=== PATIENT | male | born 1955 | race African-American/Black ===

== ENCOUNTER 2016-12-18 13:03 | Emergency (ER) | payer MEDICAID, MEDICARE ==
[~2016-12-18] VITALS: Ht 177.8 cm; Wt 124.5 kg
[~2016-12-18 13:03] MED LIST: ALBU8.5H2 INHALATION; AMLO5TAB2 PO; ATOR20TA65 PO; FERR325T6 PO; LIPA1CAP64 PO; METF1000 PO; METO100T3 PO; OXYC10TA8 PO; PANT40TA3 PO; POLY17PO6 PO; SERT100T9 PO; TAMS0.4C29 PO; TERA5CAP6 PO
[2016-12-18 13:05] VITALS: BP 170/113; PULSE 108; RESP 20; O2SAT 99
[2016-12-18 14:05] LABS: BASOPHILS % (AUTO) 0.2 % (0-3); EOSINOPHILS % (AUTO) 0.9 % (0-5); MONOCYTES % (AUTO) 13.4 % (4-12); Mean Corpuscular Hemoglobin 22.7 pg (27.0-35.0); Mean Corpuscular Volume 68.4 fL (81-100); NEUTROPHILS % (AUTO) 72.1 % (40-74); Platelet Count 247 bil/L (150-400)
--- NOTE | 2016-12-18 14:33 | DRSVH ---
PROCEDURE: X-RAY CHEST, TWO VIEWS ([id number]) INDICATIONS: CHEST PAIN TECHNIQUE: 2 views of the chest were acquired. COMPARISON: [facility], CR, XR CHEST 1VW (PORTABLE), 11/02/2016, 19:35. FINDINGS: Surgical changes and devices: None. Lungs and pleura: No pleural effusions or pneumothorax. Lungs are clear. Mediastinum: Mediastinal contours are normal. Heart size is normal. Bones and chest wall: No suspicious bony abnormalities. Soft tissues appear unremarkable. IMPRESSION: No acute pulmonary process. Dictated by: Marjan Rubalcava M.D. on 12/18/2016 at 14:32 Approved by: Marjan Rublacava M.D. on 12/18/2016 at 14:32
[2016-12-18 14:48] LABS: TROPONIN T < 0.010 ug/L (0.0-0.011)
[2016-12-18 14:49] LABS: Lipase 119 U/L (13-60); Magnesium 1.5 mg/dL (1.6-2.6)
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
[2016-12-18] MEDS ORDERED: 0.9% Sodium Chloride 1,000 ML IV ONE (15:35)
[2016-12-18] MEDS ORDERED: Ondansetron 2 mg/mL 2 mL Inj IVPUSH PRN (15:35)
[2016-12-18] MEDS ORDERED: Ondansetron 2 mg/mL 2 mL Inj IVPUSH ONE (15:35)
[2016-12-18] MEDS ORDERED: HYDROmorphone 1 mg/mL Inj IVPUSH ONE (15:35)
[2016-12-18] MEDS ORDERED: HYDROmorphone 1 mg/mL Inj IVPUSH PRN (16:35)
[2016-12-18] MEDS ORDERED: ONDA4TAB9 PO (18:08)
[2016-12-18 19:30] LABS: APPEARANCE,URINE HAZY (CLEAR,HAZY); COLOR,URINE YELLOW (YELLOW); PH,URINE 5.5 (5.0-8.0)
[2016-12-18 19:31] LABS: OCCULT BLOOD,URINE TRACE (NEGATIVE); UROBILINOGEN,URINE NORMAL (NORMAL)
[2017-01-17] MEDS ORDERED: ISOS30TA4 PO (15:16)
[2017-01-17] MEDS ORDERED: FUR20 PO (15:16)
[2017-01-17] MEDS ORDERED: MELA5TAB14 PO (15:16)
[2017-01-17] MEDS ORDERED: GABA-500 PO (15:16)
[2017-01-17] MEDS ORDERED: FLUT16SP NS (15:16)
[2017-01-17] MEDS ORDERED: BUPR100T15 PO (15:16)
[2017-01-17] MEDS ORDERED: AMIO200T PO (15:16)
== END 2016-12-18 18:30 | disposition home or self-care (01) ==
LOC: SED 13:03
DX: R07.9 Chest pain, unspecified (principal); K86.1 Other chronic pancreatitis; R42 Dizziness and giddiness; R06.02 Shortness of breath; E11.9 Type 2 diabetes mellitus without complications; I25.10 Atherosclerotic heart disease of native coronary artery without angina pectoris; I10 Essential (primary) hypertension; I48.0 Paroxysmal atrial fibrillation; F43.10 Post-traumatic stress disorder, unspecified; G89.4 Chronic pain syndrome; K21.9 Gastro-esophageal reflux disease without esophagitis; E78.5 Hyperlipidemia, unspecified; F17.200 Nicotine dependence, unspecified, uncomplicated; Z86.018 Personal history of other benign neoplasm; Z95.818 Presence of other cardiac implants and grafts; Z87.828 Personal history of other (healed) physical injury and trauma; Z79.84 Long term (current) use of oral hypoglycemic drugs; Z88.8 Allergy status to other drugs, medicaments and biological substances; Z88.6 Allergy status to analgesic agent
CPT/HCPCS: 36415; 71020; 80053; 81000; 83690; 83735; 83880; 84484; 85025; 93005; 96374; 96375; 99285; J1170; J2405; J7030

== ENCOUNTER 2017-01-20 00:21 | Day surgery (SDC) | payer MEDICAID, MEDICARE ==
[2017-01-20] VITALS (10 sets, daily range): BP systolic 107–176; BP diastolic 68–104; PULSE 66–79; RESP 10–14; O2SAT 98
[~2017-01-20] VITALS: Ht 177.8 cm; Wt 124.0 kg
[~2017-01-20 00:21] MED LIST changes: +AMIO200T PO; +BUPR100T15 PO; +FLUT16SP NS; +FUR20 PO; +GABA-500 PO; +ISOS30TA4 PO; +MELA5TAB14 PO; +ONDA4TAB9 PO
[2017-01-20] MEDS ORDERED: KEPP250T PO (07:28)
[2017-01-20] MEDS ORDERED: TRAM50TA2 PO (07:50)
[2017-01-20] MEDS ORDERED: ONDA4TAB6 PO (07:53)
[2017-01-20] MEDS ORDERED: POLY17PO6 PO (07:53)
[2017-01-20] MEDS ORDERED: METO100T3 PO (07:53)
[2017-01-20] MEDS ORDERED: ATOR20TA PO (07:53)
[2017-01-20] MEDS ORDERED: OXYC-474 PO (07:53)
[2017-01-20] MEDS ORDERED: Heparin 5,000 Units/500 mL NS Premix IV ONE (07:57)
[2017-01-20] MEDS ORDERED: Heparin 1,000 Units/500 mL NS Premix IV ONE (07:57)
[2017-01-20] MEDS ORDERED: HYDROmorphone 2 mg/mL Inj ONE (08:10)
[2017-01-20] MEDS ORDERED: Ondansetron 2 mg/mL 2 mL Inj ONE (08:11)
[2017-01-20] MEDS ORDERED: 0.9% Sodium Chloride 1,000 ML ONE (08:11)
[2017-01-20 08:15] LABS: BASOPHILS % (AUTO) 0.6 % (0-3); EOSINOPHILS % (AUTO) 3.2 % (0-5); MONOCYTES % (AUTO) 13.7 % (4-12); Mean Corpuscular Hemoglobin 23.1 pg (27.0-35.0); Mean Corpuscular Volume 69.7 fL (81-100); NEUTROPHILS % (AUTO) 57.9 % (40-74); Platelet Count 197 bil/L (150-400)
[2017-01-20] MEDS ORDERED: fentaNYL-PF 50 mCg/mL 2 mL Inj ONE (08:39)
[2017-01-20] MEDS ORDERED: Ondansetron 2 mg/mL 2 mL Inj IVPUSH PRN ×2 (09:00→09:25)
[2017-01-20] MEDS ORDERED: HYDROmorphone 2 mg/mL Inj IVPUSH ONE (09:00)
[2017-01-20] MEDS ORDERED: 0.9% Sodium Chloride 250 ML IV PRN (09:21)
[2017-01-20] MEDS ORDERED: 0.9% Sodium Chloride 1,000 ML IV PRN (09:21)
[2017-01-20] MEDS ORDERED: HYDROcodone-APAP 5-325 mg Tablet PO PRN (09:25)
[2017-01-20] MEDS ORDERED: Atropine 1 mg/10 mL (Code) Syringe IVPUSH PRN (09:25)
--- NOTE | 2017-01-20 09:50 | PCM.CVCATH ---
Cardiac Cath Report Date of Service Jan 20, 2017 Primary Indication Persistent chest pain in a patient with history of CAD and spinal tumor. Patient comes in for more definite diagnosis for his chest pain and as well as preoperative assessment prior to possible spinal surgery. Procedure 1. Left heart catheterization 2. Left ventricular angiogram 3. Selective coronary angiogram 4. Right femoral angiogram Procedure Details The patient was brought into the catheterization laboratory. The patient was nothing by mouth since midnight. The patient was prepped and sterilized in the appropriate fashion. Local anesthetic was given to the right groin region with lidocaine 1%. A percutaneous stick to the right groin region with an 18-gauge Seldinger needle was attempted. A 6 [place] sheath was inserted into the right femoral artery. A 6 [place] 4 diagnostic catheter was advanced and engaged into the left main. The left coronary angiography was performed in multiple views. The catheter was exchanged over the wire for a 6 [place] FR4 diagnostic catheter. The catheter was engaged in the right coronary ostium and the right coronary angiography was performed in multiple views. The catheter was removed over the wire and exchanged for 6 [place] angle pigtail catheter. LV hemodynamics were recorded. Left ventricular angiography was performed at 10 mL /s for total 30 mL of contrast. LV pullback was performed. All catheters were removed. The right femoral angiogram was performed to evaluate for closure device. Hemostasis was obtained with starclose. The patient was transferred back to special observation unit for post procedural monitoring. There were no immediate complications. Total fluoroscopy time: 4.4 minutes Total fluoroscopy dosage: 1293 mGy Estimated blood loss: 10 mL Total contrast: 115 mL Findings 1. Hemodynamics: The left ventricular systolic pressure was estimated at 120 mmHg and the left ventricular end-diastolic pressure was estimated at 14 mmHg. There is no significant gradient during pullback. The aortic systemic pressure was 126/74 mmHg. 2. Selective coronary angiography: A. Left main: There artery has no evidence of significant disease. It bifurcates into the left anterior and left circumflex arteries. B. Left anterior descending artery: The proximal LAD stent is widely patent. Beyond the first major septal artery there is a 30-40% stenosis. Otherwise distally there is no significant disease. All 3 major diagonal arteries have no evidence of significant disease. C. Left circumflex artery: This is a nondominant artery but does supply most of the coronary flow to the lateral wall. There is no evidence of significant disease. There is only mild luminal irregularities. D. Right coronary artery: There is at least moderate diffuse disease throughout entire right coronary artery. It is the dominant vessel. There appears to be a stent in the proximal midportion that is widely patent. At most in the mid RCA there is a 50% stenosis. Posterior descending artery has moderate diffuse disease. There are multiple posterior lateral branch arteries that covers a small portion of the inferolateral wall. The proximal of a distal posterolateral branch artery has 90% stenosis but the size of the vessel is ~1.5 mm. 3. Left ventricular angiogram: The ejection fraction is around 70%. There is no appreciable LV wall motion abnormalities. 4. Right femoral angiogram: There is no evidence of significant disease. Summary 1. No evidence of critical disease that requires percutaneous intervention. 2. Right coronary has significant disease but no evidence of critical stenosis. A distal posterolateral branch small size artery has 90% stenosis. 3. Both the right coronary and left anterior descending stents are widely patent. 4. Normal LVEF and wall motion. 5. Normal left ventricular filling pressures. Recommendations Continue with aggressive medical therapy. START Imdur 30 mg once a day. Patient may follow with me in about 6-8 weeks. Patient should be fine to proceed with surgery if necessary. Patient was given reassurance that his chest pain is most likely noncardiogenic. copies to: Effie Barros Oscar J MD Jan 20, 2017 09:50
== END 2017-01-20 23:59 | disposition home or self-care (01) ==
LOC: SOUO 00:21
PROVIDERS: ATTEND Internal Medicine Cardiovascular Disease
DX: Z01.810 Encounter for preprocedural cardiovascular examination (principal); I25.10 Atherosclerotic heart disease of native coronary artery without angina pectoris; Z95.5 Presence of coronary angioplasty implant and graft; D36.10 Benign neoplasm of peripheral nerves and autonomic nervous system, unspecified; I25.2 Old myocardial infarction; E11.9 Type 2 diabetes mellitus without complications; I10 Essential (primary) hypertension; N40.0 Benign prostatic hyperplasia without lower urinary tract symptoms; I48.0 Paroxysmal atrial fibrillation; D50.8 Other iron deficiency anemias; F17.210 Nicotine dependence, cigarettes, uncomplicated; G89.4 Chronic pain syndrome; Z79.891 Long term (current) use of opiate analgesic; Z79.84 Long term (current) use of oral hypoglycemic drugs
CPT/HCPCS: 36415; 80048; 85025; 93458; 99152; 99153; C1760; C1769; J1170; J1200; J1644; J2060; J2250; J2405; J3010; J7030; Q9967

== ENCOUNTER 2017-01-29 11:05 | Emergency (ER) | payer MEDICAID, MEDICARE ==
[~2017-01-29] VITALS: Ht 177.8 cm; Wt 124.5 kg
[~2017-01-29 11:05] MED LIST changes: -AMLO5TAB2 PO; +ATOR20TA PO; -ATOR20TA65 PO; -BUPR100T15 PO; -GABA-500 PO; +KEPP250T PO; -LIPA1CAP64 PO; -MELA5TAB14 PO; +ONDA4TAB6 PO; -ONDA4TAB9 PO; +OXYC-474 PO; -OXYC10TA8 PO; +TRAM50TA2 PO
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
[2017-01-29 11:30] VITALS: BP 209/139; PULSE 77; RESP 23; O2SAT 99
[2017-01-29] MEDS ORDERED: Ondansetron 2 mg/mL 2 mL Inj IVPUSH ONE (11:50)
--- NOTE | 2017-01-29 12:09 | DRSVH ---
PROCEDURE: X-RAY CHEST ONE VIEW, PORTABLE ([id number]) INDICATIONS: chest pain TECHNIQUE: One view of the chest was acquired. COMPARISON: [facility], CR, XR CHEST 1VW (PORTABLE), 11/02/2016, 19:35. FINDINGS: Surgical changes and devices: None. Lungs and pleura: The small right-sided pleural fluid collection noted. No or pneumothorax. Lungs a re clear. Mediastinum: Mediastinal contours appear normal. Heart size is normal. Bones and chest wall: No suspicious bony lesions. Overlying soft tissues appear unremarkable. IMPRESSION: Small right-sided pleural fluid collection. Dictated by: Lala Velazquez MD, PhD on 01/29/2017 at 12:06 Approved by: Lala Velazquez MD, PhD on 01/29/2017 at 12:07
[2017-01-29 12:11] LABS: BASOPHILS % (AUTO) 0.3 % (0-3); EOSINOPHILS % (AUTO) 2.8 % (0-5); MONOCYTES % (AUTO) 14.5 % (4-12); Mean Corpuscular Hemoglobin 23.4 pg (27.0-35.0); Mean Corpuscular Volume 70.3 fL (81-100); NEUTROPHILS % (AUTO) 68.9 % (40-74); Platelet Count 207 bil/L (150-400)
[2017-01-29] MEDS ORDERED: LidocaineVisc 2%:Antacid 1:1 10 mL Syringe PO ONE (12:20)
[2017-01-29 12:29] LABS: TROPONIN T 0.01 ug/L (0.0-0.011)
[2017-01-29 12:42] LABS: Magnesium 1.8 mg/dL (1.6-2.6)
[2017-01-29 13:09] VITALS: BP 196/106; PULSE 77; RESP 20; O2SAT 97
[2017-01-29 15:01] VITALS: BP 181/104; PULSE 74; RESP 16; O2SAT 96
[2017-01-30] MEDS ORDERED: DOXY100C43 PO (18:00)
== END 2017-01-29 15:02 | disposition home or self-care (01) ==
LOC: SED 11:05
DX: R07.9 Chest pain, unspecified (principal); J18.9 Pneumonia, unspecified organism; D36.10 Benign neoplasm of peripheral nerves and autonomic nervous system, unspecified; E11.9 Type 2 diabetes mellitus without complications; K21.9 Gastro-esophageal reflux disease without esophagitis; E78.5 Hyperlipidemia, unspecified; I10 Essential (primary) hypertension; I48.0 Paroxysmal atrial fibrillation; G89.29 Other chronic pain; F17.210 Nicotine dependence, cigarettes, uncomplicated; Z87.828 Personal history of other (healed) physical injury and trauma; Z95.5 Presence of coronary angioplasty implant and graft; Z87.448 Personal history of other diseases of urinary system; Z79.51 Long term (current) use of inhaled steroids; Z79.84 Long term (current) use of oral hypoglycemic drugs; Z88.6 Allergy status to analgesic agent; Z88.8 Allergy status to other drugs, medicaments and biological substances
CPT/HCPCS: 36415; 71010; 80053; 82948; 83735; 84484; 85025; 90791; 93005; 96365; 96372; 96375; 99285; J2405

== ENCOUNTER 2017-01-30 14:21 | Emergency (ER) | payer MEDICAID, MEDICARE ==
[~2017-01-30] VITALS: Ht 177.8 cm; Wt 124.5 kg
[2017-01-30 14:27] VITALS: BP 179/106; PULSE 87; RESP 18; O2SAT 98
[2017-01-30 14:45] VITALS: BP 196/112; PULSE 80; RESP 18; O2SAT 97
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
[2017-01-30] MEDS ORDERED: Ondansetron 2 mg/mL 2 mL Inj IVPUSH ONE (15:40)
[2017-01-30] MEDS ORDERED: HYDROmorphone 0.5 mg/0.5 mL iSecure Syringe IVPUSH ONE (15:50)
[2017-01-30 15:59] LABS: BASOPHILS % (AUTO) 0.3 % (0-3); MONOCYTES % (AUTO) 11.4 % (4-12); Mean Corpuscular Hemoglobin 22.5 pg (27.0-35.0); Mean Corpuscular Volume 70.9 fL (81-100); NEUTROPHILS % (AUTO) 75.4 % (40-74); Platelet Count 208 bil/L (150-400)
[2017-01-30 16:21] LABS: INR 0.96 ratio
[2017-01-30 16:28] LABS: TROPONIN T < 0.010 ug/L (0.0-0.011)
--- NOTE | 2017-01-30 16:31 | DRSVH ---
PROCEDURE: X-RAY CHEST, TWO VIEWS ([id number]) INDICATIONS: chest pain TECHNIQUE: 2 views of the chest were acquired. COMPARISON: [facility], CR, XR CHEST 1VW (PORTABLE), 01/29/2017, 11:56. [facility], CR, XR CHEST 2VW, 12/18/2016, 13:58. [facility], CR, XR CHEST 2VW, 05/06/2016, 14: 08. [facility], CR, XR CHEST 2VW, 04/08/2016, 7:38. FINDINGS: Surgical changes and devices: None. Lungs and pleura: No pleural effusions or pneumothorax. Lungs are clear. Mediastinum: Mediastinal contours are normal. Heart size is normal. Bones and chest wall: No suspicious bony abnormalities. Soft tissues appear unremarkable. IMPRESSION: No acute process. Dictated by: Felisha Garcia M.D. on 01/30/2017 at 16:30 Approved by: Felisha Garcia M.D. on 01/30/2017 at 16:30
[2017-01-30 16:37] LABS: Magnesium 1.8 mg/dL (1.6-2.6)
--- NOTE | 2017-01-30 16:41 | DRSVH ---
PROCEDURE: CT ANGIO CHEST PULMONARY EMBOLISM ([id number]) INDICATIONS: chest pain TECHNIQUE: After the administration of intravenous contrast, 2 mm thick sections acquired from the pulmonary api rachel to the posterior costophrenic angles. 3-dimensional maximum intensity projection (MIP) coronal a nd sagittal reformats were then acquired through the thorax. For radiation dose reduction, the follo wing was used: automated exposure control, adjustment of mA and/or kV according to patient size. COMPARISON: [facility], CT, CT ANGIO CHEST PE, 09/29/2016, 22:39. [facility], CT, CT ANGIO CHEST PE, 07/02/2015, 20:46. [facility], CT, CHEST ANGIO-PE, 06/19/2014, 1 7:11. [facility], CT, CT ANGIO CHEST ABD, 11/02/2016, 21:07. FINDINGS: Image quality: Excellent. Pulmonary arteries: Pulmonary arteries are normal in size, and demonstrate no intraluminal filling d efects to suggest central pulmonary embolism. Lungs and pleura: Moderate scattered ground glass densities are seen within the bilateral upper lobes , consistent with pneumonia. The previously seen nodule within the right upper lobe posterolaterally measuring 9 mm is unchanged. No pleural effusions or pneumothorax. Central and peripheral airways ar e patent. Mediastinum: Heart size is enlarged, without pericardial effusion. There is calcification of the co ronary vasculature. No mediastinal or hilar adenopathy. Thoracic aorta is normal in caliber and enha ncement. Esophagus is normal in caliber, without hiatal hernia. The previously seen right paraspino us mass at the T4-T5 level it has increased in size measuring 27 mm transverse (previously measuring 24 mm transverse). Bones and chest wall: No suspicious bony lesions. Ribs and thoracic spine appear intact throughout. Thyroid gland is within normal limits on noncontrast imaging. No axillary or supraclavicular adeno francesco. Abdomen: Visualized portions of the upper abdomen demonstrate a nodular hepatic contour, indicating cirrhosis. IMPRESSION: 1. Mild multifocal bilateral upper lobe pneumonia. 2. No pulmonary embolus. 3. Increased right paraspinous T4-T5 reason, consistent with neurogenic tumor. This could be further assessed with MRI with and without intravenous contrast, if clinically indicated. 4. Cardiomegaly and coronary artery disease. Dictated by: Felisha Garcia M.D. on 01/30/2017 at 16:36 Approved by: Felisha Garcia M.D. on 01/30/2017 at 16:39
[2017-01-30] MEDS ORDERED: ProchlorPERazine 5 mg/mL 2 mL Inj IM ONE (16:55)
[2017-01-30] MEDS ORDERED: cefTRIAXone Inj 1,000 MG in Dextrose 5% Minibag Plus 50 ML IV ONE (17:10)
[2017-01-30 17:56] VITALS: BP 206/114; PULSE 68; RESP 18; O2SAT 97
[2017-01-30] MEDS ORDERED: DOXY100C43 PO (18:00)
[2017-01-30 18:07] VITALS: BP 206/114; PULSE 68; RESP 18; O2SAT 97
== END 2017-01-30 18:10 | disposition home or self-care (01) ==
LOC: SED 14:21
DX: R07.9 Chest pain, unspecified (principal); J18.9 Pneumonia, unspecified organism; D36.10 Benign neoplasm of peripheral nerves and autonomic nervous system, unspecified; E11.9 Type 2 diabetes mellitus without complications; I25.10 Atherosclerotic heart disease of native coronary artery without angina pectoris; I10 Essential (primary) hypertension; G89.4 Chronic pain syndrome; K21.9 Gastro-esophageal reflux disease without esophagitis; E78.5 Hyperlipidemia, unspecified; Z79.84 Long term (current) use of oral hypoglycemic drugs; F17.200 Nicotine dependence, unspecified, uncomplicated; Z88.6 Allergy status to analgesic agent; Z88.8 Allergy status to other drugs, medicaments and biological substances
CPT/HCPCS: 36415; 71020; 71275; 80053; 82948; 83735; 83880; 84484; 85025; 85610; 85730; 93005; 96365; 96372; 96375; 99285; J0696; J0780; J1170; J1200; J2405; Q9967

== ENCOUNTER 2017-02-08 12:10 | Emergency (ER) | payer MEDICAID, MEDICARE ==
[~2017-02-08] VITALS: Ht 177.8 cm; Wt 124.5 kg
[~2017-02-08 12:10] MED LIST changes: +DOXY100C43 PO; -FERR325T6 PO; -FLUT16SP NS
[2017-02-08 12:14] VITALS: BP 204/120; PULSE 81; RESP 18; O2SAT 99
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
[2017-02-08] MEDS ORDERED: HYDROmorphone 1 mg/mL Inj IM ONE (13:15)
[2017-02-08] MEDS ORDERED: Ondansetron 8 mg ODT Tablet PO ONE (13:15)
--- NOTE | 2017-02-08 13:34 | DRSVH ---
PROCEDURE: X-RAY CHEST ONE VIEW, PORTABLE ([id number]) INDICATIONS: CHEST PAIN TECHNIQUE: One view of the chest was acquired. COMPARISON: [facility], CR, XR CHEST 2VW, 01/30/2017, 16:13. FINDINGS: Surgical changes and devices: None. Lungs and pleura: No pleural effusions or pneumothorax. Low lung volumes and scattered atelectasis w ithout focal consolidation. Mediastinum: Mediastinal contours appear normal. Heart size is normal. Bones and chest wall: No suspicious bony lesions. Overlying soft tissues appear unremarkable. IMPRESSION: Low lung volumes and scattered atelectasis Dictated by: Ronal Kenney M.D. on 02/08/2017 at 13:32 Approved by: Ronal Kenney M.D. on 02/08/2017 at 13:32
[2017-02-08 14:05] LABS: BASOPHILS % (AUTO) 0.6 % (0-3); EOSINOPHILS % (AUTO) 2.1 % (0-5); MONOCYTES % (AUTO) 15.1 % (4-12); Mean Corpuscular Hemoglobin 23.2 pg (27.0-35.0); NEUTROPHILS % (AUTO) 59.3 % (40-74); Platelet Count 257 bil/L (150-400)
[2017-02-08 14:28] LABS: TROPONIN T < 0.010 ug/L (0.0-0.011)
[2017-02-08 14:37] LABS: Magnesium 1.8 mg/dL (1.6-2.6)
[2017-02-08 14:54] VITALS: BP 194/113; PULSE 78; RESP 20; O2SAT 98
[2017-02-08] MEDS ORDERED: HYDROmorphone 0.5 mg/0.5 mL iSecure Syringe IVPUSH ONE (15:15)
[2017-02-08] MEDS ORDERED: AMLO2.5T PO (16:34)
[2017-02-08 16:50] VITALS: BP 152/79; PULSE 79; RESP 18; O2SAT 98
== END 2017-02-08 16:51 | disposition home or self-care (01) ==
LOC: SED 12:10
DX: R07.89 Other chest pain (principal); G89.29 Other chronic pain; R06.02 Shortness of breath; R61 Generalized hyperhidrosis; R05 Cough; R11.0 Nausea; R50.9 Fever, unspecified; I11.9 Hypertensive heart disease without heart failure; E11.59 Type 2 diabetes mellitus with other circulatory complications; I48.0 Paroxysmal atrial fibrillation; I25.10 Atherosclerotic heart disease of native coronary artery without angina pectoris; E78.5 Hyperlipidemia, unspecified; K21.9 Gastro-esophageal reflux disease without esophagitis; F17.200 Nicotine dependence, unspecified, uncomplicated; Z79.84 Long term (current) use of oral hypoglycemic drugs; Z88.8 Allergy status to other drugs, medicaments and biological substances
CPT/HCPCS: 36415; 71010; 80053; 83735; 84484; 85025; 93005; 96372; 96374; 99285; J1170

== ENCOUNTER 2017-02-14 21:06 | Emergency (ER) | payer MEDICAID, MEDICARE ==
[~2017-02-14] VITALS: Ht 177.8 cm; Wt 124.5 kg
[~2017-02-14 21:06] MED LIST changes: +AMLO2.5T PO
[2017-02-14 21:15] VITALS: BP 159/91; PULSE 79; RESP 16; O2SAT 100
== END 2017-02-14 21:31 | disposition left against medical advice (07) ==
LOC: SED 21:06
DX: R07.9 Chest pain, unspecified (principal); Z53.21 Procedure and treatment not carried out due to patient leaving prior to being seen by health care provider

== ENCOUNTER 2017-02-20 19:12 | Emergency (ER) | payer MEDICAID, MEDICARE ==
[~2017-02-20] VITALS: Ht 177.8 cm; Wt 124.5 kg
[2017-02-20 19:14] VITALS: BP 166/106; PULSE 104; RESP 18; O2SAT 99
[2017-02-20 19:56] LABS: BASOPHILS % (AUTO) 1.8 % (0-3); EOSINOPHILS % (AUTO) 2.9 % (0-5); MONOCYTES % (AUTO) 16.2 % (4-12); Mean Corpuscular Hemoglobin 23.6 pg (27.0-35.0); Mean Corpuscular Volume 71.5 fL (81-100); NEUTROPHILS % (AUTO) 54.2 % (40-74); Platelet Count 200 bil/L (150-400)
--- NOTE | 2017-02-20 20:03 | DRSVH ---
PROCEDURE: X-RAY CHEST ONE VIEW, PORTABLE ([id number]) INDICATIONS: CP TECHNIQUE: One view of the chest was acquired. COMPARISON: [facility], CT, CT ANGIO CHE[facility]BD, [facility]02[facility], 01/30/2017, 16:13. [facility], CR, XR CHEST 1VW (PORTABLE), 02/09/20 17, 12:21. FINDINGS: Surgical changes and devices: None. Lungs and pleura: No pleural effusions or pneumothorax. Lungs are clear of acute opacities. Scarri ng in the right lung base is stable compared to prior examinations. Mediastinum: Mediastinal contours appear normal. Heart size is normal. Bones and chest wall: No suspicious bony lesions. Overlying soft tissues appear unremarkable. IMPRESSION: No acute cardiopulmonary disease process. Dictated by: Lala Velazquez MD, PhD on 02/20/2017 at 20:00 Approved by: Lala Velazquez MD, PhD on 02/20/2017 at 20:02
[2017-02-20 20:18] LABS: TROPONIN T < 0.010 ug/L (0.0-0.011)
[2017-02-20] MEDS ORDERED: Ondansetron 2 mg/mL 2 mL Inj ONE ×2 (20:23→20:26)
[2017-02-20] MEDS ORDERED: Ondansetron 2 mg/mL 2 mL Inj IVPUSH ONE (20:25)
[2017-02-20 20:27] LABS: Magnesium 1.7 mg/dL (1.6-2.6)
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
[2017-02-20 22:59] VITALS: BP 160/100; PULSE 75; RESP 15; O2SAT 98
== END 2017-02-20 23:00 | disposition home or self-care (01) ==
LOC: SED 19:12
DX: R07.89 Other chest pain (principal); R19.7 Diarrhea, unspecified; R11.2 Nausea with vomiting, unspecified; I25.10 Atherosclerotic heart disease of native coronary artery without angina pectoris; E11.9 Type 2 diabetes mellitus without complications; I10 Essential (primary) hypertension; I48.0 Paroxysmal atrial fibrillation; F43.10 Post-traumatic stress disorder, unspecified; G89.4 Chronic pain syndrome; K86.1 Other chronic pancreatitis; K21.9 Gastro-esophageal reflux disease without esophagitis; E78.5 Hyperlipidemia, unspecified; F17.200 Nicotine dependence, unspecified, uncomplicated; Z95.818 Presence of other cardiac implants and grafts; Z86.018 Personal history of other benign neoplasm; Z87.19 Personal history of other diseases of the digestive system; Z87.828 Personal history of other (healed) physical injury and trauma; Z79.84 Long term (current) use of oral hypoglycemic drugs; Z88.8 Allergy status to other drugs, medicaments and biological substances; Z88.6 Allergy status to analgesic agent
CPT/HCPCS: 36415; 71010; 80053; 83735; 84484; 85025; 87493; 93005; 96374; 99285; J2405

== ENCOUNTER 2017-02-23 18:36 | Emergency (ER) | payer MEDICAID, MEDICARE ==
[~2017-02-23] VITALS: Ht 177.8 cm; Wt 124.5 kg
[~2017-02-23 18:36] MED LIST changes: +AMLO5TAB2 PO; +ATOR20TA65 PO; +BUPR100T15 PO; +FERR325T6 PO; +FLUT16SP NS; +GABA-500 PO; +LIPA1CAP64 PO; +MELA5TAB14 PO; +ONDA4TAB9 PO; +OXYC10TA8 PO
[2017-02-23 18:41] VITALS: BP 132/85; PULSE 88; RESP 16; O2SAT 99
[2017-02-23] MEDS ORDERED: Ondansetron 2 mg/mL 2 mL Inj ONE (19:18)
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
[2017-02-23 19:30] VITALS: BP 128/78; PULSE 80; RESP 16; O2SAT 97
[2017-02-23 19:41] LABS: BASOPHILS % (AUTO) 0.9 % (0-3); EOSINOPHILS % (AUTO) 4.1 % (0-5); MONOCYTES % (AUTO) 11.2 % (4-12); Mean Corpuscular Hemoglobin 24.3 pg (27.0-35.0); Mean Corpuscular Volume 72.5 fL (81-100); NEUTROPHILS % (AUTO) 58.7 % (40-74); Platelet Count 195 bil/L (150-400)
[2017-02-23] MEDS: HYDROmorphone 0.5 mg/0.5 mL iSecure Syringe IVPUSH PRN ×3 (19:49→23:14)
[2017-02-23 20:10] LABS: TROPONIN T < 0.010 ug/L (0.0-0.011)
[2017-02-23 20:12] LABS: Magnesium 1.5 mg/dL (1.6-2.6)
[2017-02-23 22:30] VITALS: BP 117/69; PULSE 77; RESP 14; O2SAT 97
[2017-02-23] MEDS ORDERED: Promethazine Inj 12.5 MG in Dextrose 5%-Pha MIX 50 ML IV ONE (23:05)
[2017-02-24] MEDS: HYDROmorphone 0.5 mg/0.5 mL iSecure Syringe IVPUSH PRN (00:24)
[2017-02-24] MEDS ORDERED: HYDROmorphone 1 mg/mL Inj IVPUSH ONE (00:50)
[2017-02-24 01:06] VITALS: BP 120/86; PULSE 76; RESP 12; O2SAT 96
== END 2017-02-24 01:10 | disposition home or self-care (01) ==
LOC: SED 18:36
DX: R07.89 Other chest pain (principal); D33.4 Benign neoplasm of spinal cord; R06.02 Shortness of breath; I25.10 Atherosclerotic heart disease of native coronary artery without angina pectoris; I10 Essential (primary) hypertension; E11.9 Type 2 diabetes mellitus without complications; K21.9 Gastro-esophageal reflux disease without esophagitis; E78.5 Hyperlipidemia, unspecified; K85.90 Acute pancreatitis without necrosis or infection, unspecified; I48.0 Paroxysmal atrial fibrillation; F17.200 Nicotine dependence, unspecified, uncomplicated; Z95.818 Presence of other cardiac implants and grafts; Z87.828 Personal history of other (healed) physical injury and trauma; Z79.84 Long term (current) use of oral hypoglycemic drugs; Z79.891 Long term (current) use of opiate analgesic; Z88.8 Allergy status to other drugs, medicaments and biological substances; Z88.6 Allergy status to analgesic agent
CPT/HCPCS: 36415; 80053; 83735; 84484; 85025; 85379; 93005; 96374; 96375; 96376; 99285; J1170; J2405; J2550

== ENCOUNTER 2017-02-24 18:23 | Emergency (ER) | payer MEDICAID, MEDICARE ==
[~2017-02-24] VITALS: Ht 177.8 cm; Wt 124.5 kg
[~2017-02-24 18:23] MED LIST changes: -AMLO5TAB2 PO; -ATOR20TA65 PO; -BUPR100T15 PO; -FERR325T6 PO; -FLUT16SP NS; -GABA-500 PO; -LIPA1CAP64 PO; -MELA5TAB14 PO; -ONDA4TAB9 PO; -OXYC10TA8 PO
[2017-02-24 18:32] VITALS: BP 153/93; PULSE 78; RESP 18; O2SAT 99
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
== END 2017-02-24 22:18 | disposition home or self-care (01) ==
LOC: SED 18:23
DX: R07.89 Other chest pain (principal); R10.9 Unspecified abdominal pain; K62.5 Hemorrhage of anus and rectum; I48.0 Paroxysmal atrial fibrillation; I25.10 Atherosclerotic heart disease of native coronary artery without angina pectoris; I10 Essential (primary) hypertension; E11.9 Type 2 diabetes mellitus without complications; K21.9 Gastro-esophageal reflux disease without esophagitis; E78.5 Hyperlipidemia, unspecified; F17.200 Nicotine dependence, unspecified, uncomplicated; Z95.5 Presence of coronary angioplasty implant and graft; Z88.6 Allergy status to analgesic agent; Z79.84 Long term (current) use of oral hypoglycemic drugs
CPT/HCPCS: 87507; 93005; 99284; Q0169

== ENCOUNTER 2017-03-23 15:31 | Observation (INO) | payer MEDICAID, MEDICARE ==
[2017-03-23] VITALS (7 sets, daily range): BP systolic 102–196; BP diastolic 69–128; PULSE 73–97; RESP 18–20; O2SAT 96–100
[~2017-03-23] VITALS: Ht 177.8 cm; Wt 120.5 kg
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
[2017-03-23 16:09] LABS: BASOPHILS % (AUTO) 0.9 % (0-3); EOSINOPHILS % (AUTO) 1.5 % (0-5); MONOCYTES % (AUTO) 13.3 % (4-12); Mean Corpuscular Hemoglobin 25.7 pg (27.0-35.0); NEUTROPHILS % (AUTO) 56.8 % (40-74); Platelet Count 174 bil/L (150-400)
--- NOTE | 2017-03-23 16:11 | DRSVH ---
PROCEDURE: X-RAY CHEST ONE VIEW, PORTABLE ([id number]) INDICATIONS: Chest pain TECHNIQUE: One view of the chest was acquired. COMPARISON: [facility], CR, XR CHEST 1VW (PORTABLE), 02/08/2017, 12:21[facility]ST 2VW, 01/30/2017, 16:13. [facility], CR, XR CHEST 1VW (PORTABLE), 01/30, 19:50. FINDINGS: Surgical changes and devices: None. Lungs and pleura: No pleural effusions or pneumothorax. Lungs are clear of acute opacities. Right b asilar scarring is stable compared to prior examinations. Mediastinum: Mediastinal contours appear normal. Heart size is normal. Bones and chest wall: No suspicious bony lesions. Overlying soft tissues appear unremarkable. IMPRESSION: No acute cardiopulmonary disease process. Dictated by: Lala Velazquez MD, PhD on 03/23/2017 at 16:09 Approved by: Lala Velazquez MD, PhD on 03/23/2017 at 16:10
[2017-03-23] MEDS ORDERED: Ondansetron 2 mg/mL 2 mL Inj IVPUSH ONE (16:20)
[2017-03-23 16:46] LABS: Magnesium 1.6 mg/dL (1.6-2.6)
[2017-03-23 16:57] LABS: TROPONIN T < 0.010 ug/L (0.0-0.011)
[2017-03-23] MEDS ORDERED: Alum-Mag Hydrox-Simeth 30 mL Suspension PO PRN (17:30)
--- NOTE | 2017-03-23 17:33 | PCM.HPMED ---
Subjective Date of Service Mar 23, 2017 Primary Provider: Admitting Physician: Primary Care Physician: Effie Barros DO Attending Physician: Admit Status: From the Emergency Department Chief Complaint: Chest pain History of Present Illness: 61-year-old pleasant -Citizen Of [place] male with past medical history of CAD status post 2 stents in 2001 and 2006, and new cath That was just recently done in January 2017 w/o stents, history of GI bleed, chronic pain, on pain contract , paroxysmal atrial fibrillation, diabetes mellitus type II, hyperlipidemia, hypertension, avascular necrosis of both hips presenting to the ER with chest pain that has been ongoing since 2:30 PM today he states that is over the left anterior chest wall with radiation to neck though he does admit to chronic pain that is musculoskeletal in nature he says the pain also radiates around his ribs on the left side he does not recall doing any strenuous physical activity. Pain is stabbing and sharp in nature. Pain is constant in nature and ongoing since 2:30 PM and only slightly got better with Dilaudid in the ER. currently he rates it as 7 out of 10 in the room. In the room patient appeared to be in no acute distress, says that he is comfortable in his bed and eating his burger for supper. He denies shortness of breath Review of systems is positive for occasional hematochezia, headaches, dyspnea, recent fevers (he admits to having chills however), negative for urinary symptoms. In the ER his blood pressure was elevated at 196/128 other vitals are stable his lab work is fairly unremarkable. Chest x-ray was not acute. EKG showed no ST changes that are acute, LVH was noted sinus rhythm at 91. Initial troponin was negative BNP was not elevated BP at the time of admission to the floor is much improved. Note an echo that was done in October 2016 showed 55% EF, moderate severe left ventricular hypertrophy, basal posterior lateral wall hypokinesis, basal inferior wall akinesis. Patient says Dr. abreu for cardiology, he was contacted by the ER. Dr. abreu felt that patient should be admitted without heparin drip, for a troponin rule out. Patient is admitted to the Green team .ACS rule out Review of Systems: Review of systems negative except as stated in the history of present illness. Allergies Coded Allergies: lisinopril (Verified Allergy, Severe, HIVES,SWELLING, 3/26/17) hydroxyzine (Verified Adverse Reaction, Severe, EDEMA, 02/23/17) acetaminophen (Verified Adverse Reaction, Intermediate, Nausea,Vomiting, ) nitroglycerin (Verified Adverse Reaction, Intermediate, tongue swelling, h /a, 02/23/17) aspirin (Verified Adverse Reaction, Unknown, recurrent gastric bleeds, ) hydralazine (Verified Adverse Reaction, Unknown, feet swelling, dizzy, ) PMH Remarkable for CAD status post 2 stents, history of GI bleed, dementia at once, BPH, chronic pain, paroxysmal A. fib, diabetes mellitus type II, hyperlipidemia , hypertension, pancreatitis, elevated avascular necrosis, herniated disks, falls Surgical History Remarkable for hemorrhoidectomy, colonoscopy, and coronary stents, cholecystectomy, tonsillectomy, inguinal hernia repair Social History Occupation: retired [employer] Hx Alcohol Use: Yes ("very little") Hx Substance Use: No Hx Tobacco Use: Yes Smoking Status: Current Every Day Smoker Living Arrangement: Alone Exam Vital Signs Vital Sign - Last Date Time Temp Pulse Resp B/P Pulse Ox O2 Delivery O2 Flow Rate FiO2 03/23/17 15:34 36.1 97 20 196/128 100 Room Air Exam General: NAD, sitting up in bed eating supper HEENT: NCAT Eyes: [place] conjunctivae. No ptosis, Neck: No masses, trachea midline, no thyromegaly Lungs: CTA with normal respiratory effort, no crackles or wheezes CV: RRR, no murmurs/rubs/gallops, GI: Soft, non-tender with no hepatosplenomegaly MSK: Reproducible chest wall pain on the left side, posterior cervical spine. Range of motion is limited in rotation towards the right, no digital cyanosis Skin: Warm and dry. Psych: A&O X3, with appropriate affect Neurological, negative for focal deficits Lab and Diagnostics Result Diagram: 03/23/17 1558 03/23/17 1558 Assessment & Plan Acute diagnosis: Chest pain, , present on admission:: Reproducible pain ongoing for several hours today, unlikely Cardiac, patient just had a cath procedure in January 2017 during which no stenting was done. His echo from 2015 has no findings of heart failure. He does smoke 3 packs per day. His BMI is added risk factor -- Trend troponins and cardiac enzymes -- EKG in the morning -- Telemonitoring -- Aspirin daily ( I discussed this with patient. He has a steady dose in the ER in spite of his allergy and tolerated it well. He does have GI bleed history but in light of his cardiac history, we discussed reasonable risks of taking aspirin in the setting and he is agreeable to it for this admission.) -- Morphine 4 mg every 4 hours when necessary -- His allergy to nitroglycerin, will continue his home medication -- The patient with Dr. abreu recommendations, did not order echo for stress test for tomorrow per his recommendation -- We will hold enoxaparin as he says he is a high-risk for bleeding Chronic diagnosis #1 hypertension: Continue home meds #2 CAD: Continue meds #3 BPH: Continue home meds #4: Depression/anxiety: Continue meds #5 hyperlipidemia: Continue meds #6 paroxysmal A. fib: Patient was taken off of warfarin 2 years ago by PCP, appears to be due to bleeding risk #7 diabetes mellitus: Continue home medication metformin #8 gastritis: Continue medications CODE STATUS Full full code Alternate decision-maker: Patient says he has no family members or friends who can make decision, he wants the medical care providers to decide for him IV fluids hep-locked Diet cardiac DVT prophylaxis: SCDs ( chemical prophylaxis is held due to bleeding risk) GI Prophylaxis: Proton Pump Inhibitor VTE Prophylaxis: Other (bleeding risk) Resuscitation Status: CPR: Attempt Resuscitation Elis Rojas DO Mar 23, 2017 17:33
[2017-03-23] MEDS ORDERED: MeTOProlol 1 mg/mL 5 mL Inj IVPUSH PRN (17:35)
[2017-03-23] MEDS ORDERED: HYDROmorphone 1 mg/mL Inj IV PRN (17:35)
[2017-03-23] MEDS ORDERED: Polyethylene Glycol (PEG) 17 Gm Powder PO PRN (17:35)
[2017-03-23] MEDS: Sodium Chloride LOK Flush 10 mL Syringe IVFLUSH SCH (18:43)
--- NOTE | 2017-03-23 19:01 | NUR ---
Admit Pt admitted to [facility] room 3007 from ED, report received from Sarahi WORTHY. Pt alert and oriented x 3, IV in right ac-patent, able to ambulate from stretcher to scale then to bed, steady gait observed. Admit completed except for medication reconciliation, which was passed to NOC shift to sent fax to pharmacy. Pt currently in bed eating dinner with out issue. Continue to monitor, intentional rounding.
[2017-03-23] MEDS ORDERED: Albuterol 2.5 mg/3 mL Inhalation Solution NEB PRN (19:20)
--- NOTE | 2017-03-23 21:09 | NUR ---
SHIMON explained and signed. Copy of SHIMON and Medicare self administered medication information given to pt.
[2017-03-23 22:10] LABS: Creatine Kinase 93 U/L (21-232)
[2017-03-24] VITALS (13 sets, daily range): BP systolic 103–216; BP diastolic 64–125; PULSE 65–78; RESP 20–22; O2SAT 97–100
[2017-03-24] MEDS: Sodium Chloride LOK Flush 10 mL Syringe IVFLUSH SCH ×4 (00:26→22:36)
--- NOTE | 2017-03-24 04:52 | NUR ---
Chest pain: Pt reports chest pain continuous at 7/10 to left chest, denies nausea, shortness of breath, diaphoresis. States pain increases with deep breathing. 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 Medicated with 4 mg Morphine IV every 4 hours through the night at pt's request. Has not been able to get much sleep thus far tonight. States pain level decreases to a 5/10 with medication only briefly. Declined offer for nicotine patch last evening.
[2017-03-24 06:37] LABS: BASOPHILS % (AUTO) 0.9 % (0-3); EOSINOPHILS % (AUTO) 3.8 % (0-5); MONOCYTES % (AUTO) 16.8 % (4-12); Mean Corpuscular Hemoglobin 25.8 pg (27.0-35.0); Mean Corpuscular Volume 76.6 fL (81-100); NEUTROPHILS % (AUTO) 50.6 % (40-74); Platelet Count 161 bil/L (150-400)
--- NOTE | 2017-03-24 06:39 | NUR ---
Med rec: Only partial med rec completed per day shift report yesterday. Pt states having medication filled at both [facility] and [facility] in [facility]. A fax was sent this morning to both pharmacies for updated medication lists as pt feels he is not giving a complete list.
[2017-03-24 07:08] LABS: Creatine Kinase 78 U/L (21-232)
[2017-03-24 07:13] LABS: TROPONIN T < 0.010 ug/L (0.0-0.011)
[2017-03-24] MEDS: Isosorbide Mononitrate 60 mg ER24 Tablet PO SCH ×2 (08:51→20:29)
[2017-03-24] MEDS: Pantoprazole 40 mg ER24 Tablet PO SCH (08:51)
[2017-03-24] MEDS: Polyethylene Glycol (PEG) 17 Gm Powder PO SCH (08:52)
[2017-03-24] MEDS: Ondansetron 2 mg/mL 2 mL Inj IVPUSH PRN (10:43)
[2017-03-24] MEDS ORDERED: Magnesium Sulf 2 Gm/50mL Water 2 GM in IV Premix 1 EACH IV ONE (12:10)
[2017-03-24] MEDS ORDERED: 0.9% Sodium Chloride 250 ML ONE (12:25)
[2017-03-24] MEDS ORDERED: ATOR40TA69 PO (14:21)
[2017-03-24] MEDS ORDERED: OXYC10TA8 PO (14:21)
--- NOTE | 2017-03-24 16:07 | NUR ---
Social Work: Initial Assessment Data & Assessment: EMR reviewed. Patient is a 61 y/o male that admitted on 03/23/17 with Chest pain per H&P. Patient's insurance is Medicare and [facility]. Patient primary physician is Dr. Effie Barros. Patient states that he does not have a NOK. Patient also stated that he does not have an Advance Directive/DPOA. Patient declined Adv. Directive/DPOA paperwork. Patient has no VA or LTC benefits. Patient has a re-admit score of 2 no risk. patient reports that he lives home alone independently in a mobile home with three steps to enter. Patient reports that he drove to the hospital and he will drive home. Patient reports no SNF or HH history. Patient has no DME. Patient does not have any discharge needs at this time. SW provided contact information on patient's white board. SW will continue to follow and assist patient throughout stay. Plan: Patient will like discharge home no needs via POV. SW will continue to follow. Theo Camp LMSW, BOO Addendum: 03/24/17 at 1616 by THEO DOMINGUEZ Amended: Links added.
[2017-03-24] MEDS: metFORMIN ER 500 mg ER24 Tablet PO SCH (17:14)
--- NOTE | 2017-03-24 22:41 | PCM.PNMED ---
Subjective Date of Service Mar 24, 2017 Subjective The patient continues to play complain of left-sided chest pain and right-sided chest pain. 2 pains are different. He believes the pain in the right side is musculoskeletal. However, he believes the pain in the left side may be cardiac in nature. He states the morphine alone is not helping much with his pain and he takes oxycodone 50 mg orally every day at home. He has no other new complaints. Exam Vital Signs Vital Sign - Last Date Time Temp Pulse Resp B/P Pulse Ox O2 Delivery O2 Flow Rate FiO2 03/24/17 20:26 36.6 67 20 151/84 97 Room Air Intake and Output 03/23/17 03/23/17 03/24/17 Cumulative From/Thru 15:00 23:00 07:00 03/23/17 15:34 - 03/24/17 06:41 Intake Total 1350 ml 1350 ml Output Total 500 ml 500 ml Balance 850 ml 850 ml Intake Oral 1350 ml 1350 ml Output Urine Total 500 ml 500 ml # Bowel Movements 0 0 Exam General: Patient is in no apparent distress. He is sitting up on the side of the bed in minimal discomfort HEENT: Head is atraumatic and normocephalic. Eyes: Pupils are equally round and reactive to light and accommodation. Extraocular muscles are intact. Sclera are white, anicteric. Subconjunctival mucosa is pink. Ears and nose are unremarkable. Oropharynx: There is no mucosal lesions, there is no thrush, there is no pharyngitis. Neck: Is supple, there are no nodes, or masses or tenderness. Chest: Is clear to auscultation and percussion. There are no rales, rhonchi, wheezes or rubs. Heart: Rate, rhythm is regular. There is no new murmur, rub or gallop. Abdomen: Good bowel sounds are present. Abdomen is obese, soft, nontender, no organomegaly or masses were appreciated. Extremities: Are symmetrical and well perfused. There is no edema, there is no cellulitis, no rash. Neurologic: There are no focal neurological deficits. Cranial nerves II through XII are intact. There are no sensory or motor deficits. Psychiatric: Patients mood is calm and he shows no sign of agitation. Genital: Deferred Rectal: Deferred Lab and Diagnostics Result Diagram: 03/24/17 0530 03/24/17 0530 Assessment & Plan The patient is a 61 year old black male who presents to the ED complaining of stabbing, burning, constant, L sided chest pain onset 2 hour prior to admission while laying down. Associated symptoms include shortness of breath, nausea, diarrhea, headache, and lightheadedness. He denies extremity pain, diaphoresis, palpitations, dizziness, abdominal pain, or any other symptoms. Due to the known presence of coronary artery disease patient thought he better come to [facility] emergency room. He took Metoprolol at the onset of his symptoms. Patient was evaluated in the [facility] emergency room and was then brought in under observation to the hospital service for further evaluation and treatment. # Chest pain, , present on admission:: Reproducible pain ongoing for several hours today, unlikely Cardiac, patient just had a cath procedure in January 2017 during which no stenting was done. His echo from 2015 has no findings of heart failure. He does smoke 3 packs per day. His BMI is added risk factor -- The patient troponins and cardiac enzymes are negative to date -- EKG show no concerning changes. -- We will continue with Telemonitoring -- Aspirin daily ( I discussed this with patient. He has a steady dose in the ER in spite of his allergy and tolerated it well. He does have GI bleed history but in light of his cardiac history, we discussed reasonable risks of taking aspirin in the setting and he is agreeable to it for this admission.) -- We will continue Morphine 4 mg every 4 hours when necessary -- He has an allergy to nitroglycerin, will continue his home medication -- I have discussed this case with Dr. Robles who has reviewed the patient's previous cardiac catheterization performed January 2017. He recommends that the patient undergo stress testing. As the patient has had avascular necrosis of both hips will order nuclear medicine stress testing in a.m. -- We will hold enoxaparin as he says he is a high-risk for bleeding. Continue aspirin. # Hypertension: Continue home meds # CAD: Continue meds # BPH: Continue home meds #: Depression/anxiety: Continue meds # Hyperlipidemia: Continue meds # Paroxysmal A. fib: Rate controlled at present time Patient was taken off of warfarin 2 years ago by PCP, appears to be due to bleeding risk # Diabetes mellitus: Continue home medication metformin # Gastritis: Continue medications CODE STATUS Full full code Alternate decision-maker: Patient says he has no family members or friends who can make decision, he wants the medical care providers to decide for him IV fluids hep-locked Diet cardiac DVT prophylaxis: SCDs ( chemical prophylaxis is held due to bleeding risk) Pain Evaluation: Adequate Pain Control GI Prophylaxis: Proton Pump Inhibitor VTE Prophylaxis: Other (Due to bleeding risk she was taken off Coumadin and is on aspirin alone) VTE Mechanical Devices: Intermittant Pneumatic CD Resuscitation Status: CPR: Attempt Resuscitation ConnerMg garg MD Mar 24, 2017 22:40
[2017-03-25] VITALS (11 sets, daily range): BP systolic 143–173; BP diastolic 78–106; PULSE 68–77; RESP 15–20; O2SAT 97–100
[2017-03-25 06:09] LABS: BASOPHILS % (AUTO) 0.5 % (0-3); EOSINOPHILS % (AUTO) 4.3 % (0-5); MONOCYTES % (AUTO) 12.9 % (4-12); Mean Corpuscular Hemoglobin 25.2 pg (27.0-35.0); Mean Corpuscular Volume 77.5 fL (81-100); NEUTROPHILS % (AUTO) 61.6 % (40-74); Platelet Count 157 bil/L (150-400)
[2017-03-25 06:23] LABS: Magnesium 1.8 mg/dL (1.6-2.6)
--- NOTE | 2017-03-25 06:30 | NUR ---
Pain: Reporting pain to chest, head, and legs throughout the night. Headache went away after Oxycodone dose. Chest pain was 8-9/10 earlier, down to 6-7/10 later in the shift. Receiving Morphine IV and Oxycodone alternating for pain control. After the 0230 dose of Oxycodone, pt stated "I don't want any more doses of that Morphine", and has had no Morphine since 0030. Stated it did not help all that much and he doesn't usually take it at home. Pt has been NPO since midnight, except a few sips of water with meds, for stress test later this morning. HS Metoprolol held.
[2017-03-25] MEDS: Sodium Chloride LOK Flush 10 mL Syringe IVFLUSH SCH ×3 (07:48→21:59)
--- NOTE | 2017-03-25 09:00 | NUR ---
Stress test Pt. transferred in a for stress test at 0859. Fix That Bug was notified of his off unit. Addendum: 03/25/17 at 0924 by BLAZE CHOPRA RN Nuclear Med dept called to inform RN that pt. had refused the stress test due to hip and back pain. Pt. returned to [facility] at 0918. Resumed telemetry monitoring. [employer] That [employer] was notified. Addendum: 03/25/17 at 0955 by [address]ZE [address] RN Dr. Prieto was notified of pt. refusal of stress test.
[2017-03-25] MEDS: Pantoprazole 40 mg ER24 Tablet PO SCH (09:41)
[2017-03-25] MEDS: Polyethylene Glycol (PEG) 17 Gm Powder PO SCH (09:43)
[2017-03-25] MEDS ORDERED: LORazepam 1 mg Tablet PO ONE (10:55)
--- NOTE | 2017-03-25 10:55 | NUR ---
Chest Pain Patient states chest pain present at approx 1030 8/10 on pain scale. See VSS flow sheet. Admits to feeling anxious to new diagnosis "with my heart". Admits to feeling overwhelmed more so over "not knowing what is wrong with me". "I feel like ever since I retired I am falling apart". notified. New orders for PO ativan. Floor nurse notified. Patient states that talking it over with this RN helped him. Addendum: 03/25/17 at 1207 by BLAZE CHOPRA RN One time dose of PO Ativan 1 mg and PRN Roxicodone 10 mg was given to pt. Upon reassessment. pt. reported his chest pain was slowly subsided and he was more relaxed. Addendum: 03/25/17 at 1324 by TRICE ORTEGA Pt has been anxious off and on throughout the day. He has expressed his unhappiness about the stress test not going through as planned several times today, but willing to try again tomorrow.
[2017-03-25] MEDS: HYDROmorphone 0.5 mg/0.5 mL iSecure Syringe IVPUSH PRN ×3 (13:59→21:58)
[2017-03-25] MEDS: metFORMIN ER 500 mg ER24 Tablet PO SCH (17:30)
--- NOTE | 2017-03-25 18:21 | NUR ---
Metformin Pt. declined dinner this evening. Explained that he wasn't hungry. Blood glucose 129. Hold PO Metformin.
--- NOTE | 2017-03-25 18:25 | NUR ---
Behavior Pt. called for nurse frequently (used called light and walked out of room to look for nurse). Pt. C/O generalized pain (back pain, hip pain, and chest wall pain). He stated he had had this persistent chest pain for days before and during hospitalization. Troponin negative x3. He also asked for IV Dilaudid because IV morphine was not effective. He was preoccupied by his PRN analgesic schedule and dose. He was concerned that he wasn't getting enough pain medications as he used to at home "I take 50 mg Oxycodone everyday!" Explained to pt. that his current PRN pain regimen (10 mg PO Oxycodone Q4H PRN) was equivalent in daily strength to his home Oxycodone if not higher. Pt. finally put this concern to rest but still continue to ask nurse of his next PRN analgesics.
[2017-03-25] MEDS: Ondansetron 2 mg/mL 2 mL Inj IVPUSH PRN ×2 (18:41→20:48)
--- NOTE | 2017-03-25 22:21 | PCM.PNMED ---
Subjective Date of Service Mar 25, 2017 Subjective The patient refused his nuclear medicine stress test today as he thought he had to keep his arms elevated for 3 hours straight. He did not understand that he only had to keep it elevated for short periods of time throughout the 3 hour exam. At the time he refused the exam he claimed that he would have to have Dilaudid ordered in order to control the pain of having his arms elevated for the test. 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 He is also requesting Dilaudid for his hip pain and his chest pain. He states that he is not receiving as much oxycodone as he gets at home and in fact he has the opportunity to get oxycodone 10 mg by mouth every 4 hours which is a total dose of 60 mg in a 24- hour period whereas at home he is only allowed 50 mg a 24-hour period. He states that the morphine does not relieve his pain at all and this been very uncomfortable. He is willing to do the stress test in the morning if he is premedicated with Dilaudid. Exam Vital Signs Vital Sign - Last Date Time Temp Pulse Resp B/P Pulse Ox O2 Delivery O2 Flow Rate FiO2 03/25/17 21:10 69 20 97 Room Air 03/25/17 20:29 36.4 168/90 Intake and Output 03/24/17 03/24/17 03/25/17 Cumulative From/Thru 15:00 23:00 07:00 03/23/17 15:34 - 03/25/17 06:56 Intake Total 1994 ml 1400 ml 4744 ml Output Total 500 ml 1000 ml Balance 1494 ml 1400 ml 3744 ml Intake Oral 1994 ml 1400 ml 4744 ml Output Urine Total 500 ml 1000 ml # Voids 4 3 7 # Bowel Movements 0 0 Exam General: Patient remains in no apparent distress. Sitting up beside the bed but appears comfortable. HEENT: Head is atraumatic and normocephalic. Eyes: Pupils are equally round and reactive to light and accommodation. Extraocular muscles are intact. Sclera are white, anicteric. Subconjunctival mucosa is pink. Ears and nose are unremarkable. Oropharynx: There is no mucosal lesions, there is no thrush, there is no pharyngitis. Neck: Is supple, there are no nodes, or masses or tenderness. Chest: Is clear to auscultation and percussion. There are no rales, rhonchi, wheezes or rubs. Heart: Rate, rhythm is regular. There is no new murmur, rub or gallop. Abdomen: Good bowel sounds are present. Abdomen is obese, soft, nontender, no organomegaly or masses were appreciated. Extremities: Are symmetrical and well perfused. There is no edema, there is no cellulitis, no rash. Neurologic: There are no focal neurological deficits. Cranial nerves II through XII are intact. There are no sensory or motor deficits. Psychiatric: Patients mood is calm and he shows no sign of agitation. Genital: Deferred Rectal: Deferred Lab and Diagnostics Result Diagram: 03/25/1752403/25/17524 Assessment & Plan The patient is a 61 year old black male who presents to the ED complaining of stabbing, burning, constant, L sided chest pain onset 2 hour prior to admission while laying down. Associated symptoms include shortness of breath, nausea, diarrhea, headache, and lightheadedness. He denies extremity pain, diaphoresis, palpitations, dizziness, abdominal pain, or any other symptoms. Due to the known presence of coronary artery disease patient thought he better come to [facility] emergency room. He took Metoprolol at the onset of his symptoms. Patient was evaluated in the [facility] emergency room and was then brought in under observation to the hospital service for further evaluation and treatment. # Chest pain, , present on admission:: Reproducible pain ongoing for several hours the day of admission, unlikely Cardiac, patient just had a cath procedure in January 2017 during which no stenting was done. However during that cardiac catheterization patient was noted to have significant coronary artery disease. His echo from 2015 has no findings of heart failure. He does smoke 3 packs per day. His BMI is added risk factor -- The patient troponins and cardiac enzymes are negative to date -- EKG show no concerning changes. -- We will continue with Telemonitoring -- Aspirin daily ( I discussed this with patient. He has a steady dose in the ER in spite of his allergy and tolerated it well. He does have GI bleed history but in light of his cardiac history, we discussed reasonable risks of taking aspirin in the setting and he is agreeable to it for this admission.) -- We will change morphine to Dilaudid as patient continues to plead that the morphine "does not do anything for him". This will enable him to do the stress test in a.m. -- He has an allergy to nitroglycerin, will continue his home medication -- I have discussed this case with Dr. Robles who has reviewed the patient's previous cardiac catheterization performed January 2017. He recommends that the patient undergo stress testing. As the patient has had avascular necrosis of both hips will order nuclear medicine stress testing in a.m. -- We will hold enoxaparin as he says he is a high-risk for bleeding. Continue aspirin alone. # Hypertension: Continue home meds # CAD: Continue meds # BPH: Continue home meds #: Depression/anxiety: Continue meds # Hyperlipidemia: Continue meds # Paroxysmal A. fib: Rate controlled at present time Patient was taken off of warfarin 2 years ago by PCP, due to bleeding risk. Patient states that he had a significant GI bleed at the time. # Diabetes mellitus: Continue home medication metformin # Gastritis: Continue medications CODE STATUS Full full code Alternate decision-maker: Patient says he has no family members or friends who can make decision, he wants the medical care providers to decide for him IV fluids hep-locked Diet cardiac DVT prophylaxis: SCDs ( chemical prophylaxis is held due to bleeding risk) Pain Evaluation: Adequate Pain Control GI Prophylaxis: Proton Pump Inhibitor VTE Prophylaxis: Other (Due to bleeding risk she was taken off Coumadin and is on aspirin alone) VTE Mechanical Devices: Intermittant Pneumatic CD Resuscitation Status: CPR: Attempt Resuscitation Conner,Mg Helms MD Mar 25, 2017 22:21
[2017-03-26 00:22] VITALS: BP 177/102; PULSE 73; RESP 20; O2SAT 98
[2017-03-26] MEDS: Ondansetron 2 mg/mL 2 mL Inj IVPUSH PRN ×2 (00:33→04:45)
[2017-03-26] MEDS ORDERED: LORazepam 1 mg Tablet PO ONE ×2 (00:50→07:55)
[2017-03-26] MEDS: HYDROmorphone 0.5 mg/0.5 mL iSecure Syringe IVPUSH PRN ×3 (02:00→09:59)
[2017-03-26 04:49] VITALS: BP 190/104; PULSE 71; RESP 20; O2SAT 97
[2017-03-26 06:03] VITALS: BP 173/96; PULSE 76
--- NOTE | 2017-03-26 06:25 | NUR ---
pain/BP Dilaudid and Oxycodone given for 06/09 chest/back/leg pain with good relief. NPO since midnight for stress test this AM. pt compliant Rec'd an order for OT ativan for anxiety; given and effective. BP was 190s/100s. amlodipine given after getting an order. BP is now down to 170s/90s.
[2017-03-26] MEDS: Isosorbide Mononitrate 60 mg ER24 Tablet PO SCH (07:30)
[2017-03-26 07:47] VITALS: BP 169/113; PULSE 76; RESP 22; O2SAT 99
[2017-03-26] MEDS: Sodium Chloride LOK Flush 10 mL Syringe IVFLUSH SCH (08:06)
[2017-03-26] MEDS: Pantoprazole 40 mg ER24 Tablet PO SCH (08:06)
[2017-03-26] MEDS: Polyethylene Glycol (PEG) 17 Gm Powder PO SCH (08:30)
[2017-03-26 09:32] LABS: BASOPHILS % (AUTO) 0.3 % (0-3); EOSINOPHILS % (AUTO) 4.2 % (0-5); MONOCYTES % (AUTO) 12.3 % (4-12); Mean Corpuscular Hemoglobin 25.5 pg (27.0-35.0); Mean Corpuscular Volume 78.5 fL (81-100); NEUTROPHILS % (AUTO) 59.7 % (40-74); Platelet Count 141 bil/L (150-400)
[2017-03-26 10:40] LABS: Magnesium 1.5 mg/dL (1.6-2.6); TROPONIN T < 0.010 ug/L (0.0-0.011)
--- NOTE | 2017-03-26 10:46 | NUR ---
Called to Nuclear medicine by staff to speak with Mr. Carrington. Mr. Carrington c/o continued chest pain and states he did not receive pain medicine in IV but that it leaked out onto arm and is requesting a dose of Dilaudid IV. Discussed above with Dr. Prieto and ZAYNAB Nguyen and any leaking of fluid was saline. IV R A/C flushed with NS and intact and patent. Discussed with Mr. Carrington need to complete test. pt nodded understanding, no questions or concerns addressed. No change in chest pain.
[2017-03-26 11:07] VITALS: PULSE 72
--- NOTE | 2017-03-26 11:14 | NUR ---
Behavior Pt is inappropriate with this RN and student RN, states "if I were younger I would court you and take you out for coffee", referencing this RN and student RN's looks frequently. When student RN stated she needed to listen to his lungs for assessment, pt proceeded to lift his gown up over his head, exposing genitalia not necessary for assessment. Pt stated to another student RN that "different staff members are making me uncomfortable by flirting with me". This RN clearly explained pain medication regimen, dosing intervals written on pt whiteboard for reference. Pt asking multiple staff members for pain medication before clearly planned out dosing. This RN spoke with Dr. Prieto and [facility] about necessity to premedicate pt with lorazepam for anxiety related to Lexiscan to be performed this morning. Pt received 1mg PO lorazepam 30 minutes prior to scheduled exam time. Pt left [facility] for Lexiscan at 0925; PRN Hydromorphone and PRN oxycodone both not due until 1000. [facility] called at 0950 to have this RN bring down PRN dilaudid IV and PO oxycodone. This RN administered 0.5mg IV Hydromorphone and 10mg PO oxycodone at 1000 for 8/10 "heart pain". PIV patent, flushed easily with NS before and after IV dilaudid administration. After this RN left, pt reported to [facility] staff that the dilaudid leaked on his arm and he felt it was not administered fully. This RN noted no leaking of IV during administration or flushing. Justice Joseph, RN, Corporate Quality Manager today assessed IV and confirmed patency. This RN uncomfortable with interaction with patient, report given and care transferred to male RN Catalino Reed.
--- NOTE | 2017-03-26 12:49 | NUR ---
Behavior: Smocking Machine Operator knocked and entered room to find Pt. attempting to check email on computer in room, comic book writer educated Pt. on not using in room computer then shut computer down. Pt. then asked comic book writer about writers work schedule and stated "Oh I bet your boyfriend doesn't like you working, I bet you told him about me, huh." Smocking Machine Operator did not address statement but instead deflected and stated "we both work a lot." Upon notifying Pt. that comic book writer was going to leave room Pt. stated "Hey where you going?" Smocking Machine Operator responded with "To check on some other Pt's" Pt. then stated "ahh well I don't want to be all alone." Smocking Machine Operator notified RN assigned to Pt., Floor Charge, and Labor Arbitrator Hearing Office. AF 03/26/17 1930
--- NOTE | 2017-03-26 14:23 | DRSVH ---
PROCEDURE: 1 DAY PHARMACOLOGICAL STRESS TEST Rest and pharmacological stress myocardial perfusion SPECT with gated imaging and ejection fraction RADIOPHARMACEUTICAL: 10.7 mCi Tc-99m tetrafosmin IV at rest and 32.5 mCi Tc-99m tetrafosmin IV at pe ak effect of pharmacological stress. A [id number] was performed. Please note, patient initiall y was brought to the department for imaging on 03/25/2017. Patient received an injection of 10.1 mCi t echnetium-99m tetrofosmin IV on 03/25/2017, but refused imaging at that time. Patient returned to the department on 03/26/2017 and a complete study was performed at that time. INDICATIONS: CHEST PAIN WITH CORONARY ARTERY DISEASE. TECHNIQUE: Radiopharmaceutical was injected at peak stress test, and also at rest. SPECT images wer e obtained. SPECT myocardial perfusion images were displayed in short axis, horizontal long axis, an d vertical long axis views. Gated images were reviewed using picoChip software. COMPARISON: [facility], ID, MYOCARD PERF SPECT SINGLE, 05/21/2014, 12:09. CARDIAC STRESS: A pharmacologic stress test was performed under the supervision of an attending staff, using an infus ion of LexiScan (0.4 mg/5 mL) disease. Hemodynamic data: There is normal blood pressure and heart rate response to pharmacologic stress. Symptoms: The patient denied anginal chest pain. Patient reported transient dyspnea during exercise. Aminophylline: None EKG: Baseline EKG demonstrated nonspecific T wave changes. Stress EKG demonstrated diagnostic change s of ischemia. Occasional PVCs noted. FINDINGS: Raw data: There is good myocardial uptake of radiotracer. No significant motion artifacts. Left ventricle function: Gated images demonstrate normal left ventricular wall thickening. There is abnormal left ventricular wall motion with mobile hypokinesis most pronounced in the basal segments. There is akinesis identified in the inferior basal segment. No subjective evidence of transient ische sanjay dilation. Left ventricle resting end diastolic volume is 216 mL. Left ventricle stress ejection fraction is 42%; normal range is above 45%. Myocardial perfusion: There is a moderate sized, moderately intense, apparent reversal of perfusion defect in the inferior wall which almost completely normalizes in the prone position likely represent s diaphragmatic attenuation artifact. No fixed myocardial perfusion defects identified. IMPRESSION: 1. Probably normal myocardial perfusion study. There is an apparent reversible perfusion defect in th e inferior wall demonstrates near complete normalization in the prone position and likely represents diaphragmatic attenuation artifact. 2. Abnormal left ventricular function with global hypokinesis most pronounced in the basal segments a nd inferior basal segment akinesis. Left ventricular stress ejection fraction is 42%. 3. Moderate left ventricular enlargement. 4. Normal hemodynamic response to pharmacologic stress. PQRS ATTESTATIONS: Measure 322 - Is this imaging test primarily performed on a low-risk surgery patient for preoperative evaluation within 30 days preceding their low-risk non-cardiac surgery? Low-risk surgery is defined as cardiac or myocardial infarction less than 1%, including (but not limited to) endoscopic pr ocedures, superficial procedures, cataract surgery, and excisional breast surgery: Answer: No Measure 323 - Is this imaging test performed primarily for the monitoring of an asymptomatic patient who had percutaneous coronary intervention on the visit date or within 2 years of the visit date? An swer: No Measure 324 - Is this imaging test performed primarily for the initial detection and risk assessment on an asymptomatic, low coronary heart disease patient? Low CHD risk definition = clinicians should consider the maximum number of available patient factors used to estimate risk based on [place] (A TP III criteria), typically age, gender, diabetes, smoking status, and use of blood pressure medicati on, and integrate age appropriate estimates for missing elements, such as LDL or standard blood press ure. Answer: No Dictated by: Lala Velazquez MD, PhD on 03/26/2017 at 13:37 Approved by: Lala Velazquez MD, PhD on 03/26/2017 at 14:21
--- NOTE | 2017-03-26 14:23 | NUR ---
AMA Pt left AMA without notifying nursing he was leaving at approx 1330. lab animal technician notified that telemetry was off, and upon entering room the pt was gone, telemetry was on the bed, and IV catheter (intact) was sitting on counter next to sink. Pt did not notify anyone he was leaving. Roller Maker tried to find pt on floor and in lobby in front of [facility], and pt was seen outside walking toward parking lot fully dressed. Charge nurse and MD notified. Since pt left unannounced, AMA paperwork was not printed out for him to sign.
--- NOTE | 2017-03-26 16:44 | NUR ---
Social Work: Discharge Data: EMR reviewed. Patient is on day 3 of hospitalization for chest pain per H&P. Per RN pt discharged AMA today and did not notify anyone he was leaving. Transport at discharge is unknown. No needs assessed. Assessment: Pt who is independent at baseline Plan: Patient discharged AMA. No needs assessed LILLIAN [place]
--- NOTE | 2017-03-27 00:09 | PCM.DC.MED ---
Discharge Summary Date of Service Mar 26, 2017 Dates of Hospitalization Date of Hospital Admission Mar 23, 2017 at 17:39 Date of Discharge: Mar 26, 2017 Providers: Admitting Physician: Elis Rojas DO Primary Care Physician: Effie Barros DO Attending Physician: Elis Rojas DO Diagnosis at Time of Discharge Diagnosis at Time of Discharge Patient left AGAINST MEDICAL ADVICE however he did come in with chest pain. Consultations Cardiology was consulted and Dr. Robles recommended a nuclear medicine stress test. Procedures XRay, CTs & MRIs PROCEDURE: X-RAY CHEST ONE VIEW, PORTABLE ([id number]) INDICATIONS: Chest pain TECHNIQUE: One view of the chest was acquired. COMPARISON: [facility], CR, XR CHEST 1VW (PORTABLE), 02/08/2017, 12: 21. [facility], CR, XR CHEST 2VW, 01/30/2017, 16:13. [facility], CR, XR CHEST 1VW (PORTABLE), 02/20/2017, 19:50. FINDINGS: Surgical changes and devices: None. Lungs and pleura: No pleural effusions or pneumothorax. Lungs are clear of acute opacities. Right basilar scarring is stable compared to prior examinations. Mediastinum: Mediastinal contours appear normal. Heart size is normal. Bones and chest wall: No suspicious bony lesions. Overlying soft tissues appear unremarkable. IMPRESSION: No acute cardiopulmonary disease process. Dictated by: Lala Velazquez MD, PhD on 03/23/2017 at 16:09 Approved by: Lala Velazquez MD, PhD on 03/23/2017 at 16:10 Other Diagnostics PROCEDURE: 1 DAY PHARMACOLOGICAL STRESS TEST Rest and pharmacological stress myocardial perfusion SPECT with gated imaging and ejection fraction RADIOPHARMACEUTICAL: 10.7 mCi Tc-99m tetrafosmin IV at rest and 32.5 mCi Tc- 99m tetrafosmin IV at peak effect of pharmacological stress. A one-day- protocol was performed. Please note, patient initially was brought to the department for imaging on 03/25/2017. Patient received an injection of 10.1 mCi technetium-99m tetrofosmin IV on 03/25/2017, but refused imaging at that time. Patient returned to the department on 03/26/2017 and a complete study was performed at that time. INDICATIONS: CHEST PAIN WITH CORONARY ARTERY DISEASE. TECHNIQUE: Radiopharmaceutical was injected at peak stress test, and also at rest. SPECT images were obtained. SPECT myocardial perfusion images were displayed in short axis, horizontal long axis, and vertical long axis views. Gated images were reviewed using Prot-On software. COMPARISON: [facility], [place], MYOCARD PERF SPECT SINGLE, 05/21/2014, 12:09. CARDIAC STRESS: A pharmacologic stress test was performed under the supervision of an attending staff, using an infusion of LexiScan (0.4 mg/5 mL) disease. Hemodynamic data: There is normal blood pressure and heart rate response to pharmacologic stress. Symptoms: The patient denied anginal chest pain. Patient reported transient dyspnea during exercise. Aminophylline: None EKG: Baseline EKG demonstrated nonspecific T wave changes. Stress EKG demonstrated diagnostic changes of ischemia. Occasional PVCs noted. FINDINGS: Raw data: There is good myocardial uptake of radiotracer. No significant motion artifacts. Left ventricle function: Gated images demonstrate normal left ventricular wall thickening. There is abnormal left ventricular wall motion with mobile hypokinesis most pronounced in the basal segments. There is akinesis identified in the inferior basal segment. No subjective evidence of transient ischemic dilation. Left ventricle resting end diastolic volume is 216 mL. Left ventricle stress ejection fraction is 42%; normal range is above 45%. Myocardial perfusion: There is a moderate sized, moderately intense, apparent reversal of perfusion defect in the inferior wall which almost completely normalizes in the prone position likely represents diaphragmatic attenuation artifact. No fixed myocardial perfusion defects identified. IMPRESSION: 1. Probably normal myocardial perfusion study. There is an apparent reversible perfusion defect in the inferior wall demonstrates near complete normalization in the prone position and likely represents diaphragmatic attenuation artifact. 2. Abnormal left ventricular function with global hypokinesis most pronounced in the basal segments and inferior basal segment akinesis. Left ventricular stress ejection fraction is 42%. 3. Moderate left ventricular enlargement. 4. Normal hemodynamic response to pharmacologic stress. Brief History 61-year-old pleasant -[place] male with past medical history of CAD status post 2 stents in 2001 and 2006, and new cath That was just recently done in January 2017 w/o stents, history of GI bleed, chronic pain, on pain contract , paroxysmal atrial fibrillation, diabetes mellitus type II, hyperlipidemia, hypertension, avascular necrosis of both hips presenting to the ER with chest pain that has been ongoing since 2:30 PM today he states that is over the left anterior chest wall with radiation to neck though he does admit to chronic pain that is musculoskeletal in nature he says the pain also radiates around his ribs on the left side he does not recall doing any strenuous physical activity. Pain is stabbing and sharp in nature. Pain is constant in nature and ongoing since 2:30 PM and only slightly got better with Dilaudid in the ER. currently he rates it as 7 out of 10 in the room. In the room patient appeared to be in no acute distress, says that he is comfortable in his bed and eating his burger for supper. He denies shortness of breath Review of systems is positive for occasional hematochezia, headaches, dyspnea, recent fevers (he admits to having chills however), negative for urinary symptoms. In the ER his blood pressure was elevated at 196/128 other vitals are stable his lab work is fairly unremarkable. Chest x-ray was not acute. EKG showed no ST changes that are acute, LVH was noted sinus rhythm at 91. Initial troponin was negative BNP was not elevated BP at the time of admission to the floor is much improved. Note an echo that was done in October 2016 showed 55% EF, moderate severe left ventricular hypertrophy, basal posterior lateral wall hypokinesis, basal inferior wall akinesis. Patient says Dr. abreu for cardiology, he was contacted by the ER. Dr. abreu felt that patient should be admitted without heparin drip, for a troponin rule out. Patient is admitted to the Green team .ACS rule out Hospital Course The patient is a 61 year old black male who presents to the ED complaining of stabbing, burning, constant, L sided chest pain onset 2 hour prior to admission while laying down. Associated symptoms include shortness of breath, nausea, diarrhea, headache, and lightheadedness. He denies extremity pain, diaphoresis, palpitations, dizziness, abdominal pain, or any other symptoms. Due to the known presence of coronary artery disease patient thought he better come to [facility] emergency room. He took Metoprolol at the onset of his symptoms. Patient was evaluated in the [facility] emergency room and was then brought in under observation to the hospital service for further evaluation and treatment. # Chest pain, , present on admission:: Reproducible pain ongoing for several hours the day of admission, unlikely Cardiac, patient just had a cath procedure in January 2017 during which no stenting was done. However during that cardiac catheterization patient was noted to have significant coronary artery disease. His echo from 2015 has no findings of heart failure. He does smoke 3 packs per day. His BMI is added risk factor -- The patient troponins and cardiac enzymes are negative to date -- EKG show no concerning changes. -- We will continue with Telemonitoring -- Aspirin daily ( I discussed this with patient. He has a steady dose in the ER in spite of his allergy and tolerated it well. He does have GI bleed history but in light of his cardiac history, we discussed reasonable risks of taking aspirin in the setting and he is agreeable to it for this admission.) -- We will change morphine to Dilaudid as patient continues to plead that the morphine "does not do anything for him". This will enable him to do the stress test in a.m. -- He has an allergy to nitroglycerin, will continue his home medication -- I have discussed this case with Dr. Robles who has reviewed the patient's previous cardiac catheterization performed January 2017. He recommends that the patient undergo stress testing. As the patient has had avascular necrosis of both hips will order nuclear medicine stress testing in a.m. -- We will hold enoxaparin as he says he is a high-risk for bleeding. Continue aspirin alone. # Hypertension: Continue home meds # CAD: Continue meds # BPH: Continue home meds #: Depression/anxiety: Continue meds # Hyperlipidemia: Continue meds # Paroxysmal A. fib: Rate controlled at present time Patient was taken off of warfarin 2 years ago by PCP, due to bleeding risk. Patient states that he had a significant GI bleed at the time. # Diabetes mellitus: Continue home medication metformin # Gastritis: Continue medications CODE STATUS Full full code Alternate decision-maker: Patient says he has no family members or friends who can make decision, he wants the medical care providers to decide for him IV fluids hep-locked Diet cardiac DVT prophylaxis: SCDs ( chemical prophylaxis is held due to bleeding risk) Exam Vital Signs (Last) Date Time Temp Pulse Resp B/P Pulse Ox O2 Delivery O2 Flow Rate FiO2 03/26/17 11:07 72 03/26/17 07:47 36.7 22 169/113 99 Room Air Exam General: Patient remains in no apparent distress. Sitting up beside the bed but appears comfortable. HEENT: Head is atraumatic and normocephalic. Eyes: Pupils are equally round and reactive to light and accommodation. Extraocular muscles are intact. Sclera are white, anicteric. Subconjunctival mucosa is pink. Ears and nose are unremarkable. Oropharynx: There is no mucosal lesions, there is no thrush, there is no pharyngitis. Neck: Is supple, there are no nodes, or masses or tenderness. Chest: Is clear to auscultation and percussion. There are no rales, rhonchi, wheezes or rubs. Heart: Rate, rhythm is regular. There is no new murmur, rub or gallop. Abdomen: Good bowel sounds are present. Abdomen is obese, soft, nontender, no organomegaly or masses were appreciated. Extremities: Are symmetrical and well perfused. There is no edema, there is no cellulitis, no rash. Neurologic: There are no focal neurological deficits. Cranial nerves II through XII are intact. There are no sensory or motor deficits. Psychiatric: Patients mood is calm and he shows no sign of agitation. Genital: Deferred Rectal: Deferred Test 03/24/17 05:30 03/26/17 09:20 Total Creatine Kinase 78U/L (21-232) Creatine Kinase MB 2.1ng/mL (0.0-10.4) Creatine Kinase MB % % (0.0-5.0) White Blood Count 3.3th/mm3 (3.8-10.1) Red Blood Count 4.23mil/mm3 (4.40-5.80) Hemoglobin 10.8g/dL (13.8-17.2) Hematocrit 33.2% (41.0-50.0) Mean Corpuscular Volume 78.5fL (81-100) Mean Corpuscular Hemoglobin 25.5pg (27.0-35.0) Mean Corpuscular Hemoglobin Concent 32.5% (32.0-37.0) Red Cell Distribution Width 18.5% (12.3-15.4) Platelet Count 141bil/L (150-400) Neutrophils (%) (Auto) 59.7% (40-74) Lymphocytes (%) (Auto) 23.2% (14-46) Monocytes (%) (Auto) 12.3% (4-12) Eosinophils (%) (Auto) 4.2% (0-5) Basophils (%) (Auto) 0.3% (0-3) Sodium Level 140mEq/L (134-144) Potassium Level 3.9mEq/L (3.5-5.2) Chloride Level 103mEq/L (97-108) Carbon Dioxide Level 22mmol/L (18-29) Blood Urea Nitrogen 15mg/dL (8-27) Creatinine 1.07mg/dL (0.76-1.27) Estimat Glomerular Filtration Rate 75mL/min (>59) Glucose Level 113mg/dL (60-99) Calcium Level 8.9mg/dL (8.5-10.1) Magnesium Level 1.5mg/dL (1.6-2.6) Total Bilirubin 0.3mg/dL (0.0-1.2) Aspartate Amino Transf (AST/SGOT) 20U/L (0-50) Alanine Aminotransferase (ALT/SGPT) 15U/L (0-44) Alkaline Phosphatase 60U/L (25-160) Troponin T < 0.010ug/L (0.0-0.011) Pro-B-Type Natriuretic Peptide 123.9pg/mL (0-210) Total Protein 6.6g/dL (6.4-8.4) Albumin 4.4g/dL (3.4-5.0) Discharge Medications Discharge Medications Albuterol HFA (Proair HFA) 8.5 Gm Hfa.aer.ad 2 PUFFS INHALATION Q4H (Reported) Amiodarone (Amiodarone) 200 Mg Tablet 200 MG PO BID (Reported) Amlodipine (Amlodipine) 2.5 Mg Tablet 2.5 MG PO DAILY Prescribed by: CLARISA BUSCH MD Atorvastatin Calcium (Atorvastatin Calcium) 40 Mg Tablet 40 MG PO DAILY ( Reported) Furosemide (Furosemide) 20 Mg Tab 20 MG PO DAILY (Reported) Metformin (Glucophage) 1,000 Mg Tablet 1,000 MG PO DAILY (Reported) Metoprolol Tartrate (Metoprolol Tartrate) 100 Mg Tablet 100 MG PO BID (Reported ) Pantoprazole DR (Pantoprazole DR) 40 Mg Tablet.dr 40 MG PO DAILY (Reported) Polyethylene Glycol 3350 (Miralax) 17 Gm Powd.pack 17 GM PO DAILY (Reported) Sertraline HCl (Sertraline) 100 Mg Tablet 100 MG PO DAILY (Reported) Tamsulosin ER (Tamsulosin ER) 0.4 Mg Cap.er.24h 0.4 MG PO DAILY (Reported) Terazosin (Terazosin) 5 Mg Capsule 5 MG PO HS (Reported) As needed oxyCODONE (oxyCODONE) 10 Mg Tablet 10 MG PO Q4-6H PRN PRN For Pain (Reported) Max. daily dose of 5 tablets Followup Plan Disposition: Patient left AGAINST MEDICAL ADVICE after his nuclear medicine pharmacological stress test prior to my visit to see him. He did not sign out AGAINST MEDICAL ADVICE he simply pulled off his telemetry monitoring wires and I pulled out his IV and then got dressed and walked out of the hospital without saying a word to anybody.. 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 Louise Smith4 evaluation of the results of his nuclear medicine pharmacological stress test. Follow-up Provider: Effie Barros DO Follow-up with PCP in: 1 week Time spent Patient left the hospital AGAINST MEDICAL ADVICE without signing any papers or notifying anyone. copies to: Effie Barros Christopher E MD Mar 27, 2017 00:09
== END 2017-03-26 13:39 | disposition left against medical advice (07) ==
LOC: SED 15:31 → MPC 17:39
PROVIDERS: ADMIT Family Medicine; ATTEND Family Medicine
DX: R07.9 Chest pain, unspecified (principal); I10 Essential (primary) hypertension; I48.0 Paroxysmal atrial fibrillation; E11.9 Type 2 diabetes mellitus without complications; E78.5 Hyperlipidemia, unspecified; G89.29 Other chronic pain; K21.9 Gastro-esophageal reflux disease without esophagitis; N40.0 Benign prostatic hyperplasia without lower urinary tract symptoms; F17.200 Nicotine dependence, unspecified, uncomplicated; K29.70 Gastritis, unspecified, without bleeding; F41.9 Anxiety disorder, unspecified; F32.9 Major depressive disorder, single episode, unspecified; Z79.84 Long term (current) use of oral hypoglycemic drugs; Z79.891 Long term (current) use of opiate analgesic; Z95.5 Presence of coronary angioplasty implant and graft
CPT/HCPCS: 36415; 71010; 78452; 80053; 82550; 82553; 83735; 83880; 84484; 85025; 93005; 93017; 94799; 96374; 96375; 96376; 99285; A9502; G0378; J1170; J1650; J2270; J2405; J2785; J7050

== ENCOUNTER 2017-04-25 22:52 | Inpatient (IN) | payer MEDICARE ==
[~2017-04-25] VITALS: Ht 177.8 cm; Wt 131.5 kg
[~2017-04-25 22:52] MED LIST changes: -ATOR20TA PO; +ATOR40TA69 PO; -DOXY100C43 PO; -ISOS30TA4 PO; -KEPP250T PO; -ONDA4TAB6 PO; -OXYC-474 PO; +OXYC10TA8 PO; -TRAM50TA2 PO
[2017-04-25 22:54] VITALS: BP 166/96; PULSE 87; RESP 18; O2SAT 98
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
[2017-04-26 00:05] VITALS: BP 170/90; PULSE 88; RESP 20; O2SAT 100
[2017-04-26] MEDS ORDERED: 0.9% Sodium Chloride 1,000 ML IV ONE (00:47)
[2017-04-26] MEDS ORDERED: Ondansetron 2 mg/mL 2 mL Inj IVPUSH ONE (00:50)
[2017-04-26 00:51] LABS: BASOPHILS % (AUTO) 0.2 % (0-3); EOSINOPHILS % (AUTO) 2.5 % (0-5); MONOCYTES % (AUTO) 10.1 % (4-12); Mean Corpuscular Hemoglobin 26.6 pg (27.0-35.0); NEUTROPHILS % (AUTO) 78.2 % (40-74); Platelet Count 112 bil/L (150-400)
[2017-04-26] MEDS: HYDROmorphone 1 mg/mL Inj IVPUSH PRN ×5 (01:02→07:17)
[2017-04-26 01:19] LABS: APPEARANCE,URINE CLEAR (CLEAR,HAZY); COLOR,URINE STRAW (YELLOW); OCCULT BLOOD,URINE TRACE (NEGATIVE); PH,URINE 5.5 (5.0-8.0); UROBILINOGEN,URINE NORMAL (NORMAL)
[2017-04-26 01:29] LABS: Magnesium 1.5 mg/dL (1.6-2.6)
[2017-04-26 01:30] LABS: TROPONIN T 0.01 ug/L (0.0-0.011)
[2017-04-26] MEDS: Ondansetron 2 mg/mL 2 mL Inj IVPUSH PRN ×2 (01:51→02:52)
[2017-04-26] MEDS ORDERED: CALCIUM CHL IV ONE (02:30)
[2017-04-26] MEDS ORDERED: DEXTROSE 5% IV ONE (02:30)
[2017-04-26] MEDS ORDERED: Magnesium Sulf 2 Gm/50mL Water 2 GM in IV Premix 1 EACH IV ONE (02:30)
[2017-04-26] MEDS ORDERED: HYDROmorphone 1 mg/mL Inj IVPUSH PRN ×2 (02:30→08:30)
[2017-04-26 02:57] LABS: INR 1.04 ratio
[2017-04-26] MEDS ORDERED: 0.9% Sodium Chloride 1,000 ML IV SCH (02:58)
[2017-04-26] MEDS ORDERED: Ondansetron 2 mg/mL 2 mL Inj IVPUSH PRN (03:00)
[2017-04-26] MEDS ORDERED: Alum-Mag Hydrox-Simeth 30 mL Suspension PO PRN (03:00)
[2017-04-26] MEDS ORDERED: Polyethylene Glycol (PEG) 17 Gm Powder PO PRN (03:00)
[2017-04-26 03:18] VITALS: BP 213/132; PULSE 92; RESP 23; O2SAT 99
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
[2017-04-26] MEDS ORDERED: Albuterol 2.5 mg/3 mL Inhalation Solution NEB SCH (04:25)
[2017-04-26] MEDS ORDERED: HYDROmorphone 1 mg/mL Inj IVPUSH ONE (04:25)
[2017-04-26 05:05] VITALS: BP 181/107; PULSE 80; RESP 18; O2SAT 99
[2017-04-26] MEDS ORDERED: Glucose 40% Oral Gel 15 Gm Tube PO PRN (05:05)
[2017-04-26 05:58] VITALS: PULSE 80
[2017-04-26] MEDS ORDERED: Pantoprazole 40 mg ER24 Tablet PO SCH (07:30)
[2017-04-26] MEDS ORDERED: Dextrose 5% 0.45% NaCl 1,000 ML IV SCH (07:50)
--- NOTE | 2017-04-26 07:55 | DRSVH ---
PROCEDURE: X-RAY CHEST, TWO VIEWS ([id number]) INDICATIONS: cp TECHNIQUE: 2 views of the chest were acquired. COMPARISON: [facility], CR, XR CHEST 1VW (PORTABLE), 03/23/2017, 15:48. [facility], CR, XR CHEST 1VW (PORTABLE), 02/20/2017, 19:50. FINDINGS: Surgical changes and devices: None. Lungs and pleura: No pneumothorax. Small right pleural effusion. Mild right basilar atelectasis vers us pneumonia. Mediastinum: Mediastinal contours are normal. Heart size is normal. Bones and chest wall: No suspicious bony abnormalities. Soft tissues appear unremarkable. IMPRESSION: Mild right basilar atelectasis versus pneumonia with small right pleural effusion. Follow up plain films of the chest are recommended to ensure resolution, and to exclude underlying or centr al malignancy. Dictated by: Felisha Garcia M.D. on 04/26/2017 at 7:53 Approved by: Felisha Garcia M.D. on 04/26/2017 at 7:54
[2017-04-26] MEDS ORDERED: Insulin LISPRO 300 Unit/3 mL Inj SUBQ SCH (08:00)
[2017-04-26] MEDS ORDERED: Polyethylene Glycol (PEG) 17 Gm Powder PO SCH (08:30)
[2017-04-26] MEDS ORDERED: Nystatin 100,000 Unit/mL 5 mL Suspension PO SCH (08:30)
[2017-04-26 09:38] LABS: Magnesium 1.6 mg/dL (1.6-2.6)
--- NOTE | 2017-04-26 14:19 | PCM.DC.MED ---
Discharge Summary Date of Service April 26, 2017 Dates of Hospitalization Date of Hospital Admission April 26, 2017 at 03:26 Date of Discharge: April 26, 2017 Providers: Admitting Physician: Leigh Jiang DO Primary Care Physician: Effie Barros DO Attending Physician: Leigh Jiang DO Diagnosis at Time of Discharge Diagnosis at Time of Discharge Left AMA Brief History As noted in H&P by Dr. Sanz: Mr. Anton Carrington is a very pleasant 61-year-old gentleman reporting [facility] emergency Department for continued treatment of an acute on chronic pancreatitis episode. Pt was admitted for pancreatitis, elevated lactic acid, and LFT's at [facility] and left AMA today because they were unable to successfully keep an IV. Review of the medical records shows that patient either lost or pulled his IV for shower or by accident 3 times at which point they transitioned his pain medications from IV to oral Dilaudid. This is when the patient decided to come to [facility] emergency Department. He presented to [facility] Friday the for abdominal pain and sudden onset chest pain following recent alcohol intake of low volume several days before abdominal pain started. Patient reports acute onset of 8 out of 10 diffuse abdominal pain and distention starting Friday the . He reports some mild fevers and chills intermittently, large volume vomiting, nausea, diaphoresis at night, chest pain similar to previous episodes, dizziness, constipation since Friday, decrease flatus, increased belching. He denies syncope, new chest pain, palpitations, dysuria. His chest pain has been worked up recently. [facility] roughly one month ago with catheterization that showed no lesions and recommendations of medical management. He has a past medical history significant for chronic pancreatitis, coronary artery disease with MIs 2, 2 stents placed in January, hypertension, diabetes mellitus type II, paroxysmal atrial fibrillation, chronic pain. Pt had CT 04/23/17 showed acute uncomplicated pancreatitides moderate to severe in degree. Heterogeneous nodule liver, likely related to cirrhosis. Bilateral AV head AVM with old subchondral right femur head fracture and right femoral head collapse. CT abdomen was not repeated. EKG Left atrial enlargement. Nonspecific intraventricular conduction delay. Inverted T waves leads v5 and v6 and lead 1 and AVL. Inversions in v5 and v6 are new when compared with 03/24/17. In the emergency department vitals are as follows; temperature 36.2 C, pulse 87 , respiratory rate 18, blood pressure 166/96, pulse ox 98% room air. White count negative, hemoglobin 11.1, platelets 112, MCV 78, electrolytes within normal limits, creatinine 0.73, glucose 122, lactic acid 1.0, calcium 7.5 , magnesium 1.5, AST/ALT/alkaline phosphatase 138/135/254, troponin 0.010, triglycerides 173, lipase 315. In the emergency department patient received IV Dilaudid, metoprolol tartrate 100 mg, Zofran, mag sulfate, calcium chloride. Hospital Course Notified by nursing that patient had abruptly left AMA early this morning without waiting notifying the nurse and without waiting to be seen by me. Patient's hospital course is otherwise as was detailed in the assessment and plan in the H&P by Dr. Sanz from earlier: 1. Acute pancreatitis, present on admission. Improving. - CT abdomen from 2 days ago [facility]. - Lipase upon admission to [facility] was around 1100, currently 315. - Triglycerides 173. - Currently tolerating Jell-O and broth, NPO for now. - IV Dilaudid for pain control. - IV fluids as needed. - GI consult, recommendations appreciated. - Day team to contact gastroenterology for combination pancreatitis, abdominal distention and constipation and increasing LFTs, and thrombocytopenia. - US guided eval for paracentesis 2. Constipation, present on admission. Active. - Patient's abdomen is distended and he reports no bowel movements for 4 days prior to today, Currently reports diarrhea. 3. Transaminitis, present on admission. Active. - Trending daily LFT's. 4. Thrombocytopenia, present on admission. Active. - Platelets 112, this is a relatively new finding values range between 140 and 300s with thrombocytosis sometimes. 5. Acute on chronic hypertension, present admission. Active. - Patient recently switched from lisinopril to hydrochlorothiazide (report of new hives from lisinopril) - Blood pressure on admission was 166/96, currently 213/132,180/100 following metoprolol. - Start hydrochlorothiazide, continue home amlodipine. 6. Coronary artery disease, present on admission. Stable. - Patient reporting chest pain, similar to chronic chest pain. - EKG with new T-wave inversions in leads V5 and V6 compared to EKG 03/24/2017. - Troponins at [facility] reported as 0.09, currently troponin 0.010. - On remote telemetry. 7. Type II diabetes mellitus, present on admission. Stable. - Holding home metformin. - A1c pending. - Diabetic restricted diet when tolerated. - Correctional and nutritional insulin. 8. History of paroxysmal atrial fibrillation, chronic, not present on admission. Stable. - Continue home metoprolol, and amiodarone. 9. History of depression, chronic. Stable. - Continue home sertraline. 10. Obesity, present on admission. Ongoing. - BMI 39.4 11. Chronic pain.present on admission. - Patient has significant risk factors including a thoracic spine schwannoma, chronic pancreatitis, neuropathy, bilateral avascular necrosis. - Patient has family history of sickle cell. Which basically question is this patient's bilateral avascular necrosis secondary to sickle cell or sickle cell trait? Patient has no evidence of workup. - Continue home meds and IV Dilaudid for breakthrough pain. 12. Dyslipidemia, present on admission. Active. - Continue home statin. 13. GERD, present on admission. Stable. - Continue home omeprazole. 14. Tobacco dependence, present admission. Active. - Half-pack per day, denies need for nicotine patch. 15. Acute oral thrush, present on admission. Active. - Nystatin swish and swallow. Bowel regimen Senna and MiraLAX scheduled and PRN. Zofran when necessary for nausea and vomiting. SubQ heparin held for now - start if platelets remain stable. SCDs in place. Exam Vital Signs (Last) Date Time Temp Pulse Resp B/P Pulse Ox O2 Delivery O2 Flow Rate FiO2 04/26/17 05:58 80 04/26/17 05:05 36.8 18 181/107 99 Room Air Test 04/26/17 00:45 04/26/17 01:09 04/26/17 01:52 04/26/17 08:20 White Blood Count 5.1th/mm3 (3.8-10.1) Red Blood Count 4.18mil/mm3 (4.40-5.80) Hemoglobin 11.1g/dL (13.8-17.2) Hematocrit 32.6% (41.0-50.0) Mean Corpuscular Volume 78.0fL (81-100) Mean Corpuscular Hemoglobin 26.6pg (27.0-35.0) Mean Corpuscular Hemoglobin Concent 34.0% (32.0-37.0) Red Cell Distribution Width 16.0% (12.3-15.4) Platelet Count 112bil/L (150-400) Neutrophils (%) (Auto) 78.2% (40-74) Lymphocytes (%) (Auto) 8.4% (14-46) Monocytes (%) (Auto) 10.1% (4-12) Eosinophils (%) (Auto) 2.5% (0-5) Basophils (%) (Auto) 0.2% (0-3) Troponin T 0.010ug/L (0.0-0.011) Urine Color Straw (YELLOW) Urine Appearance Clear (CLEAR,HAZY) Urine pH 5.5 (5.0-8.0) Urine Specific [place] 1.004 (1.003-1.035) Urine Protein Negativemg/dL (NEG,TRACE) Urine Glucose (UA) Negativemg/dL (NEGATIVE) Urine Ketones Negativemg/dL (NEGATIVE) Urine Occult Blood Trace (NEGATIVE) Urine Nitrite Negative (NEGATIVE) Urine Bilirubin Negative (NEGATIVE) Urine Urobilinogen Normalmg/dL (NORMAL) Urine Leukocyte Esterase Negative (NEGATIVE) Urine RBC 0-2/hpf (0-2) Urine WBC 0-5/hpf (0-5) Urine Epithelial Cells None/hpf (NONE-MOD) Urine Crystals None seen (NONE SEEN) Urine Bacteria None/hpf (NONE-FEW) Urine Hyaline Casts None/lpf (NONE) Urine Granular Casts None seen (NONE SEEN) Urine Waxy Casts None seen (NONE SEEN) Urine Red Blood Cell Casts None seen (NONE SEEN) Urine White Blood Cell Casts None seen (NONE SEEN) Urine Mucus None seen (None Seen) Urine Trichomonas None seen (NONE SEEN) Urine Yeast None (NONE SEEN) Urinalysis Comment None Urine Culture Reflexed Not indicated Prothrombin Time 11.1sec (8.1-12.5) Prothromb Time International Ratio 1.04ratio Lactic Acid Level 1.0mmol/L (0.4-2.0) Triglycerides Level 173mg/dL (0-149) Cholesterol Level 107mg/dL (100-199) LDL Cholesterol, Calculated 43.400mg/dL (0-99) VLDL Cholesterol 34.600mg/dL HDL Cholesterol 29mg/dL (>39) Cholesterol/HDL Ratio 3.69 (0.0-4.4) Lipase 315U/L (13-60) Sodium Level 136mEq/L (134-144) Potassium Level 3.7mEq/L (3.5-5.2) Chloride Level 98mEq/L (97-108) Carbon Dioxide Level 22mmol/L (18-29) Blood Urea Nitrogen 7mg/dL (8-27) Creatinine 0.72mg/dL (0.76-1.27) Estimat Glomerular Filtration Rate 118mL/min (>59) Glucose Level 104mg/dL (60-99) Calcium Level 7.7mg/dL (8.5-10.1) Magnesium Level 1.6mg/dL (1.6-2.6) Total Bilirubin 0.7mg/dL (0.0-1.2) Aspartate Amino Transf (AST/SGOT) 108U/L (0-50) Alanine Aminotransferase (ALT/SGPT) 125U/L (0-44) Alkaline Phosphatase 250U/L (25-160) Total Protein 6.6g/dL (6.4-8.4) Albumin 4.0g/dL (3.4-5.0) Discharge Medications Discharge Medications Albuterol HFA (Proair HFA) 8.5 Gm Hfa.aer.ad 2 PUFFS INHALATION Q4H (Reported) Amiodarone (Amiodarone) 200 Mg Tablet 200 MG PO BID (Reported) Amlodipine (Amlodipine) 2.5 Mg Tablet 2.5 MG PO DAILY Prescribed by: CLARISA BUSCH MD Atorvastatin Calcium (Atorvastatin Calcium) 40 Mg Tablet 40 MG PO DAILY ( Reported) Furosemide (Furosemide) 20 Mg Tab 20 MG PO DAILY (Reported) Metformin (Glucophage) 1,000 Mg Tablet 1,000 MG PO DAILY (Reported) Metoprolol Tartrate (Metoprolol Tartrate) 100 Mg Tablet 100 MG PO BID (Reported ) Pantoprazole DR (Pantoprazole DR) 40 Mg Tablet.dr 40 MG PO DAILY (Reported) Polyethylene Glycol 3350 (Miralax) 17 Gm Powd.pack 17 GM PO DAILY (Reported) Sertraline HCl (Sertraline) 100 Mg Tablet 100 MG PO DAILY (Reported) Tamsulosin ER (Tamsulosin ER) 0.4 Mg Cap.er.24h 0.4 MG PO DAILY (Reported) Terazosin (Terazosin) 5 Mg Capsule 5 MG PO HS (Reported) As needed oxyCODONE (oxyCODONE) 10 Mg Tablet 10 MG PO Q4-6H PRN PRN For Pain (Reported) Max. daily dose of 5 tablets Followup Plan Disposition: Left AMA copies to: Effie Barros Masoud April 26, 2017 14:19
== END 2017-04-26 08:25 | disposition left against medical advice (07) | DRG 439 ==
LOC: SED 22:52 → MPC 04-26 03:26
PROVIDERS: ADMIT Internal Medicine; ATTEND Internal Medicine
DX: K85.90 Acute pancreatitis without necrosis or infection, unspecified (principal); B37.0 Candidal stomatitis; Z68.41 Body mass index [BMI] 40.0-44.9, adult; Z91.19 Patient's noncompliance with other medical treatment and regimen; K59.00 Constipation, unspecified; R74.0 Nonspecific elevation of levels of transaminase and lactic acid dehydrogenase [LDH]; D69.6 Thrombocytopenia, unspecified; I10 Essential (primary) hypertension; I25.10 Atherosclerotic heart disease of native coronary artery without angina pectoris; E11.9 Type 2 diabetes mellitus without complications; Z79.84 Long term (current) use of oral hypoglycemic drugs; I48.0 Paroxysmal atrial fibrillation; E66.09 Other obesity due to excess calories; F32.9 Major depressive disorder, single episode, unspecified; G89.29 Other chronic pain; E78.5 Hyperlipidemia, unspecified; K21.9 Gastro-esophageal reflux disease without esophagitis; F17.210 Nicotine dependence, cigarettes, uncomplicated; Z95.5 Presence of coronary angioplasty implant and graft

== ENCOUNTER 2017-04-27 05:43 | Inpatient (IN) | payer MEDICARE ==
[2017-04-27] VITALS (11 sets, daily range): BP systolic 146–214; BP diastolic 64–126; PULSE 74–99; RESP 16–22; O2SAT 93–100
[~2017-04-27] VITALS: Ht 177.8 cm; Wt 123.9 kg
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
[2017-04-27 06:22] LABS: BASOPHILS % (AUTO) 0.1 % (0-3); EOSINOPHILS % (AUTO) 0.1 % (0-5); MONOCYTES % (AUTO) 6.6 % (4-12); Mean Corpuscular Hemoglobin 26.3 pg (27.0-35.0); Mean Corpuscular Volume 76.2 fL (81-100); NEUTROPHILS % (AUTO) 88.4 % (40-74); Platelet Count 142 bil/L (150-400)
[2017-04-27] MEDS ORDERED: 0.9% Sodium Chloride 1,000 ML IV ONE (06:45)
[2017-04-27] MEDS ORDERED: Ondansetron 2 mg/mL 2 mL Inj IVPUSH ONE (06:45)
[2017-04-27 06:54] LABS: Magnesium 1.1 mg/dL (1.6-2.6)
[2017-04-27] MEDS ORDERED: LidocaineVisc 2%:Antacid 1:1 10 mL Syringe PO ONE (06:55)
[2017-04-27] MEDS ORDERED: Magnesium Sulf 2 Gm/50mL Water 1 GM in IV Premix 1 EACH IV ONE (07:20)
[2017-04-27] MEDS ORDERED: Alum-Mag Hydrox-Simeth 30 mL Suspension PO PRN ×2 (07:55→09:10)
[2017-04-27] MEDS ORDERED: Potassium Chloride Inj 20 MEQ in Dextrose 5% 250 ML IV ONE ×2 (07:55→09:10)
[2017-04-27] MEDS ORDERED: Magnesium Sulf 2 Gm/50mL Water 2 GM in IV Premix 1 EACH IV ONE (09:10)
[2017-04-27] MEDS: D5 0.45% NaCl + KCl 20 mEq/L 1,000 ML IV SCH ×2 (09:36→19:18)
[2017-04-27] MEDS ORDERED: Albuterol HFA 60 Puff 8 Gm Inhaler INHALATION SCH (09:55)
[2017-04-27] MEDS ORDERED: Labetalol 5 mg/mL 4 mL Inj IVPUSH PRN (10:00)
[2017-04-27] MEDS: Albuterol 2.5 mg/3 mL Inhalation Solution NEB SCH ×4 (10:10→22:10)
[2017-04-27] MEDS: Ondansetron 2 mg/mL 2 mL Inj IVPUSH PRN ×4 (11:12→20:11)
[2017-04-27] MEDS: Nystatin 100,000 Unit/mL 5 mL Suspension PO SCH ×3 (12:10→23:32)
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
[2017-04-27] MEDS: Polyethylene Glycol (PEG) 17 Gm Powder PO PRN (15:27)
--- NOTE | 2017-04-27 15:55 | NUR ---
Admission Admit to room 3017 from ER via [facility]. IV infusing. IND activity. Tele applied. Oriented to room and call light. Med rec and admission assessments completed from recall with info from yesterdays admission. Provider notified and assessed. Pt comfortable with treatment plan at this time.
--- NOTE | 2017-04-27 17:16 | NUR ---
GI Chronic pancreatitis with nausea and pain. IV and oral pain meds admin, zofran admin. Tolerating jello and chicken broth with no heaving/retching or emesis. BT+ x4. Reporting minor constipation, miralax admin. Encouraging minimal intake and increased ambulation.
--- NOTE | 2017-04-27 18:08 | NUR ---
Chest Pain Reporting chest pain. Provider notified. New orders for EKG and instructions to admin maalox and continue with IV Morphine as scheduled.
[2017-04-27] MEDS: Famotidine Inj 20 MG in IV Premix 1 EACH IV SCH (20:10)
[2017-04-28] VITALS (8 sets, daily range): BP systolic 124–171; BP diastolic 54–109; PULSE 77–87; RESP 20–22; O2SAT 95–98
[2017-04-28] MEDS: Ondansetron 2 mg/mL 2 mL Inj IVPUSH PRN ×3 (00:15→08:11)
--- NOTE | 2017-04-28 00:54 | NUR ---
Mentation/Forgetfulness/Pain Patient is alert and oriented, cooperative with care. Patient requesting PRN Oxycodone and Morphine to be given every four hours. Explained the "as needed" order to patient and he replied that he doesn't want to get behind on medication. Times available are written on patient's white board. Patient has continued to ask for pain medications about every three hours-reminded of Q4 availability. Patient has asked multiple times when last medications were given and "What else can I have?". Reporting abdominal/chest pain at 6-9/10, states pain medication wears off. Appears comfortable, but has occasional, brief wincing and guards left abdominal area. Using call light for needs, intentional rounding in place.
[2017-04-28] MEDS: Albuterol 2.5 mg/3 mL Inhalation Solution NEB SCH ×5 (02:10→18:10)
[2017-04-28] MEDS: D5 0.45% NaCl + KCl 20 mEq/L 1,000 ML IV SCH (05:03)
[2017-04-28 06:38] LABS: Magnesium 2.1 mg/dL (1.6-2.6)
[2017-04-28] MEDS: Nystatin 100,000 Unit/mL 5 mL Suspension PO SCH ×4 (08:09→21:28)
[2017-04-28] MEDS: Famotidine Inj 20 MG in IV Premix 1 EACH IV SCH ×2 (08:11→21:28)
[2017-04-28] MEDS ORDERED: Polyethylene Glycol (PEG) 17 Gm Powder PO SCH (08:30)
[2017-04-28] MEDS ORDERED: Magnesium Hydroxide 10 mL Oral Concentration PO PRN (12:25)
[2017-04-28] MEDS ORDERED: Potassium Chloride 20 mEq SR Tablet PO ONE (12:35)
--- NOTE | 2017-04-28 12:37 | PCM.PNMED ---
Subjective Date of Service April 28, 2017 Subjective Symptoms no improvement in pain since yesterday. Continues to have of pain across the mid abdomen which he attributes to his pancreatitis and is worse than his chronic pain. He also has chest pain which he says feels like his heart pain but is worse than usual. At his most recent cardiac cath it was determined no further intervention could be done and he should be medical management. He says he cannot tolerate nitroglycerin as it makes his tongue swell. He says he was told to use narcotics for his cardiac pain. He would like to chart a IV Dilaudid 1 mg every 2 hours for pain not controlled by the oxycodone. Exam Vital Signs Vital Sign - Last Date Time Temp Pulse Resp B/P Pulse Ox O2 Delivery O2 Flow Rate FiO2 04/28/17 09:14 36.8 85 20 171/105 98 Room Air Intake and Output 04/27/17 04/27/17 04/28/17 Cumulative From/Thru 15:00 23:00 07:00 04/27/17 05:48 - 04/28/17 05:40 Intake Total 1000 ml 2120 ml 1833 ml 4953 ml Balance 1000 ml 2120 ml 1833 ml 4953 ml Intake Oral 620 ml 640 ml 1260 ml IV Total 1000 ml 1500 ml 1193 ml 3693 ml # Voids 4 3 7 # Bowel Movements 0 0 Exam General: Alert and oriented, no acute distress Heart: Regular Lungs: Clear Abdomen: Soft, bowel tones present, tender to moderate palpation especially in the mid abdomen and the left upper quadrant Extremities: No pedal edema IVs and Medications Medications Reviewed: Medications were reviewed in detail Lab and Diagnostics Result Diagram: 04/27/17 0615 04/28/17 0600 Assessment & Plan 1. Acute pancreatitis, present on admission. Improving but Lipase not yet down to his baseline (87 in Oct, 119 in Dec) - CT abdomen done at [facility] 4 days prior to this admission - Lipase upon admission to [facility] was around 1100, then diann above 2000 , was 370 yesterday when readmitted, 307 today - Triglycerides 173. - Currently tolerating Jell-O and broth, otherwise NPO - Continue oxycodone q 4 prn - Will change IV Morphine to IV Dilaudid q2 prn for breakthrough pain but advised him this is only for 24-48 hrs - IV fluids - change to NS and increase KCl to 40. 2. Constipation, present on admission. Active. - still complains of this, has prn meds, add MOM 3. Transaminitis, present on admission. Active. - Trending daily LFT's, some improved today # Hypomagnesemia resolved after replacement therapy # Hypokalemia persists and has now started HCTZ. - Will give oral dose of 40 mEq now and increase amount and IV to 40 mEq per liter - If continues on hydrochlorothiazide most likely will need chronic dose of potassium replacement # Microcytic anemia (mild), iron studies in October consisted of iron deficiency - Once improved from his acute pancreatitis began oral ferrous sulfate 4. Thrombocytopenia, present on admission. Active. - Platelets 142 up from 112 5. Acute on chronic hypertension, present admission. Active. - Patient recently switched from lisinopril to hydrochlorothiazide (report of new hives from lisinopril). - Start hydrochlorothiazide, continue home amlodipine. 6. Coronary artery disease, present on admission. - Patient reporting chest pain, says worse than chronic chest pain and that it was also yesterday when EKG done (no acute ischemia) - Medical treatment recommended after last heart cath in March, he says he was advised to take narcotics for cardiac pain and is worried we are not adequately treating his heart disease (and therefore requesting MS q 4 prn change to dilaudid q2 prn) - On remote telemetry. - Troponin normal on admission, recheck now and again in am 7. Type II diabetes mellitus, present on admission. Stable. - Holding home metformin. - Diabetic restricted diet when tolerated. - Correctional and nutritional insulin, when needed. 8. History of paroxysmal atrial fibrillation, chronic, not present on admission. Stable. - Continue home metoprolol, and amiodarone. 9. History of depression, chronic. Stable. - Continue home sertraline. 10. Obesity, present on admission. Ongoing. - BMI 39.4 11. Chronic pain.present on admission. - Patient has significant risk factors including a thoracic spine schwannoma, chronic pancreatitis, neuropathy, bilateral avascular necrosis. - Patient has family history of sickle cell. - Continue home meds and IV Morphine for breakthrough pain. 12. Dyslipidemia, present on admission. Active. - Continue home statin. 13. GERD, present on admission. Stable. - Continue home omeprazole. 14. Tobacco dependence, present admission. Active. - Half-pack per day, denies need for nicotine patch. 15. Acute oral thrush, present on admission. Active. - Nystatin swish and swallow. Bowel regimen Senna and MiraLAX scheduled and PRN. Zofran when necessary for nausea and vomiting. Begin Lovenox Disposition: Patient has been admitted under inpatient status. Discharge is dependent upon pain control and pancreatitis. Discharge home when medically stable. Pain Evaluation: Pain not Controlled Resuscitation Status: CPR: Attempt Resuscitation Falguni June MD April 28, 2017 12:37
[2017-04-28] MEDS ORDERED: Potassium Chloride Inj 40 MEQ in 0.9% Sodium Chloride 1,000 ML IV SCH (12:40)
--- NOTE | 2017-04-28 14:15 | NUR ---
Social Work: Initial Assessment Data: See initial assessment. Patient is a 61 y/o male that admitted on 04/27/17 with pancreatitis per H&P. Patient's insurance is Medicare and PCP is Dr. Effie Barros.DINA met with pt at bedside, SW role explained. Pt is alert and oriented x3. Pt's readmission score is 4-high risk. Pt resides at home alone in a mobile home with three steps to enter, where he remains independent with ADLS. Pt does not use any DME and drives. Pt has no SNF or HH history. Pt has no nursing home care insurance or VA benefits. SW discussed DPOA/ advanced directive, pt confirms he has completed this, SW encouraged a copy to be brought in. Pt declines any SW needs and states he will drive himself home. H&P reads as pancreatitis onset due to ETOH, SW to await MD order to complete CD assessment, if indicated. SW provided phone number and plan on white board in room. No anticipated discharge needs. SW will continue to follow if needs arise. Assessment:pt who is independent at baseline. Plan: Pt to discharge home when medically stable via POV. No anticipated discharge needs. SW will continue to follow if needs arise. LILLIAN Proctor Addendum: 04/28/17 at 1419 by PEPE JANSEN Amended: Links added.
[2017-04-28] MEDS: HYDROmorphone 1 mg/mL Inj IVPUSH PRN ×4 (14:19→21:29)
--- NOTE | 2017-04-28 16:30 | NUR ---
Pain-see addendum Patient reporting pain 5-10/10 in Lt chest and Lt side. Patient reporting Morphine and Oxycodone not effective. Patient reporting pain reduced to 5 with Dilaudid. Patient requesting pain meds this morning "so I can get some sleep". Patient requesting pain medications as soon as they are avail. to be given again. Addendum: 04/28/17 at 2014 by LONDON ARECO RN Patient made a comment, "If you don't get it right-you will be hearing from my real estate associate attorney". Patient remarked, "I am not going to discharge until I get a complete GI workup and a complete cardiac workup". "I want to make sure that tumor on my spine is not going to give me a heart attach". Patient making numerous requests for his diet to be advanced. Patient teaching given on staying on clear liquids until inflammation is reduced. Patient making numerous unprofessional comments to nurse during this shift. Patient also making numerous comments: "When are you off so you can go out with me"? "It's suppose to be raining later this week, that's when we should turret lathe set up operator".
[2017-04-28] MEDS: Polyethylene Glycol (PEG) 17 Gm Powder PO PRN (20:08)
--- NOTE | 2017-04-29 00:09 | NUR ---
Left unit: Pt asked RN if he could go out to his car and get clean underclothes, RN stated she would need to ask the lost charge card clerk due to him being on tele and having an IV. Pt said "No, don't worry about it, I don't want you to get in trouble". After this, SOLUTION ADVISOR informed RN that pt got himself dressed, unhooked his IV and went to his car. loading machine operator helper informed that pt was making inappropriate comments to RN, stating that he wants to see RN outside of the hospital. loading machine operator helper assigned a male RN to patient due to these comments and pt monopolizing female RN's time.
--- NOTE | 2017-04-29 00:41 | NUR ---
Medication: Pt asked RN about metformin and why he is not receiving it. RN contacted MD, who stated that metformin is being held while in the hospital. MD's are monitoring BG and would add insulin to his medications while inpatient if pt needed it. This information was communicated to pt by RN and pt stated he understood.
--- NOTE | 2017-04-29 00:44 | NUR ---
Left AMA: Pt came out of his room fully clothed with a belongings bag, removed his own IV; when asked what he was doing, he stated "I'm going to go home". Pt encouraged to stay for treatment, pt said "No, I have pain medication at home I can take". Pt stayed and chatted with two RN's for several minutes, RN offered to print information on pancreatitis for him, pt refused stating he would research it at home. Pt appeared AOx3, pleasant during this exchange; signed AMA paperwork. notified.
--- NOTE | 2017-04-30 19:46 | PCM.DC.MED ---
Discharge Summary Date of Service April 30, 2017 Dates of Hospitalization Date of Hospital Admission April 27, 2017 at 08:14 Date of Discharge: April 29, 2017 Providers: Admitting Physician: Wanda Lopez MD Primary Care Physician: Effie Barros DO Attending Physician: Wanda Lopez MD Diagnosis at Time of Discharge Diagnosis at Time of Discharge Acute pancreatitis Brief History He has been in the hospital 3 times now in the last week, initially spending [address] [facility] for alcohol-induced pancreatitis and then leaving there AMA and spending one night here before leaving AMA again and now returning this morning due to a long night of vomiting, nausea and increased abdominal pain. He insists that when he went home yesterday he stayed on ice chips, and did not eat or drink alcohol. He has a supply of oxycodone that he uses at home. He also has his typical upper back pain from the spinal schwannoma and chest pain which has been worked up thoroughly, repeatedly and as recently as a few days ago was ruled out for acute coronary syndrome. Anton is a familiar face and name to the caretakers of several hospitals as he has several severe medical problems that seem to rotate through a cycle and require hospitalizations every month. He tends to bounce between hospitals usually leaving AMA when he feels that he is not receiving the diet that he wishes or the amount of pain medicine that he wants. This particular sequence was prompted by indulging in several beers during every basketball playoff game last week triggering the pancreatitis again. He has had pancreatitis from alcohol and he has had it without any alcohol trigger at multiple times in the past. He underwent CT scan at [facility] documenting the pancreatitis and his lipase level was above 2000 at the onset of this sequence. It is now in the 300-400 level. His magnesium is low at 1.1 and his potassium is low at 3.0. This had not been a problem earlier in this hospitalization sequence, because he had been on IV fluids continuously, prompted now by the vomiting from last night at home. Hospital Course Patient left AGAINST MEDICAL ADVICE early in the morning of April 29 1. Acute pancreatitis, present on admission. Improving but Lipase not yet down to his baseline (87 in Oct, 119 in Dec) - CT abdomen done at [facility] 4 days prior to this admission - Lipase upon admission to [facility] was around 1100, then diann above 2000 , was 370 yesterday when readmitted, 307 today - Triglycerides 173. - Currently tolerating Jell-O and broth, otherwise NPO - Continue oxycodone q 4 prn - Will change IV Morphine to IV Dilaudid q2 prn for breakthrough pain but advised him this is only for 24-48 hrs - IV fluids - change to NS and increase KCl to 40. 2. Constipation, present on admission. Active. - still complains of this, has prn meds, add MOM 3. Transaminitis, present on admission. Active. - Trending daily LFT's, some improved today # Hypomagnesemia resolved after replacement therapy # Hypokalemia persists and has now started HCTZ. - Will give oral dose of 40 mEq now and increase amount and IV to 40 mEq per liter - If continues on hydrochlorothiazide most likely will need chronic dose of potassium replacement # Microcytic anemia (mild), iron studies in October consisted of iron deficiency - Once improved from his acute pancreatitis began oral ferrous sulfate 4. Thrombocytopenia, present on admission. Active. - Platelets 142 up from 112 5. Acute on chronic hypertension, present admission. Active. - Patient recently switched from lisinopril to hydrochlorothiazide (report of new hives from lisinopril). - Start hydrochlorothiazide, continue home amlodipine. 6. Coronary artery disease, present on admission. - Patient reporting chest pain, says worse than chronic chest pain and that it was also yesterday when EKG done (no acute ischemia) - Medical treatment recommended after last heart cath in March, he says he was advised to take narcotics for cardiac pain and is worried we are not adequately treating his heart disease (and therefore requesting MS q 4 prn change to dilaudid q2 prn) - On remote telemetry. - Troponin normal on admission, recheck now and again in am 7. Type II diabetes mellitus, present on admission. Stable. - Holding home metformin. - Diabetic restricted diet when tolerated. - Correctional and nutritional insulin, when needed. 8. History of paroxysmal atrial fibrillation, chronic, not present on admission. Stable. - Continue home metoprolol, and amiodarone. 9. History of depression, chronic. Stable. - Continue home sertraline. 10. Obesity, present on admission. Ongoing. - BMI 39.4 11. Chronic pain.present on admission. - Patient has significant risk factors including a thoracic spine schwannoma, chronic pancreatitis, neuropathy, bilateral avascular necrosis. - Patient has family history of sickle cell. - Continue home meds and IV Morphine for breakthrough pain. 12. Dyslipidemia, present on admission. Active. - Continue home statin. 13. GERD, present on admission. Stable. - Continue home omeprazole. 14. Tobacco dependence, present admission. Active. - Half-pack per day, denies need for nicotine patch. 15. Acute oral thrush, present on admission. Active. - Nystatin swish and swallow. Bowel regimen Senna and MiraLAX scheduled and PRN. Zofran when necessary for nausea and vomiting. Begin Lovenox Disposition: Patient has been admitted under inpatient status. Discharge is dependent upon pain control and pancreatitis. Discharge home when medically stable. Pain Evaluation: Pain not Controlled Resuscitation Status: CPR: Attempt Resuscitation Exam Vital Signs (Last) Date Time Temp Pulse Resp B/P Pulse Ox O2 Delivery O2 Flow Rate FiO2 04/28/17 20:22 36.3 82 22 139/88 97 Room Air Test 04/27/17 06:15 04/28/17 06:00 04/28/17 12:40 White Blood Count 8.1th/mm3 (3.8-10.1) Red Blood Count 4.71mil/mm3 (4.40-5.80) Hemoglobin 12.4g/dL (13.8-17.2) Hematocrit 35.9% (41.0-50.0) Mean Corpuscular Volume 76.2fL (81-100) Mean Corpuscular Hemoglobin 26.3pg (27.0-35.0) Mean Corpuscular Hemoglobin Concent 34.5% (32.0-37.0) Red Cell Distribution Width 15.8% (12.3-15.4) Platelet Count 142bil/L (150-400) Neutrophils (%) (Auto) 88.4% (40-74) Lymphocytes (%) (Auto) 4.4% (14-46) Monocytes (%) (Auto) 6.6% (4-12) Eosinophils (%) (Auto) 0.1% (0-5) Basophils (%) (Auto) 0.1% (0-3) Hold Chapman Top Tube Received (Received) Sodium Level 135mEq/L (134-144) Potassium Level 3.2mEq/L (3.5-5.2) Chloride Level 97mEq/L (97-108) Carbon Dioxide Level 25mmol/L (18-29) Blood Urea Nitrogen 5mg/dL (8-27) Creatinine 0.94mg/dL (0.76-1.27) Estimat Glomerular Filtration Rate 87mL/min (>59) Glucose Level 155mg/dL (60-99) Calcium Level 8.3mg/dL (8.5-10.1) Magnesium Level 2.1mg/dL (1.6-2.6) Total Bilirubin 0.5mg/dL (0.0-1.2) Aspartate Amino Transf (AST/SGOT) 31U/L (0-50) Alanine Aminotransferase (ALT/SGPT) 61U/L (0-44) Alkaline Phosphatase 175U/L (25-160) Total Protein 6.1g/dL (6.4-8.4) Albumin 3.6g/dL (3.4-5.0) Lipase 307U/L (13-60) Troponin T < 0.010ug/L (0.0-0.011) Discharge Medications Discharge Medications Albuterol HFA (Proair HFA) 8.5 Gm Hfa.aer.ad 2 PUFFS INHALATION Q4H (Reported) Amiodarone (Amiodarone) 200 Mg Tablet 200 MG PO BID (Reported) Amlodipine (Amlodipine) 2.5 Mg Tablet 2.5 MG PO DAILY Prescribed by: CLARISA BUSCH MD Atorvastatin Calcium (Atorvastatin Calcium) 40 Mg Tablet 40 MG PO DAILY ( Reported) Furosemide (Furosemide) 20 Mg Tab 20 MG PO DAILY (Reported) Metformin (Glucophage) 1,000 Mg Tablet 1,000 MG PO DAILY (Reported) Metoprolol Tartrate (Metoprolol Tartrate) 100 Mg Tablet 100 MG PO BID (Reported ) Pantoprazole DR (Pantoprazole DR) 40 Mg Tablet.dr 40 MG PO DAILY (Reported) Polyethylene Glycol 3350 (Miralax) 17 Gm Powd.pack 17 GM PO DAILY (Reported) Sertraline HCl (Sertraline) 100 Mg Tablet 100 MG PO DAILY (Reported) Tamsulosin ER (Tamsulosin ER) 0.4 Mg Cap.er.24h 0.4 MG PO DAILY (Reported) Terazosin (Terazosin) 5 Mg Capsule 5 MG PO HS (Reported) As needed oxyCODONE (oxyCODONE) 10 Mg Tablet 10 MG PO Q4-6H PRN PRN For Pain (Reported) Max. daily dose of 5 tablets Falguni June MD April 30, 2017 19:46
== END 2017-04-29 00:20 | disposition left against medical advice (07) | DRG 439 ==
LOC: SED 05:43 → MPC 08:14
PROVIDERS: ADMIT Family Medicine; ATTEND Family Medicine
DX: K85.90 Acute pancreatitis without necrosis or infection, unspecified (principal); B37.0 Candidal stomatitis; I25.10 Atherosclerotic heart disease of native coronary artery without angina pectoris; I10 Essential (primary) hypertension; E11.9 Type 2 diabetes mellitus without complications; I48.0 Paroxysmal atrial fibrillation; G89.29 Other chronic pain; F17.210 Nicotine dependence, cigarettes, uncomplicated; E78.5 Hyperlipidemia, unspecified; K21.9 Gastro-esophageal reflux disease without esophagitis; D69.6 Thrombocytopenia, unspecified; Z79.4 Long term (current) use of insulin; F32.9 Major depressive disorder, single episode, unspecified; E66.01 Morbid (severe) obesity due to excess calories; Z68.39 Body mass index [BMI] 39.0-39.9, adult; E87.6 Hypokalemia

== ENCOUNTER 2017-05-21 06:47 | Emergency (ER) | payer MEDICARE ==
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
[2017-05-21 06:53] VITALS: BP 201/112; PULSE 87; RESP 20; O2SAT 100
[2017-05-21] MEDS ORDERED: Ondansetron 2 mg/mL 2 mL Inj IVPUSH ONE (07:05)
[2017-05-21] MEDS ORDERED: Labetalol 5 mg/mL 4 mL Inj IVPUSH ONE (07:10)
[2017-05-21] MEDS ORDERED: Ondansetron 8 mg ODT Tablet PO ONE (07:25)
[2017-05-21] MEDS ORDERED: HYDROmorphone 1 mg/mL Inj IM ONE (07:30)
[2017-05-21 07:56] LABS: BASOPHILS % (AUTO) 0.2 % (0-3); EOSINOPHILS % (AUTO) 0.2 % (0-5); MONOCYTES % (AUTO) 5.9 % (4-12); Mean Corpuscular Hemoglobin 26.7 pg (27.0-35.0); Mean Corpuscular Volume 76.9 fL (81-100); NEUTROPHILS % (AUTO) 82.8 % (40-74); Platelet Count 213 bil/L (150-400)
[2017-05-21 08:12] VITALS: BP 181/100; PULSE 78; RESP 17; O2SAT 95
[2017-05-21 08:45] LABS: TROPONIN T < 0.010 ug/L (0.0-0.011)
[2017-05-21 08:57] LABS: Magnesium 1.1 mg/dL (1.6-2.6)
[2017-05-21] MEDS ORDERED: Potassium Chloride 20 mEq SR Tablet PO ONE (09:00)
[2017-05-21] MEDS ORDERED: Magnesium Sulf 2 Gm/50mL Water 2 GM in IV Premix 1 EACH IV ONE (09:00)
--- NOTE | 2017-05-21 09:02 | DRSVH ---
PROCEDURE: X-RAY CHEST ONE VIEW, PORTABLE ([id number]) INDICATIONS: chest pain TECHNIQUE: One view of the chest was acquired. COMPARISON: [facility], CR, XR CHEST 2VW, 01/30/2017, 16:13. [facility], CT, CT ANGIO CHEST PE, 01/30/2017, 16:30. [facility], CR, XR CHEST 1V PORTABLE, 02/14/2017, 10:18 PM. [facility], CT, CT ANGIO CHEST ABD, 11/02/2016, 21:07. [facility], CR, XR CHEST 2VW, 04/25/2017, 23:37. [facility], CR, XR CHEST 1VW (PORTABLE), 7, 15:48. FINDINGS: Surgical changes and devices: None. Lungs and pleura: There is a small right pleural effusion or pleural scarring with bibasilar atelect asis, unchanged from 04/25/2017. A nodular density in the right upper lung zone also appears unchanged . No pneumothorax. Mediastinum: Mediastinal contours appear normal. Heart size is normal. Bones and chest wall: No suspicious bony lesions. Overlying soft tissues appear unremarkable. IMPRESSION: Stable chest x-ray with small right pleural effusion or pleural scarring. A nodular dens ity in the right upper lung zone also appears unchanged. Dictated by: Justice Valdez [facility] Interpreted: Yessenia Mills MD on 05/21/2017 at 9:00 Transcribed by: ALEX on 05/21/2017 at 9:01 Approved by: Yessenia Mills M.D. on 05/21/2017 at 11:32
[2017-05-21 09:15] VITALS: BP 153/91; RESP 15; O2SAT 99
[2017-05-21 10:15] VITALS: BP 172/92; PULSE 79; RESP 15; O2SAT 99
[2017-05-21 10:45] VITALS: BP 153/92; PULSE 80; RESP 14; O2SAT 98
[2017-05-21] MEDS ORDERED: SLO64 PO (10:47)
[2017-05-21 11:06] VITALS: BP 153/92; PULSE 80; RESP 14; O2SAT 98
== END 2017-05-21 11:07 | disposition home or self-care (01) ==
LOC: SED 06:47
DX: R07.9 Chest pain, unspecified (principal); E83.42 Hypomagnesemia; E11.9 Type 2 diabetes mellitus without complications; I11.0 Hypertensive heart disease with heart failure; I50.9 Heart failure, unspecified; I25.10 Atherosclerotic heart disease of native coronary artery without angina pectoris; E78.5 Hyperlipidemia, unspecified; F17.200 Nicotine dependence, unspecified, uncomplicated; K21.9 Gastro-esophageal reflux disease without esophagitis; Z88.8 Allergy status to other drugs, medicaments and biological substances; Z88.6 Allergy status to analgesic agent; Z95.5 Presence of coronary angioplasty implant and graft; Z79.84 Long term (current) use of oral hypoglycemic drugs
CPT/HCPCS: 36415; 71010; 80053; 83690; 83735; 83880; 84484; 85025; 93005; 96372; 96374; 96375; 99285; J1170; J2405

== ENCOUNTER 2017-05-22 21:05 | Observation (INO) | payer MEDICARE ==
[~2017-05-22] VITALS: Ht 177.8 cm; Wt 121.9 kg
[~2017-05-22 21:05] MED LIST changes: +SLO64 PO
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
[2017-05-22 21:15] VITALS: BP 199/114; PULSE 108; RESP 22; O2SAT 98
[2017-05-22] MEDS ORDERED: Ondansetron 2 mg/mL 2 mL Inj IVPUSH ONE ×2 (21:20→22:25)
[2017-05-22 21:35] LABS: BASOPHILS % (AUTO) 0.3 % (0-3); EOSINOPHILS % (AUTO) 1.7 % (0-5); Mean Corpuscular Hemoglobin 26.3 pg (27.0-35.0); Mean Corpuscular Volume 77.8 fL (81-100); NEUTROPHILS % (AUTO) 64.1 % (40-74); Platelet Count 229 bil/L (150-400)
--- NOTE | 2017-05-22 21:54 | DRSVH ---
PROCEDURE: X-RAY CHEST ONE VIEW, PORTABLE ([id number]) INDICATIONS: chest pain TECHNIQUE: One view of the chest was acquired. COMPARISON: [facility], CR, XR CHEST 1VW (PORTABLE), 05/21/2017, 7:02. FINDINGS: Surgical changes and devices: None. Lungs and pleura: Again noted is a small right-sided pleural effusion with right basal atelectasis an d an nodular right upper lung pulmonary opacity.. Mediastinum: Mediastinal contours appear normal. Heart size is normal. Bones and chest wall: No suspicious bony lesions. Overlying soft tissues appear unremarkable. IMPRESSION: Stable right-sided pleural effusion with bibasilar atelectasis. Dictated by: Marcos Hough M.D. on 05/22/2017 at 21:45 Approved by: Marcso Hough M.D. on 05/22/2017 at 21:47
[2017-05-22] MEDS: MeTOProlol 1 mg/mL 5 mL Inj IVPUSH PRN ×3 (22:00→22:33)
[2017-05-22 22:21] VITALS: BP 202/104; PULSE 82; RESP 15; O2SAT 97
[2017-05-22 22:38] LABS: TROPONIN T 0.01 ug/L (0.0-0.011)
[2017-05-22 22:49] LABS: Magnesium 1.8 mg/dL (1.6-2.6)
[2017-05-22] MEDS ORDERED: HYDROmorphone 1 mg/mL Inj IVPUSH ONE (23:00)
[2017-05-23] VITALS (9 sets, daily range): BP systolic 143–196; BP diastolic 75–115; PULSE 66–90; RESP 16–20; O2SAT 98–100
[2017-05-23] MEDS ORDERED: POTA10TA12 PO (00:03)
[2017-05-23] MEDS ORDERED: NYST1000 PO (00:03)
[2017-05-23] MEDS ORDERED: METF500T4 PO (00:03)
[2017-05-23] MEDS ORDERED: ONDA-53 PO (00:03)
[2017-05-23] MEDS ORDERED: MAGN400T4 PO (00:03)
[2017-05-23] MEDS ORDERED: FLUT9.9S NOSTRIL (00:03)
[2017-05-23] MEDS ORDERED: CEPH500C PO (00:03)
[2017-05-23] MEDS ORDERED: CARB-199 OT (00:03)
[2017-05-23] MEDS ORDERED: DICL100G26 TOPICAL (00:05)
[2017-05-23] MEDS ORDERED: Furosemide 10 mg/mL 4 mL Inj IVPUSH ONE (00:05)
[2017-05-23] MEDS ORDERED: OXYC-474 PO (00:09)
[2017-05-23] MEDS ORDERED: Polyethylene Glycol (PEG) 17 Gm Powder PO PRN (00:55)
[2017-05-23] MEDS ORDERED: Alum-Mag Hydrox-Simeth 30 mL Suspension PO PRN (00:55)
[2017-05-23] MEDS ORDERED: MetoCLOpramide 5 mg/mL 2 mL Inj IVPUSH ONE (02:20)
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
--- NOTE | 2017-05-23 04:14 | NUR ---
Admit Patient admitted to room 2012, no distress noted, A&Ox4, walked from ED rney to bed, no SOB, some chest discomfort sharp/pressure when taking deep breath, admission screening and med rec done. Pleasant and cooperative, BP 150's/100's on admit and currently BP is 138/71, medicated for pain and sleeping med given, Benadryl and Reglan given for migraine per MD order. sleeping at this time, will continue to monitor. Addendum: 05/23/17 at 0420 by SHIRLEY NAVAS RN Amended: Links added.
[2017-05-23] MEDS ORDERED: Glucose 40% Oral Gel 15 Gm Tube PO PRN (06:40)
[2017-05-23 06:58] LABS: Mean Corpuscular Hemoglobin 26.4 pg (27.0-35.0)
[2017-05-23 07:27] LABS: Magnesium 1.5 mg/dL (1.6-2.6)
[2017-05-23] MEDS: Insulin LISPRO 300 Unit/3 mL Inj SUBQ SCH ×4 (08:00→22:00)
[2017-05-23] MEDS: Pantoprazole 40 mg ER24 Tablet PO SCH (08:37)
[2017-05-23] MEDS: Heparin 5,000 Unit/mL Inj SUBQ SCH ×3 (08:42→23:55)
[2017-05-23] MEDS: Magnesium Chloride SR 64 mg ER24 Tablet PO SCH (09:27)
--- NOTE | 2017-05-23 09:28 | NUR ---
Pain reassessment Pt states the oxycodone 10 mg does not take pain away. Pt states he takes one 10 mg oxycodone Q 4 at home. Pt states he belongs to [facility], with pain management contract. Listened. Redirected. Pt appropriate with nurse in conversation. MD notified. Care continues.
[2017-05-23] MEDS ORDERED: HYDROmorphone 0.5 mg/0.5 mL iSecure Syringe IVPUSH SCH (10:50)
--- NOTE | 2017-05-23 11:48 | NUR ---
Case Management- ROBINS explained and signed by patient at 1141. Shayna RIZZO/RN
[2017-05-23] MEDS: Ondansetron 2 mg/mL 2 mL Inj IVPUSH PRN ×2 (12:11→21:13)
--- NOTE | 2017-05-23 12:20 | NUR ---
Chest Pain/Nausea Pt stated he was having chest pain and nausea. BP 173/95 HR 70. Administered one time dose Labatolol 200 mg. One time dose Dilaudid 0.5 mg. Zofran 4 mg IV. Pt stated chest pain, nausea and RASMUSSEN resolved. Care continues.
--- NOTE | 2017-05-23 15:59 | NUR ---
Social Work: Initial Assessment D: Per EMR review, pt is a 61 year old male admitted for Hypertensive Urgency. Pt is Medicare; pt states he also has Medicaid. No LTC insurance or VA Benefits. PCP is Effie Barros DO. Pt declined to provide NOK info. No Readmit score entered at this time. Pt declined AD info from OPERATIONS COORDINATOR. OPERATIONS COORDINATOR met with pt at bedside. Pt is a readmit and left AMA on 04/30/17 with no sw needs. OPERATIONS COORDINATOR met with pt at bedside. Sw role explained and contact info provided. See initial assessment. Pt lives in [place], [facility]. Pt is I at baseline and uses a cane. pt continues to drive and lives in a fifth wheel camper trailer with 3 steps to enter. Pt has never had HH or skilled rehab. Pt declines these services as options for discharge and states that he is supposed to follow up with [facility] for a surgery in the coming months. Pt provided with a senior resource guide in attempts to help him to coordinate services and make plans prior to this scheduled surgery. Pt is appreciative of this. Pt is followed by the [facility]. Pt anticipates discharging home when medically stable; pt states that he drove himself to the hospital and will drive himself home when ready. A: Pt who is I at baseline. P: Evolving; Anticipate pt to discharge home via POV once medically stable; OPERATIONS COORDINATOR to continue to follow and assess for discharge needs. LILLIAN Porter Addendum: 05/23/17 at 1607 by EVA DOMINGUEZ Amended: Links added.
--- NOTE | 2017-05-23 17:12 | PCM.PNMED ---
Subjective Date of Service May 23, 2017 Subjective Patient states that he is overall feeling better, however he continues to have have substernal chest pain, he has in the past has a severe adverse reaction to Nitro. Pressure has been much better controlled over the course of the afternoon. No significant overnight events Comprehensive ROS negative except as outlined above. Exam Vital Signs Vital Sign - Last Date Time Temp Pulse Resp B/P Pulse Ox O2 Delivery O2 Flow Rate FiO2 05/23/17 16:00 36.5 68 16 148/85 100 Room Air Intake and Output 05/22/17 05/22/17 05/23/17 Cumulative From/Thru 14:59 22:59 06:59 05/22/17 21:15 - 05/23/17 05:31 Intake Total 560 ml 560 ml Output Total 0 ml 0 ml Balance 560 ml 560 ml Intake Oral 560 ml 560 ml Output Urine Total 0 ml 0 ml Exam Gen: A/O x3 pleasant cooperative gentleman in mild acute distress secondary to chest pain Neck: Supple, non tender, no thyromegaly, no JVD HEENT: PERRL, EOMI, no scleral icterus, no conjunctival pallor CV: RRR, no murmurs rubs or gallops Resp: Lungs CTA BL, no wheezing rales or rhonchi Abd: Slightly firm abdomen, no organomegaly, mild diffuse tenderness to palpation, midline incisional scar with reducible hernia Extr: No clubbing cyanosis or edema Neuro: CN 2-12 grossly intact, no focal neurologic deficit Psych: Appropriate mood and affect IVs and Medications Medications Reviewed: Medications were reviewed in detail Lab and Diagnostics Item Value Date Time Red Blood Count 4.54 mil/mm3 05/23/17 06 Mean Corpuscular Volume 78.0 fL L 05/23/17611 Mean Corpuscular Hemoglobin 26.4 pg L 05/23/1712 Mean Corpuscular Hemoglobin Concent 33.9 % 05/23/17611 Red Cell Distribution Width 15.3 % 05/23/17611 Platelet Count 188 janette/L 05/23/17 0612 Estimat Glomerular Filtration Rate 59 mL/min 05/23/17 0612 Calcium Level 8.9 mg/dL 05/23/17611 Magnesium Level 1.5 mg/dL L 05/23/17611 Total Bilirubin 0.3 mg/dL 6/611 Aspartate Amino Transf (AST/SGOT) 28 U/L 05/23/17611 Alanine Aminotransferase (ALT/SGPT) 25 U/L 05/23/17611 Alkaline Phosphatase 80 U/L 05/23/17611 Troponin T 0.010 ug/L 05/23/17611 Total Protein 6.4 g/dL 05/23/17611 Albumin 4.0 g/dL 05/23/17611 Lipase 89 U/L H 05/23/17611 Result Diagram: 05/23/1761105/23/17611 X-Rays, CTs and MRIs X-RAY CHEST ONE VIEW, PORTABLE ([id number]) IMPRESSION: Stable right-sided pleural effusion with bibasilar atelectasis. Dictated by: Marcos Hough M.D. on 05/22/2017 at 21:45 Approved by: Marcos Hough M.D. on 05/22/2017 at 21:47 Assessment & Plan Patient is a 61 year old male with a hx of coronary artery disease and prior myocardial infarction infarction with cardiac stent placement, proximal atrial fibrillation, hypertension, hyperlipidemia presents to the [facility] emergency Department complaining of left sided chest pain. Trop negative x3, ECG reassuring, BP much better controlled. He continues to complain of sharp substernal chest pain, given his extensive cardiac history and recently high BP he will be observed for an additional evening. Hypertensive Urgency, POA, acute on chronic. Improved - Patient had hypertensive urgency with blood pressure of 199/114 repeat blood pressure of 202/104 at admission - Patient described headache with blurring vision consistent with possible end organ damage versus possible migraine with aura - Patient also had a mild bump in his creatinine up to 1.41 from a baseline of near 0.8-0.9 however this may also be explained by prerenal azotemia from nausea and vomiting - Patient was treated in the emergency department with 3 successive pushes of metoprolol 5 mg IV at 22:00, 22:26, and 20:33 - Patient's blood pressure improved from a MAP of 136 mmHg at 20:21, to a MAP of 103 at 00:29 consistent with the recommended 25-30% reduction in mean arterial pressure over several hours - Patient responded well to PO Labetalol Atypical Chest pain, POA, acute. Active - Described as pressure directly over his heart but not caused on exertion and not improving with rest, the patient is reportedly allergic to nitroglycerin so none could be administered, the patient also had associated nausea and vomiting and headache with mild vision changes - Patient was given morphine IV as well as Dilaudid IV in the emergency department with improvement of pain as well as Zofran for nausea - The patient was given Reglan with Benadryl for the headache with reported improvement in symptoms the patient was able to sleep - Patient was recently prescribed isosorbide mononitrate likely for blood pressure control and angina, however the patient had failed to take his first dose - Initial 2 troponins have been negative at 0.010 - Repeat troponin every 6 hours - Patient had a cardiac catheterization performed January 12, 2017 with no evidence of critical disease requiring percutaneous intervention. The right coronary artery did have significant disease but no evidence of critical stenosis with a dorsal posterolateral branch small size artery with 90% stenosis. 2 previous stents in the right coronary artery and left anterior descending artery were widely patent. Normal ejection fraction and wall motion at of the left ventricle with normal left ventricular filling pressures. Recommendations were to start Imdur therapy and follow-up with cardiology as the patient's pain was likely noncardiac in nature. - The patient also had a recent pharmacologic stress test on 03/26/2017 which showed good myocardial uptake of the radiotracer without significant motion artifacts leading to a normal myocardial perfusion study. There was an apparent reversible perfusion defect in the inferior wall demonstrated near complete normalization in the prone position and likely represented diaphragmatic attenuation artifact. There was an abnormal left ventricular function with global hypokinesis most pronounced in the basal segments and inferior basal segment akinesis. Left ventricular stress ejection fraction was decreased to 42%. Moderate left ventricular enlargement. And normal hemodynamic response to pharmacologic stress. Acute kidney injury, POA. Improving - As described above creatinine had a mild bump in his creatinine up to 1.41 from a baseline of near 0.8-0.9 however this may also be explained by prerenal azotemia from nausea and vomiting - Likely secondary to Hypertensive event - Patient received a liter of IV fluids, as well as Lasix 40 mg in the emergency department - Will continue to cautiously diurese - Repeat BMP in the a.m. Mild microcytic anemia, POA, likely chronic. Stable - Hemoglobin of 13.6 with MCV of 77.8 - Consider possible anemia panel workup given low MCV with likelihood of iron deficiency - Patient has a history of iron deficiency from past lab analysis - Consider iron supplementation as an outpatient Type II diabetes mellitus, POA, chronic. Active - Holding home metformin. - Diabetic constant carb diet - Correctional scale lispro insulin, when needed. History of paroxysmal atrial fibrillation, POA, chronic. Active - Continue home metoprolol tartrate 100 mg twice a day - continue home amiodarone 200 mg daily History of chronic depression, POA. Stable - Continue home sertraline. Dyslipidemia, present on admission. Active. - Continue home statin - Atorvastatin 40 mg daily Gastroesophageal reflux disease, POA, chronic. Active - Continue home omeprazole - Omeprazole switched to pantoprazole 40 mg daily while inpatient Chronic Tobacco dependence, POA. Active - Patient education - Offered nicotine patch Chronic benign prostatic hypertrophy, POA. Active - Patient is on dual therapy with tamsulosin and Terazosin daily - Converted to doxazosin and tamsulosin while inpatient Obesity, POA, chronic. Active - BMI 39.4 - Offered nutritional counseling Disposition: Patient will likely be able to DC home with no needs following improvement of chest pain, likely tomorrow. Pain Evaluation: Adequate Pain Control GI Prophylaxis: Proton Pump Inhibitor VTE Prophylaxis: Sub-Q Heparin (Unfractionated), SCDs VTE Mechanical Devices: Intermittant Pneumatic CD Resuscitation Status: CPR: Attempt Resuscitation Attending Statement The patient was seen and examined together with Dr. Garcia on 05/23/2017 and I agree with the history, exam and plan as outlined in the note above. Nelson Garcia DO May 23, 2017 17:12 Jose Watkins MD May 23, 2017 17:58
--- NOTE | 2017-05-23 19:36 | NUR ---
Orthostatic BP Lying 145/93 Sitting 129/90 Standing 136/85 MD notified. Care continues.
[2017-05-24 02:58] LABS: BASOPHILS % (AUTO) 0.5 % (0-3); EOSINOPHILS % (AUTO) 5.4 % (0-5); MONOCYTES % (AUTO) 16.1 % (4-12); Mean Corpuscular Hemoglobin 26.2 pg (27.0-35.0); Mean Corpuscular Volume 77.5 fL (81-100); Platelet Count 188 bil/L (150-400)
[2017-05-24 03:18] LABS: Magnesium 1.6 mg/dL (1.6-2.6); Phosphorus 4.1 mg/dL (2.5-4.9)
[2017-05-24 04:30] VITALS: BP 173/106; PULSE 62; RESP 20; O2SAT 99
--- NOTE | 2017-05-24 05:16 | NUR ---
BM pt feeling constipated have 6 prune juices per his request and had large BM this shift.
--- NOTE | 2017-05-24 05:17 | NUR ---
pain pt c/o dee in back and "tingling" in chest 07/10 most of time, pt receiving oxycodone 10mg q4 hrs prn and asks for it exactly [id number]. pt states it helps some. this is his pain regime at home form [facility]
[2017-05-24 06:29] VITALS: PULSE 70
[2017-05-24 07:51] VITALS: BP 138/95; PULSE 69; RESP 16; O2SAT 98
[2017-05-24] MEDS: Insulin LISPRO 300 Unit/3 mL Inj SUBQ SCH (07:58)
[2017-05-24 08:00] VITALS: PULSE 67
[2017-05-24] MEDS: Pantoprazole 40 mg ER24 Tablet PO SCH (09:24)
[2017-05-24] MEDS: Magnesium Chloride SR 64 mg ER24 Tablet PO SCH (09:25)
[2017-05-24] MEDS: Heparin 5,000 Unit/mL Inj SUBQ SCH (09:26)
--- NOTE | 2017-05-24 11:22 | PCM.DIMED ---
Nelson Garcia DO 05/24/17 1122: Discharge Instructions Date of Service May 24, 2017 Dates of Hospitalization May 23, 2017 at 00:56 Discharge Diagnosis Discharge Diagnosis Hypertensive Urgency, POA, acute on chronic. Improved Atypical Chest pain, POA, acute. Active Acute kidney injury, POA. Improving Mild microcytic anemia, POA, likely chronic. Stable Type II diabetes mellitus, POA, chronic. Active History of paroxysmal atrial fibrillation, POA, chronic. Active History of chronic depression, POA. Stable Dyslipidemia, present on admission. Active. Gastroesophageal reflux disease, POA, chronic. Active Chronic Tobacco dependence, POA. Active Chronic benign prostatic hypertrophy, POA. Active . Diet Discharge Diet: Heart Healthy Activity Discharge Activity: No restrictions Call your provider Call your provider for: Fever or Chills, Shortness of breath, Bleeding, Chest pain, Vomitting, Excessive diarrhea, Weakness (unilateral) Patient Instructions Follow-up plan Please follow up with Dr. Rodriguez within 2 weeks Follow-up Provider: VIKY RODRIGUEZ DO Follow-up with PCP in: 2 weeks Jose Watkins MD 05/24/17 1439: Discharge Instructions Attending's Statement The patient was seen and examined together with Dr. Garcia on 05/24/2017 and I agree with the history, exam and plan as outlined in the note above. . Nelson Garcia DO May 24, 2017 11:22 Jose Watkins MD May 24, 2017 14:39
--- NOTE | 2017-05-24 11:59 | NUR ---
Discharge Pt discharged home today at 12:00. Pt off floor via ambulation with all of his belongings in the company of the nurse to private vehicle. Pt was given follow up instructions to follow up with resident clinic and already has an appointment. Pt was provided with education materials on heart healthy diet and hypertension. Pt questions answered and pt voices understanding. IV was DC'd and extra time was spent to ensure coagulation due to AC location. Pt was walked to the elevator where pt insisted he wanted to continue on without the nurse despite repeated attempts encourage being walked to his car. The pt said he wanted to go visit a "friend who works in the ER. Pt stated he needs some hurtado for gas for his vehicle. Addendum: 05/24/17 at 5414 by JUAN R GARCIA RN Pt called [facility] at 17:00 reporting that he could not find his wallet. Room had been cleaned, but was still unoccupied. Room and bed was searched, but no wallet was found. Pt was called back and a message was left that no wallet had been found. Security has been notified.
--- NOTE | 2017-05-24 15:02 | PCM.DC.MED ---
Discharge Summary Date of Service May 24, 2017 Dates of Hospitalization Date of Hospital Admission May 23, 2017 at 00:56 Date of Discharge: May 24, 2017 Providers: Admitting Physician: Leigh Jiang DO Primary Care Physician: Effie Barros DO Attending Physician: Jose Watkins MD Diagnosis at Time of Discharge Diagnosis at Time of Discharge Hypertensive Urgency, POA, acute on chronic. Improved Atypical Chest pain, POA, acute. Active Acute kidney injury, POA. Improving Mild microcytic anemia, POA, likely chronic. Stable Type II diabetes mellitus, POA, chronic. Active History of paroxysmal atrial fibrillation, POA, chronic. Active History of chronic depression, POA. Stable Dyslipidemia, present on admission. Active. Gastroesophageal reflux disease, POA, chronic. Active Chronic Tobacco dependence, POA. Active Chronic benign prostatic hypertrophy, POA. Active . Procedures XRay, CTs & MRIs X-RAY CHEST ONE VIEW, PORTABLE ([id number]) IMPRESSION: Stable right-sided pleural effusion with bibasilar atelectasis. Dictated by: Marcos Hoguh M.D. on 05/22/2017 at 21:45 Approved by: Marcos Hough M.D. on 05/22/2017 at 21:47 Brief History Taken from History and Physical performed by Dr. Quintanilla on 05/23/17 Patient is a 61 year old male with a hx of coronary artery disease and prior myocardial infarction infarction with cardiac stent placement, proximal atrial fibrillation, hypertension, hyperlipidemia presents to the [facility] emergency Department complaining of left sided chest pain. The patient states that the pain started at approximately 7:00 PM on May 22. The patient states that the pain feels like pressure directly over his heart that radiates to his back and also has a stabbing-type component. The patient states that deep inspiration aggravates the pain, so he feels short of breath because he is taking smaller breaths. Other associated symptoms include nausea and vomiting. The patient denies blood or coffee ground emesis. The patient also states that his had a headache with some blurring of his vision. The patient states that he has taken his amiodarone today. The patient has several new medications including isosorbide mononitrate, Lasix, lisinopril that he is not yet taken today. Records indicate that the patient was seen in the emergency department yesterday with similar symptoms. The patient states that he went to his primary care physician's office today and had a normal blood pressure and was feeling fine at that time. The patient believes that his schwannoma may be causing some of his discomfort at this time and he reportedly has a surgeon that he will be discussing possible resection with in the future. Patient had a cardiac catheterization performed January 12, 2017 with no evidence of critical disease requiring percutaneous intervention. The right coronary artery did have significant disease but no evidence of critical stenosis with a dorsal posterolateral branch small size artery with 90% stenosis. 2 previous stents in the right coronary artery and left anterior descending artery were widely patent. Normal ejection fraction and wall motion at of the left ventricle with normal left ventricular filling pressures. Recommendations were to start Imdur therapy and follow-up with cardiology as the patient's pain was likely noncardiac in nature. The patient also had a recent pharmacologic stress test on March 26, 2017 which showed good myocardial uptake of the radiotracer without significant motion artifacts leading to a normal myocardial perfusion study. There was an apparent reversible perfusion defect in the inferior wall demonstrated near complete normalization in the prone position and likely represented diaphragmatic attenuation artifact. There was an abnormal left ventricular function with global hypokinesis most pronounced in the basal segments and inferior basal segment akinesis. Left ventricular stress ejection fraction was decreased to 42%. Moderate left ventricular enlargement. And normal hemodynamic response to pharmacologic stress. . Hospital Course Patient is a 61 year old male with a hx of coronary artery disease and prior myocardial infarction infarction with cardiac stent placement, proximal atrial fibrillation, hypertension, hyperlipidemia presents to the [facility] emergency Department complaining of left sided chest pain. Trop negative x3, ECG reassuring, BP much better controlled. Prior to DC the patient' s chest pain had resolved, and he had reverted back to his baseline degree of HTN, he was given medication instructions and return precautions. Hypertensive Urgency, POA, acute on chronic. Improved - Patient had hypertensive urgency with blood pressure of 199/114 repeat blood pressure of 202/104 at admission - Patient described headache with blurring vision consistent with possible end organ damage versus possible migraine with aura - Patient also had a mild bump in his creatinine up to 1.41 from a baseline of near 0.8-0.9 however this may also be explained by prerenal azotemia from nausea and vomiting - Patient was treated in the emergency department with 3 successive pushes of metoprolol 5 mg IV at 22:00, 22:26, and 20:33 - Patient's blood pressure improved from a MAP of 136 mmHg at 20:21, to a MAP of 103 at 00:29 consistent with the recommended 25-30% reduction in mean arterial pressure over several hours - Patient responded well to PO Labetalol Atypical Chest pain, POA, acute. Active - Described as pressure directly over his heart but not caused on exertion and not improving with rest, the patient is reportedly allergic to nitroglycerin so none could be administered, the patient also had associated nausea and vomiting and headache with mild vision changes - Patient was given morphine IV as well as Dilaudid IV in the emergency department with improvement of pain as well as Zofran for nausea - The patient was given Reglan with Benadryl for the headache with reported improvement in symptoms the patient was able to sleep - Patient was recently prescribed isosorbide mononitrate likely for blood pressure control and angina, however the patient had failed to take his first dose - troponins negative at 0.010 x3 - Patient had a cardiac catheterization performed January 12, 2017 with no evidence of critical disease requiring percutaneous intervention. The right coronary artery did have significant disease but no evidence of critical stenosis with a dorsal posterolateral branch small size artery with 90% stenosis. 2 previous stents in the right coronary artery and left anterior descending artery were widely patent. Normal ejection fraction and wall motion at of the left ventricle with normal left ventricular filling pressures. Recommendations were to start Imdur therapy and follow-up with cardiology as the patient's pain was likely noncardiac in nature. - The patient also had a recent pharmacologic stress test on 03/26/2017 which showed good myocardial uptake of the radiotracer without significant motion artifacts leading to a normal myocardial perfusion study. There was an apparent reversible perfusion defect in the inferior wall demonstrated near complete normalization in the prone position and likely represented diaphragmatic attenuation artifact. There was an abnormal left ventricular function with global hypokinesis most pronounced in the basal segments and inferior basal segment akinesis. Left ventricular stress ejection fraction was decreased to 42%. Moderate left ventricular enlargement. And normal hemodynamic response to pharmacologic stress. Acute kidney injury, POA. Improving - As described above creatinine had a mild bump in his creatinine up to 1.41 from a baseline of near 0.8-0.9 however this may also be explained by prerenal azotemia from nausea and vomiting - Likely secondary to Hypertensive event - Patient received a liter of IV fluids, as well as Lasix 40 mg in the emergency department - Will continue to cautiously diurese - Trending back towards normal prior to DC Mild microcytic anemia, POA, likely chronic. Stable - Hemoglobin of 13.6 with MCV of 77.8 - Patient has a history of iron deficiency from past lab analysis - Consider iron supplementation as an outpatient Type II diabetes mellitus, POA, chronic. Active - Held home metformin. - Diabetic constant carb diet - Correctional scale lispro insulin, when needed. History of paroxysmal atrial fibrillation, POA, chronic. Active - Continued home metoprolol tartrate 100 mg twice a day - continued home amiodarone 200 mg daily History of chronic depression, POA. Stable - Continued home sertraline. Dyslipidemia, present on admission. Active. - Continued home statin - Atorvastatin 40 mg daily Gastroesophageal reflux disease, POA, chronic. Active - Continued home omeprazole - Omeprazole switched to pantoprazole 40 mg daily while inpatient Chronic Tobacco dependence, POA. Active - Patient education - Offered nicotine patch Chronic benign prostatic hypertrophy, POA. Active - Patient is on dual therapy with tamsulosin and Terazosin daily - Converted to doxazosin and tamsulosin while inpatient Obesity, POA, chronic. Active - BMI 39.4 - Offered nutritional counseling . Exam Vital Signs (Last) Date Time Temp Pulse Resp B/P Pulse Ox O2 Delivery O2 Flow Rate FiO2 05/24/17 08:00 67 05/24/17 07:51 36.5 16 138/95 98 Room Air Exam Gen: A/O x3 pleasant cooperative gentleman in NAD Neck: Supple, non tender, no thyromegaly, no JVD HEENT: PERRL, EOMI, no scleral icterus, no conjunctival pallor CV: RRR, no murmurs rubs or gallops Resp: Lungs CTA BL, no wheezing rales or rhonchi Abd: Slightly firm abdomen, no organomegaly, mild diffuse tenderness to palpation, midline incisional scar with reducible hernia Extr: No clubbing cyanosis or edema Neuro: CN 2-12 grossly intact, no focal neurologic deficit Psych: Appropriate mood and affect Test 05/23/17 03:30 05/23/17 06:12 05/24/17 02:25 Hold Chapman Top Tube Received (Received) Total Bilirubin 0.3mg/dL (0.0-1.2) Aspartate Amino Transf (AST/SGOT) 28U/L (0-50) Alanine Aminotransferase (ALT/SGPT) 25U/L (0-44) Alkaline Phosphatase 80U/L (25-160) Troponin T 0.010ug/L (0.0-0.011) Total Protein 6.4g/dL (6.4-8.4) Albumin 4.0g/dL (3.4-5.0) Lipase 89U/L (13-60) White Blood Count 4.1th/mm3 (3.8-10.1) Red Blood Count 4.13mil/mm3 (4.40-5.80) Hemoglobin 10.8g/dL (13.8-17.2) Hematocrit 32.0% (41.0-50.0) Mean Corpuscular Volume 77.5fL (81-100) Mean Corpuscular Hemoglobin 26.2pg (27.0-35.0) Mean Corpuscular Hemoglobin Concent 33.8% (32.0-37.0) Red Cell Distribution Width 15.6% (12.3-15.4) Platelet Count 188bil/L (150-400) Neutrophils (%) (Auto) 52.0% (40-74) Lymphocytes (%) (Auto) 25.8% (14-46) Monocytes (%) (Auto) 16.1% (4-12) Eosinophils (%) (Auto) 5.4% (0-5) Basophils (%) (Auto) 0.5% (0-3) Sodium Level 140mEq/L (134-144) Potassium Level 3.7mEq/L (3.5-5.2) Chloride Level 104mEq/L (97-108) Carbon Dioxide Level 21mmol/L (18-29) Blood Urea Nitrogen 20mg/dL (8-27) Creatinine 1.12mg/dL (0.76-1.27) Estimat Glomerular Filtration Rate 71mL/min (>59) Glucose Level 124mg/dL (60-99) Calcium Level 8.7mg/dL (8.5-10.1) Phosphorus Level 4.1mg/dL (2.5-4.9) Magnesium Level 1.6mg/dL (1.6-2.6) Discharge Medications Discharge Medications Amiodarone (Amiodarone) 200 Mg Tablet 200 MG PO BID (Reported) Atorvastatin Calcium (Atorvastatin Calcium) 40 Mg Tablet 40 MG PO DAILY ( Reported) Carbamide Peroxide (Earwax Treatment Drops) 6.5 % Drops 5 DROP OT BID (Reported ) Cephalexin (Cephalexin) 500 Mg Capsule 500 MG PO BID (Reported) Diclofenac Gel (Diclofenac Gel) 100 Gm Tube 1 APPLIC TOPICAL QID (Reported) Fluticasone Propionate (Flonase Allergy Relief) 50 Mcg/Actuation [place].susp 1 SPRAY NOSTRIL DAILY (Reported) Furosemide (Furosemide) 20 Mg Tab 20 MG PO DAILY (Reported) Magnesium Oxide (Magnesium Oxide) 400 Mg Tablet 400 MG PO DAILY (Reported) Metformin (Metformin) 500 Mg Tablet 1,000 MG PO DAILYWD (Reported) Metoprolol Tartrate (Metoprolol Tartrate) 100 Mg Tablet 100 MG PO BID (Reported ) Nystatin (Nystatin) 100,000 Unit/1 Ml Oral.susp 5 ML PO QID (Reported) Ondansetron (Ondansetron) 4 Mg Tablet 4 MG PO TID (Reported) Pantoprazole DR (Pantoprazole DR) 40 Mg Tablet.dr 40 MG PO DAILY (Reported) Polyethylene Glycol 3350 (Miralax) 17 Gm Powd.pack 17 GM PO DAILY (Reported) Potassium Chloride ER (Potassium Chloride ER) 10 Meq Tablet 10 MEQ PO DAILY ( Reported) TAKE WITH FOOD Sertraline HCl (Sertraline) 100 Mg Tablet 100 MG PO DAILY (Reported) Tamsulosin ER (Tamsulosin ER) 0.4 Mg Cap.er.24h 0.4 MG PO DAILY (Reported) Terazosin (Terazosin) 5 Mg Capsule 5 MG PO HS (Reported) As needed Oxycodone (Roxicodone) 5 Mg Tablet 10 MG PO Q4-6H PRN PRN PAIN. NOT TO EXCEED 5 TABS/DAY (Reported) Followup Plan Disposition: Home Follow-up plan Please follow up with Dr. Cowan within 2 weeks Discharge Diet: Heart Healthy Discharge Activity: No restrictions Follow-up Provider: VIKY COWAN DO Follow-up with PCP in: 2 weeks Time spent Greater than 30 minutes was spent in preparation of discharge with greater than 50% of that time dedicated to patient counseling and coordination of care. . Attending Statement The patient was seen and examined together with Dr. Garcia on 05/24/2017 and I agree with the history, exam and plan as outlined in the note above. . copies to: VIKY COWAN David E DO May 24, 2017 15:02 Jose Watkins MD May 25, 2017 19:03
--- NOTE | 2017-05-24 15:37 | NUR ---
Social Work Note: Discharge Data& Assessment: Per MD pt is medically ready for discharge. Anton Carrington is a 61 year old male under observation for hypertensive urgency. Per pt is medically improved and ready for discharge. SW met with pt at bedside to confirm discharge plan and assess for any unmet needs. Pt did request a gas voucher if possible from the hospital. SW explained we do not have this resource available within our hospital for patients. Pt explained he is aware of the other community resources and denies any unmet needs. No other discharge needs identified. Plan: Per pt is medically improved and ready to discharge home via POV. Pt denies any other needs. No other needs identified. LILLIAN Mosqueda
== END 2017-05-24 12:00 | disposition home or self-care (01) ==
LOC: SED 21:05 → PCC 05-23 00:56
PROVIDERS: ADMIT Internal Medicine; ATTEND Internal Medicine
DX: I16.0 Hypertensive urgency (principal); R07.89 Other chest pain; N17.9 Acute kidney failure, unspecified; D64.9 Anemia, unspecified; E11.9 Type 2 diabetes mellitus without complications; I48.0 Paroxysmal atrial fibrillation; F32.9 Major depressive disorder, single episode, unspecified; E78.5 Hyperlipidemia, unspecified; K21.9 Gastro-esophageal reflux disease without esophagitis; N40.0 Benign prostatic hyperplasia without lower urinary tract symptoms; I25.10 Atherosclerotic heart disease of native coronary artery without angina pectoris; I25.2 Old myocardial infarction; G89.4 Chronic pain syndrome; K86.1 Other chronic pancreatitis; D36.10 Benign neoplasm of peripheral nerves and autonomic nervous system, unspecified; F17.210 Nicotine dependence, cigarettes, uncomplicated; E66.9 Obesity, unspecified; Z68.39 Body mass index [BMI] 39.0-39.9, adult; Z95.5 Presence of coronary angioplasty implant and graft; Z79.84 Long term (current) use of oral hypoglycemic drugs
CPT/HCPCS: 36415; 71010; 80048; 80053; 82948; 83690; 83735; 84100; 84484; 85025; 85027; 93005; 96374; 96375; 96376; 99285; G0378; J1170; J1200; J1644; J1815; J1940; J2270; J2405; J2765

== ENCOUNTER 2017-05-27 04:23 | Observation (INO) | payer MEDICARE ==
[~2017-05-27] VITALS: Ht 177.8 cm; Wt 118.8 kg
[2017-05-27] VITALS (11 sets, daily range): BP systolic 107–225; BP diastolic 87–125; PULSE 70–100; RESP 16–20; O2SAT 95–100
[~2017-05-27 04:23] MED LIST changes: -ALBU8.5H2 INHALATION; -AMLO2.5T PO; +CARB-199 OT; +CEPH500C PO; +DICL100G26 TOPICAL; +FLUT9.9S NOSTRIL; +MAGN400T4 PO; -METF1000 PO; +METF500T4 PO; +NYST1000 PO; +ONDA-53 PO; +OXYC-474 PO; -OXYC10TA8 PO; +POTA10TA12 PO; -SLO64 PO
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
[2017-05-27] MEDS ORDERED: Pantoprazole 4 mg/mL 10 mL Inj IVPUSH ONE (04:45)
[2017-05-27] MEDS ORDERED: Ondansetron 2 mg/mL 2 mL Inj IVPUSH ONE (04:45)
[2017-05-27 05:00] LABS: BASOPHILS % (AUTO) 0.4 % (0-3); EOSINOPHILS % (AUTO) 0.2 % (0-5); MONOCYTES % (AUTO) 7.6 % (4-12); Mean Corpuscular Hemoglobin 26.3 pg (27.0-35.0); Mean Corpuscular Volume 75.5 fL (81-100); NEUTROPHILS % (AUTO) 74.1 % (40-74); Platelet Count 224 bil/L (150-400)
[2017-05-27] MEDS: MeTOProlol 1 mg/mL 5 mL Inj IVPUSH SCH ×3 (05:06→05:24)
[2017-05-27 05:25] LABS: INR 0.97 ratio
[2017-05-27 05:27] LABS: TROPONIN T 0.01 ug/L (0.0-0.011)
[2017-05-27 05:39] LABS: Magnesium 1.4 mg/dL (1.6-2.6)
[2017-05-27] MEDS ORDERED: Ondansetron 2 mg/mL 2 mL Inj IVPUSH PRN (06:40)
[2017-05-27] MEDS ORDERED: Alum-Mag Hydrox-Simeth 30 mL Suspension PO PRN (06:40)
[2017-05-27] MEDS ORDERED: MetoCLOpramide 5 mg/mL 2 mL Inj IVPUSH PRN (06:40)
[2017-05-27] MEDS ORDERED: Labetalol 5 mg/mL 4 mL Inj IVPUSH ONE (06:45)
[2017-05-27] MEDS ORDERED: LidocaineVisc 2%:Antacid 1:1 10 mL Syringe PO ONE (07:30)
[2017-05-27] MEDS ORDERED: Polyethylene Glycol (PEG) 17 Gm Powder PO PRN (07:50)
[2017-05-27] MEDS ORDERED: Glucose 40% Oral Gel 15 Gm Tube PO PRN (07:53)
[2017-05-27] MEDS ORDERED: Magnesium Sulf 2 Gm/50mL Water 2 GM in IV Premix 1 EACH IV ONE (07:55)
[2017-05-27] MEDS: Insulin LISPRO 300 Unit/3 mL Inj SUBQ SCH ×4 (08:00→22:00)
[2017-05-27] MEDS: Fluticasone 0.05% 15 Spray/2 Gm 16 Gm Nasal Spray NASAL SCH (08:30)
--- NOTE | 2017-05-27 08:30 | NUR ---
admit Pt arrived on unit from ED A&OX4. HINOJOSA. All vs were WNL except BP which was extremelly elevated, recheck with larger ava and was 167/98. Pt was c/o nausea with no emisis on unit but stated that he threw up in the ED X4. Administered 8mg IVP Zofran which patient stated resolved his nausea at reassessment. Pt also c/o 8/10 chest pain radiating into his back, charge nurse administered IVP morphine which pt stated resolved pain. Pt signed contract stating that he would not relieved IV pain meds. Spoke with hospitalist who was calling risk to make sure she could removed the IV morphine from EMAR... awaiting response. Pt is cooperative with care and was looking at menu to order lunch
[2017-05-27] MEDS: Sodium Chloride LOK Flush 10 mL Syringe IVFLUSH SCH ×2 (08:55→17:25)
[2017-05-27] MEDS ORDERED: Labetalol 5 mg/mL 4 mL Inj IVPUSH PRN (09:05)
--- NOTE | 2017-05-27 10:06 | DRSVH ---
PROCEDURE: X-RAY CHEST ONE VIEW, PORTABLE ([id number]) INDICATIONS: CHEST PAIN, SHORT OF BREATH TECHNIQUE: One view of the chest was acquired. COMPARISON: [facility], CR, XR CHEST 1VW (PORTABLE), 05/22/2017, 21:23. [facility], CR, XR CHEST 1VW (PORTABLE), 05/21/2017, 7:02. FINDINGS: Surgical changes and devices: None. Lungs and pleura: No pleural effusions or pneumothorax. Lungs are clear. The right hemidiaphragm i s again seen to be asymmetrically elevated. Mediastinum: Mediastinal contours appear normal. Heart size is normal. Bones and chest wall: No suspicious bony lesions. Overlying soft tissues appear unremarkable. IMPRESSION: Chronic mild elevation of the right hemidiaphragm again seen, present on multiple prior p rani films over multiple years. A source of new chest pain is not seen. Dictated by: Wyatt Epps M.D. on 05/27/2017 at 10:03 Approved by: Wyatt Epps M.D. on 05/27/2017 at 10:04
[2017-05-27] MEDS: Pantoprazole 40 mg ER24 Tablet PO SCH (10:22)
[2017-05-27] MEDS: Heparin 5,000 Unit/mL Inj SUBQ SCH ×2 (10:23→17:24)
[2017-05-27] MEDS: Nystatin 100,000 Unit/mL 5 mL Suspension PO SCH ×3 (11:30→21:22)
[2017-05-27] MEDS ORDERED: Nystatin 100,000 Unit/mL 59 mL Suspension PO SCH (11:30)
--- NOTE | 2017-05-27 17:48 | NUR ---
Pain Patient c/o 8-9/10 non-radiating cp and back throughout shift. Denied n/v/diaphoresis. Pt would be eating, watching tv and engaging in conversation while stating pain level. Administered 4mg morphine IVP staggered with oxycodone. Pt stated that pain would decrease to a 5-6/10 upon reassessment. Pt signed a no IV pain med contract, aware and still is allowing IV morphine.
[2017-05-27 17:59] LABS: Creatine Kinase 59 U/L (21-232)
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
[2017-05-27 23:29] LABS: Creatine Kinase 59 U/L (21-232)
[2017-05-28] MEDS: Heparin 5,000 Unit/mL Inj SUBQ SCH ×2 (00:30→08:08)
[2017-05-28] MEDS: Sodium Chloride LOK Flush 10 mL Syringe IVFLUSH SCH ×2 (00:30→08:08)
[2017-05-28 00:35] VITALS: BP 147/97; PULSE 76; RESP 20; O2SAT 98
--- NOTE | 2017-05-28 03:41 | NUR ---
Pain medication After informed of D/C IV Morphine medication patient's response: "I don't want any more IV or PO pain medication, the Melatonin doesn't work but I don't want anything else to help me sleep, I will just stay up and listen to music tonight. I don't take pain medications all the time, I don't want to end up like Andressa Waldrop, just when it gets really bad." "Please write a note saying that".
[2017-05-28] MEDS: Nystatin 100,000 Unit/mL 5 mL Suspension PO SCH (06:12)
[2017-05-28 06:19] VITALS: BP 137/90; PULSE 66; RESP 20; O2SAT 98
[2017-05-28] MEDS: Insulin LISPRO 300 Unit/3 mL Inj SUBQ SCH ×2 (08:00→11:33)
[2017-05-28] MEDS: Pantoprazole 40 mg ER24 Tablet PO SCH (08:07)
[2017-05-28] MEDS: Fluticasone 0.05% 15 Spray/2 Gm 16 Gm Nasal Spray NASAL SCH (08:08)
--- NOTE | 2017-05-28 09:15 | NUR ---
headaches pt states that he has a headache but refuses pain medication. pt asks that he be allowed to sleep as much as possible. This RN gave morning medications, assessed pt, and agrees to let pt sleep as much as possible.
[2017-05-28 09:54] VITALS: BP 153/95; PULSE 58; RESP 18; O2SAT 99
--- NOTE | 2017-05-28 10:10 | NUR ---
Social Work: Initial Assessment/readiness for discharge: Data: See initial assessment. Patient is a 61 y/o male that admitted on 05/27/17 with chest pain per H&P. Patient's insurance is Medicare and PCP is Dr. Effie Barros.SW met with pt at bedside, SW role explained. Pt is alert and oriented x3. Pt's readmission score is 5-high risk. Pt resides at home alone in a mobile home with three steps to enter, where he remains independent with ADLS. Pt does not use any DME and drives. Pt has no SNF or HH history. Pt has no [facility] care insurance or VA benefits. SW discussed DPOA/ advanced directive, pt denies any resources and has not completed this. Pt declines any SW needs and states he will drive himself home. SW provided phone number and plan on white board in room. No anticipated discharge needs. SW will continue to follow if needs arise. Assessment:pt who is independent at baseline. Plan: Pt to discharge home when medically stable via POV. No anticipated discharge needs. SW will continue to follow if needs arise. LILLIAN Proctor Addendum: 05/28/17 at 1011 by PEPE DOMINGUEZ Amended: Links added.
[2017-05-28] MEDS ORDERED: AMLO5TAB2 PO (11:26)
--- NOTE | 2017-05-28 11:33 | NUR ---
tele report pt is sinus valeria 63
--- NOTE | 2017-05-28 11:35 | NUR ---
Case Management: SHIMON given and explained to pt. Pat RIZZO RN
--- NOTE | 2017-05-28 12:30 | PCM.DIMED ---
Discharge Instructions Date of Service May 28, 2017 Dates of Hospitalization May 27, 2017 at 07:59 Discharge Diagnosis Discharge Diagnosis ACS Ruleout, HTN uncontrolled, CAD, Insomnia Diet Discharge Diet: Heart Healthy Activity Discharge Activity: No restrictions Call your provider Call your provider for: Fever or Chills, Shortness of breath, Bleeding, Chest pain, Vomitting, Excessive diarrhea, Weakness (unilateral), Other Patient Instructions Patient Instructions Please discuss Imdur with your thermodynamic physicist to see if this would help you to avoid anginal pains A new medication unasom is prescribed to help with sleep New medication amlodipine is prescribed to help with HTN Follow-up plan Please see your pcp in one week Please see your thermodynamic physicist in 2-3 weeks Elis Rojas DO May 28, 2017 12:30
[2017-05-28] MEDS ORDERED: DOXY25TA46 PO (12:31)
--- NOTE | 2017-05-28 12:36 | PCM.DC.MED ---
Discharge Summary Date of Service May 28, 2017 Dates of Hospitalization Date of Hospital Admission May 27, 2017 at 07:59 Date of Discharge: May 28, 2017 Providers: Admitting Physician: Elis Barahona DO Primary Care Physician: Effie Barros DO Attending Physician: lEis Barahona DO Diagnosis at Time of Discharge Diagnosis at Time of Discharge ACS Ruleout, HTN uncontrolled, CAD, Insomnia Consultations None Procedures XRay, CTs & MRIs [facility] Diagnostic Imaging Department [place], [place] [id number] Patient Name: HANNA QUINTERO MR#: [id number] Location: [facility] Ordering Phys: Mg Perez MD Date of Service: 05/27/17 0445 PROCEDURE: X-RAY CHEST ONE VIEW, PORTABLE ([id number]) INDICATIONS: CHEST PAIN, SHORT OF BREATH TECHNIQUE: One view of the chest was acquired. COMPARISON: [facility], CR, XR CHEST 1VW (PORTABLE), 05/22/2017, 21: 23. [facility], CR, XR CHEST 1VW (PORTABLE), 05/21/2017, 7:02. FINDINGS: Surgical changes and devices: None. Lungs and pleura: No pleural effusions or pneumothorax. Lungs are clear. The right hemidiaphragm is again seen to be asymmetrically elevated. Mediastinum: Mediastinal contours appear normal. Heart size is normal. Bones and chest wall: No suspicious bony lesions. Overlying soft tissues appear unremarkable. IMPRESSION: Chronic mild elevation of the right hemidiaphragm again seen, present on multiple prior plain films over multiple years. A source of new chest pain is not seen. Dictated by: Wyatt Epps M.D. on 05/27/2017 at 10:03 Approved by: Wyatt Epps M.D. on 05/27/2017 at 10:04 ECG 12 Lead Showed no changes from prior no acute findings abnormal Brief History Mr Quintero is a 61-year-old -Al[place]ian male with past medical history of CAD status post [place] 2 status post 3 stents recent cardiac catheterization in January that required no intervention, and normal myocardial study with the 42 % EF on 03/26/17, hypertension, hyperlipidemia, paroxysmal A. fib, BPH, benign schwannoma, chronic pain, diabetes pancreatitis is presenting today with the chest pain that has been ongoing since 2 hours prior to his arrival to the ER. He says that the pain is consistently 8/10, feels like prior [place]. His home pain medications medication was given in the ER. He says that laying on his left side feels makes him feel better, activity makes it worse. There is no radiation of pain He had 2 tacos from [employer] and 1 beer last night. He says that if he takes nitroglycerin he gets anaphylactic reaction does he does not take it. He was offered Imdur in the past per the report of a stress test but it is unclear why he is not on it. He says that he sees Dr. Brown for cardiology last visit was about 2 months ago. He says the GI cocktail in the ER helped him in his current pain, though it is not like his acid reflux pain. He has been hypertensive in the ER 3 doses of metoprolol were given. His troponins were negative his EKG was abnormal but no acute changes were seen and was read as no change from prior. Chest x-ray was primary for elevated right diaphragm. His lab work otherwise is remarkable for elevated blood glucose of 183. BNP of 415.4 mag is 1.4 other labs are unremarkable Hospital Course Chest pain, POA -- He is high risk for ACS but has undergone stress test and cath procedures recently -- Telemonitoring, and cardiac enzymes, morphine for shortness of breath and moderate pain, and currently do not plan to do any more stress echo procedures as patient has recently undergone all of his tests unless something is called for based on his labs and clinical presentation overnight -- Oxygen PRN, morphine PRN (he is requesting dilaudid) -- He will f/u with Dr. Sher on d/c in 2-3 weeks, he is asked to discuss Imdur for angina prophylaxis -- EKG on the day of discharge showed no acute ST elev, no overnight tele events Nausea, acute POA -- Zofran IV PRN was given Insomnia:-- He is asking for Ambien, he was given melatonin He is given a script for unisom Chronic pain, active -- Continue patient's home oxycodone -- He is requesting Dilaudid, explained to him that morphine works better for cardiac pain. He expressed his understanding -- I aslo told him that we rule out the ACS, we will cut his morphine and he is agreeable -- His chest pain resolved on the 05/27 night and IV morphine was stopped overnights. Hypertension chronic active -- Continue home meds --Amlodipine 10 mg QD is added Hypertensive urgency -- 3 doses of metoprolol given IV 5 mg each in the ER, -- 1 time dose of labetalol 20 mg is ordered at the time of admission -- Amlodipine 10 mg PO QD Hyperlipidemia: Continue atorvastatin GERD: Continue pantoprazole CHF, systolic chronic active -- continue Lasix and potassium BPH chronic active -- continue tamsulosin Depression chronic active --Continue prazosin Exam Vital Signs (Last) Date Time Temp Pulse Resp B/P Pulse Ox O2 Delivery O2 Flow Rate FiO2 05/28/17 09:54 36.4 58 18 153/95 99 Room Air Exam General: NAD HEENT: NCAT Eyes: [place] conjunctivae. No ptosis, PERRL Neck: No masses, trachea midline, no thyromegaly Lungs: CTA with normal respiratory effort, no crackles or wheezes CV: RRR, no murmurs/rubs/gallops, normal PMI Abdomen: normal bowel sounds MSK: Normal gait and station, no digital cyanosis Skin: Warm and dry. No rash, lesions or ulcers Psych: A&O X3, with appropriate affect Neck negative for JVD Test 05/27/17 04:45 05/27/17 06:30 05/27/17 22:25 White Blood Count 4.5th/mm3 (3.8-10.1) Red Blood Count 4.98mil/mm3 (4.40-5.80) Hemoglobin 13.1g/dL (13.8-17.2) Hematocrit 37.6% (41.0-50.0) Mean Corpuscular Volume 75.5fL (81-100) Mean Corpuscular Hemoglobin 26.3pg (27.0-35.0) Mean Corpuscular Hemoglobin Concent 34.8% (32.0-37.0) Red Cell Distribution Width 15.2% (12.3-15.4) Platelet Count 224bil/L (150-400) Neutrophils (%) (Auto) 74.1% (40-74) Lymphocytes (%) (Auto) 17.3% (14-46) Monocytes (%) (Auto) 7.6% (4-12) Eosinophils (%) (Auto) 0.2% (0-5) Basophils (%) (Auto) 0.4% (0-3) Prothrombin Time 10.4sec (8.1-12.5) Prothromb Time International Ratio 0.97ratio Activated Partial Thromboplast Time 26.3sec (22.8-33.0) Sodium Level 141mEq/L (134-144) Potassium Level 3.5mEq/L (3.5-5.2) Chloride Level 101mEq/L (97-108) Carbon Dioxide Level 18mmol/L (18-29) Blood Urea Nitrogen 8mg/dL (8-27) Creatinine 0.88mg/dL (0.76-1.27) Estimat Glomerular Filtration Rate 94mL/min (>59) Glucose Level 183mg/dL (60-99) Calcium Level 9.4mg/dL (8.5-10.1) Magnesium Level 1.4mg/dL (1.6-2.6) Total Bilirubin 0.2mg/dL (0.0-1.2) Aspartate Amino Transf (AST/SGOT) 20U/L (0-50) Alanine Aminotransferase (ALT/SGPT) 25U/L (0-44) Alkaline Phosphatase 84U/L (25-160) Pro-B-Type Natriuretic Peptide 415.2pg/mL (0-210) Total Protein 7.9g/dL (6.4-8.4) Albumin 4.4g/dL (3.4-5.0) Hold [place] Top Tube Received (Received) Hold Urine Received (Received) Total Creatine Kinase 59U/L (21-232) Creatine Kinase MB 1.5ng/mL (0.0-10.4) Creatine Kinase MB % % (0.0-5.0) Troponin T 0.010ug/L (0.0-0.011) Discharge Medications Discharge Medications Amiodarone (Amiodarone) 200 Mg Tablet 200 MG PO BID (Reported) Amlodipine (Amlodipine) 5 Mg Tablet 10 MG PO DAILY Prescribed by: ELIS BARAHONA DO Atorvastatin Calcium (Atorvastatin Calcium) 40 Mg Tablet 40 MG PO DAILY ( Reported) Carbamide Peroxide (Earwax Treatment Drops) 6.5 % Drops 5 DROP OT BID (Reported ) Diclofenac Gel (Diclofenac Gel) 100 Gm Tube 1 APPLIC TOPICAL QID (Reported) Doxylamine Succinate (Unisom) 25 Mg Tablet 25 MG PO HS Prescribed by: ELIS BARAHONA DO Fluticasone Propionate (Flonase Allergy Relief) 50 Mcg/Actuation [place].susp 1 SPRAY NOSTRIL DAILY (Reported) Furosemide (Furosemide) 20 Mg Tab 20 MG PO DAILY (Reported) Magnesium Oxide (Magnesium Oxide) 400 Mg Tablet 400 MG PO DAILY (Reported) Metformin (Metformin) 500 Mg Tablet 1,000 MG PO DAILYWD (Reported) Metoprolol Tartrate (Metoprolol Tartrate) 100 Mg Tablet 100 MG PO BID (Reported ) Nystatin (Nystatin) 100,000 Unit/1 Ml Oral.susp 5 ML PO QID (Reported) Ondansetron (Ondansetron) 4 Mg Tablet 4 MG PO TID (Reported) Pantoprazole DR (Pantoprazole DR) 40 Mg Tablet.dr 40 MG PO DAILY (Reported) Polyethylene Glycol 3350 (Miralax) 17 Gm Powd.pack 17 GM PO DAILY (Reported) Potassium Chloride ER (Potassium Chloride ER) 10 Meq Tablet 10 MEQ PO DAILY ( Reported) TAKE WITH FOOD Sertraline HCl (Sertraline) 100 Mg Tablet 100 MG PO DAILY (Reported) Tamsulosin ER (Tamsulosin ER) 0.4 Mg Cap.er.24h 0.4 MG PO DAILY (Reported) Terazosin (Terazosin) 5 Mg Capsule 5 MG PO HS (Reported) As needed Oxycodone (Roxicodone) 5 Mg Tablet 10 MG PO Q4-6H PRN PRN PAIN. NOT TO EXCEED 5 TABS/DAY (Reported) Followup Plan Follow-up plan Please see your pcp in one week Please see your internet marketing intern in 2-3 weeks Discharge Diet: Heart Healthy Discharge Activity: No restrictions Patient Instructions Please discuss Imdur with your internet marketing intern to see if this would help you to avoid anginal pains A new medication unasom is prescribed to help with sleep New medication amlodipine is prescribed to help with HTN Elis Barahona DO May 28, 2017 12:36
--- NOTE | 2017-05-28 13:08 | NUR ---
discharge paperwork reviewed, no questions at this time. pt denies CP/SOB. pt chooses to walk himself to his car, refuses W/C ride. pt states that he thinks that he lost $10 dollars in his hospital room, this RN told him if we find it we will contact him.
--- NOTE | 2017-05-28 13:16 | NUR ---
Social Work-discharge: Data:EMR Reviewed. Pt is on day 1 of hospitalization for chest pain per H&P. Pt is medically stable for discharge. Pt has been up independent in his room. No discharge needs identified. All updated and agreeable to plan. Assessment:Pt who is independent at baseline. Plan:Pt to discharge home today via POV. No discharge needs identified. All updated and agreeable to plan. LILLIAN Proctor
== END 2017-05-28 13:04 | disposition home or self-care (01) ==
LOC: SED 04:23 → MPC 07:59
PROVIDERS: ADMIT Family Medicine; ATTEND Family Medicine
DX: R07.9 Chest pain, unspecified (principal); I11.0 Hypertensive heart disease with heart failure; I25.10 Atherosclerotic heart disease of native coronary artery without angina pectoris; G47.00 Insomnia, unspecified; R11.0 Nausea; G89.4 Chronic pain syndrome; E78.5 Hyperlipidemia, unspecified; K21.9 Gastro-esophageal reflux disease without esophagitis; N40.0 Benign prostatic hyperplasia without lower urinary tract symptoms; F32.9 Major depressive disorder, single episode, unspecified; I25.2 Old myocardial infarction; I48.0 Paroxysmal atrial fibrillation; D36.10 Benign neoplasm of peripheral nerves and autonomic nervous system, unspecified; K86.1 Other chronic pancreatitis; E11.9 Type 2 diabetes mellitus without complications; F17.210 Nicotine dependence, cigarettes, uncomplicated; Z95.5 Presence of coronary angioplasty implant and graft; Z79.84 Long term (current) use of oral hypoglycemic drugs
CPT/HCPCS: 36415; 71010; 80053; 82550; 82553; 83735; 83880; 84484; 85025; 85610; 85730; 93005; 96374; 96375; 96376; 99285; G0378; J1644; J1815; J2060; J2270; J2405

== ENCOUNTER 2017-06-04 10:59 | Observation (INO) | payer MEDICARE, MEDICAID ==
[~2017-06-04] VITALS: Ht 177.8 cm; Wt 124.2 kg
[2017-06-04] VITALS (8 sets, daily range): BP systolic 121–187; BP diastolic 82–123; PULSE 79–111; RESP 15–20; O2SAT 96–100
[~2017-06-04 10:59] MED LIST changes: +AMLO5TAB2 PO; -CEPH500C PO; +DOXY25TA46 PO
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
[2017-06-04] MEDS: Ondansetron 2 mg/mL 2 mL Inj IVPUSH PRN ×2 (11:36→12:39)
[2017-06-04] MEDS: HYDROmorphone 0.5 mg/0.5 mL iSecure Syringe IVPUSH PRN ×8 (11:36→17:35)
[2017-06-04 11:45] LABS: BASOPHILS % (AUTO) 1.6 % (0-3); EOSINOPHILS % (AUTO) 2.3 % (0-5); MONOCYTES % (AUTO) 11.4 % (4-12); Mean Corpuscular Volume 76.5 fL (81-100); NEUTROPHILS % (AUTO) 63.3 % (40-74); Platelet Count 243 bil/L (150-400)
--- NOTE | 2017-06-04 11:49 | DRSVH ---
PROCEDURE: X-RAY CHEST ONE VIEW, PORTABLE ([id number]) INDICATIONS: CHEST PAIN TECHNIQUE: One view of the chest was acquired. COMPARISON: [facility], CR, XR CHEST 1VW (PORTABLE), 05/21/2017, 7:02. [facility], CR, XR CHEST 1VW (PORTABLE), 05/22/2017, 21:23. [facility], CR, XR CHEST 1VW (PORT ABLE), 05/27/2017, 4:41. FINDINGS: Surgical changes and devices: None. Lungs and pleura: Blunting of right costophrenic angle may be caused by small pleural effusion or ple ural scarring. No pneumothorax. Lungs are clear. Mediastinum: Mediastinal contours appear normal. Heart size is normal. Bones and chest wall: No suspicious bony lesions. Overlying soft tissues appear unremarkable. IMPRESSION: Small right pleural effusion or pleural scarring is unchanged. Dictated by: Yessenia Mills M.D. on 06/04/2017 at 11:46 Approved by: Yessenia Mills M.D. on 06/04/2017 at 11:48
[2017-06-04 12:08] LABS: TROPONIN T 0.01 ug/L (0.0-0.011)
[2017-06-04 12:19] LABS: Magnesium 1.4 mg/dL (1.6-2.6)
[2017-06-04] MEDS ORDERED: Promethazine Inj 25 MG in Dextrose 5%-Pha MIX 50 ML IV ONE (14:00)
--- NOTE | 2017-06-04 14:20 | DRSVH ---
PROCEDURE: CT ANGIO CHEST PULMONARY EMBOLISM ([id number]) INDICATIONS: chest pain elevated ddimer TECHNIQUE: After the administration of intravenous contrast, 2 mm thick sections acquired from the pulmonary api rachel to the posterior costophrenic angles. 3-dimensional maximum intensity projection (MIP) coronal a nd sagittal reformats were then acquired through the thorax. For radiation dose reduction, the follo wing was used: automated exposure control, adjustment of mA and/or kV according to patient size. COMPARISON: [facility], CT, CHEST ANGIO-PE, 05/31/2014, 13:37. [facility], C T, CT ANGIO CHEST PE, 09/29/2016, 22:39. [facility], CT, CT ANGIO CHEST PE, 01/30/2017, 1 6:30. FINDINGS: Image quality: Excellent. Pulmonary arteries: Pulmonary arteries are normal in size, and demonstrate no intraluminal filling d efects to suggest central pulmonary embolism. Lungs and pleura: Lungs are clear considering reduced inspiratory volume. No pleural effusions or p neumothorax. Central and peripheral airways are patent. Mediastinum: Heart size is normal, without pericardial effusion. No mediastinal or hilar adenopathy . Thoracic aorta is normal in caliber and enhancement. Esophagus is normal in caliber, without hiat al hernia. Bones and chest wall: No suspicious bony lesions. Ribs and thoracic spine appear intact throughout. The previously identified T4-T5 region paraspinous mass extending into the right neural foramen has not enlarged and may have slightly diminished in size, previously measuring 2.7 cm and currently tracey suring 2.4 cm in maximal transverse dimension. This likely is not a significant change considering s light differences in scan level at measurement positioning. Thyroid gland appears normal where well visualized. No axillary or supraclavicular adenopathy. Abdomen: Visualized upper abdominal solid organs appear normal in the early arterial phase of enhanc ement. IMPRESSION: No pulmonary lesion or evidence of pulmonary embolus is found. No definite interval pinedo ge in the size of a right T4-T5 paraspinal mass that appears to extend slightly into the associated n eural foramen, as was previously the case. This also was present 09/29/16, and 05/31/14. 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 Dictated by: Wyatt Epps M.D. on 06/04/2017 at 14:11 Approved by: Wyatt Epps M.D. on 06/04/2017 at 14:18
[2017-06-04] MEDS ORDERED: Alum-Mag Hydrox-Simeth 30 mL Suspension PO PRN (15:35)
[2017-06-04] MEDS ORDERED: Ondansetron 2 mg/mL 2 mL Inj IVPUSH PRN (15:35)
--- NOTE | 2017-06-04 16:47 | NUR ---
Admit Pt arrived to [address] at 1615 via stretcher w/ sales representative education courses. Pt easily ambulated to the bed w/ no assist. Pt is A&Ox3 and a pleasant male. Pt has been admitted to the hospital many times recently so orientation to room, call light, bathroom and tv were very comfortable for the patient. Pt arrived in 07/10 pain, states he takes 20mg oxycodone q4h for the last 10 years, and states that 0.5mg dilaudid doesn't manage his pain adequately.
[2017-06-04] MEDS: HYDROmorphone 1 mg/mL Inj IVPUSH PRN ×2 (18:24→22:59)
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
[2017-06-04] MEDS: Polyethylene Glycol (PEG) 17 Gm Powder PO SCH (19:39)
[2017-06-05] VITALS (11 sets, daily range): BP systolic 146–193; BP diastolic 83–130; PULSE 68–84; RESP 16–20; O2SAT 97–100
[2017-06-05] MEDS: HYDROmorphone 1 mg/mL Inj IVPUSH PRN ×8 (02:39→23:10)
[2017-06-05 03:04] LABS: BASOPHILS % (AUTO) 0.5 % (0-3); EOSINOPHILS % (AUTO) 2.5 % (0-5); MONOCYTES % (AUTO) 9.9 % (4-12); Mean Corpuscular Hemoglobin 26.4 pg (27.0-35.0); Mean Corpuscular Volume 78.1 fL (81-100); Platelet Count 225 bil/L (150-400)
[2017-06-05 03:25] LABS: Magnesium 1.7 mg/dL (1.6-2.6)
[2017-06-05] MEDS: Ondansetron 2 mg/mL 2 mL Inj IVPUSH PRN ×2 (04:57→07:56)
--- NOTE | 2017-06-05 06:03 | NUR ---
Pain Management Patient was in pain most of this shift. He states the Oxycodone doesn't help much but the Dilaudid works well. Also C/O nausea w/o vomiting. VSS although his B/P was high. Other than that patient was ambulatory w/o assist.
[2017-06-05] MEDS ORDERED: Promethazine Inj 12.5 MG in Dextrose 5%-Pha MIX 50 ML IV ONE (07:00)
--- NOTE | 2017-06-05 07:43 | PCM.PNMED ---
Subjective Date of Service Jun 05, 2017 Subjective Pt says Chest pain has improved. Feeling nauseous, zofran helps. Pt denies SOB. Exam Vital Signs Vital Sign - Last Date Time Temp Pulse Resp B/P Pulse Ox O2 Delivery O2 Flow Rate FiO2 06/05/17 06:06 84 06/05/17 05:38 36.5 16 151/90 100 Room Air Intake and Output 06/04/17 06/04/17 06/05/17 Cumulative From/Thru 15:00 23:00 07:00 06/04/17 11:01 - 06/05/17 06:36 Intake Total 1500 ml 1500 ml Balance 1500 ml 1500 ml Intake Oral 1500 ml 1500 ml # Voids 2 2 Exam Gen: NAD, AOX3 Head / Eyes: Atraumatic, Normocephalic, PERRL ENT: Mucous membranes moist, Conjunctiva normal, No scleral icterus Neck: Supple, Non-tender, Full range of motion Extremities: Vascular intact, Neuro intact, No swelling, No tenderness Skin: Warm, Dry, No cyanosis Neurologic: Alert, Oriented, Nonfocal Psychiatric: Mood/affect normal, Behavior normal, Normal thought content Respiratory / Chest: Atraumatic, Breath sounds NL, Breath sounds = bilat, No respiratory distress, No rales, No rhonchi, No wheezing, No stridor, No chest tenderness Cardiovascular: Regular rate, Heart sounds NL, No gallop, No murmurs, No rubs, Cap refill not delayed, Peripheral circulation NL, Pulses = bilaterally, No gross BP differential Abdomen: Atraumatic, Soft, N IVs and Medications Medications Reviewed: Medications were reviewed in detail Lab and Diagnostics Result Diagram: 06/05/17 0230 06/05/17 0230 X-Rays, CTs and MRIs X-Ray Chest Interpretation Chest Xray Interpretation: IMPRESSION: Small right pleural effusion or pleural scarring is unchanged CT Chest Interpretation IMPRESSION: No pulmonary lesion or evidence of pulmonary embolus is found. No definite interval change in the size of a right T4-T5 paraspinal mass that appears to extend slightly into the associated neural foramen, as was previously the case. This also was present 09/29/16, and 05/31/14. 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 Dictated by: Wyatt Epps M.D. on 06/04/2017 at 14:11 Study type: CT pulm angiogram Interpretation / Wet Read by: Interpret - Radiologist 12-lead ECG Sinus tachycardia with a rate of [address] elevation Q waves in III, aVF, V1-V3 Unchanged from prior EKG Assessment & Plan 61 year old male with a history of MIx2, cardiac stent placement, coronary artery disease, proximal atrial fibrillation, diabetes mellitus, hypertension, hyperlipidemia, probable benign Schwannoma, and frequent ED visits p/w acute chest pain. #Chest Pain- hx of MIx2, ruled out ACS. EKG- no FRANTZ. Trop neg x3. ED spoke with Cardiology who said just rule out ACS and can hold off ASA/Nitro due to allergy.Card also said no heparin. If troponin is elevated can call Cardiology consult. Pt reports improvement in Chest Pain. Does normally have chest pain with exertion at baseline. Is following with cardiology. #ALLAN- present on admit, likely 2/2 to Contrast given for CTA in ED. Will start IVF this AM. Check UA. Repeat CMP in AM. If downtrending will discharge, will need repeat CMP in 1 week with PCP. #Chronic Pain- Will give Dilaudid 1mg q3h. Avoid more frequent dosing. Resume home Oxycodone dosing. #Elevated D-Dimer- CTA was done which ruled out PE. Denies SOB. #CAD- s/p stents. #A-Fib- Sinus Rhythm. Rate control Metoprolol, Amiodarone. Not on AC, has outpatient Manager General. #DM- Sliding Scale Insulin, Hold Metformin. Fingersticks w/ meals. #HLD- chronic. c/w Statin. Pain Evaluation: Adequate Pain Control GI Prophylaxis: Proton Pump Inhibitor, Not indicated VTE Prophylaxis: SCDs VTE Mechanical Devices: Intermittant Pneumatic CD Resuscitation Status: CPR: Attempt Resuscitation Time spent 30 minutes Mark Rios MD Jun 05, 2017 07:43
[2017-06-05] MEDS: Polyethylene Glycol (PEG) 17 Gm Powder PO SCH (07:55)
[2017-06-05] MEDS: Pantoprazole 40 mg ER24 Tablet PO SCH (07:56)
[2017-06-05 10:24] LABS: APPEARANCE,URINE HAZY (CLEAR,HAZY); COLOR,URINE STRAW (YELLOW); OCCULT BLOOD,URINE NEGATIVE (NEGATIVE); UROBILINOGEN,URINE NORMAL (NORMAL)
--- NOTE | 2017-06-05 11:07 | NUR ---
Social Work: Initial Assessment / Readiness for D/C Data: Patient is a 61 y/o male that admitted for chest pain. Patient's insurance is Medicare and PCP is Dr. Effie Barros. COLLECTION SYSTEMS FOREMAN met with pt at bedside, role explained. Readmit score is 4-high. Pt resides at home alone in a mobile home with three steps to enter, where he remains independent with ADLS. Pt does not use any DME and drives. Pt has no SNF or HH hx, no predatory animal exterminator care insurance or VA benefits. Pt declines any SW needs and states he will drive himself home. No anticipated discharge needs. COLLECTION SYSTEMS FOREMAN will continue to follow if needs arise. Assessment: Pt who is independent at baseline. Plan: Pt to discharge home when medically stable via POV. No anticipated discharge needs. SW will continue to follow if needs arise. LILLIAN Bradley Addendum: 06/05/17 at 1112 by TANIA DOMINGUEZ Amended: Links added.
--- NOTE | 2017-06-05 11:36 | NUR ---
Case Management: Presented Medicare ROBINS form and Medicare D Brochure with explanations at 1055. Patient declined to sign Medicare D, stating he has [employer] insurance as well - Patient access confirms pt has [employer] for Medicare part B payments only. ROBINS form placed in patient chart, pt accepted Medicare D brochure. Arabella Desouza RN
--- NOTE | 2017-06-05 13:03 | NUR ---
nausea effective relief with zofran, phenergan held.
--- NOTE | 2017-06-05 13:03 | NUR ---
Edema LE/BP MD notified of increase in BP, new orders received. Pt c/o swelling in feet. some puffiness noted, right greater than left pt asking for diuretic, lasix.
[2017-06-05] MEDS: 0.9% Sodium Chloride 1,000 ML IV SCH (18:19)
--- NOTE | 2017-06-05 19:28 | NUR ---
Pain/nausea/edema Pt requested pain medication at the time it was due. c/o pain mid abd bilat Reviewed use of IV medication with potential DC tomorrow, pt aware and reports doesn't plan to use IV medication tomorrow. given zofran x2 with effective relief. pt tolerated 100% of all meals pt had trace edema bilat feet, right worse than left - md notified.
[2017-06-06] MEDS: 0.9% Sodium Chloride 1,000 ML IV SCH (01:44)
[2017-06-06 02:00] VITALS: BP 172/101; PULSE 73; RESP 18; O2SAT 98
[2017-06-06] MEDS: HYDROmorphone 1 mg/mL Inj IVPUSH PRN ×3 (02:28→08:40)
[2017-06-06 04:13] VITALS: PULSE 65
--- NOTE | 2017-06-06 05:35 | NUR ---
Pain Patient continues to be in pain throughout this shift. The mix of Dilaudid and oxycodone are effective for await but can't keep him at at least a 5 on the pain scale. The doctor that saw him yesterday want him to use less pain medication but that just didn't happen. Also he continues to be HTN even with a PRN 12.5 Mg Lopressor at 0245.
[2017-06-06 05:43] VITALS: BP 175/93; PULSE 70; RESP 18; O2SAT 98
[2017-06-06 05:58] VITALS: PULSE 70
[2017-06-06] MEDS: Pantoprazole 40 mg ER24 Tablet PO SCH (07:58)
[2017-06-06] MEDS: Polyethylene Glycol (PEG) 17 Gm Powder PO SCH (07:59)
[2017-06-06 08:00] VITALS: BP 140/89; PULSE 67; PULSE 69; RESP 18; O2SAT 98
--- NOTE | 2017-06-06 08:34 | PCM.PNMED ---
Subjective Date of Service Jun 06, 2017 Subjective Pt reports resolved chest pain overnight. Abd does feel distended. Had BM after Miralax last night but was small. Pt reports abd pain is helped by IV Dilaudid, normally takes Oxycodone at home. Exam Vital Signs Vital Sign - Last Date Time Temp Pulse Resp B/P Pulse Ox O2 Delivery O2 Flow Rate FiO2 06/06/17 05:58 70 06/06/17 05:43 36.0 18 175/93 98 Room Air Intake and Output 06/05/17 06/05/17 06/06/17 Cumulative From/Thru 15:00 23:00 07:00 06/04/17 11:01 - 06/05/17 22:04 Intake Total 1380 ml 2880 ml Output Total 2100 ml 2100 ml Balance -720 ml 780 ml Intake Oral 1380 ml 2880 ml Output Urine Total 2100 ml 2100 ml # Voids 1 3 # Bowel Movements 0 0 Exam Gen: NAD, AOX3 Head / Eyes: Atraumatic, Normocephalic, PERRL ENT: Mucous membranes moist, Conjunctiva normal, No scleral icterus Neck: Supple, Non-tender, Full range of motion Respiratory / Chest: Atraumatic, Breath sounds NL, Breath sounds = bilat, No respiratory distress, No rales, No rhonchi, No wheezing, No stridor, No chest tenderness Cardiovascular: Regular rate, Heart sounds NL, No gallop, No murmurs, No rubs , Cap refill not delayed, Peripheral circulation NL, Pulses = bilaterally, No gross BP differential Abdomen: Atraumatic, Soft, +BS, Slightly distended. No TPP. No HSM. No rebound/guarding. Extremities: Vascular intact, Neuro intact, No swelling, No tenderness Skin: Warm, Dry, No cyanosis Neurologic: Alert, Oriented, Nonfocal Psychiatric: Mood/affect normal, Behavior normal, Normal thought content IVs and Medications Medications Reviewed: Medications were reviewed in detail Lab and Diagnostics Result Diagram: 06/05/17 0230 06/06/17 0620 X-Rays, CTs and MRIs X-Ray Chest Interpretation Chest Xray Interpretation: IMPRESSION: Small right pleural effusion or pleural scarring is unchanged CT Chest Interpretation IMPRESSION: No pulmonary lesion or evidence of pulmonary embolus is found. No definite interval change in the size of a right T4-T5 paraspinal mass that appears to extend slightly into the associated neural foramen, as was previously the case. This also was present 09/29/16, and 05/31/14. 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 Dictated by: Wyatt Epps M.D. on 06/04/2017 at 14:11 Study type: CT pulm angiogram Interpretation / Wet Read by: Interpret - Radiologist 12-lead ECG Sinus tachycardia with a rate of [address] elevation Q waves in III, aVF, V1-V3 Unchanged from prior EKG Assessment & Plan 61 year old male with a history of MIx2, cardiac stent placement, coronary artery disease, proximal atrial fibrillation, diabetes mellitus, hypertension, hyperlipidemia, probable benign Schwannoma, and frequent ED visits p/w acute chest pain. #Chest Pain- hx of MIx2, ruled out ACS. EKG- no FRANTZ. Trop neg x3. ED spoke with Cardiology who said just rule out ACS and can hold off ASA/Nitro due to allergy.Card also said no heparin. If troponin is elevated can call Cardiology consult. Pt reports improvement in Chest Pain. Does normally have chest pain with exertion at baseline. Is following with cardiology. - Pt reports resolved Chest Pain. ACS ruled out with negative troponins. #ALLAN- present on admit, likely 2/2 to Contrast given for CTA in ED. Will start IVF this AM. Check UA. Repeat CMP in AM. If downtrending will discharge, will need repeat CMP in 1 week with PCP. -This AM Scr improved to 1.1. Pt encouraged to maintain fluid intake. Would repeat BMP in 1 week during PCP follow up visit. - #Chronic Pain- Will give Dilaudid 1mg q3h. Avoid more frequent dosing. Resume home Oxycodone dosing. - Pt had small BM w/ miralax, will give another dose this AM. Upon discharge pt will need standing Bowel regimen as long as taking Oxycodone. Goal 1 BM daily. #Elevated D-Dimer- CTA was done which ruled out PE. Denies SOB. #CAD- s/p stents. #A-Fib- Sinus Rhythm. Rate control Metoprolol, Amiodarone. Not on AC, has outpatient Associate Manager. #DM- Sliding Scale Insulin, Hold Metformin. Fingersticks w/ meals. #HLD- chronic. c/w Statin. Dispo- -Encouraged to maintain fluid intake. -Would repeat Labs for renal function (BMP) in 1 week during PCP follow up visit. -Will need standing Bowel regimen as long as taking Oxycodone. Goal 1 BM daily. -Follow up with Associate Manager in 1-2 weeks. GI Prophylaxis: Proton Pump Inhibitor, Not indicated VTE Prophylaxis: SCDs VTE Mechanical Devices: Intermittant Pneumatic CD Resuscitation Status: CPR: Attempt Resuscitation Mark Rios MD Jun 06, 2017 08:34
--- NOTE | 2017-06-06 08:39 | PCM.DIMED ---
Discharge Instructions Date of Service Jun 06, 2017 Dates of Hospitalization Jun 04, 2017 at 15:48 Discharge Diagnosis Discharge Diagnosis #Stable Angina #ALLAN- present on admit #Chronic Pain #CAD- s/p stents. #A-Fib #DM- well controlled. #HLD Medication Instructions Additional med instructions -Will need standing Bowel regimen as long as taking Oxycodone. Goal 1 BM daily. Diet Discharge Diet: Heart Healthy Activity Discharge Activity: No restrictions, Limited until seen by PCP Call your provider Call your provider for: Shortness of breath, Chest pain Patient Instructions Patient Instructions -Encouraged to maintain fluid intake. -Would repeat Labs for renal function (BMP) in 1 week during PCP follow up visit. -Will need standing Bowel regimen as long as taking Oxycodone. Goal 1 BM daily. -Follow up with [place] in 1-2 weeks. Follow-up Provider: Effie Barros DO Follow-up with PCP in: 1 week Mark Rios MD Jun 06, 2017 08:39
[2017-06-06] MEDS ORDERED: OXYC-474 PO (08:41)
[2017-06-06] MEDS ORDERED: POLY17PO6 PO (08:41)
--- NOTE | 2017-06-06 11:05 | NUR ---
Pain 0800 during assessment pt c/o 810 pain, abd and chest. (dilaudid due at 0830) pt rubbed left chest per self - pain resolved with in moments. Dilaudid given after 0830.
--- NOTE | 2017-06-06 11:07 | NUR ---
Discharge 0915 Pt dressed and waiting for RN at the desk. Reviewed instructions, scripts given in packet. Stated understanding. All belongings taken. Pt ambuleated to elevator family waiting to provide ride home.
--- NOTE | 2017-06-06 17:49 | PCM.DC.MED ---
Discharge Summary Date of Service Jun 06, 2017 Dates of Hospitalization Date of Hospital Admission Jun 04, 2017 at 15:48 Date of Discharge: Jun 06, 2017 Providers: Admitting Physician: Santino Ye MD Primary Care Physician: Effie Barros DO Attending Physician: Santino Ye MD Diagnosis at Time of Discharge Diagnosis at Time of Discharge #Stable Angina #ALLAN- present on admit #Chronic Pain #CAD- s/p stents. #A-Fib #DM- well controlled. #HLD Procedures XRay, CTs & MRIs X-Ray Chest Interpretation Chest Xray Interpretation: IMPRESSION: Small right pleural effusion or pleural scarring is unchanged CT Chest Interpretation IMPRESSION: No pulmonary lesion or evidence of pulmonary embolus is found. No definite interval change in the size of a right T4-T5 paraspinal mass that appears to extend slightly into the associated neural foramen, as was previously the case. This also was present 09/29/16, and 05/31/14. 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 Dictated by: Wyatt Epps M.D. on 06/04/2017 at 14:11 Study type: CT pulm angiogram Interpretation / Wet Read by: Interpret - Radiologist ECG 12 Lead Sinus tachycardia with a rate of [address] elevation Q waves in III, aVF, V1-V3 Unchanged from prior EKG Brief History 61 year old male with a history of MIx2, cardiac stent placement, coronary artery disease, proximal atrial fibrillation, diabetes mellitus, hypertension, hyperlipidemia, probable benign Schwannoma, and frequent ED visits p/w acute chest pain. Pt was recently admitted to [facility] in [place] for similar symptoms with an elevated troponin. He was discharged on the or with no interventions during the hospitalization. Pt was also complaining of SOB. Denies abd pain/N/V/D. 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 Last had Cath Jan 2017, some right vessel disease but not enough to warrant intervention. Hospital Course 61 year old male with a history of MIx2, cardiac stent placement, coronary artery disease, proximal atrial fibrillation, diabetes mellitus, hypertension, hyperlipidemia, probable benign Schwannoma, and frequent ED visits p/w acute chest pain. #Chest Pain- hx of MIx2, ruled out ACS. EKG- no FRANTZ. Trop neg x3. ED spoke with Cardiology who said just rule out ACS and can hold off ASA/Nitro due to allergy.Card also said no heparin. If troponin is elevated can call Cardiology consult. Pt reports improvement in Chest Pain. Does normally have chest pain with exertion at baseline. Is following with cardiology. - Pt reports resolved Chest Pain. ACS ruled out with negative troponins. #ALLAN- present on admit, likely 2/2 to Contrast given for CTA in ED. Will start IVF this AM. Check UA. Repeat CMP in AM. If downtrending will discharge, will need repeat CMP in 1 week with PCP. -This AM Scr improved to 1.1. Pt encouraged to maintain fluid intake. Would repeat BMP in 1 week during PCP follow up visit. - #Chronic Pain- Will give Dilaudid 1mg q3h. Avoid more frequent dosing. Resume home Oxycodone dosing. - Pt had small BM w/ miralax, will give another dose this AM. Upon discharge pt will need standing Bowel regimen as long as taking Oxycodone. Goal 1 BM daily. #Elevated D-Dimer- CTA was done which ruled out PE. Denies SOB. #CAD- s/p stents. #A-Fib- Sinus Rhythm. Rate control Metoprolol, Amiodarone. 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 #DM- Sliding Scale Insulin, Hold Metformin. Fingersticks w/ meals. #HLD- chronic. c/w Statin. Dispo- -Encouraged to maintain fluid intake. -Would repeat Labs for renal function (BMP) in 1 week during PCP follow up visit. -Will need standing Bowel regimen as long as taking Oxycodone. Goal 1 BM daily. -Follow up with Supervisor [employer] in 1-2 weeks. Exam Vital Signs (Last) Date Time Temp Pulse Resp B/P Pulse Ox O2 Delivery O2 Flow Rate FiO2 06/06/17 08:00 67 06/06/17 08:00 36.5 18 140/89 98 Room Air Test 06/04/17 11:40 06/05/17 02:30 06/05/17 10:10 06/06/17 06:20 D-Dimer 0.53mg/L FEU (<0.50) Total Bilirubin 0.2mg/dL (0.0-1.2) Aspartate Amino Transf (AST/SGOT) 27U/L (0-50) Alanine Aminotransferase (ALT/SGPT) 34U/L (0-44) Alkaline Phosphatase 70U/L (25-160) Total Protein 7.3g/dL (6.4-8.4) Albumin 4.3g/dL (3.4-5.0) Lipase 65U/L (13-60) White Blood Count 6.3th/mm3 (3.8-10.1) Red Blood Count 4.62mil/mm3 (4.40-5.80) Hemoglobin 12.2g/dL (13.8-17.2) Hematocrit 36.1% (41.0-50.0) Mean Corpuscular Volume 78.1fL (81-100) Mean Corpuscular Hemoglobin 26.4pg (27.0-35.0) Mean Corpuscular Hemoglobin Concent 33.8% (32.0-37.0) Red Cell Distribution Width 15.4% (12.3-15.4) Platelet Count 225bil/L (150-400) Neutrophils (%) (Auto) 65.0% (40-74) Lymphocytes (%) (Auto) 21.8% (14-46) Monocytes (%) (Auto) 9.9% (4-12) Eosinophils (%) (Auto) 2.5% (0-5) Basophils (%) (Auto) 0.5% (0-3) Magnesium Level 1.7mg/dL (1.6-2.6) Troponin T 0.010ug/L (0.0-0.011) Urine Color Straw (YELLOW) Urine Appearance Hazy (CLEAR,HAZY) Urine pH 5.0 (5.0-8.0) Urine Specific [place] 1.015 (1.003-1.035) Urine Protein Negativemg/dL (NEG,TRACE) Urine Glucose (UA) Negativemg/dL (NEGATIVE) Urine Ketones Negativemg/dL (NEGATIVE) Urine Occult Blood Negative (NEGATIVE) Urine Nitrite Negative (NEGATIVE) Urine Bilirubin Negative (NEGATIVE) Urine Urobilinogen Normalmg/dL (NORMAL) Urine Leukocyte Esterase Negative (NEGATIVE) Sodium Level 137mEq/L (134-144) Potassium Level 4.4mEq/L (3.5-5.2) Chloride Level 101mEq/L (97-108) Carbon Dioxide Level 20mmol/L (18-29) Blood Urea Nitrogen 16mg/dL (8-27) Creatinine 1.10mg/dL (0.76-1.27) Estimat Glomerular Filtration Rate 73mL/min (>59) Glucose Level 156mg/dL (60-99) Calcium Level 8.7mg/dL (8.5-10.1) Discharge Medications Discharge Medications Amiodarone (Amiodarone) 200 Mg Tablet 200 MG PO BID (Reported) Amlodipine (Amlodipine) 5 Mg Tablet 10 MG PO DAILY Prescribed by: ALVAREZ BARAHONA DO Atorvastatin Calcium (Atorvastatin Calcium) 40 Mg Tablet 40 MG PO DAILY ( Reported) Furosemide (Furosemide) 20 Mg Tab 20 MG PO DAILY (Reported) Magnesium Oxide (Magnesium Oxide) 400 Mg Tablet 400 MG PO DAILY (Reported) Metformin (Metformin) 500 Mg Tablet 1,000 MG PO DAILYWD (Reported) Metoprolol Tartrate (Metoprolol Tartrate) 100 Mg Tablet 100 MG PO BID (Reported ) Ondansetron (Ondansetron) 4 Mg Tablet 4 MG PO TID (Reported) Pantoprazole DR (Pantoprazole DR) 40 Mg Tablet.dr 40 MG PO DAILY (Reported) Polyethylene Glycol 3350 (Miralax) 17 Gm Powd.pack 17 GM PO DAILY Prescribed by: SANTINO YE MD Potassium Chloride ER (Potassium Chloride ER) 10 Meq Tablet 10 MEQ PO DAILY ( Reported) TAKE WITH FOOD Sertraline HCl (Sertraline) 100 Mg Tablet 100 MG PO DAILY (Reported) Tamsulosin ER (Tamsulosin ER) 0.4 Mg Cap.er.24h 0.4 MG PO DAILY (Reported) Terazosin (Terazosin) 5 Mg Capsule 5 MG PO DAILY (Reported) As needed Nystatin (Nystatin) 100,000 Unit/1 Ml Oral.susp 5 ML PO QID PRN PRN oral trush ( Reported) Oxycodone (Roxicodone) 5 Mg Tablet 10 MG PO Q4-6H PRN PRN PAIN. NOT TO EXCEED 5 TABS/DAY Prescribed by: SANTINO YE MD Additional med instructions -Will need standing Bowel regimen as long as taking Oxycodone. Goal 1 BM daily. Followup Plan Discharge Diet: Heart Healthy Discharge Activity: No restrictions, Limited until seen by PCP Patient Instructions -Encouraged to maintain fluid intake. -Would repeat Labs for renal function (BMP) in 1 week during PCP follow up visit. -Will need standing Bowel regimen as long as taking Oxycodone. Goal 1 BM daily. -Follow up with Supervisor [employer] in 1-2 weeks. Follow-up Provider: Effie Barros DO Follow-up with PCP in: 1 week Santino Ye MD Jun 06, 2017 17:49
--- NOTE | 2017-06-07 08:01 | NUR ---
Social Work: Late Note / D/C Data: Pt was on day 2 yesterday, discharged home to mobile home with no d/c planning needs. No needs stated by MD. Assessment: Pt who is independent at baseline. Plan: Pt discharged home to mobile home with no d/c planning needs. No needs stated by MD. LILLIAN Bradley
== END 2017-06-06 09:20 | disposition home or self-care (01) ==
LOC: SED 10:59 → MOC 15:48
PROVIDERS: ADMIT Internal Medicine; ATTEND Internal Medicine
DX: I25.118 Atherosclerotic heart disease of native coronary artery with other forms of angina pectoris (principal); N17.9 Acute kidney failure, unspecified; G89.29 Other chronic pain; I48.0 Paroxysmal atrial fibrillation; R07.9 Chest pain, unspecified; R79.89 Other specified abnormal findings of blood chemistry; E11.9 Type 2 diabetes mellitus without complications; E78.5 Hyperlipidemia, unspecified; I10 Essential (primary) hypertension; I25.2 Old myocardial infarction; N40.0 Benign prostatic hyperplasia without lower urinary tract symptoms; K21.9 Gastro-esophageal reflux disease without esophagitis; K85.90 Acute pancreatitis without necrosis or infection, unspecified; F17.210 Nicotine dependence, cigarettes, uncomplicated; Z79.84 Long term (current) use of oral hypoglycemic drugs; Z95.5 Presence of coronary angioplasty implant and graft; Z88.8 Allergy status to other drugs, medicaments and biological substances; Z87.898 Personal history of other specified conditions
CPT/HCPCS: 36415; 71010; 71275; 80048; 80053; 81002; 83690; 83735; 84484; 85025; 85378; 93005; 96374; 96375; 96376; 99285; G0378; J1170; J2405; J2550; J7030; Q9967

== ENCOUNTER 2017-06-08 14:17 | Inpatient (IN) | payer MEDICARE, MEDICAID ==
[2017-06-08] VITALS (7 sets, daily range): BP systolic 137–194; BP diastolic 80–102; PULSE 69–104; RESP 18–25; O2SAT 92–95
[~2017-06-08] VITALS: Ht 177.8 cm; Wt 126.4 kg
[~2017-06-08 14:17] MED LIST changes: -CARB-199 OT; -DICL100G26 TOPICAL; -DOXY25TA46 PO; -FLUT9.9S NOSTRIL
--- NOTE | 2017-06-08 15:02 | DRSVH ---
PROCEDURE: X-RAY CHEST ONE VIEW, PORTABLE ([id number]) INDICATIONS: Chest pain TECHNIQUE: One view of the chest was acquired. COMPARISON: [facility], CT, CT ANGIO CHEST PE, 06/04/2017, 13:17. [facility], CR, A BDOMEN ACUTE SERIES, 06/08/2017, 11:48. FINDINGS: Surgical changes and devices: None. Lungs and pleura: There is a small right pleural effusion which appears similar to the prior study. There are patchy bilateral groundglass opacities are demonstrated, similar to the recent prior study from the same day. Mediastinum: Mediastinal contours appear unchanged. Heart size is normal. Bones and chest wall: No suspicious bony lesions. Overlying soft tissues appear unremarkable. IMPRESSION: 1. Patchy bilateral opacities redemonstrated again suggestive of pulmonary edema. Differential incl udes pneumonia or pulmonary hemorrhage. 2. Small right pleural effusion. Dictated by: Leif Marquez M.D. on 06/08/2017 at 14:59 Approved by: Leif Marquez M.D. on 06/08/2017 at 15:00
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
[2017-06-08 15:21] LABS: BASOPHILS % (AUTO) 0.2 % (0-3); EOSINOPHILS % (AUTO) 0.7 % (0-5); MONOCYTES % (AUTO) 7.2 % (4-12); Mean Corpuscular Hemoglobin 25.8 pg (27.0-35.0); Mean Corpuscular Volume 79.2 fL (81-100); NEUTROPHILS % (AUTO) 86.1 % (40-74); Platelet Count 169 bil/L (150-400)
[2017-06-08] MEDS ORDERED: Ondansetron 2 mg/mL 2 mL Inj IVPUSH ONE (15:35)
[2017-06-08] MEDS ORDERED: HYDROmorphone 0.5 mg/0.5 mL iSecure Syringe IVPUSH ONE (15:35)
[2017-06-08] MEDS ORDERED: MeTOProlol 1 mg/mL 5 mL Inj IVPUSH ONE (15:40)
[2017-06-08 15:43] LABS: Magnesium 1.7 mg/dL (1.6-2.6)
[2017-06-08 15:45] LABS: TROPONIN T < 0.010 ug/L (0.0-0.011)
[2017-06-08] MEDS ORDERED: cefTRIAXone Inj 2,000 MG in Dextrose 5% Minibag Plus 50 ML IV ONE (16:30)
[2017-06-08] MEDS ORDERED: Azithromycin Inj 500 MG in Dextrose 5% w/Vial Mate 250 ML IV ONE (16:30)
[2017-06-08] MEDS ORDERED: METF1000 PO (16:31)
[2017-06-08] MEDS ORDERED: OXYC-474 PO (16:34)
[2017-06-08] MEDS ORDERED: ALBU8.5H2 INHALATION (16:37)
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
[2017-06-08] MEDS ORDERED: DOXY100C2 PO (16:39)
[2017-06-08] MEDS ORDERED: Nystatin 100,000 Unit/mL 5 mL Suspension PO ONE (17:10)
[2017-06-08] MEDS ORDERED: Alum-Mag Hydrox-Simeth 30 mL Suspension PO PRN (17:45)
[2017-06-08] MEDS ORDERED: Polyethylene Glycol (PEG) 17 Gm Powder PO PRN (17:45)
[2017-06-08] MEDS ORDERED: Nystatin 100,000 Unit/mL 59 mL Suspension PO PRN (17:45)
[2017-06-08] MEDS ORDERED: Albuterol 2.5 mg/3 mL Inhalation Solution NEB PRN (18:11)
[2017-06-08] MEDS: 0.9% Sodium Chloride 1,000 ML IV SCH (18:15)
[2017-06-08] MEDS: HYDROmorphone 1 mg/mL Inj IVPUSH PRN ×2 (18:15→21:50)
--- NOTE | 2017-06-08 18:41 | NUR ---
Admit Patient admitting to room 1027 at 1808 via wheelchair from ED. Transferred to bed with cane and SBA. Reports shortness of breath, chest pain, nausea, and a pain level of 9/10. Oriented to room, call light within reach, IV fluids started, pain medication administered, telemetry in place, and plan on white board.
[2017-06-08] MEDS: Azithromycin Inj 500 MG in Dextrose 5% w/Vial Mate 250 ML IV SCH (19:37)
[2017-06-08] MEDS: Polyethylene Glycol (PEG) 17 Gm Powder PO SCH (19:54)
[2017-06-08] MEDS: Heparin 5,000 Unit/mL Inj SUBQ SCH (23:37)
[2017-06-09] VITALS (8 sets, daily range): BP systolic 141–169; BP diastolic 73–94; PULSE 95–108; RESP 18–21; O2SAT 84–97
[2017-06-09] MEDS ORDERED: Dextrose 5% 250 ML IV PRN (01:20)
[2017-06-09] MEDS ORDERED: Glucose 40% Oral Gel 15 Gm Tube PO PRN (01:20)
[2017-06-09] MEDS: HYDROmorphone 1 mg/mL Inj IVPUSH PRN ×5 (01:28→21:00)
[2017-06-09 02:52] LABS: BASOPHILS % (AUTO) 0.1 % (0-3); EOSINOPHILS % (AUTO) 0.8 % (0-5); MONOCYTES % (AUTO) 11.3 % (4-12); Mean Corpuscular Hemoglobin 25.8 pg (27.0-35.0); Mean Corpuscular Volume 77.6 fL (81-100); NEUTROPHILS % (AUTO) 80.7 % (40-74); Platelet Count 181 bil/L (150-400)
[2017-06-09 03:38] LABS: Magnesium 1.6 mg/dL (1.6-2.6)
[2017-06-09] MEDS: 0.9% Sodium Chloride 1,000 ML IV SCH ×2 (03:41→07:43)
--- NOTE | 2017-06-09 04:04 | NUR ---
PAIN; "sonya slept about an hour and a half so far." pt stated. Dozes after pain rx given and then sits on edge of bed and snacks, watches tv etc.
[2017-06-09] MEDS: Insulin LISPRO Medium-Dose Scale SUBQ SCH ×4 (07:30→22:00)
[2017-06-09] MEDS: Pantoprazole 40 mg ER24 Tablet PO SCH (07:51)
[2017-06-09] MEDS: Acetylcysteine 10% 100 mg/mL 30 mL Inhalation Solution NEB SCH ×5 (08:30→22:24)
[2017-06-09] MEDS: Polyethylene Glycol (PEG) 17 Gm Powder PO SCH (08:32)
[2017-06-09] MEDS: Heparin 5,000 Unit/mL Inj SUBQ SCH ×3 (08:33→23:23)
[2017-06-09] MEDS: Azithromycin Inj 500 MG in Dextrose 5% w/Vial Mate 250 ML IV SCH (08:37)
[2017-06-09] MEDS: Ondansetron 2 mg/mL 2 mL Inj IVPUSH PRN ×2 (08:55→19:25)
--- NOTE | 2017-06-09 11:32 | NUR ---
Respiratory Pt approached for muycomist neb Tx. Pt refused Tx due to "dirty smell" "don't work for me". Pt had sat of 89% on RA but does not want to wear NC, even though Pt claims he is SOB. Rt informed Pt of importance of O2 with heart issues, no change in compliance. Pt informed of PRN Tx is available if wanted, Pt stated not at this time. Rt informed RN and asked for change in admin route to oral vs neb.
[2017-06-09] MEDS: cefTRIAXone Inj 1,000 MG in Dextrose 5% Minibag Plus 50 ML IV SCH (11:36)
--- NOTE | 2017-06-09 12:06 | PCM.PNMED ---
Subjective Date of Service Jun 09, 2017 Subjective continues to have dry cough and pleuritic chest pain. afebrile. Exam Vital Signs Vital Sign - Last Date Time Temp Pulse Resp B/P Pulse Ox O2 Delivery O2 Flow Rate FiO2 06/09/17 10:12 107 06/09/17 08:40 37.1 20 141/85 92 Nasal Cannula 2.00 Intake and Output 06/08/17 06/08/17 06/09/17 Cumulative From/Thru 15:00 23:00 07:00 06/08/17 14:19 - 06/09/17 06:53 Intake Total 1950 ml 1950 ml Output Total 1350 ml 1350 ml Balance 600 ml 600 ml Intake Oral 1100 ml 1100 ml IV Total 850 ml 850 ml Output Urine Total 1350 ml 1350 ml # Bowel Movements 0 0 Exam Head / Eyes: Atraumatic, Normocephalic, PERRL ENT: Mucous membranes moist, Conjunctiva normal, No scleral icterus Neck: Supple, Non-tender, Full range of motion soft abdomen S1 and S2 well heard no murmur no crackles or ronchi Extremities: Vascular intact, Neuro intact, No swelling, No tenderness Skin: Warm, Dry, No cyanosis Neurologic: Alert, Oriented, Nonfocal Psychiatric: Mood/affect normal, Behavior normal, Normal thought content IVs and Medications Medications Reviewed: Medications were reviewed in detail Lab and Diagnostics Result Diagram: 06/09/1724406/09/17244 X-Rays, CTs and MRIs PROCEDURE: X-RAY CHEST ONE VIEW, PORTABLE ([id number]) INDICATIONS: Chest pain TECHNIQUE: One view of the chest was acquired. COMPARISON: [facility], CT, CT ANGIO CHEST PE, 06/04/2017, 13:17. [facility], CR, ABDOMEN ACUTE SERIES, 06/08/2017, 11:48. FINDINGS: Surgical changes and devices: None. Lungs and pleura: There is a small right pleural effusion which appears similar to the prior study. There are patchy bilateral groundglass opacities are demonstrated, similar to the recent prior study from the same day. Mediastinum: Mediastinal contours appear unchanged. Heart size is normal. Bones and chest wall: No suspicious bony lesions. Overlying soft tissues appear unremarkable. IMPRESSION: 1. Patchy bilateral opacities redemonstrated again suggestive of pulmonary edema. Differential includes pneumonia or pulmonary hemorrhage. 2. Small right pleural effusion. Dictated by: Leif Marquez M.D. on 06/08/2017 at 14:59 Approved by: Leif Marquez M.D. on 06/08/2017 at 15:00 12-lead ECG . Sinus rhythm . Prolonged HI interval . Nonspecific intraventricular conduction delay . Abnormal T, consider ischemia, lateral leads Assessment & Plan 61 year old male with a history of MIx2, cardiac stent placement, coronary artery disease, proximal atrial fibrillation, diabetes mellitus, hypertension, hyperlipidemia, probable benign Schwannoma, and frequent ED visits p/w acute chest pain. #CAP/Bilateral infiltrates- present on admission, active. Per CXR redemonstrated again suggestive of pulmonary edema. Differential includes pneumonia or pulmonary hemorrhage versus pleural scarring. Small right pleural effusionsuggestive of pneumonia. Patient had a CT of the chest 4 days ago which not make mention of infiltrates. But did mention some pleural scarring. -Pro calcitonin 0.11 - on Abx- Ceftriaxone and Azithromycin Day 1. Blood Cultures pending. Pt is afebrile with WBC of 10.4 on admission. -Mucomyst nebulized to breakup mucus #Chest Pain- hx of MIx2, EKG- no FRANTZ with some T-wave inversions. First troponin is negative. Maybe pleuritic chest pain secondary to pneumonia. ACS unlikely troponins negative 4. At baseline patient does have exertional chest pain -Has a engraver apprentice decorative, Dr. Brown, however has been unable to follow-up recently. -Patient is allergic to aspirin and nitroglycerin. medical management including statins. #HTN- resume home meds. #T4-T5 paraspinal mass- extend slightly into the associated neural foramen per CT 05/2017. Thought to be benign. It is associated with lower back and leg pain. #Chronic Pain- Will give Dilaudid 1mg q3h. Avoid more frequent dosing. Resume home Oxycodone dosing. Routine bowel regimen while taking. Medications. #CAD- s/p stents. #A-Fib- Sinus Rhythm. Rate control Metoprolol, Amiodarone. Not on AC, has outpatient Senior Budget Analyst. #DM- Sliding Scale Insulin, Hold Metformin. Fingersticks w/ meals. #HLD- chronic. c/w Statin. Dispo-observation status Possible discharge on oral antibiotics if continues to improve GI Prophylaxis: Proton Pump Inhibitor VTE Prophylaxis: Sub-Q Heparin (Unfractionated) VTE Mechanical Devices: Intermittant Pneumatic CD Resuscitation Status: CPR: Attempt Resuscitation Rigoberto Martinez MD Jun 09, 2017 12:06
--- NOTE | 2017-06-09 12:33 | NUR ---
Case Management- ROBINS explained and signed by patient at 1205. Copy given to patient, Original placed in chart. Shayna RIZZO/ ZAYNAB
[2017-06-09] MEDS: Lidocaine Topical 5% Patch TOPICAL SCH (15:52)
[2017-06-09] MEDS ORDERED: Amiodarone 150 mg/100 mL D5W 150 MG in IV Premix 1 EACH IV ONE (16:15)
[2017-06-09] MEDS ORDERED: Magnesium Sulf 2 Gm/50mL Water 2 GM in IV Premix 1 EACH IV ONE ×2 (16:15→17:00)
[2017-06-09] MEDS ORDERED: Amiodarone 360 mg/200 mL D5W IV SCH (16:15)
[2017-06-09] MEDS ORDERED: Amiodarone 150 mg/100 mL D5W IV ONE (16:15)
[2017-06-09] MEDS ORDERED: fentaNYL-PF 50 mCg/mL 2 mL Inj ONE (16:32)
--- NOTE | 2017-06-09 16:57 | NUR ---
spiritual care: pt request/passing by pt had many staff around him following heartrate event. pt recognized me and shared brief update about medical condition and that he wishes to discuss it further. Pt told he will be moving to [facility] for closer monitoring and i agreed to continue discussion in his new room when he arrives. Staff attending to new discomfort.
[2017-06-09] MEDS ORDERED: Furosemide 10 mg/mL 4 mL Inj IVPUSH ONE (17:00)
[2017-06-09 17:03] LABS: BASOPHILS % (AUTO) 0.1 % (0-3); EOSINOPHILS % (AUTO) 0.9 % (0-5); MONOCYTES % (AUTO) 14.5 % (4-12); Mean Corpuscular Hemoglobin 25.8 pg (27.0-35.0); Mean Corpuscular Volume 77.3 fL (81-100); Platelet Count 170 bil/L (150-400)
[2017-06-09] MEDS: Amiodarone 360 mg/200 mL D5W 360 MG, Filter, Taxol 14256-28 1 EACH in IV Premix 1 EACH IV SCH (17:05)
[2017-06-09] MEDS ORDERED: HYDROmorphone 1 mg/mL Inj IVPUSH PRN (17:50)
[2017-06-09 17:54] LABS: Phosphorus 2.4 mg/dL (2.5-4.9)
[2017-06-09 17:57] LABS: TROPONIN T < 0.010 ug/L (0.0-0.011)
--- NOTE | 2017-06-09 18:07 | NUR ---
Cardiac/Transfer to 2020 At 1547 tele called to report STach 150s with wide IVCD, pt was asymptomatic but vital signs showed fever of 37.8, BP 157/94. Dr. Martinez notified, order received for Tylenol 650mg (given), confirmed blood cultures were pending and he did not want any additional labs ordered at this time. At 1600 tele reported pt had been in VTach for 2 minutes and returned to [id number]. Pt c/o crushing chest pain and diaphoretic with worsening SOB. MD notified and at bedside, STAT EKG ordered. At this time tele report pt had shifted to VFib. RT at bedside, SpO2 88% on 4L NC and increased to 10L via oxymask at this time. At this time, Mago Ferguson at bedside placing pt on monitor and offering to call a rapid response, MD refused. Leta Darnell, RN from [facility] at bedside to administer Amiodarone bolus of 150mg at 1630; 2mg IVP given for chest pain; 2mg Mg infusion started after bolus of Amiodarone. IV therapy started second line, 20 gauge in R thumb and amiodarone infusion started per protocol. Pt converted to STach 100, BP 176/115, chest pain persisting; 1mg Dilaudid given IVP. Report called to Camilla Villanueva and pt transferred to 2020.
[2017-06-09] MEDS ORDERED: Potassium Phos (mMol) Inj 15 MMOL in Dextrose 5% 250 ML IV ONE (18:20)
--- NOTE | 2017-06-09 18:56 | NUR ---
P: Arrythmia I: Pt c/o pain from 4-8/10. Dr. Martinez notified and Dilaudid increased to Q 3 hours, but is not due yet. Taking sips of water. No c/0 nausea or vomiting. Pt refused to wear the 12L/OM and is placed on 4L/NC with sats 95%. Pt refused nebulizers. magnesium 4Gms IV given and Lasix 40mg IV given. ST/NSR. No ectopy noted. Defib/pacer in room off but connected to pads on pt. E: Stable S: Alert and oriented. Uses call light appropriately. Frequent rounding.
[2017-06-09] MEDS: Sodium Chloride LOK Flush 10 mL Syringe IVFLUSH PRN ×2 (19:26)
[2017-06-09] MEDS: Doxycycline Inj 100 MG in Dextrose 5% Minibag Plus 100 ML IV SCH (19:27)
--- NOTE | 2017-06-09 20:00 | NUR ---
PICC LINE PICC line ordered but Dr. Mckenna unable to read tip placement via fluoroscopy. Per Dr. Mckenna a CVL would need to be placed instead of a PICC line. Pt's RN (NOC) nofified.
[2017-06-09] MEDS ORDERED: Amiodarone 360 mg/200 mL D5W Premix IV ONE (22:39)
[2017-06-09] MEDS ORDERED: IV Premix 1 EACH IV ONE (22:39)
--- NOTE | 2017-06-09 22:56 | CONS ---
[address] [address] CONSULTATION REPORT PATIENT: HANNA QUINTERO : 1955 MR#: [id number] ADMIT: 06/08/2017 JOB ID: [id number] DATE OF SERVICE: 06/09/2017 REQUESTING PHYSICIAN: Rigoberto Martinez MD. REASON FOR EVALUATION: Ventricular tachycardia. HISTORY OF PRESENT ILLNESS: The patient is a 61 years old male with history of diabetes, hypertension, hypercholesterolemia and obesity. He has documented coronary artery disease dating back to 2001 when he suffered acute myocardial infarction. He got stent placement to the right coronary artery. The patient had another stent placed five years later to the left anterior descending artery. Both procedures were performed at [facility] in [place]. The patient also has history of paroxysmal atrial fibrillation and has been on amiodarone. 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 Brown. He had cardiac catheterization performed on January 20, 2017. It demonstrated significant disease of the right coronary artery but no evidence of critical stenosis. The distal posterolateral branch was small sized and has 90% stenosis. Both right coronary artery and left anterior descending artery stents are widely patent. Normal ejection fraction. His last echocardiogram was on November 03, 2016. It showed ejection fraction 50% to 55% with basal posterolateral wall hypokinesis. Basal inferior wall akinesis. The patient was hospitalized yesterday with chest pain which is worse with inspiration and shortness of breath. This afternoon around 4:30 p.m. the patient went into ventricular tachycardia. PAST MEDICAL HISTORY: 1. Cardiac history as outlined above. 2. Diabetes mellitus. 3. Hypertension. 4. Hypercholesterolemia. 5. History of GI bleed. 6. Probable benign schwannoma on thoracic spine MRI. 7. BPH. 8. Narcotic habituation and manipulation with drug-seeking behavior. 9. Pancreatitis. CURRENT MEDICATIONS: Was reviewed. ALLERGIES: 1. LISINOPRIL. 2. HYDROXYZINE. SOCIAL HISTORY: The patient smokes three cigarettes per day. He also used nicotine patch. He drinks alcohol socially. FAMILY HISTORY: Unobtainable due to urgency of clinical situation. REVIEW OF SYSTEMS: Unobtainable due to urgency of clinical situation. PHYSICAL EXAMINATION: Reveals an obese male appearing in moderate acute distress. Temperature is 37.8. Blood pressure is 157/94. Pulse 140. Body weight is 131.8 kg. Head and face have normal configuration. Anicteric sclerae. Narrow oropharynx. Neck: JVP was difficult to evaluate due to nuchal obesity. Chest: Normal expansion. Lungs: Diminished breath sounds at base. Heart: Distant heart sounds. Abdomen: Obese, nontender. Extremities: No clubbing, cyanosis, or edema. Neurology: Awake and oriented. BLOOD TESTS: Show hemoglobin 10.0, WBC 11.8, platelets 181. Sodium 135, potassium 4.2, chloride 101, bicarb 18, BUN 12, creatinine 1.01, glucose 167. Troponin less than 0.01. Magnesium 1.6. IMPRESSION: 1. Sustained ventricular tachycardia. 2. Known coronary artery disease, status post stent to the left anterior descending and right coronary artery. 3. History of paroxysmal atrial fibrillation, on amiodarone. 4. Severe obesity. His body mass index was 41.7 kg/m2. 5. Hypertension. 6. Diabetes mellitus. 7. Hypercholesterolemia. 8. Possible obstructive sleep apnea. PLAN: It is possible that he had an ischemic event that triggered the ventricular tachycardia episode. This could be in the distal posterolateral branch territory. His magnesium was also low at 1.6. I will treat him with intravenous amiodarone and intravenous magnesium. He will be transferred to intensive care unit. I will ask Dr. Kerr to see the patient for consideration of internal cardioverter-defibrillator implantation. [facility]FF[facility] GENERAL MEDICAL CENTERBijan
[2017-06-09] MEDS: guaiFENesin 600 mg ER12 Tablet PO SCH (23:23)
[2017-06-10] VITALS (12 sets, daily range): BP systolic 96–172; BP diastolic 70–89; PULSE 66–104; RESP 18–22; O2SAT 91–97
[2017-06-10] MEDS: Sodium Chloride LOK Flush 10 mL Syringe IVFLUSH PRN ×3 (00:46→04:01)
[2017-06-10] MEDS: HYDROmorphone 1 mg/mL Inj IVPUSH PRN ×6 (00:46→16:07)
[2017-06-10] MEDS: Ondansetron 2 mg/mL 2 mL Inj IVPUSH PRN ×2 (00:46→22:21)
[2017-06-10] MEDS: Acetylcysteine 10% 100 mg/mL 30 mL Inhalation Solution NEB SCH ×5 (00:46→20:33)
[2017-06-10] MEDS: Lidocaine Topical 5% Patch TOPICAL SCH (00:47)
[2017-06-10 03:58] LABS: BASOPHILS % (AUTO) 0.2 % (0-3); MONOCYTES % (AUTO) 17.1 % (4-12); Mean Corpuscular Hemoglobin 26.2 pg (27.0-35.0); Mean Corpuscular Volume 77.7 fL (81-100); NEUTROPHILS % (AUTO) 74.1 % (40-74); Platelet Count 164 bil/L (150-400)
[2017-06-10 04:23] LABS: Magnesium 1.9 mg/dL (1.6-2.6); Phosphorus 3.1 mg/dL (2.5-4.9)
[2017-06-10] MEDS: Insulin LISPRO Medium-Dose Scale SUBQ SCH ×4 (07:30→21:06)
[2017-06-10] MEDS: Polyethylene Glycol (PEG) 17 Gm Powder PO SCH (08:20)
[2017-06-10] MEDS: guaiFENesin 600 mg ER12 Tablet PO SCH ×2 (08:21→21:02)
[2017-06-10] MEDS: Pantoprazole 40 mg ER24 Tablet PO SCH (08:21)
[2017-06-10] MEDS: Heparin 5,000 Unit/mL Inj SUBQ SCH ×2 (08:22→16:07)
[2017-06-10] MEDS ORDERED: IV Premix 1 EACH IV ONE ×2 (10:02→22:27)
[2017-06-10] MEDS ORDERED: Amiodarone 360 mg/200 mL D5W Premix IV ONE ×2 (10:02→22:27)
[2017-06-10] MEDS: Amiodarone 360 mg/200 mL D5W 360 MG, Filter, Taxol 14256-28 1 EACH in IV Premix 1 EACH IV SCH (10:05)
[2017-06-10] MEDS: cefTRIAXone Inj 1,000 MG in Dextrose 5% Minibag Plus 50 ML IV SCH (10:05)
--- NOTE | 2017-06-10 10:43 | NUR ---
Case Management- IMM explained and signed by patient. Copy given to patient. Original placed in chart. Shayna RIZZO/ ZAYNAB
--- NOTE | 2017-06-10 16:09 | PCM.PNMED ---
Subjective Date of Service Jun 10, 2017 Subjective Patient was seen and examined at bedside. Today patient is having some chest pain and shortness of breath. He says he's in a lot of pain from his tumor, back pain, chest pain and abdominal pain. He has mentioned feeling hot and sweaty. He hasn't had a bowel movement, but has urinated. Overnight Events: Patient had ventricular tachycardia for 25 minutes. Treated with amiodarone with patient back in sinus rhythm. Exam Vital Signs Vital Sign - Last Date Time Temp Pulse Resp B/P Pulse Ox O2 Delivery O2 Flow Rate FiO2 06/10/17 03:35 93 21 123/72 95 Nasal Cannula 5.00 06/10/17 00:15 37.9 Intake and Output 06/09/17 06/09/17 06/10/17 Cumulative From/Thru 15:00 23:00 07:00 06/08/17 14:19 - 06/09/17 19:33 Intake Total 1120 ml 3070 ml Output Total 1050 ml 2400 ml Balance 70 ml 670 ml Intake Oral 520 ml 1620 ml IV Total 600 ml 1450 ml Output Urine Total 1050 ml 2400 ml # Bowel Movements 0 Exam General: No mild distress due to pain, well-developed, well-nourished, appropriately interactive HEENT: Normocephalic, atraumatic.. Pupils equal, round, and reactive to light and accommodation. Anicteric sclerae, moist conjunctivae. Neck: Supple with full range of motion. No jugular venous distension. Cardiovascular: Regular rate and rhythm with no murmurs, rubs, or gallops appreciated Pulmonary: course breath sounds throughout left lower lobe. Positive egophany. Normal respiratory effort with no use of accessory muscles. Abdomen: Bowel tones present. Soft, tender all quadrants except LLQ, nondistended. Extremities: No clubbing or cyanosis, mild lower extremity edema, Skin: Normal temperature, turgor, and texture; no rash, ulcers, or subcutaneous nodules appreciated. Neurological: Cranial nerves grossly intact. Normal muscle strength, tone, and bulk. No known gait impairment. Psychiatric: Normal mood and affect. Alert and oriented to person, place, and time. IVs and Medications Medications Reviewed: Medications were reviewed in detail Lab and Diagnostics Blood Cultures negative x 2 days Result Diagram: 06/10/17 0350 06/10/17 0350 X-Rays, CTs and MRIs PROCEDURE: X-RAY CHEST ONE VIEW, PORTABLE ([id number]) INDICATIONS: Chest pain TECHNIQUE: One view of the chest was acquired. COMPARISON: [facility], CT, CT ANGIO CHEST PE, 06/04/2017, 13:17. [facility], CR, ABDOMEN ACUTE SERIES, 06/08/2017, 11:48. FINDINGS: Surgical changes and devices: None. Lungs and pleura: There is a small right pleural effusion which appears similar to the prior study. There are patchy bilateral groundglass opacities are demonstrated, similar to the recent prior study from the same day. Mediastinum: Mediastinal contours appear unchanged. Heart size is normal. Bones and chest wall: No suspicious bony lesions. Overlying soft tissues appear unremarkable. IMPRESSION: 1. Patchy bilateral opacities redemonstrated again suggestive of pulmonary edema. Differential includes pneumonia or pulmonary hemorrhage. 2. Small right pleural effusion. Dictated by: Leif Marquez M.D. on 06/08/2017 at 14:59 Approved by: Leif Marquez M.D. on 06/08/2017 at 15:00 12-lead ECG . Sinus rhythm . Prolonged OK interval . Nonspecific intraventricular conduction delay . Abnormal T, consider ischemia, lateral leads Cardiac Echo Impressions Interpretation Summary Left ventricular wall thickness is moderately increased. The ejection fraction is estimated to be 50-55%. There is basal inferior wall akinesis. Flattened septum is consistent with RV pressure/volume overload. Assessment of diastolic parameters suggests a pseudonormalization pattern, consistent with elevated filling pressures. Assessment & Plan Anton Carrington is a 61 year old male with a history of MIx2, cardiac stent placement, coronary artery disease, proximal atrial fibrillation, diabetes mellitus, hypertension, hyperlipidemia, probable benign Schwannoma, and frequent ED visits presented with acute chest pain and recently diagnosed with pneumonia and being treated with ceftriaxone and doxycycline. He had an episode of ventricular tachycardia lasting 25 minutes, treated with amiodarone with rhythm going back into sinus. Ventricular Tachycardia, not present on admission, resolved Patient had 2 episodes of ventricular tachycardia, one lasting 25 minutes, resolved with amiodarone. - Consulted Dr. Kerr who recommended AICD after treatment for pneumonia, before patient discharges from hospital. CAP/Bilateral infiltrates- present on admission, Improved. Per CXR redemonstrated again suggestive of pulmonary edema. Differential includes pneumonia or pulmonary hemorrhage versus pleural scarring. Small right pleural effusion suggestive of pneumonia. Patient had a CT of the chest 4 days ago which did not make mention of infiltrates. But did mention some pleural scarring. - Procalcitonin 0.11 - Ceftriaxone and Doxycycline Day 2. Blood Cultures negative x 24 hours. Pt is afebrile with WBC of 10.4 on admission. - Mucomyst nebulized to breakup mucus Chest Pain- hx of MIx2, EKG- no ST segment elevations with some T-wave inversions. First troponin is negative. Maybe pleuritic chest pain secondary to pneumonia. ACS unlikely troponins negative 4. At baseline patient does have exertional chest pain -Has a rabbet operator, Dr. Brown, however has been unable to follow-up recently. -Patient is allergic to aspirin and nitroglycerin. medical management including statins. Hypertension, chronic - Resume home meds. T4-T5 paraspinal mass- extend slightly into the associated neural foramen per CT 05/2017. Thought to be benign. It is associated with lower back and leg pain. Chronic Pain- Dilaudid IV switched to Morphine IV 2 mg q2h PRN. Resume home Oxycodone dosing 10 mg q4h. Routine bowel regimen while taking opioids CAD- s/p stents. Atrial Fibrillation- Sinus Rhythm. Rate control Metoprolol, Amiodarone. 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 Diabetes Mellitus Type 2- Sliding Scale Insulin, Hold Metformin. Fingersticks w / meals. Hyperlipidemia, chronic - home statin High Risk Medications: IV Morphine GI Prophylaxis: Proton Pump Inhibitor VTE Prophylaxis: Sub-Q Heparin (Unfractionated) VTE Mechanical Devices: Intermittant Pneumatic CD Resuscitation Status: CPR: Attempt Resuscitation Attending Statement The patient was seen and examined together with Dr. Shahid on 06/10/17 and I have added additional information to the note above. Abdon Shahid DO Jun 10, 2017 06:01 Annabella Wheat DO Jun 11, 2017 13:10
--- NOTE | 2017-06-10 16:27 | NUR ---
Social Work Note: Screen Note/Multidisciplinary Rounds Data& Assessment: Pt was discussed in AM rounds, per MD pt is not medically ready for discharge at this time. Anton Carrington is a 61 year old male admitted on 06/08/2017 for multilobar/pneumonia. Pt has Medicare and [facility] supplemental insurance coverage. Pt is SBA in his room at this time. SW to follow up with pt regarding initial assessment and discharge planning. No discharge planning needs or MD orders identified at this time. Plan: Anticipated discharge home via POV when medically ready. SW to follow up with pt regarding initial assessment and discharge planning. No discharge planning needs or MD orders identified at this time. LILLIAN Mosqueda
[2017-06-10 16:31] LABS: APPEARANCE,URINE CLEAR (CLEAR,HAZY); COLOR,URINE YELLOW (YELLOW); OCCULT BLOOD,URINE NEGATIVE (NEGATIVE); PH,URINE 5.5 (5.0-8.0); UROBILINOGEN,URINE NORMAL (NORMAL)
--- NOTE | 2017-06-10 17:42 | DRSVH ---
[facility] [address] [place] [address] Echocardiogram Report Name: HANNA QUINTERO JStudy Date : 06/10/2017 Height: 70 in Hospital Exam Location: [facility] Weight: 291 lb Gender: Male BSA: 2.4 m2 : 1955 Age: 61 yrs BP: 123/72 mmHg Reason For Study: Dyspnea Ordering Physician: Performed By: Liv Ramsey Interpretation Summary Left ventricular wall thickness is moderately increased. The ejection fraction is estimated to be 50-55%. There is basal inferior wall akinesis. Flattened septum is consistent with RV pressure/volume overload. Assessment of diastolic parameters suggests a pseudonormalization pattern, consistent with elevated filling pressures. The right ventricular systolic pressure is estimated at 42 mmHg assuming a right atrial pressure of 8 mm Hg. The IVC is dilated (diameter is greater than 2.1 cm) yet it collapses greater than 50% with a sniff. This suggests a right atrial pressure of 8 mm Hg. There is no significant valvular heart disease. No other echocardiographic abnormalities seen. Compared to the prior echo report on 11/03/2016, there is no significant change. Procedure: A two-dimensional transthoracic echocardiogram with color flow and Doppler was performed. Comparison is made with the echocardiogram of 11-03. The patient was in normal sinus rhythm during the exam. Left Ventricle: The left ventricle is normal in size. Left ventricular wall thickness is moderately increased. The ejection fraction is estimated to be 50-55%. There is basal inferior wall akinesis. Flattened septum is consistent with RV pressure/volume overload. Assessment of diastolic parameters suggests a pseudonormalization pattern, consistent with elevated filling pressures. Right Ventricle: The right ventricle is normal in size and function. Atria: The left atrium is moderately dilated. The right atrium is mild to moderately dilated. The interatrial septum is intact with no evidence for an atrial septal defect. Mitral Valve: The mitral valve is grossly normal. There is mild mitral regurgitation. Aortic Valve: The aortic valve is trileaflet. The aortic valve opens well. The aortic valve is moderately calcified. No aortic regurgitation is present. Tricuspid Valve: The tricuspid valve is normal in structure and function. There is a trace or physiologic amount of tricuspid regurgitation. The right ventricular systolic pressure is estimated at 42 mmHg assuming a right atrial pressure of 8 mm Hg. Pulmonic Valve: The pulmonic valve is not well visualized. There is a trace or physiologic amount of pulmonic regurgitation. Great Vessels: The aortic root is normal size. The dimensions of the ascending aorta are normal. The IVC is dilated (diameter is greater than 2.1 cm) yet it collapses greater than 50% with a sniff. This suggests a right atrial pressure of 8 mm Hg. Pericardium/ Pleura There is no pericardial effusion. There is no pleural effusion. MMode/2D Measurements & Calculations LVIDd: 5.5 cm LA dimension: 4.2 cm RA long axis LVOT diam: 2.4 cm LVIDs: 3.5 cm AoV Opening FS: 36.7 % LA A2 area: 28.9 cm RA area IVSd: 1.7 cm LA A4 area: 33.3 cm Ao root diam LVPWd: 1.5 cm LA length (vol) : 29.8 cm RA vol Aortic Jxn: 3.5 cm LA vol: 116.8 ml : 129.ml asc Aorta Diam LA vol index RA : 52.9 mm2 Ao Arch Diam (Prox Trans): 3.1 cm IVC diam: 2.3 cm LV dueñas. diameter/BSA LV sys. diameter/BSA (cm/m^2): 2.3 (cm/m^2): 1.4 Doppler Measurements & Calculations Ao V2 max MV E max isaac MV E/A: 1.2 TR max isaac : 205.1 cm/sec : 125.1 cm/sec MV A dur : 289.5 cm/sec Ao max PG MV A max isaac : 0.12 sec TR max PG : 16.8 mmHg : 107.1 cm/sec : 33.5 mmHg Ao mean PG MV P1/2t: 43.6 msec PA V2 max : 131.6 cm/sec LVOT Max Isaac PA mean PG : 102.1 cm/sec PA Accel Time ASUNCION(I,D): 2.3 cm : 0.08 sec sev ratio MV dec time MV P1/2t max isaac Ao V2 mean LV V1 max PG : 0.15 sec : 136.1 cm/sec MVA(P1/2t): 5.0 cm2 Ao V2 VTI LV V1 VTI : 19.0 cm ASUNCION(V,D): 2.2 cm2 PA V2 mean ASUNCION indexed to BSA : 73.9 cm/sec (cm^2/m^2): 0.96 Reading Physician:05:41 PM
--- NOTE | 2017-06-10 18:13 | NUR ---
Up and about in room indep. Continued chronic back and chest discomfort, receiving Dilaudid and oxycodone as ordered with some effect. Sinus rhythm on tele. Remains on Amiodarone gtt. Cardiology consulting regarding possible AICD placement. ECHO done today. BP stable. Low-grade temp. Taking PO well, denies nausea. Evening blood glucose 132. Requesting Dilaudid be changed to Morphine for better effect; paged.
[2017-06-10] MEDS: Doxycycline Inj 100 MG in Dextrose 5% Minibag Plus 100 ML IV SCH (20:04)
[2017-06-11] VITALS (10 sets, daily range): BP systolic 114–170; BP diastolic 59–93; PULSE 83–98; RESP 15–26; O2SAT 79–97
[2017-06-11] MEDS: Heparin 5,000 Unit/mL Inj SUBQ SCH ×3 (00:26→17:32)
[2017-06-11] MEDS: Acetylcysteine 10% 100 mg/mL 30 mL Inhalation Solution NEB SCH ×4 (00:27→20:20)
[2017-06-11 04:13] LABS: BASOPHILS % (AUTO) 0.1 % (0-3); EOSINOPHILS % (AUTO) 1.9 % (0-5); MONOCYTES % (AUTO) 18.8 % (4-12); Mean Corpuscular Hemoglobin 25.8 pg (27.0-35.0); Mean Corpuscular Volume 77.1 fL (81-100); NEUTROPHILS % (AUTO) 72.1 % (40-74); Platelet Count 168 bil/L (150-400)
--- NOTE | 2017-06-11 06:24 | NUR ---
Mentation/Cardiac/Resp/Pain Patient constantly awake and only falls asleep for short periods of time, calling on the minute for pain meds, agreeable and happy with taking Morphine 2mg IV and Oxycodone 10mg Q4H, requesting Tylenol for migraine headache, HR NSR and Amiodarone infusing and no runs V-Tach noted this shift. O2 sats 93-96% on 4L NC, c/o of chronic chest discomfort and generalized pain continuously, c/o nausea and Zofran given x1, medicated at 0545 and sleeping at this time. Addendum: 06/11/17 at 0634 by SHIRLEY NAVAS RN Amended: Links added.
[2017-06-11] MEDS: Insulin LISPRO Medium-Dose Scale SUBQ SCH ×4 (07:30→21:13)
--- NOTE | 2017-06-11 08:06 | NUR ---
Pain/personal concerns Patient sleeping, awakens to voice. Alert and oriented x 3. Reporting 8/10 left sided chest pain and SOA once awake. PRN IV morphine offered, pt refused. Additional complaints of pain at IV site, IV therapy notified. Pt states he has concerns he wishes to address with charge poster, refusing AM medications at this time. Shayna Saleem contacted. Will continue to monitor.
[2017-06-11] MEDS: Lidocaine Topical 5% Patch TOPICAL SCH (08:30)
[2017-06-11] MEDS: guaiFENesin 600 mg ER12 Tablet PO SCH ×2 (09:38→21:01)
[2017-06-11] MEDS: Pantoprazole 40 mg ER24 Tablet PO SCH (09:38)
[2017-06-11] MEDS: Polyethylene Glycol (PEG) 17 Gm Powder PO SCH (09:39)
--- NOTE | 2017-06-11 09:56 | PCM.PNMED ---
Subjective Date of Service Jun 11, 2017 Subjective Anton Carrington is a 61 year old male with a history of MIx2, cardiac stent placement, coronary artery disease, proximal atrial fibrillation, diabetes mellitus, hypertension, hyperlipidemia, probable benign Schwannoma, and frequent ED visits presented with acute chest pain and recently diagnosed with pneumonia. Overnight Events: None Today, Mr. Carrington mentions he feels achy in his joints, which is causing him to not feel good. His breathing however has improved. He still mentions of having abdominal pain and back pain, but he believes the morphine is helping. He did pass a bowel movement, but has had minimal urinary output. He has ambulated minimally within his room. Exam Vital Signs Vital Sign - Last Date Time Temp Pulse Resp B/P Pulse Ox O2 Delivery O2 Flow Rate FiO2 06/11/17 03:17 37.4 95 18 161/75 94 Nasal Cannula 4.00 Intake and Output 06/10/17 06/10/17 06/11/17 Cumulative From/Thru 15:00 23:00 07:00 06/08/17 14:19 - 06/11/17 05:47 Intake Total 2240 ml 304 ml 7917 ml Output Total 1325 ml 3725 ml Balance 915 ml 304 ml 4192 ml Intake Oral 2040 ml 5210 ml IV Total 200 ml 304 ml 2707 ml Output Urine Total 1325 ml 3725 ml # Bowel Movements 0 0 Exam General: No mild distress due to pain, well-developed, well-nourished, appropriately interactive HEENT: Normocephalic, atraumatic.. Pupils equal, round, and reactive to light and accommodation. Anicteric sclerae, moist conjunctivae. Neck: Supple with full range of motion. No jugular venous distension. Cardiovascular: Regular rate and rhythm with no murmurs, rubs, or gallops appreciated Pulmonary: course breath sounds throughout left lower lobe. Negative egophany. Normal respiratory effort with no use of accessory muscles. Abdomen: Bowel tones present. Soft, tender all quadrants except RLQ, nondistended. Extremities: No clubbing or cyanosis, mild lower extremity edema, Musculoskeletal: Patient had anteriorly rotated left hip, decreased motion of diaphragm on the right, hypertonic cervical musculature, restricted motion of the ribs and sacrum at S2. Skin: Normal temperature, turgor, and texture; no rash, ulcers, or subcutaneous nodules appreciated. Neurological: Cranial nerves grossly intact. Normal muscle strength, tone, and bulk. No known gait impairment. Psychiatric: Normal mood and affect. Alert and oriented to person, place, and time. IVs and Medications Medications Reviewed: Medications were reviewed in detail Lab and Diagnostics Result Diagram: 06/11/17 0350 06/11/17 0350 X-Rays, CTs and MRIs PROCEDURE: X-RAY CHEST ONE VIEW, PORTABLE ([id number]) INDICATIONS: Chest pain TECHNIQUE: One view of the chest was acquired. COMPARISON: [facility], CT, CT ANGIO CHEST PE, 06/04/2017, 13:17. [facility], CR, ABDOMEN ACUTE SERIES, 06/08/2017, 11:48. FINDINGS: Surgical changes and devices: None. Lungs and pleura: There is a small right pleural effusion which appears similar to the prior study. There are patchy bilateral groundglass opacities are demonstrated, similar to the recent prior study from the same day. Mediastinum: Mediastinal contours appear unchanged. Heart size is normal. Bones and chest wall: No suspicious bony lesions. Overlying soft tissues appear unremarkable. IMPRESSION: 1. Patchy bilateral opacities redemonstrated again suggestive of pulmonary edema. Differential includes pneumonia or pulmonary hemorrhage. 2. Small right pleural effusion. Dictated by: Leif Marquez M.D. on 06/08/2017 at 14:59 Approved by: Leif Marquez M.D. on 06/08/2017 at 15:00 12-lead ECG . Sinus rhythm . Prolonged WI interval . Nonspecific intraventricular conduction delay . Abnormal T, consider ischemia, lateral leads Cardiac Echo Impressions Interpretation Summary Left ventricular wall thickness is moderately increased. The ejection fraction is estimated to be 50-55%. There is basal inferior wall akinesis. Flattened septum is consistent with RV pressure/volume overload. Assessment of diastolic parameters suggests a pseudonormalization pattern, consistent with elevated filling pressures. Assessment & Plan Anton Carrington is a 61 year old male with a history of MIx2, cardiac stent placement, coronary artery disease, proximal atrial fibrillation, diabetes mellitus, hypertension, hyperlipidemia, probable benign Schwannoma, and frequent ED visits presented with acute chest pain and recently diagnosed with pneumonia and being treated with ceftriaxone and doxycycline. He had an episode of ventricular tachycardia lasting 25 minutes, treated with amiodarone with rhythm going back into sinus. Ventricular Tachycardia, not present on admission, resolved Patient had 2 episodes of ventricular tachycardia, one lasting 25 minutes, resolved with amiodarone. - Consulted Dr. Kerr who recommended AICD after treatment for pneumonia, before patient discharges from hospital. CAP/Bilateral infiltrates- present on admission, Improved. Per CXR redemonstrated again suggestive of pulmonary edema. Differential includes pneumonia or pulmonary hemorrhage versus pleural scarring. Small right pleural effusion suggestive of pneumonia. Patient had a CT of the chest 4 days ago which not make mention of infiltrates. But did mention some pleural scarring. - Switched to IV ceftriaxone and azithromycin. Blood Cultures negative x 48 hours. - Mucomyst nebulized to breakup mucus - RN to assess oxygen needs while walking. - Acapella and Incentive spirometer Chest Pain- hx of MIx2, EKG- no FRANTZ with some T-wave inversions. First troponin is negative. Maybe pleuritic chest pain secondary to pneumonia. ACS unlikely troponins negative 4. 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 Brown, however has been unable to follow-up recently. -Patient is allergic to aspirin and nitroglycerin. medical management including statins. Hypertension, chronic - Resume home meds. T4-T5 paraspinal mass- extend slightly into the associated neural foramen per CT 05/2017. Thought to be benign. It is associated with lower back and leg pain. Chronic Pain- Dilaudid switched to Morphine 2 mg q2h PRN. Resume home Oxycodone dosing 10 mg q4h. Routine bowel regimen while taking. OMT treatment helped reduce patients pain. CAD- s/p stents. Atrial Fibrillation- Sinus Rhythm. Rate control Metoprolol, Amiodarone. Not on AC, has outpatient Bioanalyst. Diabetes Mellitus Type 2- Sliding Scale Insulin, Hold Metformin. Fingersticks w / meals. Hyperlipidemia, chronic - home statin High Risk Medications: IV Morphine GI Prophylaxis: Proton Pump Inhibitor VTE Prophylaxis: Sub-Q Heparin (Unfractionated) VTE Mechanical Devices: Intermittant Pneumatic CD Resuscitation Status: CPR: Attempt Resuscitation Attending Statement The patient was seen and examined together with Dr. Shahid on 06/11/17 and I agree with the history, exam and plan as outlined in the note above. Abdon Shahid DO Jun 11, 2017 06:21 Annabella Wheat DO Jun 15, 2017 14:35
--- NOTE | 2017-06-11 12:59 | PCM.PROC ---
Procedure Note Date of Service: Jun 11, 2017 Provider and Hardware Installation Coordinator: Dr. Shahid Medical students (Celina and Jerome) Procedure Details: Procedure: Osteopathic Manipulative Treatment Subjective: Patient is a 61-year-old male who complains of shortness of breath and generalized joint pain. The patient is currently have pneumonia which is the primary cause of his shortness of breath. The patient also has chronic pain which is most likely adding to his joint pain in the setting of illness. Patient also currently complains of headache in the right temporal area. The patient states that the morphine has been helping but feels that made his chest pain symptoms that he has been having well resolve once he gets his pacemaker placed. The patient's current symptoms seem to be exacerbated with movement and the patient does have some mild relief with pain medications and lying still in the bed. Risks and benefits of OMT were explained to the patient and verbal consent obtained. Osteopathic Structural Exam: Head: Right sidebending, OAESrRl Cervicals: C3-5 ESrRr Thoracics: Thoracic outlet rotated left Abdomen: Right-sided diaphragm restriction Ribs: Bilateral decreased rib motion Pelvis: Anterior left innominate Sacrum: Right SI joint compression at the level of S2 Upper extremities: Right clavicle restriction Patient responded well to treatment. The patient stated that his headache did start to decrease and his multiple tender points in the sacral area were no longer present. Osteopathic treatment modalities used: Myofascial release, Muscle Energy, Cranial, BLT, rib raising, and soft tissue technique Annabella Wheat DO Jun 11, 2017 12:59
[2017-06-11] MEDS ORDERED: 0.9% Sodium Chloride 250 ML ONE (13:36)
[2017-06-11] MEDS: cefTRIAXone Inj 1,000 MG in Dextrose 5% Minibag Plus 50 ML IV SCH (13:40)
--- NOTE | 2017-06-11 16:02 | NUR ---
spiritual care: pt request/follow lengthy conversational visit. pt cried out with sudden chest pain and asked for nurse at one point. Pt repositioned, discussed medications with nurse and used normal, energetic conversational style without evidence of severe pain for 50 minute visit. Pt oriented to medical care including his sense of catch 22 with medical procedures. He also reflected on other procedure he is considering. Pt expressed relief at being able to explore themes of fawad and meaning, review the past and consider hopes for future. Pt gnosticism Prayer.
--- NOTE | 2017-06-11 16:02 | NUR ---
Social work Note: Initial Assessment Data& Assessment: Pt was discussed in AM Rounds, per MD pt is getting a pacemaker. No MD orders at this time. Anton Carrington is a 61 year old male admitted on 06/08/2017 for multilobar/pneumonia. Pt has Medicare and [facility] insurance supplement. Pt goes to the residency clinic for primary care. SW met with pt at bedside to check in and assess for any unmet needs. Pt lives in a mobile home with two steps to enter and uses a cane at baseline. Pt does not have HH or SNF hx. Pt does not have LTC insurance or [facility] benefits. DPOA paperwork provided. Pt denies any needs at this time. SW to continue to follow if any needs arise. Plan: Anticipated discharge home via POV when medically ready pending pacemaker placement. No discharge needs or MD orders identified at this time. SW to continue to follow if any needs arise. LILLIAN Mosqueda Addendum: 06/11/17 at 1606 by DAVID DOMINGUZE Amended: Links added.
--- NOTE | 2017-06-11 18:43 | NUR ---
Pain/O2 Cardiac: pt reports continued left sided chest pain, rating 7-8/10. pain meds somewhat effective. tele: SR Resp: Pt reports SOB at times. Pt on 2L NC, but takes the O2 off intermittently. Pt c/o bloody nose. O2 is hydrated. GI/:Pt denies n/v/d Neuro: A/O x 3. up to bathroom independently, steady gait.
[2017-06-11] MEDS: Doxycycline Inj 100 MG in Dextrose 5% Minibag Plus 100 ML IV SCH (20:43)
[2017-06-12] VITALS (9 sets, daily range): BP systolic 143–167; BP diastolic 83–90; PULSE 76–98; RESP 17–24; O2SAT 87–97
[2017-06-12] MEDS: Acetylcysteine 10% 100 mg/mL 30 mL Inhalation Solution NEB SCH ×7 (00:30→23:08)
[2017-06-12] MEDS: Heparin 5,000 Unit/mL Inj SUBQ SCH ×4 (01:14→23:02)
--- NOTE | 2017-06-12 03:25 | NUR ---
Cardiac/Resp/GI Patient did not sleep much at all this shift, A&Ox4 but forgetful on medication due times and administration, continuously requesting Morphine and Oxycodone, 8-09/09 chest pain left side that worsens with deep breaths, MD notified and patient requested to speak with the Dr. in person, Dr. Rodriguez came to assess patient, explained that the symptoms did not sound cardiac related, MS given and then Oxycodone and patient still c/o pain, patient squeezing left pectoral muscle when c/o pain, MS seems to decrease pain 1-2 points for only short periods of time, forgetful when last dose and requesting MS only 30 min after dose given, patient pulls off O2 often and sats decrease to upper 70's%, reminded constantly to keep O2 on, no sleeping much at all, up to bathroom frequently, patient had large BM x2, will continue to monitor. Addendum: 06/12/17 at 0338 by SHIRLEY NAVAS RN Amended: Links added.
[2017-06-12 05:13] LABS: BASOPHILS % (AUTO) 0.2 % (0-3); MONOCYTES % (AUTO) 15.9 % (4-12); Mean Corpuscular Hemoglobin 25.9 pg (27.0-35.0); Mean Corpuscular Volume 76.5 fL (81-100); NEUTROPHILS % (AUTO) 70.4 % (40-74); Platelet Count 213 bil/L (150-400)
[2017-06-12] MEDS: Insulin LISPRO Medium-Dose Scale SUBQ SCH ×4 (07:30→23:00)
[2017-06-12] MEDS: Lidocaine Topical 5% Patch TOPICAL SCH (08:30)
[2017-06-12] MEDS: Pantoprazole 40 mg ER24 Tablet PO SCH (09:23)
[2017-06-12] MEDS: guaiFENesin 600 mg ER12 Tablet PO SCH ×2 (09:23→20:20)
[2017-06-12] MEDS: Polyethylene Glycol (PEG) 17 Gm Powder PO SCH (09:25)
[2017-06-12] MEDS ORDERED: Sodium Chloride NAS 45 mL Spray NASAL PRN (09:55)
--- NOTE | 2017-06-12 09:56 | PCM.PNMED ---
Subjective Date of Service Jun 12, 2017 Subjective Overnight Events: None Today, Mr. Carrington is not feeling well because he's been having left sided rib pain. He mentions 4 months ago he was told he had fractured left ribs and that with the coughing it's been getting agravated. He still mentions of having abdominal pain and back pain and thinks he is "building a tolerance to morphine " and that it is no longer working. He did pass a bowel movement yesterday and has good urine output. He has ambulated minimally within his room. Exam Vital Signs Vital Sign - Last Date Time Temp Pulse Resp B/P Pulse Ox O2 Delivery O2 Flow Rate FiO2 06/12/17 04:17 37.3 94 24 167/83 94 Nasal Cannula 4.00 Intake and Output 06/11/17 06/11/17 06/12/17 Cumulative From/Thru 15:00 23:00 07:00 06/08/17 14:19 - 06/12/17 06:23 Intake Total 1100 ml 1708 ml 974 ml 80300 ml Output Total 1700 ml 1450 ml 500 ml 7375 ml Balance -600 ml 258 ml 474 ml 4324 ml Intake Oral 1100 ml 1600 ml 974 ml 8884 ml IV Total 108 ml 2815 ml Output Urine Total 1700 ml 1450 ml 500 ml 7375 ml # Voids 3 3 # Bowel Movements 2 2 Exam General: mild distress due to pain, well-developed, well-nourished, appropriately interactive HEENT: Normocephalic, atraumatic.. Pupils equal, round, and reactive to light and accommodation. Anicteric sclerae, moist conjunctivae. Neck: Supple with full range of motion. No jugular venous distension. Cardiovascular: Regular rate and rhythm with no murmurs, rubs, or gallops appreciated Pulmonary: course breath sounds improved throughout left lower lobe. Negative egophany. Normal respiratory effort with no use of accessory muscles. Abdomen: Bowel tones present. Soft, tender all quadrants except RLQ, nondistended. Extremities: No clubbing or cyanosis, mild lower extremity edema, Musculoskeletal: Ribs 8-10, tender anterioly with restricted motion, Skin: Normal temperature, turgor, and texture; no rash, ulcers, or subcutaneous nodules appreciated. Neurological: Cranial nerves grossly intact. Normal muscle strength, tone, and bulk. No known gait impairment. Psychiatric: Normal mood and affect. Alert and oriented to person, place, and time. IVs and Medications Medications Reviewed: Medications were reviewed in detail Lab and Diagnostics Result Diagram: 06/12/17 0415 06/12/17 0415 X-Rays, CTs and MRIs PROCEDURE: X-RAY CHEST ONE VIEW, PORTABLE ([id number]) INDICATIONS: Chest pain TECHNIQUE: One view of the chest was acquired. COMPARISON: [facility], CT, CT ANGIO CHEST PE, 06/04/2017, 13:17. [facility], CR, ABDOMEN ACUTE SERIES, 06/08/2017, 11:48. FINDINGS: Surgical changes and devices: None. Lungs and pleura: There is a small right pleural effusion which appears similar to the prior study. There are patchy bilateral groundglass opacities are demonstrated, similar to the recent prior study from the same day. Mediastinum: Mediastinal contours appear unchanged. Heart size is normal. Bones and chest wall: No suspicious bony lesions. Overlying soft tissues appear unremarkable. IMPRESSION: 1. Patchy bilateral opacities redemonstrated again suggestive of pulmonary edema. Differential includes pneumonia or pulmonary hemorrhage. 2. Small right pleural effusion. Dictated by: Leif Marquez M.D. on 06/08/2017 at 14:59 Approved by: Leif Marquez M.D. on 06/08/2017 at 15:00 12-lead ECG . Sinus rhythm . Prolonged FL interval . Nonspecific intraventricular conduction delay . Abnormal T, consider ischemia, lateral leads Cardiac Echo Impressions Interpretation Summary Left ventricular wall thickness is moderately increased. The ejection fraction is estimated to be 50-55%. There is basal inferior wall akinesis. Flattened septum is consistent with RV pressure/volume overload. Assessment of diastolic parameters suggests a pseudonormalization pattern, consistent with elevated filling pressures. Assessment & Plan Anton Carrington is a 61 year old male with a history of MIx2, cardiac stent placement, coronary artery disease, proximal atrial fibrillation, diabetes mellitus, hypertension, hyperlipidemia, probable benign Schwannoma, and frequent ED visits presented with acute chest pain and recently diagnosed with pneumonia and being treated with ceftriaxone and doxycycline. He had an episode of ventricular tachycardia lasting 25 minutes, treated with amiodarone with rhythm going back into sinus. CAP/Bilateral infiltrates- present on admission, Improved. Per CXR redemonstrated again suggestive of pulmonary edema. Differential includes pneumonia or pulmonary hemorrhage versus pleural scarring. Small right pleural effusion suggestive of pneumonia. Patient had a CT of the chest 4 days ago which not make mention of infiltrates. But did mention some pleural scarring. - Continue ceftriaxone and azithromycin 500 mg. Blood Cultures negative since 06/08/17 - Mucomyst nebulized to breakup mucus - Acapella and Incentive spirometer Ventricular Tachycardia, not present on admission, resolved Patient had 2 episodes of ventricular tachycardia, one lasting 25 minutes, resolved with amiodarone. - Consulted Dr. Kerr who recommended AICD after treatment for pneumonia, before patient discharges from hospital. - After discussion with Dr. Kerr, he said patient had been on amiodarone in the past and will need to be on it 200 mg BID. He is planning for AICD tomorrow afternoon. Patient will need left peripheral IV for procedure. - NPO after midnight Chest Pain- hx of MIx2, EKG- no FRANTZ with some T-wave inversions. First troponin is negative. Maybe pleuritic chest pain secondary to pneumonia. ACS unlikely troponins negative 4. 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 -Patient is allergic to aspirin and nitroglycerin. medical management including statins. Hypertension, chronic - Resume home meds. T4-T5 paraspinal mass- extend slightly into the associated neural foramen per CT 05/2017. Thought to be benign. It is associated with lower back and leg pain. Chronic Pain- Dilaudid switched to Morphine 2 mg q2h PRN. Resume home Oxycodone dosing 10 mg q4h. Routine bowel regimen while taking. OMT treatment helped reduce his pain. Will try ketorolac once for pain and consider transitioning morphine to ketorolac. CAD- s/p stents. Atrial Fibrillation- Sinus Rhythm. Rate control Metoprolol, Amiodarone. 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 Diabetes Mellitus Type 2- Sliding Scale Insulin, Hold Metformin. Fingersticks w / meals. Hyperlipidemia, chronic - home statin High Risk Medications: IV Morphine GI Prophylaxis: Proton Pump Inhibitor VTE Prophylaxis: Sub-Q Heparin (Unfractionated) VTE Mechanical Devices: Intermittant Pneumatic CD Resuscitation Status: CPR: Attempt Resuscitation Attending Statement The patient was seen and examined together with Dr. Shahid on 06/12/2017 and I agree with the history, exam and plan as outlined in the note above. Abdon Shahid DO Jun 12, 2017 06:29 Annabella Wheat DO Jun 15, 2017 14:33
[2017-06-12] MEDS ORDERED: Ketorolac 15 mg/mL Inj IVPUSH ONE (10:30)
--- NOTE | 2017-06-12 10:52 | PCM.PROC ---
Procedure Note Date of Service: Jun 12, 2017 Pre Procedure Diagnosis: Vein infiltration Post Procedure Diagnosis: Vein infiltration Procedure: Myofascial release Provider and Lap Maker: Dr. Annabella Wheat Indication for Procedure: Swelling, fascial restriction Findings: Patient is having tenderness to palpation and swelling of vein Procedural Analgesia: None Procedure Details: Myofascial release was done on infiltrated left forearm vein. Fascial restrictions improved and patient started to have decreased pain. Post Procedure Plan: Continue to monitor Attending Statement The patient was seen and examined together with Dr. Shahid on 06/14/2017 and I agree with the history, exam and plan as outlined in the note above. Abdon Shahid DO Jun 12, 2017 10:52 Annabella Wheat DO Jun 15, 2017 13:10
[2017-06-12] MEDS: cefTRIAXone Inj 2,000 MG in Dextrose 5% Minibag Plus 50 ML IV SCH (11:03)
--- NOTE | 2017-06-12 16:12 | NUR ---
Social Work: Multidisciplinary Rounds/Continued Discharge Planning Pt discussed in am rounds. Pt is not medically stable for discharge. Sw status remains unchanged; anticipate d/c home once medically stable. Pt lives in [place] in a trailer, alone. Pt may require supportive services from HH RN at discharge. Pt awaiting improved pneumonia before cardiac cath. TOOLROOM CHECKER to continue to follow. Goldie Daniels MSW
--- NOTE | 2017-06-12 17:50 | NUR ---
spiritual care: follow conversational visit. pt expressive of his fawad and personal history as he comes to terms with current medical situation including intermittent pain (nurse aware). pt conversed with energy and clarity as he described social, spiritual challenges and hopes. cardiac provider entered room, pt eager for consult. agreed to return later or tomorrow.
--- NOTE | 2017-06-12 19:37 | NUR ---
Pain/IV/Nausea Cardiac: Patient reports continued left sided chest pain increased from previous two shifts, troponin ordered and was negative. K-pad brought into rooom for rib pain. Pt declines using K-pad because he is too hot. Tele: SR 80-90. Resp: Pt reports SOB with activity, frequently takes O2 off due to dry nose. SPO2 95% on 4L this AM, titrated down this shift to one liter. Nasal spray ordered for dryness. Incentive spirometer at bedside, pt teaching on IS use. RT called for acapella. Dr Kerr consulted with pt this afternoon for ICD placement. Pt trialed off O2, after an hour SPO2 89-92 on RA while lying flat. GI/: Pt reports mild nausea shortly after lunch, nausea passed in a bit with no intervention, no emesis. Nausea again later in afternoon, SL ondansetron ordered due to no IV site. Neuro: A&Ox3, HINOJOSA, independent in room. Pt reports pain 8-9/10. IV in L FA infiltrated this morning. IV therapy called to start new IV. Pt is a very difficult stick. Pt refused IV therapy any more tries after one failed attempt. This nurse assessed pt for IV, but pt refused saying that he was too anxious and wanted to wait till tomorrow. notified. Pt offered oxycodone PRN med since IV pain meds are not available, pt refused. Pt was educated on why IV is necessary for both pain meds and to medicate pt should Vtach occur again. Pt understood, but did not want the IV until AM. Then Dr Kerr consulted and the ICD was scheduled and pt wanted IV done DENNIS. IV therapy was called again as pt is a very difficult stick.
[2017-06-13 03:23] VITALS: PULSE 78
[2017-06-13 04:30] VITALS: BP 167/94; PULSE 78; RESP 22; O2SAT 96
[2017-06-13] MEDS: Acetylcysteine 10% 100 mg/mL 30 mL Inhalation Solution NEB SCH ×5 (04:30→20:30)
--- NOTE | 2017-06-13 07:25 | NUR ---
Pain / O2 / HTN / Tele / NPO Pt c/o chest and back pain 7-07/10. Pt requesting pain meds IV Morphine every 2 hours and PO Oxycodone every 4 hours all night long. Pt desats on RA 85-88%. Pt placed on O2 @ 3-4 L to keep sats > 92%, but Pt keeps taking O2 off during the night. Pts BPs were Hypertensive overnight with SBPs in the 149-167s. Tele SR with IVCD and occ PVCs, with HR 70-80s. Pt has been compliant with NPO status since midnight.
[2017-06-13] MEDS: Insulin LISPRO Medium-Dose Scale SUBQ SCH ×4 (07:30→22:00)
[2017-06-13 08:00] VITALS: PULSE 83
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
[2017-06-13] MEDS: Polyethylene Glycol (PEG) 17 Gm Powder PO SCH (08:30)
[2017-06-13] MEDS: Lidocaine Topical 5% Patch TOPICAL SCH (08:30)
[2017-06-13] MEDS: Heparin 5,000 Unit/mL Inj SUBQ SCH ×2 (08:30→16:30)
[2017-06-13 08:41] VITALS: BP 164/88; PULSE 86; RESP 16; O2SAT 89
[2017-06-13] MEDS: Pantoprazole 40 mg ER24 Tablet PO SCH (08:45)
[2017-06-13] MEDS: guaiFENesin 600 mg ER12 Tablet PO SCH ×2 (08:46→21:17)
[2017-06-13] MEDS: cefTRIAXone Inj 2,000 MG in Dextrose 5% Minibag Plus 50 ML IV SCH (09:00)
[2017-06-13] MEDS: Ondansetron 2 mg/mL 2 mL Inj IVPUSH PRN ×2 (09:01→23:07)
--- NOTE | 2017-06-13 09:59 | PCM.PNMED ---
Subjective Date of Service Jun 13, 2017 Subjective Overnight Events: None Patient seen and examined. Mr. Carrington is sitting in bed and in no acute distress. He says he's feeling ready for his procedure and is having improvement in his symptoms. He is scheduled for AICD placement today with Dr. Kerr in the afternoon. Exam Vital Signs Vital Sign - Last Date Time Temp Pulse Resp B/P Pulse Ox O2 Delivery O2 Flow Rate FiO2 06/13/17 04:30 36.3 78 22 167/94 96 Nasal Cannula 2.00 Intake and Output 06/12/17 06/12/17 06/13/17 Cumulative From/Thru 15:00 23:00 07:00 06/08/17 14:19 - 06/13/17 04:42 Intake Total 1640 ml 480 ml 06020 ml Output Total 650 ml 150 ml 8175 ml Balance 990 ml 330 ml 5644 ml Intake Oral 1640 ml 480 ml 83544 ml IV Total 2815 ml Output Urine Total 650 ml 150 ml 8175 ml # Voids 3 6 # Bowel Movements 1 2 5 Exam General: No acute distress, well-developed, well-nourished, appropriately interactive HEENT: Normocephalic, atraumatic.. Pupils equal, round, and reactive to light and accommodation. Anicteric sclerae, moist conjunctivae. Neck: Supple with full range of motion. No jugular venous distension. Cardiovascular: Regular rate and rhythm with systolic murmurs, rubs, or gallops appreciated Pulmonary: Lungs clear to ausculatation bilaterally. Normal respiratory effort with no use of accessory muscles. Abdomen: Bowel tones present. Soft, nondistended Extremities: No clubbing or cyanosis, mild lower extremity edema, Skin: Normal temperature, turgor, and texture; no rash, ulcers, or subcutaneous nodules appreciated. Neurological: Cranial nerves grossly intact. Normal muscle strength, tone, and bulk. No known gait impairment. Psychiatric: Normal mood and affect. Alert and oriented to person, place, and time. IVs and Medications Medications Reviewed: Medications were reviewed in detail Lab and Diagnostics Result Diagram: 06/12/1741406/12/17414 Microbiology [place] STREP PNEUMONIAE AG URINE Final 06/11/17-1006 STREP PNEUMO AG NEGATIVE [place] CULTURE BLOOD Preliminary 06/10/17-1820 No growth at 2 days; culture examined daily no report between 2-5 days if negative. X-Rays, CTs and MRIs PROCEDURE: X-RAY CHEST ONE VIEW, PORTABLE ([id number]) INDICATIONS: Chest pain TECHNIQUE: One view of the chest was acquired. COMPARISON: [facility], CT, CT ANGIO CHEST PE, 06/04/2017, 13:17. [facility], CR, ABDOMEN ACUTE SERIES, 06/08/2017, 11:48. FINDINGS: Surgical changes and devices: None. Lungs and pleura: There is a small right pleural effusion which appears similar to the prior study. There are patchy bilateral groundglass opacities are demonstrated, similar to the recent prior study from the same day. Mediastinum: Mediastinal contours appear unchanged. Heart size is normal. Bones and chest wall: No suspicious bony lesions. Overlying soft tissues appear unremarkable. IMPRESSION: 1. Patchy bilateral opacities redemonstrated again suggestive of pulmonary edema. Differential includes pneumonia or pulmonary hemorrhage. 2. Small right pleural effusion. Dictated by: Leif Marquez M.D. on 06/08/2017 at 14:59 Approved by: Leif Marquez M.D. on 06/08/2017 at 15:00 12-lead ECG . Sinus rhythm . Prolonged NJ interval . Nonspecific intraventricular conduction delay . Abnormal T, consider ischemia, lateral leads Cardiac Echo Impressions Interpretation Summary Left ventricular wall thickness is moderately increased. The ejection fraction is estimated to be 50-55%. There is basal inferior wall akinesis. Flattened septum is consistent with RV pressure/volume overload. Assessment of diastolic parameters suggests a pseudonormalization pattern, consistent with elevated filling pressures. Assessment & Plan Anton Carrington is a 61 year old male with a history of MIx2, cardiac stent placement, coronary artery disease, proximal atrial fibrillation, diabetes mellitus, hypertension, hyperlipidemia, probable benign Schwannoma, and frequent ED visits presented with acute chest pain and recently diagnosed with pneumonia and being treated with ceftriaxone and doxycycline. He had an episode of ventricular tachycardia lasting 25 minutes, treated with amiodarone with rhythm going back into sinus. CAP/Bilateral infiltrates- present on admission, Improved. Per CXR redemonstrated again suggestive of pulmonary edema. Differential includes pneumonia or pulmonary hemorrhage versus pleural scarring. Small right pleural effusion suggestive of pneumonia. Patient had a CT of the chest 4 days ago which not make mention of infiltrates. But did mention some pleural scarring. - Continue ceftriaxone and azithromycin 500 mg. Blood Cultures negative since 06/08/17 - Mucomyst nebulized to breakup mucus - Acapella and Incentive spirometer Ventricular Tachycardia, not present on admission, resolved Patient had 2 episodes of ventricular tachycardia, one lasting 25 minutes, resolved with amiodarone. - Consulted Dr. Kerr who recommended AICD after treatment for pneumonia, before patient discharges from hospital. - After discussion with Dr. Kerr, he said patient had been on amiodarone in the past and will need to be on it 200 mg BID. - Currently NPO for AICD placement today with Dr. Kerr. Chest Pain- hx of MIx2, EKG- no FRANTZ with some T-wave inversions. First troponin is negative. Maybe pleuritic chest pain secondary to pneumonia. ACS unlikely troponins negative 4. At baseline patient does have exertional chest pain -Has a tableau analyst, Dr. Brown, however has been unable to follow-up recently. -Patient is allergic to aspirin and nitroglycerin. medical management including statins. Hypertension, chronic - Resume home meds. T4-T5 paraspinal mass- extend slightly into the associated neural foramen per CT 05/2017. Thought to be benign. It is associated with lower back and leg pain. Chronic Pain- Dilaudid switched to Morphine 2 mg q2h PRN. Resume home Oxycodone dosing 10 mg q4h. Routine bowel regimen while taking. OMT treatment helped reduce his pain. CAD- s/p stents. Atrial Fibrillation- Sinus Rhythm. Rate control Metoprolol, Amiodarone. 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 Diabetes Mellitus Type 2- Sliding Scale Insulin, Hold Metformin. Fingersticks w / meals. Hyperlipidemia, chronic - home statin High Risk Medications: IV Morphine Disposition: Due to several traumas which came into the emergency room today the patient was unable to receive his pacemaker today. The patient's procedure has been postponed until Friday. The patient continues to have significant pain and still has occasional runs of V. tach and is unable to be discharged home at this time. GI Prophylaxis: Proton Pump Inhibitor VTE Prophylaxis: Sub-Q Heparin (Unfractionated) VTE Mechanical Devices: Intermittant Pneumatic CD Resuscitation Status: CPR: Attempt Resuscitation Attending Statement The patient was seen and examined together with Dr. Shahid on 06/13/2017 and I have added additional information to the note above. Abdon Shahid DO Jun 13, 2017 06:33 Annabella Wheat DO Jun 15, 2017 14:31
[2017-06-13 11:18] LABS: BASOPHILS % (AUTO) 0.4 % (0-3); Mean Corpuscular Hemoglobin 25.7 pg (27.0-35.0); Mean Corpuscular Volume 76.4 fL (81-100); NEUTROPHILS % (AUTO) 70.9 % (40-74); Platelet Count 261 bil/L (150-400)
--- NOTE | 2017-06-13 13:38 | PROG NOTE ---
[address] [address] PROGRESS NOTE PATIENT: HANNA QUINTERO : 1955 MR#: [id number] ADMIT: 06/08/2017 JOB ID: [id number] DATE: 06/13/2017 CARDIOLOGY PROGRESS NOTE: IDENTIFICATION: The patient is a pleasant 61-year-old man with known coronary artery disease, status post myocardial infarction in the early , status post PCI to both his RCA and LAD, consequent mild ischemic cardiomyopathy with an ejection fraction 50%-55% on echocardiography earlier this admission, admitted with chest pain and ruled out for acute coronary syndrome with serial cardiac enzymes. While being monitored in the hospital he had sustained ventricular tachycardia and ultimately was placed on intravenous amiodarone. He has a history of paroxysmal atrial fibrillation and was on oral amiodarone from home. He also has systemic hypertension, diabetes, and obesity. Given his history of GI bleed he is not on anticoagulation for his atrial fibrillation. I am being asked to comment on his sustained ventricular tachycardia. He continues to have atypical chest discomfort for which he is receiving morphine. He denies any dyspnea and has been diuresed some since he has been in the hospital. He does describe to me one syncopal and another near syncopal episode that occurred in the bathroom over the past few weeks. He did feel palpitations and racing heart on one of those occasions similar to what he felt when he was in ventricular tachycardia. He has remained hemodynamically stable here in-house. IMPRESSION AND RECOMMENDATION: The patient is a pleasant 61-year-old man with known coronary disease status post percutaneous coronary intervention (PCI), mild ischemic cardiomyopathy with ejection fraction 50%-55%, diabetes, hypertension, paroxysmal atrial fibrillation now on amiodarone, who now presents with sustained ventricular tachycardia (VT). He has intact conduction at baseline on evaluation of his EKG. I recommended dual-chamber secondary prevention ICD implant. I described the implant to him in detail, including risks and benefits. Ultimately, he wishes to proceed. PLAN: Dual-chamber ICD implantation with anesthesia. Thank you very much for allowing me to participate in the patients care. Please call with any questions.
--- NOTE | 2017-06-13 16:37 | NUR ---
Social Work: Multidisciplinary Rounds Pt discussed in am rounds. Pt is not medically stable for discharge at this time. Sw status remains unchanged at this time. Anticipate d/c home when medically stable. COMMUNICATIONS MAINTAINER to continue to follow to assess for needs. Goldie Daniels MSW
--- NOTE | 2017-06-13 19:50 | NUR ---
Unscanned Roxicodone Patient receiving frequent pain medications, 2mg IV morphine Q2 PRN and 10mg PO roxicodone Q4 PRN. Next due times written on board. Morphine given every approx 2-3 hours throughout shift as well as 10mg PO roxicodone given every approx 4-5 hours. Roxicodone pulled from omni at 1237 and administered to patient. At approx 1640 when next dose was due, EMAR was showing "8 hours" since last admin although it was given and pulled at 1237. Notified pharmacy and discussed with real estate financial analyst Monica as well as NOC Charge Monse Jin. Returned to EMAR to document 1237 dose. Patient's pain remained fairly consistent at 5-8/10 pain in back/chest despite continuous pain regimen, MD mcdonald, see H&P for further details.
--- NOTE | 2017-06-13 19:54 | NUR ---
EKG/Pain Reports continuous chest pain, reports 7-8/10 pain. 2mg IV morphine Q2 PRN. MD aware. Tele SR 80s with occasional PVCs. Patient reported "sudden" increase in chest pain, EKG ordered and MD reviewed. No reports of SOB at rest -- states this is improving but reports some SOB with exertion. Per report, 2LNC however patient takes off ad aston (did not wear throughout most of shift despite education). 89-90% on RA. Receiving scheduled Mucinex. Reports mild nausea this AM, 4mg IV zofran given, reported no further nausea throughout shift. Per patient, feeling slightly administered Miralax, Senna and prune juice. Voiding without complication. Alert and oriented x3, HINOJOSA, reports "tightness" down bilateral posterior legs to feet that the reports comes from benign tumor in spine. Patient becomes restless and agitated if PRN pain meds are not given on time. scallop raker light frequently.
[2017-06-13 21:10] VITALS: BP 134/99; PULSE 81; RESP 18; O2SAT 95
[2017-06-14] VITALS (9 sets, daily range): BP systolic 121–162; BP diastolic 65–98; PULSE 74–92; RESP 16–20; O2SAT 91–95
[2017-06-14] MEDS: Acetylcysteine 10% 100 mg/mL 30 mL Inhalation Solution NEB SCH ×6 (00:30→19:53)
[2017-06-14] MEDS: Heparin 5,000 Unit/mL Inj SUBQ SCH ×3 (01:14→15:41)
--- NOTE | 2017-06-14 06:16 | NUR ---
Pain/Lab Draw Patient reports continuous 6-8/10 back and chest pain throughout the shift. Morphine 2 mg IVP given q 2 hours and roxicodone 10 mg PO given q 4 hours with no significant relief. Patient appears to be enjoying watching TV overnight; pleasant and cooperative with nursing care. Refused 0500 lab draw because "surgery won't be until friday." Patient wondering about removing his left AC saline lock; advised patient that it will be needed for his procedure and that it is better to leave it in than attempt a new start later. Patient verbalized understanding.
[2017-06-14] MEDS: guaiFENesin 600 mg ER12 Tablet PO SCH ×2 (07:55→19:46)
[2017-06-14] MEDS: Ondansetron 2 mg/mL 2 mL Inj IVPUSH PRN (07:56)
[2017-06-14] MEDS: Pantoprazole 40 mg ER24 Tablet PO SCH (07:56)
[2017-06-14] MEDS: Polyethylene Glycol (PEG) 17 Gm Powder PO SCH (07:57)
[2017-06-14] MEDS: Insulin LISPRO Medium-Dose Scale SUBQ SCH ×4 (08:01→22:00)
[2017-06-14] MEDS: Lidocaine Topical 5% Patch TOPICAL SCH (08:04)
[2017-06-14] MEDS ORDERED: 0.9% Sodium Chloride 250 ML ONE (08:07)
[2017-06-14] MEDS: cefTRIAXone Inj 2,000 MG in Dextrose 5% Minibag Plus 50 ML IV SCH (08:15)
--- NOTE | 2017-06-14 15:19 | PCM.PNMED ---
Subjective Date of Service Jun 14, 2017 Subjective Overnight Events: None Today, Mr. Carrington is sitting in bed and in no acute distress. He mentions not having too much pain today. He denies chest pain, shortness of breath, abdominal pain, nausea, vomiting. Exam Vital Signs Vital Sign - Last Date Time Temp Pulse Resp B/P Pulse Ox O2 Delivery O2 Flow Rate FiO2 06/14/17 05:56 91 06/14/17 04:46 36.4 18 154/91 91 Room Air 06/13/17 04:30 2.00 Intake and Output 06/13/17 06/13/17 06/14/17 Cumulative From/Thru 15:00 23:00 07:00 06/08/17 14:19 - 06/14/17 06:47 Intake Total 450 ml 1100 ml 89275 ml Output Total 550 ml 250 ml 8975 ml Balance -100 ml 850 ml 6394 ml Intake Oral 440 ml 1100 ml 52168 ml IV Total 10 ml 2825 ml Output Urine Total 550 ml 250 ml 8975 ml # Voids 2 3 11 # Bowel Movements 3 8 Exam General: No acute distress, well-developed, well-nourished, appropriately interactive HEENT: Normocephalic, atraumatic.. Pupils equal, round, and reactive to light and accommodation. Anicteric sclerae, moist conjunctivae. Neck: Supple with full range of motion. No jugular venous distension. Cardiovascular: Regular rate and rhythm with systolic murmur noted, rubs, or gallops appreciated Pulmonary: Lungs clear to ausculatation bilaterally. Normal respiratory effort with no use of accessory muscles. Abdomen: Bowel tones present. Soft, nondistended Extremities: No clubbing or cyanosis, mild lower extremity edema, Skin: Normal temperature, turgor, and texture; no rash, ulcers, or subcutaneous nodules appreciated. Neurological: Cranial nerves grossly intact. Normal muscle strength, tone, and bulk. No known gait impairment. Psychiatric: Normal mood and affect. Alert and oriented to person, place, and time. IVs and Medications Medications Reviewed: Medications were reviewed in detail Lab and Diagnostics Result Diagram: 06/13/17 1114 06/13/17 1114 Microbiology [place] STREP PNEUMONIAE AG URINE Final 06/11/17-1006 STREP PNEUMO AG NEGATIVE [place] CULTURE BLOOD Preliminary 06/10/17-1820 No growth at 2 days; culture examined daily no report between 2-5 days if negative. X-Rays, CTs and MRIs PROCEDURE: X-RAY CHEST ONE VIEW, PORTABLE ([id number]) INDICATIONS: Chest pain TECHNIQUE: One view of the chest was acquired. COMPARISON: Located Within [facility], CT, CT ANGIO CHEST PE, 06/04/2017, 13:17. [facility], CR, ABDOMEN ACUTE SERIES, 06/08/2017, 11:48. FINDINGS: Surgical changes and devices: None. Lungs and pleura: There is a small right pleural effusion which appears similar to the prior study. There are patchy bilateral groundglass opacities are demonstrated, similar to the recent prior study from the same day. Mediastinum: Mediastinal contours appear unchanged. Heart size is normal. Bones and chest wall: No suspicious bony lesions. Overlying soft tissues appear unremarkable. IMPRESSION: 1. Patchy bilateral opacities redemonstrated again suggestive of pulmonary edema. Differential includes pneumonia or pulmonary hemorrhage. 2. Small right pleural effusion. Dictated by: Leif Marquez M.D. on 06/08/2017 at 14:59 Approved by: Leif Marquez M.D. on 06/08/2017 at 15:00 12-lead ECG . Sinus rhythm . Prolonged VA interval . Nonspecific intraventricular conduction delay . Abnormal T, consider ischemia, lateral leads Cardiac Echo Impressions Interpretation Summary Left ventricular wall thickness is moderately increased. The ejection fraction is estimated to be 50-55%. There is basal inferior wall akinesis. Flattened septum is consistent with RV pressure/volume overload. Assessment of diastolic parameters suggests a pseudonormalization pattern, consistent with elevated filling pressures. Assessment & Plan Anton Carrington is a 61 year old male with a history of MIx2, cardiac stent placement, coronary artery disease, proximal atrial fibrillation, diabetes mellitus, hypertension, hyperlipidemia, probable benign Schwannoma, and frequent ED visits presented with acute chest pain and recently diagnosed with pneumonia and being treated with ceftriaxone and doxycycline. He had an episode of ventricular tachycardia lasting 25 minutes, treated with amiodarone with rhythm going back into sinus. CAP/Bilateral infiltrates- present on admission, Improved. Per CXR redemonstrated again suggestive of pulmonary edema. Differential includes pneumonia or pulmonary hemorrhage versus pleural scarring. Small right pleural effusion suggestive of pneumonia. Patient had a CT of the chest 4 days ago which did not mention infiltrates. But did mention some pleural scarring. - Continue ceftriaxone and azithromycin 500 mg. Blood Cultures negative since 06/08/17. - Last day of antibiotics on 06/15/17. - Mucomyst nebulized to breakup mucus - Acapella and Incentive spirometer Ventricular Tachycardia, not present on admission, resolved Patient had 2 episodes of ventricular tachycardia, one lasting 25 minutes, resolved with amiodarone. - Consulted Dr. Kerr who recommended AICD after treatment for pneumonia, before patient discharges from hospital. - After discussion with Dr. Kerr, he said patient had been on amiodarone in the past and will need to be on it 200 mg BID. - AICD placement with Dr. Kerr on 06/16/17. Will need to be NPO after midnight. Chest Pain- hx of MIx2, EKG- no FRANTZ with some T-wave inversions. First troponin is negative. Maybe pleuritic chest pain secondary to pneumonia. ACS unlikely troponins negative 4. At baseline patient does have exertional chest pain -Has a custodian supervisor, Dr. Brown, however has been unable to follow-up recently. -Patient is allergic to aspirin and nitroglycerin. medical management including statins. Hypertension, chronic - Resume home meds. T4-T5 paraspinal mass - Extend slightly into the associated neural foramen per CT 05/2017. Thought to be benign. It is associated with lower back and leg pain. Chronic Pain- Morphine 2 mg q2h PRN. Resume home Oxycodone dosing 10 mg q4h. Routine bowel regimen while taking. CAD- s/p stents. Atrial Fibrillation- Sinus Rhythm. Rate control Metoprolol, Amiodarone. Not on AC, has outpatient Rest Room Attendant. Diabetes Mellitus Type 2- Sliding Scale Insulin, Hold Metformin. Fingersticks w / meals. Hyperlipidemia, chronic - home statin High Risk Medications: IV Morphine GI Prophylaxis: Proton Pump Inhibitor VTE Prophylaxis: Sub-Q Heparin (Unfractionated) VTE Mechanical Devices: Intermittant Pneumatic CD Resuscitation Status: CPR: Attempt Resuscitation Attending Statement The patient was seen and examined together with Dr. Shahid on 06/14/2017 and I have added additional information to the note above. Abdon Shahid DO Jun 14, 2017 06:53 Annabella Wheat DO Jun 15, 2017 14:27
--- NOTE | 2017-06-14 15:50 | NUR ---
Social Work: Multidisciplinary Rounds Pt discussed in am rounds. Pt is not medically stable for discharge at this time- heart cath scheduled for Friday. Sw status remains unchanged at this time. Anticipate d/c home when medically stable. PARTS CONSULTANT to continue to follow to assess for needs. Goldie Daniels MSW
--- NOTE | 2017-06-14 17:30 | NUR ---
Pain Pt. has been c/o pain throughout shift -07/10. Pain is located in his back, sometimes his legs and head. Pt. has been given morphine PRN IV Q2 and roxicodone PRN Q4 PO around the clock. Minimal pain relieve has been attained each time to about a low 7 or high 6 with pain reassessment. Pt. states that tomorrow "I am going to start tapering off morphine in the morning". Pt. is in bed requesting to be left alone for a nap. Will continue to monitor.
[2017-06-14 18:37] LABS: Mean Corpuscular Hemoglobin 25.5 pg (27.0-35.0); Mean Corpuscular Volume 77.6 fL (81-100)
[2017-06-15] VITALS (9 sets, daily range): BP systolic 142–156; BP diastolic 84–95; PULSE 71–83; RESP 16–18; O2SAT 90–94
[2017-06-15] MEDS: Acetylcysteine 10% 100 mg/mL 30 mL Inhalation Solution NEB SCH ×4 (00:30→12:26)
[2017-06-15] MEDS: Heparin 5,000 Unit/mL Inj SUBQ SCH ×3 (01:59→16:13)
[2017-06-15] MEDS: Insulin LISPRO Medium-Dose Scale SUBQ SCH ×4 (07:30→22:00)
[2017-06-15] MEDS: guaiFENesin 600 mg ER12 Tablet PO SCH ×2 (08:07→20:35)
[2017-06-15] MEDS: Pantoprazole 40 mg ER24 Tablet PO SCH (08:07)
[2017-06-15] MEDS: Polyethylene Glycol (PEG) 17 Gm Powder PO SCH (08:08)
[2017-06-15] MEDS: cefTRIAXone Inj 2,000 MG in Dextrose 5% Minibag Plus 50 ML IV SCH (08:17)
[2017-06-15] MEDS: Lidocaine Topical 5% Patch TOPICAL SCH (08:26)
--- NOTE | 2017-06-15 14:46 | PCM.PNMED ---
Subjective Date of Service Jun 15, 2017 Subjective Patient was seen and examined at bedside today. Patient denies any nausea, vomiting, diarrhea. Patient still reports chest pain. Patient is currently concerned that his pain is uncontrolled and would like to increase his morphine or add Dilaudid to his pain management. At this time since the patient will be undergoing a surgical procedure tomorrow I am reluctant to increase any narcotic pain medications at this time. Overnight events: No overnight events the patient has been in sinus rhythm with occasional PVCs. Exam Vital Signs Vital Sign - Last Date Time Temp Pulse Resp B/P Pulse Ox O2 Delivery O2 Flow Rate FiO2 06/15/17 12:46 73 06/15/17 08:00 Supplement Oxygen 06/15/17 07:54 36.3 18 151/90 93 06/13/17 04:30 2.00 Intake and Output 06/14/17 06/14/17 06/15/17 Cumulative From/Thru 15:00 23:00 07:00 06/08/17 14:19 - 06/15/17 06:17 Intake Total 100 ml 95171 ml Output Total 8975 ml Balance 100 ml 6494 ml Intake Oral 12520 ml IV Total 100 ml 2925 ml Output Urine Total 8975 ml # Voids 11 # Bowel Movements 8 Exam Physical Exam: GEN: Patient was awake, alert, responding appropriately to questions HEENT: Pupils equal round and reactive to light, extraocular eye muscles intact , Neck soft supple, trachea midline, nomocephalic/atraumatic CV: +S1/S2, regular rate and rhythm, systolic murmur auscultated Respiratory: CTAB, no wheezes, rales, rhonchi GI: +bowel sounds x4, soft, compressible, nontender to palpation EXT: no clubbing, cyanosis, edema Neuro: Cranial nerves II-XII grossly intact Psych: mood and affect were appropriate IVs and Medications Medications Reviewed: Medications were reviewed in detail Lab and Diagnostics Result Diagram: 06/14/17182406/14/171824 Microbiology [place] STREP PNEUMONIAE AG URINE Final 06/11/17-1006 STREP PNEUMO AG NEGATIVE [place] CULTURE BLOOD Preliminary 06/10/17-1819 No growth at 2 days; culture examined daily no report between 2-5 days if negative. X-Rays, CTs and MRIs PROCEDURE: X-RAY CHEST ONE VIEW, PORTABLE ([id number]) INDICATIONS: Chest pain TECHNIQUE: One view of the chest was acquired. COMPARISON: [facility], CT, CT ANGIO CHEST PE, 06/04/2017, 13:17. [facility], CR, ABDOMEN ACUTE SERIES, 06/08/2017, 11:48. FINDINGS: Surgical changes and devices: None. Lungs and pleura: There is a small right pleural effusion which appears similar to the prior study. There are patchy bilateral groundglass opacities are demonstrated, similar to the recent prior study from the same day. Mediastinum: Mediastinal contours appear unchanged. Heart size is normal. Bones and chest wall: No suspicious bony lesions. Overlying soft tissues appear unremarkable. IMPRESSION: 1. Patchy bilateral opacities redemonstrated again suggestive of pulmonary edema. Differential includes pneumonia or pulmonary hemorrhage. 2. Small right pleural effusion. Dictated by: Leif Marquez M.D. on 06/08/2017 at 14:59 Approved by: Leif Marquez M.D. on 06/08/2017 at 15:00 12-lead ECG . Sinus rhythm . Prolonged NV interval . Nonspecific intraventricular conduction delay . Abnormal T, consider ischemia, lateral leads Cardiac Echo Impressions Interpretation Summary Left ventricular wall thickness is moderately increased. The ejection fraction is estimated to be 50-55%. There is basal inferior wall akinesis. Flattened septum is consistent with RV pressure/volume overload. Assessment of diastolic parameters suggests a pseudonormalization pattern, consistent with elevated filling pressures. Assessment & Plan Anton Carrington is a 61 year old male with a history of MIx2, cardiac stent placement, coronary artery disease, proximal atrial fibrillation, diabetes mellitus, hypertension, hyperlipidemia, probable benign Schwannoma. Recently diagnosed and treated for pneumonia with ceftriaxone and doxycycline presented with chest pain secondary to ventricular tachycardia lasting 25 minutes. Ventricular Tachycardia, not present on admission, resolved Patient had 2 episodes of ventricular tachycardia, one lasting 25 minutes, resolved with amiodarone. - Consulted Dr. Kerr currently following - Patient scheduled to have an AICD placed tomorrow -Nothing by mouth after midnight CAP/Bilateral infiltrates- present on admission, Improved. Per CXR redemonstrated again suggestive of pulmonary edema. Differential includes pneumonia or pulmonary hemorrhage versus pleural scarring. Small right pleural effusion suggestive of pneumonia. Patient had a CT of the chest 4 days ago which not make mention of infiltrates. But did mention some pleural scarring. - We will discontinue IV ceftriaxone and azithromycin as patient has had a full 7-day course of IV antibiotic treatment. - Blood Cultures negative x 48 hours. - Discontinue Mucomyst nebulized to breakup mucus as patient is currently refusing and CT does not need this anymore - Patient is currently off oxygen however will still be available as needed with exertion. - Acapella and Incentive spirometer Chest Pain- hx of MIx2, -EKG- no FRANTZ with some T-wave inversions. -Troponins negative 4 -Patient has exertional chest pain at baseline -Has a hospital chief financial officer, Dr. Brown, however has been unable to follow-up recently. -Patient is allergic to aspirin and nitroglycerin. medical management including statins. Hypertension, chronic - Resume home meds. T4-T5 paraspinal mass- extend slightly into the associated neural foramen per CT 05/2017. Thought to be benign. It is associated with lower back and leg pain. Chronic Pain - Dilaudid switched to Morphine 2 mg q2h PRN. - Continue home Oxycodone dosing 10 mg q4h. - Continue Routine bowel regimen while taking. - OMT treatment helped reduce patients pain will continue to use when necessary CAD- s/p stents. Atrial Fibrillation - Currently Sinus Rhythm. -Continue Rate control with Metoprolol and Amiodarone. 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 - Continue heparin subcutaneous Diabetes Mellitus Type 2 - Sliding Scale Insulin -Hold Metformin. -Accu-Cheks before meals and at bedtime Hyperlipidemia, chronic - Continue home statin High Risk Medications: IV Morphine GI Prophylaxis: Proton Pump Inhibitor VTE Prophylaxis: Sub-Q Heparin (Unfractionated) VTE Mechanical Devices: Intermittant Pneumatic CD Resuscitation Status: CPR: Attempt Resuscitation Annabella Wheat DO Jun 15, 2017 14:46
--- NOTE | 2017-06-15 16:29 | NUR ---
Social Work: Readiness for Discharge /Multidisciplinary Rounds D: Pt discussed in am rounds. Pt remains in PCC status with cardiac procedure scheduled for Friday. Pt has been ambulating I to the bathroom per staff nuclear weapons officer. Capacity for self care and d/c needs addressed. No concerns or needs identified at this time. TECHNICAL SUPPORT TECHNICIAN met with the patient at bedside to assess for discharge needs. Pt confirms that he has been ambulating I and completing his own ADLs. Pt states that he does not think he will need home health at discharge but is very concerned about being discharge "too soon." Pt understands his rights under Medicare and states that "I just don't want to come back." TECHNICAL SUPPORT TECHNICIAN agreed. A: Pt who lives in a [address] in [place]. P: TECHNICAL SUPPORT TECHNICIAN to continue to follow to assess for discharge needs; Anticipate pt to return home once medically stable. LILLIAN Porter
--- NOTE | 2017-06-15 16:33 | NUR ---
[facility] SIgned
--- NOTE | 2017-06-15 18:29 | NUR ---
NPO Pt. will be NPO midnight tonight for a AICD placement tomorrow by Dr. Kerr. Pt. was instructed to not eat anything after midnight tonight and Pt. stated he understood and would not. Pt. still c/o pain 7-08/10. PRN pain medication given around the clock. Will continue to monitor.
[2017-06-16] VITALS (15 sets, daily range): BP systolic 130–163; BP diastolic 74–102; PULSE 64–86; RESP 13–18; O2SAT 91–99
[2017-06-16] MEDS: Heparin 5,000 Unit/mL Inj SUBQ SCH ×4 (00:30→23:47)
[2017-06-16] MEDS: Ondansetron 2 mg/mL 2 mL Inj IVPUSH PRN ×2 (05:02→15:43)
--- NOTE | 2017-06-16 05:25 | NUR ---
Pain/NPO Patient reporting 6-8/10 pain throughout the night. Pain medications given as ordered. Patient denies significant pain relief, but is pleasant and cooperative at all times with care. NPO at midnight for pending AICD implant.
[2017-06-16] MEDS: Pantoprazole 40 mg ER24 Tablet PO SCH ×2 (07:30→17:11)
[2017-06-16] MEDS: Insulin LISPRO Medium-Dose Scale SUBQ SCH ×4 (07:30→21:24)
[2017-06-16] MEDS ORDERED: Heparin 10,000 Unit/1,000 mL NS Premix IV ONE (07:47)
[2017-06-16] MEDS ORDERED: 0.9% Sodium Chloride 250 ML ONE (07:47)
[2017-06-16] MEDS ORDERED: Bupivacaine-MPF 0.5% 30 mL Inj ONE (07:47)
[2017-06-16 07:49] LABS: INR 1.03 ratio
[2017-06-16] MEDS ORDERED: Vancomycin 1,000 mg Inj ONE (08:06)
[2017-06-16] MEDS ORDERED: Water for Injection 50 ML IV ONE (08:07)
[2017-06-16] MEDS ORDERED: Vancomycin 1,000mg/200 mL NS IV ONE (08:09)
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
[2017-06-16] MEDS: Polyethylene Glycol (PEG) 17 Gm Powder PO SCH (08:30)
[2017-06-16] MEDS: guaiFENesin 600 mg ER12 Tablet PO SCH ×3 (08:30→19:20)
[2017-06-16] MEDS: Lidocaine Topical 5% Patch TOPICAL SCH (08:30)
--- NOTE | 2017-06-16 10:50 | NUR ---
Social Work: Multidisciplinary Rounds Pt was discussed in AM rounds today, Per MD pt will be having an ICD placed today. SW to continue to follow for pt needs and MD orders if appropriate. Anticipated discharge home when medically ready. LILLIAN Mosqeuda
[2017-06-16] MEDS: 0.9% Sodium Chloride 1,000 ML IV SCH ×2 (11:38→21:23)
--- NOTE | 2017-06-16 13:00 | PCM.ANEP1 ---
Post Anesthesia PACU Phase 1 Assessment Vital Signs Vital Signs Date Time Temp Pulse Resp B/P Pulse Ox O2 Delivery O2 Flow Rate FiO2 06/16/17 12:30 64 13 150/85 96 Nasal Cannula 2.00 06/16/17 12:15 66 14 151/88 94 Nasal Cannula 2.00 06/16/17 12:00 67 14 150/76 99 Nasal Cannula 2.00 06/16/17 11:55 65 17 141/82 98 Nasal Cannula 2.00 06/16/17 11:53 65 17 141/84 95 Nasal Cannula 2.00 06/16/17 10:46 74 06/16/17 07:20 Supplement Oxygen Anesthetic Administered: GA Level of Alertness: Awake, talking HINOJOSA's with Equal Strength: Yes Pain: No (MORPHINE RECIEVED) Nausea or Vomiting: No CV Function & Hydration Stable: Yes Airway Device: Oxygen Delivery: Room Air Lungs: Normal Air Movement PACU Phase 2 Assessment Complications: No Follow up Care: No Patient Instructions Provided: N/A Ronald Massey MD Jun 16, 2017 13:00
--- NOTE | 2017-06-16 13:58 | DRSVH ---
PROCEDURE: X-RAY CHEST ONE VIEW, PORTABLE ([id number]) INDICATIONS: For new leads placed TECHNIQUE: One view of the chest was acquired. COMPARISON: [facility], CR, XR CHEST 1VW (PORTABLE), 06/08/2017, 14:32. FINDINGS: Surgical changes and devices: There is a new left cardiac defibrillator. Lungs and pleura: Diffuse pulmonary opacities are redemonstrated, increasing confluence on the left s adwoa when compared with the prior study dated 06/08/17. No pneumothorax. Mediastinum: Mediastinal contours appear normal. Heart size is normal. Bones and chest wall: No suspicious bony lesions. Overlying soft tissues appear unremarkable. IMPRESSION: 1. No pneumothorax after recent defibrillator placement. 2. Diffuse patchy pulmonary opacities more confluent on the left than on the prior study. It is uncle ar whether this represents pulmonary edema which is increased, or may represent superimposed infectio n or aspiration. Short interval followup is recommended. Dictated by: Alessia Santamaria M.D. on 06/16/2017 at 13:54 Approved by: Alessia Santamaria M.D. on 06/16/2017 at 13:56
--- NOTE | 2017-06-16 14:26 | NUR ---
ANGELIKA POST ICD PT RECEIVED FROM SCREENER AND BLENDER AT 1155 POST ICD PLACEMENT. POST CXR AND EKG WERE OBTAINED. PT C/O 8/10 INCISIONAL PAIN AND WAS MEDICATED WITH MORPHINE 2MG IV, EFFECTIVE. HE IS ALSO TAKING PO FLUIDS AND SANDWICH AND TOLERATED WELL. REPORT CALLED TO PHILIPP Lowe RN AND PT AND HIS NURSING CARE WERE TRANSFERRED BACK TO ROOM 2020 AT 1405. SLING SENT WITH PT.
[2017-06-16] MEDS ORDERED: Furosemide 10 mg/mL 4 mL Inj IVPUSH ONE (14:40)
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
--- NOTE | 2017-06-16 15:45 | PCM.PNMED ---
Subjective Date of Service Jun 16, 2017 Subjective Overnight Events: None Today, Mr. Carrington had AICD placement. He is sitting in bed and mentions he's in significant pain from his procedure. He says his heart is sore, otherwise he is not short of breath. He denies fever, chills, nausea, vomiting. Exam Vital Signs Vital Sign - Last Date Time Temp Pulse Resp B/P Pulse Ox O2 Delivery O2 Flow Rate FiO2 06/16/17 02:55 36.6 70 16 158/92 91 Room Air 06/13/17 04:30 2.00 Intake and Output 06/15/17 06/15/17 06/16/17 Cumulative From/Thru 15:00 23:00 07:00 06/08/17 14:19 - 06/16/17 05:07 Intake Total 1020 ml 660 ml 120 ml 40167 ml Output Total 450 ml 725 ml 64448 ml Balance 570 ml -65 ml 120 ml 7119 ml Intake Oral 1020 ml 640 ml 49411 ml IV Total 20 ml 120 ml 3065 ml Output Urine Total 450 ml 725 ml 10898 ml # Voids 5 16 # Bowel Movements 2 10 Exam General: In mild distress due to pain, well-developed, well-nourished, appropriately interactive HEENT: Normocephalic, atraumatic.. Pupils equal, round, and reactive to light and accommodation. Anicteric sclerae, moist conjunctivae. Neck: Supple with full range of motion. No jugular venous distension. Cardiovascular: Regular rate and rhythm with systolic murmur noted, rubs, or gallops appreciated Pulmonary: Lungs clear to ausculatation bilaterally. Normal respiratory effort with no use of accessory muscles. Abdomen: Bowel tones present. Soft, nondistended Extremities: No clubbing or cyanosis, mild lower extremity edema, Skin: Normal temperature, turgor, and texture; Surgical wound dressing, clean, dry and intact. Neurological: Cranial nerves grossly intact. Normal muscle strength, tone, and bulk. No known gait impairment. Psychiatric: Normal mood and affect. Alert and oriented to person, place, and time. Lab and Diagnostics Result Diagram: 06/14/17182406/14/171824 Microbiology [place] STREP PNEUMONIAE AG URINE Final 06/11/17-1006 STREP PNEUMO AG NEGATIVE [place] CULTURE BLOOD Preliminary 06/10/17-1819 No growth at 2 days; culture examined daily no report between 2-5 days if negative. X-Rays, CTs and MRIs PROCEDURE: X-RAY CHEST ONE VIEW, PORTABLE ([id number]) INDICATIONS: Chest pain TECHNIQUE: One view of the chest was acquired. COMPARISON: [facility], CT, CT ANGIO CHEST PE, 06/04/2017, 13:17. [facility], CR, ABDOMEN ACUTE SERIES, 06/08/2017, 11:48. FINDINGS: Surgical changes and devices: None. Lungs and pleura: There is a small right pleural effusion which appears similar to the prior study. There are patchy bilateral groundglass opacities are demonstrated, similar to the recent prior study from the same day. Mediastinum: Mediastinal contours appear unchanged. Heart size is normal. Bones and chest wall: No suspicious bony lesions. Overlying soft tissues appear unremarkable. IMPRESSION: 1. Patchy bilateral opacities redemonstrated again suggestive of pulmonary edema. Differential includes pneumonia or pulmonary hemorrhage. 2. Small right pleural effusion. Dictated by: Leif Marquez M.D. on 06/08/2017 at 14:59 Approved by: Leif Marquez M.D. on 06/08/2017 at 15:00 12-lead ECG . Sinus rhythm . Prolonged MA interval . Nonspecific intraventricular conduction delay . Abnormal T, consider ischemia, lateral leads Cardiac Echo Impressions Interpretation Summary Left ventricular wall thickness is moderately increased. The ejection fraction is estimated to be 50-55%. There is basal inferior wall akinesis. Flattened septum is consistent with RV pressure/volume overload. Assessment of diastolic parameters suggests a pseudonormalization pattern, consistent with elevated filling pressures. Assessment & Plan Anton Carrington is a 61 year old male with a history of MIx2, cardiac stent placement, coronary artery disease, proximal atrial fibrillation, diabetes mellitus, hypertension, hyperlipidemia, probable benign Schwannoma. Recently diagnosed and treated for pneumonia with ceftriaxone and doxycycline presented with chest pain secondary to ventricular tachycardia lasting 25 minutes. Ventricular Tachycardia, not present on admission, resolved Patient had 2 episodes of ventricular tachycardia, one lasting 25 minutes, resolved with amiodarone. - Consulted Dr. Kerr currently following - AICD placement today. CAP/Bilateral infiltrates- present on admission, Resolved Per CXR redemonstrated again suggestive of pulmonary edema. Differential includes pneumonia or pulmonary hemorrhage versus pleural scarring. Small right pleural effusion suggestive of pneumonia. Patient had a CT of the chest 4 days ago which not make mention of infiltrates. But did mention some pleural scarring. - Finished 7 day course of antibiotic treatment with ceftriaxone and azithromycin - Blood Cultures negative x 48 hours. - Patient is currently off oxygen however will still be available as needed with exertion. Chest Pain- hx of MIx2, -EKG- no FRANTZ with some T-wave inversions. -Troponins negative 4 -Patient has exertional chest pain at baseline -Has a infrastructure analyst, Dr. Brown, however has been unable to follow-up recently. -Patient is allergic to aspirin and nitroglycerin. medical management including statins. Hypertension, chronic - Resume home meds. T4-T5 paraspinal mass- extend slightly into the associated neural foramen per CT 05/2017. Thought to be benign. It is associated with lower back and leg pain. Chronic Pain - Morphine 2 mg q2h PRN. - Continue home Oxycodone dosing 10 mg q4h. - Continue Routine bowel regimen while taking. - OMT treatment helped reduce patients pain will continue to use when necessary CAD- s/p stents. Atrial Fibrillation - Currently Sinus Rhythm. -Continue Rate control with Metoprolol and Amiodarone. -Not on AC, has outpatient [facility] Director. - Continue heparin subcutaneous Diabetes Mellitus Type 2 - Sliding Scale Insulin -Hold Metformin. -Accu-Cheks before meals and at bedtime Hyperlipidemia, chronic - Continue home statin High Risk Medications: IV Morphine Disposition: Likely 1-2 days depending on clinical status of patient after AICD placement. GI Prophylaxis: Proton Pump Inhibitor VTE Prophylaxis: Sub-Q Heparin (Unfractionated) VTE Mechanical Devices: Intermittant Pneumatic CD Resuscitation Status: CPR: Attempt Resuscitation Attending Statement The patient was seen and examined together with Dr. Shahid on 06/16/2017 and I agree with the history, exam and plan as outlined in the note above. . Abdon Shahid DO Jun 16, 2017 06:39 Jose Watkins MD Jun 19, 2017 07:51
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
[2017-06-16] MEDS ORDERED: Vancomycin Inj 1,000 MG in IV Premix 1 EACH IV ONE (23:40)
[2017-06-17] VITALS (9 sets, daily range): BP systolic 129–172; BP diastolic 78–91; PULSE 66–85; RESP 16–20; O2SAT 91–96
[2017-06-17] MEDS: Ondansetron 2 mg/mL 2 mL Inj IVPUSH PRN (04:26)
[2017-06-17 05:53] LABS: BASOPHILS % (AUTO) 0.2 % (0-3); MONOCYTES % (AUTO) 9.7 % (4-12); Mean Corpuscular Hemoglobin 25.5 pg (27.0-35.0); Mean Corpuscular Volume 75.7 fL (81-100); NEUTROPHILS % (AUTO) 74.9 % (40-74); Platelet Count 340 bil/L (150-400)
--- NOTE | 2017-06-17 06:09 | OP ---
[address] [address] OPERATIVE REPORT PATIENT: HANNA QUNITERO : 1955 MR#: [id number] ADMIT: 06/08/2017 JOB ID: [id number] DATE OF SURGERY: 06/16/2017 PREOPERATIVE DIAGNOSIS(ES): 1. Ischemic heart disease with previous myocardial infarction. 2. Mildly reduced left ventricular systolic function. 3. Ventricular tachycardia arrest. 4. Paroxysmal atrial fibrillation. POSTOPERATIVE DIAGNOSIS(ES): 1. Ischemic heart disease with previous myocardial infarction. 2. Mildly reduced left ventricular systolic function. 3. Ventricular tachycardia arrest. 4. Paroxysmal atrial fibrillation. PROCEDURES PERFORMED: 1. Dual-chamber implantable cardioverter-defibrillator implantation. 2. Induction of ventricular fibrillation through device for defibrillation threshold testing. 3. Fluoroscopy. SURGEON: Matthew Kerr MD. CONTRACT ACCOUNTANT: Kulwinder Chavez. IMPLANTED DEVICES: 1. model NR7189-41X, serial #[id number]. 2. RV lead [employer] dual coil, DF4 7121Q, 65 cm, serial #[id number]. 3. Right atrial lead [employer] 208TC, 52 cm, serial # [id number]. ANESTHESIA: Monitored anesthesia care was provided by the anesthesiology service. INDICATION: The patient is a pleasant, 61-year-old man with known ischemic heart disease, mildly reduced LV systolic function, admitted with pneumonia and ventricular tachycardia. He has been treated with antibiotics for over a week and comes down for a secondary prevention dual-chamber ICD implant after discussion of risks and benefits. He does have a history of paroxysmal atrial fibrillation and is therefore getting a dual-chamber device. PROCEDURAL DESCRIPTION: Following informed consent, the patient was taken to the EP laboratory in a fasting state where he was prepped and draped in sterile fashion. The left infraclavicular region was infiltrated with 40 cc of a 50/50 mixture of bupivacaine and lidocaine. Once adequate anesthesia had been achieved, a 3 cm transverse incision was performed 2 cm below the nipple. Dissection was carried down to the pectoralis fascia. A pocket was then fashioned using combination of electrocautery and blunt dissection. Once adequate hemostasis had been achieved, access to the left axillary area was done twice with a micropuncture needle to deploy two 0.035, 3 mm J guidewires. Over the first of these, a 7-Lao tear-away sheath was advanced. Guidewire was removed and the patient had a single coil DF4 lead was advanced to the RV outflow tract RV apex. The lead was affixed in position using its associated active fixation screw external analyzer. R waves, impedance, capture was checked to 10 V and there was no evidence of diaphragmatic stimulation. Attention was now paid to the atrial lead. Over the previously deployed J guidewire, a 6-Lao tear-away sheath was advanced. Guidewire removed. An active fixation lead was advanced in right atrial appendage. It was affixed in position using its associated active fixation screw. The lead was connected to the external analyzer, appropriately sensed P waves, impedance, capture threshold. Lead was checked to 10 V and there was no evidence of diaphragmatic stimulation. Once the position and redundancy of both leads had been confirmed in multiple fluoroscopic views, leads were anchored to the prepectoral fascia using associated sutures. The pocket was copiously irrigated with antibiotic solution. The leads were connected to a generator system affixed to the floor of the pocket using 1-0 Ti-Cron suture. The incision was closed with running layers of absorbable suture. The patient was prepared for defibrillation threshold testing. Using the DC fibber algorithm on the [employer] programmer analyst, ventricular fibrillation was induced, but unfortunately fibrillation through the generator and maximum output were unsuccessful. He was rescued externally. A multitude of fixed tilt shocks with inductions were subsequently undertaken, all failing to convert the patient internally. I therefore decided to change the ICD generator to a higher output generator and the lead to a dual coil ICD lead. I therefore retracted the helix on the single coil lead and removed it from the body. Access was gotten again with a micropuncture needle to deploy another 7-Lao tear-away sheath, through this a dual coil DF4 lead was advanced RV apex. The lead was connected to the external analyzer and demonstrated appropriately sensed R waves, impedance, capture threshold. The lead was checked to 10 V diaphragmatic stimulation. Once the position and redundancy of leads had been confirmed in multiple fluoroscopic views, the lead was again anchored to the prepectoralis fascia using sutures. The two new leads were then connected to the high output generator. The entire system was replaced into the pocket and secured to the floor of the pocket using 1-0 Ti-Cron suture. The incision was closed with running layers of absorbable suture. The wound was dressed with skin adhesive and a small dressing. At the end of procedure, the needle, sponge, instrument counts were all correct. The patient was again prepared for defibrillation threshold testing. Ventricular fibrillation at a cycle length of 190 msec was induced with the DC fibber protocol. The device sensed appropriately, converted the patient to sinus rhythm with a 36 joule shock. Charge time was 8.3 seconds. Impedance was 34 ohms. At the end of the procedure, needle, sponge, and instrument counts were all correct. COMPLICATIONS: None. ESTIMATED BLOOD LOSS: Negligible. DEVICE MEASURED DATA: 1. Right atrial lead 3.1 mV, 440 ohms, 0.5 V at 0.5 msec. 2. RV lead 11.8 mV, 490 ohms, 0.5 V at 0.5 msec. IMPRESSION: Successful dual-chamber secondary prevention implantable cardioverter-defibrillator implantation with difficult defibrillation threshold as described above, ultimately with the successful and acceptable VFT. PLAN: 1. Stat portable chest x-ray. 2. PA and lateral chest x-ray in the morning. 3. Device interrogation. 4. IV vancomycin through tomorrow. Doxycycline x7 days. 5. Wound check in one week. ATTENDING STATEMENT: Matthew Lerma MD, electrophysiology attending, was present for and supervised/performed all aspects of this procedure.
[2017-06-17] MEDS: Pantoprazole 40 mg ER24 Tablet PO SCH (07:30)
[2017-06-17] MEDS: 0.9% Sodium Chloride 1,000 ML IV SCH ×3 (07:38→23:42)
--- NOTE | 2017-06-17 07:44 | NUR ---
Pain Assumed care @ 1930. A/O x3, HINOJOSA. Reports increase of pain throughout shift -08/10, given 4mg. Morphine q 4hrs. Incision site c/d/i. Tele: SR in 80s. VSS. Transfer of care and report given to Hayley Smith
[2017-06-17] MEDS: Insulin LISPRO Medium-Dose Scale SUBQ SCH ×4 (08:15→21:40)
[2017-06-17] MEDS: Lidocaine Topical 5% Patch TOPICAL SCH (08:30)
[2017-06-17] MEDS: guaiFENesin 600 mg ER12 Tablet PO SCH ×2 (08:51→19:40)
[2017-06-17] MEDS: Heparin 5,000 Unit/mL Inj SUBQ SCH ×3 (08:53→23:42)
[2017-06-17] MEDS: Polyethylene Glycol (PEG) 17 Gm Powder PO SCH (08:59)
--- NOTE | 2017-06-17 09:32 | NUR ---
[facility] signed
--- NOTE | 2017-06-17 09:57 | DRSVH ---
PROCEDURE: X-RAY CHEST, TWO VIEWS ([id number]) INDICATIONS: For new lead placement TECHNIQUE: 2 views of the chest were acquired. COMPARISON: [facility], CR, XR CHEST 1VW (PORTABLE), 06/08/2017, 14:32. [facility], CT, CT ANGIO CHEST PE, 06/04/2017, 13:17. [facility], CR, XR CHEST 1VW (PORTABLE) , 06/16/2017, 12:04. FINDINGS: Surgical changes and devices: Left chest wall AICD redemonstrated with the leads projecting over the right atrium and right ventricle. Lungs and pleura: No pleural effusions or pneumothorax. There are patchy bilateral airspace opaciti es, left greater than right, which have progressively increased compared to the recent prior studies. Mediastinum: Mediastinal contours are unchanged. Heart size is borderline enlarged. Bones and chest wall: No suspicious bony abnormalities. Soft tissues appear unremarkable. IMPRESSION: 1. No evidence of pneumothorax. AICD leads project over the right atrium and right ventricle. 2. Progressive increase in bilateral airspace opacities, left greater than right, suspicious for pne umonia or asymmetric edema. Recommend correlation clinically. Dictated by: Leif Marquez M.D. on 06/17/2017 at 9:53 Approved by: Leif Marquez M.D. on 06/17/2017 at 9:55
[2017-06-17] MEDS ORDERED: DOXY100C2 PO (12:26)
--- NOTE | 2017-06-17 14:24 | NUR ---
Case Management: Patient is appealing his discharge - appeal in process. He provided [facility] with his correct location and phone number at the hospital. Arabella Desouza RN Addendum: 06/17/17 at 1713 by NAIF BUNN CM Case Management: Discharge order cancelled by . I talked with [facility] who instructed me to fax this information with case number to them, they would cancel the appeal. I did inform the patient of this. I also informed him of his right to appeal discharge if he needs to do so in the future. He expresses understanding. Naif Bunn RN
--- NOTE | 2017-06-17 14:36 | PCM.PNMED ---
Subjective Date of Service Jun 17, 2017 Subjective Overnight Events: None Today, Mr. Carrington is resting in bed comfortably and in no acute distress. He mentions he's still having some chest pain. Otherwise he is doing well. Exam Vital Signs Vital Sign - Last Date Time Temp Pulse Resp B/P Pulse Ox O2 Delivery O2 Flow Rate FiO2 06/17/17 04:51 37.5 83 16 150/81 91 Room Air 06/16/17 14:00 2.00 Intake and Output 06/16/17 06/16/17 06/17/17 Cumulative From/Thru 15:00 23:00 07:00 06/08/17 14:19 - 06/17/17 04:30 Intake Total 400 ml 81345 ml Output Total 05965 ml Balance 400 ml 7879 ml Intake Oral 400 ml 04080 ml IV Total 3065 ml Output Urine Total 23079 ml # Voids 3 24 # Bowel Movements 10 Exam General: No acute distress, well-developed, well-nourished, appropriately interactive HEENT: Normocephalic, atraumatic.. Pupils equal, round, and reactive to light and accommodation. Anicteric sclerae, moist conjunctivae. Neck: Supple with full range of motion. No jugular venous distension. Cardiovascular: Regular rate and rhythm with systolic murmur noted, rubs, or gallops appreciated Pulmonary: Lungs clear to ausculatation bilaterally. Normal respiratory effort with no use of accessory muscles. Abdomen: Bowel tones present. Soft, nondistended Extremities: No clubbing or cyanosis, mild lower extremity edema, Skin: Normal temperature, turgor, and texture; Surgical wound, clean, dry and healing well. Neurological: Cranial nerves grossly intact. Normal muscle strength, tone, and bulk. No known gait impairment. Psychiatric: Normal mood and affect. Alert and oriented to person, place, and time. Lab and Diagnostics Result Diagram: 06/17/17 0506/17/17 0525 Microbiology [facility] STREP PNEUMONIAE AG URINE Final 06/11/17-1006 STREP PNEUMO AG NEGATIVE [facility] CULTURE BLOOD Preliminary 06/10/17-1820 No growth at 2 days; culture examined daily no report between 2-5 days if negative. X-Rays, CTs and MRIs PROCEDURE: X-RAY CHEST ONE VIEW, PORTABLE ([id number]) INDICATIONS: Chest pain TECHNIQUE: One view of the chest was acquired. COMPARISON: [facility], CT, CT ANGIO CHEST PE, 06/04/2017, 13:17. [facility], CR, ABDOMEN ACUTE SERIES, 06/08/2017, 11:48. FINDINGS: Surgical changes and devices: None. Lungs and pleura: There is a small right pleural effusion which appears similar to the prior study. There are patchy bilateral groundglass opacities are demonstrated, similar to the recent prior study from the same day. Mediastinum: Mediastinal contours appear unchanged. Heart size is normal. Bones and chest wall: No suspicious bony lesions. Overlying soft tissues appear unremarkable. IMPRESSION: 1. Patchy bilateral opacities redemonstrated again suggestive of pulmonary edema. Differential includes pneumonia or pulmonary hemorrhage. 2. Small right pleural effusion. Dictated by: Leif Marquez M.D. on 06/08/2017 at 14:59 Approved by: Leif Marquez M.D. on 06/08/2017 at 15:00 12-lead ECG . Sinus rhythm . Prolonged NJ interval . Nonspecific intraventricular conduction delay . Abnormal T, consider ischemia, lateral leads Cardiac Echo Impressions Interpretation Summary Left ventricular wall thickness is moderately increased. The ejection fraction is estimated to be 50-55%. There is basal inferior wall akinesis. Flattened septum is consistent with RV pressure/volume overload. Assessment of diastolic parameters suggests a pseudonormalization pattern, consistent with elevated filling pressures. Assessment & Plan Anton Carrington is a 61 year old male with a history of MIx2, cardiac stent placement, coronary artery disease, proximal atrial fibrillation, diabetes mellitus, hypertension, hyperlipidemia, probable benign Schwannoma. Recently diagnosed and treated for pneumonia with ceftriaxone and doxycycline presented with chest pain secondary to ventricular tachycardia lasting 25 minutes. He had AICD placement on 06/16/[address] Kerr. Ventricular Tachycardia, not present on admission, resolved Patient had 2 episodes of ventricular tachycardia, one lasting 25 minutes, resolved with amiodarone. - AICD placement by Dr. Kerr on 06/16/17. Per discussion with Dr. Kerr, he mentioned during the AICD placement there was difficulty with lead placement for quite an extended period of time, which required putting the patient into V. fib several times until determining the correct placement. This may have caused his left lung to be fluid overloaded as seen on X-ray 06/17/17. Will diurese today and give pulmonary toilet per recommendation. - Currently on Telemetry CAP/Bilateral infiltrates- present on admission, Resolved Per CXR redemonstrated again suggestive of pulmonary edema. Differential includes pneumonia or pulmonary hemorrhage versus pleural scarring. Small right pleural effusion suggestive of pneumonia. Patient had a CT of the chest 4 days ago which not make mention of infiltrates. But did mention some pleural scarring. - Finished 7 day course of antibiotic treatment with ceftriaxone and azithromycin - Blood Cultures negative - Patient is currently off oxygen however will still be available as needed with exertion. - Pulmonary toilet Chest Pain- hx of MIx2, -EKG- no FRANTZ with some T-wave inversions. -Troponins negative 4 -Patient has exertional chest pain at baseline -Has a shuttle truck driver, Dr. Brown, however has been unable to follow-up recently. -Patient is allergic to aspirin and nitroglycerin. medical management including statins. Hypertension, chronic - Resume home meds. T4-T5 paraspinal mass- extend slightly into the associated neural foramen per CT 05/2017. Thought to be benign. It is associated with lower back and leg pain. Chronic Pain - Morphine 2 mg q2h PRN. - Continue home Oxycodone dosing 10 mg q4h. - Continue Routine bowel regimen while taking. - OMT treatment helped reduce patients pain will continue to use when necessary CAD- s/p stents. Atrial Fibrillation - Currently Sinus Rhythm. -Continue Rate control with Metoprolol and Amiodarone. -Not on AC, has outpatient Computer System Validation Specialist. - Continue heparin subcutaneous Diabetes Mellitus Type 2 -Sliding Scale Insulin -Hold Metformin. -Accu-Cheks before meals and at bedtime Hyperlipidemia, chronic - Continue home statin High Risk Medications: IV Morphine Disposition: Will keep 1-2 more days and continue to diurese and help lung function. GI Prophylaxis: Proton Pump Inhibitor VTE Prophylaxis: Sub-Q Heparin (Unfractionated) VTE Mechanical Devices: Intermittant Pneumatic CD Resuscitation Status: CPR: Attempt Resuscitation Attending Statement The patient was seen and examined together with Dr. Shahid on 06/17/2017 and I agree with the history, exam and plan as outlined in the note above. . Abdon Shahid DO Jun 17, 2017 06:53 Jose Watkins MD Jun 19, 2017 07:52
[2017-06-17] MEDS ORDERED: Furosemide 10 mg/mL 4 mL Inj IVPUSH ONE (15:40)
--- NOTE | 2017-06-17 16:33 | NUR ---
Social Work Note: Multidisciplinary Rounds/Continued Discharge Planning Data& Assessment: Pt was discussed in AM rounds, per MD pt is medically ready to discharge home. SW met with pt at bedside to confirm discharge plan and assess for any unmet needs. Pt explained he wanted to appeal his D/C. UR RN notified. However, Cardiology explained that pt is not medically ready to discharge from their standpoint and D/C was canceled. SW to continue to follow. Plan: Anticipated discharge home via POV when medically ready. No discharge needs or MD orders identified at this time. SW to continue to follow if any needs arise. LILLIAN Mosqueda
[2017-06-17] MEDS ORDERED: Furosemide 10 mg/mL 2 mL Inj IVPUSH ONE (20:50)
[2017-06-18 03:53] VITALS: BP 148/88; PULSE 75; RESP 19; O2SAT 90
[2017-06-18] MEDS: Ondansetron 2 mg/mL 2 mL Inj IVPUSH PRN ×4 (05:10→23:36)
--- NOTE | 2017-06-18 05:19 | NUR ---
Pain / Incision / Tele / VSS Pt requesting pain medication frequently. Pt medicated with IV Morphine 4mg every 4 hours alternating with Oxycodone 10 mg every 4 hours and one dose of IV Toradol 30mg this shift. Pt c/o back and chest incisional pain 7-8/10. Pain reduced only to a 6/10 during the night. Left chest incision open to the air, no drainage or hematoma noted. Tele SR 70s with a rare Paced beats per Lineman A Class. VS stable and afebrile. Pt up independently in room.
[2017-06-18 07:53] VITALS: BP 145/86; PULSE 81; RESP 16; O2SAT 94
[2017-06-18] MEDS: Lidocaine Topical 5% Patch TOPICAL SCH (08:30)
[2017-06-18] MEDS: guaiFENesin 600 mg ER12 Tablet PO SCH ×2 (08:59→21:13)
[2017-06-18] MEDS: Pantoprazole 40 mg ER24 Tablet PO SCH (09:00)
[2017-06-18] MEDS: Insulin LISPRO Medium-Dose Scale SUBQ SCH ×4 (09:01→23:43)
[2017-06-18] MEDS: Polyethylene Glycol (PEG) 17 Gm Powder PO SCH (09:02)
[2017-06-18] MEDS: Heparin 5,000 Unit/mL Inj SUBQ SCH ×3 (09:02→23:34)
[2017-06-18 09:31] LABS: BASOPHILS % (AUTO) 0.1 % (0-3); EOSINOPHILS % (AUTO) 3.7 % (0-5); MONOCYTES % (AUTO) 9.1 % (4-12); Mean Corpuscular Volume 77.5 fL (81-100); Platelet Count 369 bil/L (150-400)
[2017-06-18 10:55] VITALS: PULSE 82
--- NOTE | 2017-06-18 11:09 | DRSVH ---
PROCEDURE: X-RAY CHEST, TWO VIEWS ([id number]) INDICATIONS: pulmonary edema following AICD procedure TECHNIQUE: 2 views of the chest were acquired. COMPARISON: [facility], CR, XR CHEST 2VW, 06/17/2017, 6:40. FINDINGS: Surgical changes and devices: Left-sided cardiac pacer. Lungs and pleura: Stable pulmonary opacities bilaterally left much greater than right. Right-sided pl eural effusion or pleural scarring.. Mediastinum: Mediastinal contours are normal. Heart size is normal. Bones and chest wall: No suspicious bony abnormalities. Soft tissues appear unremarkable. IMPRESSION: Stable bilateral pulmonary opacities may represent infection or less likely asymmetric ed saurav. Dictated by: Marcos Hough M.D. on 06/18/2017 at 10:04 Approved by: Marcos Hough M.D. on 06/18/2017 at 10:06
[2017-06-18] MEDS ORDERED: Furosemide 10 mg/mL 4 mL Inj IVPUSH ONE (11:20)
[2017-06-18 12:41] VITALS: BP 136/73; RESP 15; O2SAT 91
--- NOTE | 2017-06-18 15:01 | NUR ---
Pain Pt reporting pain "8/10" for much of the shift. He reports L upper chest pain "soreness" and back pain in addition to a headache. He has been getting PO tylenol for a headache with good results. Pt received IV morphine in the AM for "8/10" back pain. Requested it in the afternoon but the medication had been discontinued. Pt reports pain is currently unrelieved by IV toradol and oxycodone q4. Continue to monitor.
--- NOTE | 2017-06-18 16:17 | NUR ---
Social Work Note: Multidisciplinary Rounds Pt was discussed in AM rounds today, per MD pt is not medically ready for discharge at this time. Cardiology still following. Anticipated discharge pending cardiology sign off. LILLIAN Mosqueda
--- NOTE | 2017-06-18 19:22 | NUR ---
Transfer Pt transferred form 2020 to 1026; arrived via with all belongings. PCC SHANK STITCHER went and retrieved pt belongings from [facility] and returned to pt. A&Ox3, HINOJOSA, in stable condition, IV x2 SL, Chart brought down with pt, Tele in place, Pt c/o 07/10 pain - received 8mg IVP Zofran, 2mg IVP Morphine and 650mg PO Tylenol. Ordered dinner, sitting on edge of bed eating dinner. Call light in reach. NOC RN given report. Care continues.
[2017-06-18 21:00] VITALS: BP 152/89; PULSE 71; RESP 16; O2SAT 94
--- NOTE | 2017-06-18 21:12 | PCM.PNMED ---
Subjective Date of Service Jun 18, 2017 Subjective Overnight Events: None Today, Mr. Carrington is mentioning his been breathing better and urinating a lot with furosemide. He is not complaining of chest pain or shortness of breath currently. He has been able to pass bowel movements. Exam Vital Signs Vital Sign - Last Date Time Temp Pulse Resp B/P Pulse Ox O2 Delivery O2 Flow Rate FiO2 06/18/17 16:37 Supplement Oxygen 06/18/17 12:41 36.2 15 136/73 91 06/18/17 10:55 82 06/16/17 14:00 2.00 Intake and Output 06/17/17 06/17/17 06/18/17 Cumulative From/Thru 15:00 23:00 07:00 06/08/17 14:19 - 06/18/17 05:16 Intake Total 950 ml 960 ml 13486 ml Output Total 1370 ml 67152 ml Balance 950 ml -410 ml 9439 ml Intake Oral 950 ml 960 ml 23474 ml IV Total 3065 ml Output Urine Total 1370 ml 25472 ml # Voids 4 33 # Bowel Movements 1 0 12 Exam General: No acute distress, well-developed, well-nourished, appropriately interactive HEENT: Normocephalic, atraumatic.. Pupils equal, round, and reactive to light and accommodation. Anicteric sclerae, moist conjunctivae. Neck: Supple with full range of motion. No jugular venous distension. Cardiovascular: Regular rate and rhythm with systolic murmur noted, rubs, or gallops appreciated Pulmonary: Lungs clear to ausculatation bilaterally. Normal respiratory effort with no use of accessory muscles. Abdomen: Bowel tones present. Soft, nondistended Extremities: No clubbing or cyanosis, mild lower extremity edema, Skin: Normal temperature, turgor, and texture; Surgical wound, clean, dry and healing well. Neurological: Cranial nerves grossly intact. Normal muscle strength, tone, and bulk. No known gait impairment. Psychiatric: Normal mood and affect. Alert and oriented to person, place, and time. Lab and Diagnostics Result Diagram: 06/18/1791806/18/17918 Microbiology [place] STREP PNEUMONIAE AG URINE Final 06/11/17-1006 STREP PNEUMO AG NEGATIVE [place] CULTURE BLOOD Preliminary 06/10/17-1820 No growth at 2 days; culture examined daily no report between 2-5 days if negative. X-Rays, CTs and MRIs PROCEDURE: X-RAY CHEST ONE VIEW, PORTABLE ([id number]) INDICATIONS: Chest pain TECHNIQUE: One view of the chest was acquired. COMPARISON: [facility], CT, CT ANGIO CHEST PE, 06/04/2017, 13:17. [facility], CR, ABDOMEN ACUTE SERIES, 06/08/2017, 11:48. FINDINGS: Surgical changes and devices: None. Lungs and pleura: There is a small right pleural effusion which appears similar to the prior study. There are patchy bilateral groundglass opacities are demonstrated, similar to the recent prior study from the same day. Mediastinum: Mediastinal contours appear unchanged. Heart size is normal. Bones and chest wall: No suspicious bony lesions. Overlying soft tissues appear unremarkable. IMPRESSION: 1. Patchy bilateral opacities redemonstrated again suggestive of pulmonary edema. Differential includes pneumonia or pulmonary hemorrhage. 2. Small right pleural effusion. Dictated by: Leif Marquez M.D. on 06/08/2017 at 14:59 Approved by: Leif Marquez M.D. on 06/08/2017 at 15:00 12-lead ECG . Sinus rhythm . Prolonged TN interval . Nonspecific intraventricular conduction delay . Abnormal T, consider ischemia, lateral leads Cardiac Echo Impressions Interpretation Summary Left ventricular wall thickness is moderately increased. The ejection fraction is estimated to be 50-55%. There is basal inferior wall akinesis. Flattened septum is consistent with RV pressure/volume overload. Assessment of diastolic parameters suggests a pseudonormalization pattern, consistent with elevated filling pressures. Assessment & Plan Anton Carrington is a 61 year old male with a history of MIx2, cardiac stent placement, coronary artery disease, proximal atrial fibrillation, diabetes mellitus, hypertension, hyperlipidemia, probable benign Schwannoma. Recently diagnosed and treated for pneumonia with ceftriaxone and doxycycline presented with chest pain secondary to ventricular tachycardia lasting 25 minutes. He had AICD placement on 06/16/[address] Kerr. Ventricular Tachycardia, not present on admission, resolved Patient had 2 episodes of ventricular tachycardia, one lasting 25 minutes, resolved with amiodarone. - AICD placement by Dr. Kerr on 06/16/17. Per discussion with Dr. Kerr, he mentioned during the AICD placement there was difficulty with lead placement for quite an extended period of time, which required putting the patient into V. fib several times until determining the correct placement. This may have caused his left lung to be fluid overloaded as seen on X-ray 06/17/17. Will continue to diurese today and give pulmonary toilet per recommendation. - Currently on Telemetry - Dr. Kerr is okay with discharge and recommends doxycycline for 1 week, 100 mg daily, continue amiodarone, follow up cardiology for wound check in 1 week and follow up with Artemio Bee in 6 weeks. Appointments as scheduled. CAP/Bilateral infiltrates- present on admission, Resolved Per CXR redemonstrated again suggestive of pulmonary edema. Differential includes pneumonia or pulmonary hemorrhage versus pleural scarring. Small right pleural effusion suggestive of pneumonia. Patient had a CT of the chest 4 days ago which not make mention of infiltrates. But did mention some pleural scarring. - Finished 7 day course of antibiotic treatment with ceftriaxone and azithromycin - Blood Cultures negative - Patient is currently off oxygen however will still be available as needed with exertion. - Pulmonary toilet Chest Pain- hx of MIx2, -EKG- no FRANTZ with some T-wave inversions. 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 Brown, however has been unable to follow-up recently. -Patient is allergic to aspirin and nitroglycerin. medical management including statins. Hypertension, chronic - Resume home meds. T4-T5 paraspinal mass- extend slightly into the associated neural foramen per CT 05/2017. Thought to be benign. It is associated with lower back and leg pain. Chronic Pain - Morphine 2 mg q6h overnight, then stop. - Continue home Oxycodone dosing 10 mg q4h. - Continue Routine bowel regimen while taking. - OMT treatment helped reduce patients pain will continue to use when necessary CAD- s/p stents. Atrial Fibrillation - Currently Sinus Rhythm. -Continue Rate control with Metoprolol and Amiodarone. -Not on AC, has outpatient Ground Host/Hostess. - Continue heparin subcutaneous Diabetes Mellitus Type 2 -Sliding Scale Insulin -Hold Metformin. -Accu-Cheks before meals and at bedtime Hyperlipidemia, chronic - Continue home statin High Risk Medications: IV Morphine Disposition: Likely discharge in 1 day. Will continue to diurese and help lung function. GI Prophylaxis: Proton Pump Inhibitor VTE Prophylaxis: Sub-Q Heparin (Unfractionated) VTE Mechanical Devices: Intermittant Pneumatic CD Resuscitation Status: CPR: Attempt Resuscitation Attending Statement The patient was seen and examined together with Dr. Shahid on 06/18/2017 and I agree with the history, exam and plan as outlined in the note above. . Abdon Shahid DO Jun 18, 2017 21:12 Jose Watkins MD Jun 19, 2017 07:52
[2017-06-19] VITALS (7 sets, daily range): BP systolic 129–171; BP diastolic 76–98; PULSE 64–74; RESP 16–20; O2SAT 93–100
[2017-06-19] MEDS: Ondansetron 2 mg/mL 2 mL Inj IVPUSH PRN (05:34)
--- NOTE | 2017-06-19 06:26 | NUR ---
Pain c/o non cardiac chest pain 6-8/10 throughout shift. Prn morphine, oxycodone, APAP and Toradol rotated and administered to keep pain tolerable. Despite patient reporting pain 6-8/10 he does not appear uncomfortable and denies significant pain between pain medication administration. Currently resting in bed without any complaints.
[2017-06-19] MEDS: Polyethylene Glycol (PEG) 17 Gm Powder PO SCH (08:00)
[2017-06-19] MEDS: Heparin 5,000 Unit/mL Inj SUBQ SCH ×2 (08:00→16:48)
[2017-06-19] MEDS: Pantoprazole 40 mg ER24 Tablet PO SCH (08:02)
[2017-06-19] MEDS: guaiFENesin 600 mg ER12 Tablet PO SCH (08:02)
[2017-06-19] MEDS: Insulin LISPRO Medium-Dose Scale SUBQ SCH ×3 (08:03→16:49)
[2017-06-19] MEDS: Lidocaine Topical 5% Patch TOPICAL SCH (08:06)
--- NOTE | 2017-06-19 09:05 | NUR ---
received TC from Erica at [facility], pt is appealing planned discharge. Waiting for faxed instructions. Advised UR RN. GARRETT for MANNEQUIN DECORATOR. Addendum: 06/19/17 at 1309 by WHITLEY DELAROSA SS faxed chart to [facility] at [phone]. ID#[id number]
--- NOTE | 2017-06-19 10:54 | PCM.PNMED ---
Subjective Date of Service Jun 19, 2017 Subjective Patient reports improved chest pain this morning. Still has cough. Hemodynamically stable overnight. Patient is comfortable on room air. Exam Vital Signs Vital Sign - Last Date Time Temp Pulse Resp B/P Pulse Ox O2 Delivery O2 Flow Rate FiO2 06/19/17 08:55 36.3 74 18 171/95 96 Room Air 06/16/17 14:00 2.00 Intake and Output 06/18/17 06/18/17 06/19/17 Cumulative From/Thru 15:00 23:00 07:00 06/08/17 14:19 - 06/19/17 05:11 Intake Total 2200 ml 0 ml 81350 ml Output Total 2600 ml 65808 ml Balance -400 ml 0 ml 9039 ml Intake Oral 2200 ml 93984 ml IV Total 0 ml 3065 ml Output Urine Total 2600 ml 51234 ml # Voids 33 # Bowel Movements 12 Exam General: No acute distress, well-developed, well-nourished, appropriately interactive HEENT: Normocephalic, atraumatic.. Pupils equal, round, and reactive to light and accommodation. Anicteric sclerae, moist conjunctivae. Neck: Supple with full range of motion. No jugular venous distension. Cardiovascular: Regular rate and rhythm with systolic murmur noted, rubs, or gallops appreciated Pulmonary: Lungs clear to ausculatation bilaterally. Normal respiratory effort with no use of accessory muscles. Abdomen: Bowel tones present. Soft, nondistended Extremities: No clubbing or cyanosis, mild lower extremity edema, Skin: Normal temperature, turgor, and texture; Surgical wound, clean, dry and healing well. Neurological: Cranial nerves grossly intact. Normal muscle strength, tone, and bulk. No known gait impairment. Psychiatric: Normal mood and affect. Alert and oriented to person, place, and time. IVs and Medications Medications Reviewed: Medications were reviewed in detail Lab and Diagnostics Result Diagram: 06/18/17 0919 06/19/17 0550 Microbiology KAMIL[place] STREP PNEUMONIAE AG URINE Final 06/11/17-1006 STREP PNEUMO AG NEGATIVE [place] CULTURE BLOOD Preliminary 06/10/17-1820 No growth at 2 days; culture examined daily no report between 2-5 days if negative. X-Rays, CTs and MRIs PROCEDURE: X-RAY CHEST ONE VIEW, PORTABLE ([id number]) INDICATIONS: Chest pain TECHNIQUE: One view of the chest was acquired. COMPARISON: [facility], CT, CT ANGIO CHEST PE, 06/04/2017, 13:17. [facility], CR, ABDOMEN ACUTE SERIES, 06/08/2017, 11:48. FINDINGS: Surgical changes and devices: None. Lungs and pleura: There is a small right pleural effusion which appears similar to the prior study. There are patchy bilateral groundglass opacities are demonstrated, similar to the recent prior study from the same day. Mediastinum: Mediastinal contours appear unchanged. Heart size is normal. Bones and chest wall: No suspicious bony lesions. Overlying soft tissues appear unremarkable. IMPRESSION: 1. Patchy bilateral opacities redemonstrated again suggestive of pulmonary edema. Differential includes pneumonia or pulmonary hemorrhage. 2. Small right pleural effusion. Dictated by: Leif Marquez M.D. on 06/08/2017 at 14:59 Approved by: Leif Marquez M.D. on 06/08/2017 at 15:00 12-lead ECG . Sinus rhythm . Prolonged ND interval . Nonspecific intraventricular conduction delay . Abnormal T, consider ischemia, lateral leads Cardiac Echo Impressions Interpretation Summary Left ventricular wall thickness is moderately increased. The ejection fraction is estimated to be 50-55%. There is basal inferior wall akinesis. Flattened septum is consistent with RV pressure/volume overload. Assessment of diastolic parameters suggests a pseudonormalization pattern, consistent with elevated filling pressures. Assessment & Plan Anton Carrington is a 61 year old male with a history of MIx2, cardiac stent placement, coronary artery disease, proximal atrial fibrillation, diabetes mellitus, hypertension, hyperlipidemia, probable benign Schwannoma. Recently diagnosed and treated for pneumonia with ceftriaxone and doxycycline presented with chest pain secondary to ventricular tachycardia lasting 25 minutes. He had AICD placement on 06/16/[address] Kerr. Ventricular Tachycardia, not present on admission, resolved Patient had 2 episodes of ventricular tachycardia, one lasting 25 minutes, resolved with amiodarone. - AICD placement by Dr. Kerr on 06/16/17. Per discussion with Dr. Kerr, he mentioned during the AICD placement there was difficulty with lead placement for quite an extended period of time, which required putting the patient into V. fib several times until determining the correct placement. This may have caused his left lung to be fluid overloaded as seen on X-ray 06/17/17. Will continue to diurese today and give pulmonary toilet per recommendation. - Currently on Telemetry - Dr. Kerr is okay with discharge and recommends doxycycline for 1 week, 100 mg daily, continue amiodarone, follow up cardiology for wound check in 1 week and follow up with Artemio Bee in 6 weeks. Appointments as scheduled. -Patient has had no further events. -DC'd IV morphine continue with by mouth oxycodone only. CAP/Bilateral infiltrates- present on admission, Resolved Per CXR redemonstrated again suggestive of pulmonary edema. Differential includes pneumonia or pulmonary hemorrhage versus pleural scarring. Small right pleural effusion suggestive of pneumonia. Patient had a CT of the chest 4 days ago which not make mention of infiltrates. But did mention some pleural scarring. - Finished 7 day course of antibiotic treatment with ceftriaxone and azithromycin - Blood Cultures negative - Patient is currently off oxygen however will still be available as needed with exertion. - Pulmonary toilet - Upon discharge patient will take 7 days of doxycycline. Chest Pain- hx of MIx2, -EKG- no FRANTZ with some T-wave inversions. -Troponins negative 4 -Patient has exertional chest pain at baseline -Has a machine scallop cutter, Dr. Brown, however has been unable to follow-up recently. -Patient is allergic to aspirin and nitroglycerin. medical management including statins. Hypertension, chronic - Resume home meds. T4-T5 paraspinal mass- extend slightly into the associated neural foramen per CT 05/2017. Thought to be benign. It is associated with lower back and leg pain. Chronic Pain - Morphine 2 mg q6h overnight, then stop. - Continue home Oxycodone dosing 10 mg q4h. - Continue Routine bowel regimen while taking. - OMT treatment helped reduce patients pain will continue to use when necessary CAD- s/p stents. Atrial Fibrillation - Currently Sinus Rhythm. -Continue Rate control with Metoprolol and Amiodarone. -Not on AC, has outpatient Instructional Facilitator. - Continue heparin subcutaneous Diabetes Mellitus Type 2 -Sliding Scale Insulin -Hold Metformin. -Accu-Cheks before meals and at bedtime Hyperlipidemia, chronic - Continue home statin High Risk Medications: IV Morphine Disposition: Patient is medically cleared for discharge by both cardiology and primary team. Doxycycline for 1 week, 100 mg daily. Continue new medication amiodarone. Follow up cardiology for wound check in 1 week and follow up with Artemio Bee in 6 weeks. Keep appointments as scheduled. Pain Evaluation: Adequate Pain Control GI Prophylaxis: Proton Pump Inhibitor VTE Prophylaxis: Sub-Q Heparin (Unfractionated) VTE Mechanical Devices: Intermittant Pneumatic CD Resuscitation Status: CPR: Attempt Resuscitation Mark Rios MD Jun 19, 2017 10:54
[2017-06-19] MEDS ORDERED: AMIO200T PO (11:00)
[2017-06-19] MEDS ORDERED: DOXY100T2 PO (11:00)
--- NOTE | 2017-06-19 12:39 | NUR ---
spiritual care: follow up conversational visit. pt reflected on his feelings about appeal based on continued pain and symptomatic pneumonia (described shortness of breath) Pt also reflected on hearing providers report about his pacemaker placement and that his heart stopped repeatedly. Pt pondering renewed sense of purpose as well as his interests and intentions for further studies. Pt descriptive of his fawad and the strength it continues to provide him. Sleepy now, requested some time for follow up spiritual care later in pm. Prayer.
--- NOTE | 2017-06-19 13:53 | NUR ---
Social Work- Readiness for Discharge/ Multidisciplinary Rounds/ Discharge Appeal Data: EMR Reviewed. Pt is on day 11 of hospitalization for multilobar/pneumonia per H&P. Per rounds, pt is medically stable for discharge, discharge orders are written. Pt notified of discharge and appealed his discharge. UR RN is aware. SW met with pt at bedside regarding discharge plan. Pt confirms that he will discharge home to his mobile home. Pt uses a cane at baseline. Pt has declined PT twice today. Pt states he remembers his precautions. Pt requested that MACHINIST WOOD coordinate a cleaning company for his home. MACHINIST WOOD stated that this would be an out of pocket cost. Pt declined this service. Pt declined any additional assistance from MACHINIST WOOD. MACHINIST WOOD provided education related to DCP role in hospital. Pt agreeable. Pt confirms that he has the money to obtain his prescription, but he requests that it be extremely low cost. Pt to discharge home via POV. No discharge needs identified. SW will continue to follow. Assessment: Pt who is independent at baseline. Plan: Appeal pending. Pt to discharge home via POV. No discharge needs identified. SW will continue to follow. Yana Granados, MACHINIST WOOD
--- NOTE | 2017-06-19 16:36 | NUR ---
spiritual care: follow up lengthy conversational visit. pt reflected on his medical care, condition, personal history, role of fawad and future hopes and sense of purposefulness. pt grew very sleepy. prayer
--- NOTE | 2017-06-19 19:49 | NUR ---
Discharge: Pt appealing his discharge earlier today, but at approx 1940 decided that he was ready to go [place]. Pt had already gotten dressed and dc'd his own IV's. Dc paper work printed and gone over sparingly with patient as he stated "i know all that already". No scripts found in chart, but pt not willing to stay and figure out script situation. Belongings retrieved from safe and money counted together with RN and patient to assure proper amount returned. Pt to private vehicle at approx 1949.
--- NOTE | 2017-06-23 18:45 | PCM.DC.MED ---
Discharge Summary Date of Service Jun 23, 2017 Dates of Hospitalization Date of Hospital Admission Jun 08, 2017 at 17:09 Date of Discharge: Jun 17, 2017 Providers: Admitting Physician: Santino Ye MD Primary Care Physician: Effie Barros DO Attending Physician: Santino Ye MD Procedures XRay, CTs & MRIs PROCEDURE: X-RAY CHEST ONE VIEW, PORTABLE ([id number]) INDICATIONS: Chest pain TECHNIQUE: One view of the chest was acquired. COMPARISON: [facility], CT, CT ANGIO CHEST PE, 06/04/2017, 13:17. [facility], CR, ABDOMEN ACUTE SERIES, 06/08/2017, 11:48. FINDINGS: Surgical changes and devices: None. Lungs and pleura: There is a small right pleural effusion which appears similar to the prior study. There are patchy bilateral groundglass opacities are demonstrated, similar to the recent prior study from the same day. Mediastinum: Mediastinal contours appear unchanged. Heart size is normal. Bones and chest wall: No suspicious bony lesions. Overlying soft tissues appear unremarkable. IMPRESSION: 1. Patchy bilateral opacities redemonstrated again suggestive of pulmonary edema. Differential includes pneumonia or pulmonary hemorrhage. 2. Small right pleural effusion. Dictated by: Leif Marquez M.D. on 06/08/2017 at 14:59 Approved by: Leif Marquez M.D. on 06/08/2017 at 15:00 ECG 12 Lead . Sinus rhythm . Prolonged OH interval . Nonspecific intraventricular conduction delay . Abnormal T, consider ischemia, lateral leads Cardiac Echo Impression Interpretation Summary Left ventricular wall thickness is moderately increased. The ejection fraction is estimated to be 50-55%. There is basal inferior wall akinesis. Flattened septum is consistent with RV pressure/volume overload. Assessment of diastolic parameters suggests a pseudonormalization pattern, consistent with elevated filling pressures. Brief History 61 year old male with a history of MIx2, cardiac stent placement, coronary artery disease, proximal atrial fibrillation, diabetes mellitus, hypertension, hyperlipidemia, probable benign Schwannoma, and frequent ED visits p/w acute chest pain and recently dx Pneumonia. Patient says chest pain radiates the back is worse with inspiration. Patient also has shortness of breath chills and cough along with muscle pain the last 2 days. Patient cleaning of pain in his lower extremities up his back to his neck. Patient was at [facility] earlier today and was sent home with athletics for pneumonia. However he felt like she did not for comfortable going home and came to the [facility] emergency department. Was admitted and discharged earlier this week for chest pain and was ruled out for ACS. CT of the chest at that time did not show any evidence of pneumonia infiltrates. She was discharged on cardiovascular medications and was to follow-up with his demand planning analyst. Hospital Course Anton Carrington is a 61 year old male with a history of MIx2, cardiac stent placement, coronary artery disease, proximal atrial fibrillation, diabetes mellitus, hypertension, hyperlipidemia, probable benign Schwannoma. Recently diagnosed and treated for pneumonia with ceftriaxone and doxycycline presented with chest pain secondary to ventricular tachycardia lasting 25 minutes. He had AICD placement on 06/16/[address] Kerr. Ventricular Tachycardia, not present on admission, resolved Patient had 2 episodes of ventricular tachycardia, one lasting 25 minutes, resolved with amiodarone. - AICD placement by Dr. Kerr on 06/16/17. Per discussion with Dr. Kerr, he mentioned during the AICD placement there was difficulty with lead placement for quite an extended period of time, which required putting the patient into V. fib several times until determining the correct placement. This may have caused his left lung to be fluid overloaded as seen on X-ray 06/17/17. Will continue to diurese today and give pulmonary toilet per recommendation. - Currently on Telemetry - Dr. Kerr is okay with discharge and recommends doxycycline for 1 week, 100 mg daily, continue amiodarone, follow up cardiology for wound check in 1 week and follow up with Artemio Bee in 6 weeks. Appointments as scheduled. -Patient has had no further events. -DC'd IV morphine continue with by mouth oxycodone only. CAP/Bilateral infiltrates- present on admission, Resolved Per CXR redemonstrated again suggestive of pulmonary edema. Differential includes pneumonia or pulmonary hemorrhage versus pleural scarring. Small right pleural effusion suggestive of pneumonia. Patient had a CT of the chest 4 days ago which not make mention of infiltrates. But did mention some pleural scarring. - Finished 7 day course of antibiotic treatment with ceftriaxone and azithromycin - Blood Cultures negative - Patient is currently off oxygen however will still be available as needed with exertion. - Pulmonary toilet - Upon discharge patient will take 7 days of doxycycline. Chest Pain- hx of MIx2, -EKG- no FRANTZ with some T-wave inversions. -Troponins negative 4 -Patient has exertional chest pain at baseline -Has a demand planning analyst, Dr. Brown, however has been unable to follow-up recently. -Patient is allergic to aspirin and nitroglycerin. medical management including statins. Hypertension, chronic - Resume home meds. T4-T5 paraspinal mass- extend slightly into the associated neural foramen per CT 05/2017. Thought to be benign. It is associated with lower back and leg pain. Chronic Pain - Morphine 2 mg q6h overnight, then stop. - Continue home Oxycodone dosing 10 mg q4h. - Continue Routine bowel regimen while taking. - OMT treatment helped reduce patients pain will continue to use when necessary CAD- s/p stents. Atrial Fibrillation - Currently Sinus Rhythm. -Continue Rate control with Metoprolol and Amiodarone. -Not on AC, has outpatient Enterprise Systems Engineer. - Continue heparin subcutaneous Diabetes Mellitus Type 2 -Sliding Scale Insulin -Hold Metformin. -Accu-Cheks before meals and at bedtime Hyperlipidemia, chronic - Continue home statin High Risk Medications: IV Morphine Disposition: Patient is medically cleared for discharge by both cardiology and primary team. Doxycycline for 1 week, 100 mg daily. Continue new medication amiodarone. Follow up cardiology for wound check in 1 week and follow up with Artemio Bee in 6 weeks. Keep appointments as scheduled. Exam Vital Signs (Last) Date Time Temp Pulse Resp B/P Pulse Ox O2 Delivery O2 Flow Rate FiO2 06/19/17 17:44 36.7 69 20 147/76 95 Room Air Test 06/08/17 15:00 06/09/17 17:01 06/10/17 03:50 06/10/17 16:15 Pro-B-Type Natriuretic Peptide 556.9pg/mL (0-210) Lactic Acid Level 1.0mmol/L (0.4-2.0) Thyroid Stimulating Hormone (TSH) 0.206uIU/mL (0.450-4.500) Free Thyroxine 1.12ng/dL (0.82-1.77) Phosphorus Level 3.1mg/dL (2.5-4.9) Magnesium Level 1.9mg/dL (1.6-2.6) Urine Color Yellow (YELLOW) Urine Appearance Clear (CLEAR,HAZY) Urine pH 5.5 (5.0-8.0) Urine Specific [place]axis 1.020 (1.003-1.035) Urine Protein Tracemg/dL (NEG,TRACE) Urine Glucose (UA) Negativemg/dL (NEGATIVE) Urine Ketones Negativemg/dL (NEGATIVE) Urine Occult Blood Negative (NEGATIVE) Urine Nitrite Negative (NEGATIVE) Urine Bilirubin Negative (NEGATIVE) Urine Urobilinogen Normalmg/dL (NORMAL) Urine Leukocyte Esterase Negative (NEGATIVE) Urine RBC 0-2/hpf (0-2) Urine WBC 0-5/hpf (0-5) Urine Epithelial Cells None/hpf (NONE-MOD) Urine Crystals None seen (NONE SEEN) Urine Bacteria None/hpf (NONE-FEW) Urine Hyaline Casts None/lpf (NONE) Urine Granular Casts None seen (NONE SEEN) Urine Waxy Casts None seen (NONE SEEN) Urine Red Blood Cell Casts None seen (NONE SEEN) Urine White Blood Cell Casts None seen (NONE SEEN) Urine Mucus None seen (None Seen) Urine Trichomonas None seen (NONE SEEN) Urine Yeast None (NONE SEEN) Urinalysis Comment None Urine Culture Reflexed Not indicated Urine Legionella pneumophilia Ag Negative (Negative) Test 06/11/17 03:50 06/13/17 11:14 06/13/17 17:23 06/16/17 07:20 Thyroid Peroxidase Antibodies 11IU/mL (0-34) Total Bilirubin 0.3mg/dL (0.0-1.2) Aspartate Amino Transf (AST/SGOT) 19U/L (0-50) Alanine Aminotransferase (ALT/SGPT) 21U/L (0-44) Alkaline Phosphatase 87U/L (25-160) Total Protein 6.1g/dL (6.4-8.4) Albumin 3.3g/dL (3.4-5.0) Procalcitonin 0.16ng/mL (0.00-0.08) Troponin T < 0.010ug/L (0.0-0.011) Prothrombin Time 11.0sec (8.1-12.5) Prothromb Time International Ratio 1.03ratio Test 06/18/17 09:19 06/19/17 05:50 White Blood Count 8.0th/mm3 (3.8-10.1) Red Blood Count 3.56mil/mm3 (4.40-5.80) Hemoglobin 8.9g/dL (13.8-17.2) Hematocrit 27.6% (41.0-50.0) Mean Corpuscular Volume 77.5fL (81-100) Mean Corpuscular Hemoglobin 25.0pg (27.0-35.0) Mean Corpuscular Hemoglobin Concent 32.2% (32.0-37.0) Red Cell Distribution Width 15.8% (12.3-15.4) Platelet Count 369bil/L (150-400) Neutrophils (%) (Auto) 73.0% (40-74) Lymphocytes (%) (Auto) 11.9% (14-46) Monocytes (%) (Auto) 9.1% (4-12) Eosinophils (%) (Auto) 3.7% (0-5) Basophils (%) (Auto) 0.1% (0-3) Sodium Level 140mEq/L (134-144) Potassium Level 4.6mEq/L (3.5-5.2) Chloride Level 101mEq/L (97-108) Carbon Dioxide Level 25mmol/L (18-29) Blood Urea Nitrogen 14mg/dL (8-27) Creatinine 1.02mg/dL (0.76-1.27) Estimat Glomerular Filtration Rate 79mL/min (>59) Glucose Level 182mg/dL (60-99) Calcium Level 9.1mg/dL (8.5-10.1) Microbiology Results [facility] STREP PNEUMONIAE AG URINE Final 06/11/17-1006 STREP PNEUMO AG NEGATIVE [facility] CULTURE BLOOD Preliminary 06/10/17-1819 No growth at 2 days; culture examined daily no report between 2-5 days if negative. Discharge Medications Discharge Medications Amiodarone (Amiodarone) 200 Mg Tablet 200 MG PO BID (Reported) Amiodarone (Amiodarone) 200 Mg Tablet 200 MG PO BID Prescribed by: SANTINO YE MD Amlodipine (Amlodipine) 5 Mg Tablet 10 MG PO DAILY Prescribed by: ALVAREZ BARAHONA DO Atorvastatin Calcium (Atorvastatin Calcium) 40 Mg Tablet 40 MG PO HS (Reported) Doxycycline Hyclate (Doxycycline Hyclate) 100 Mg Capsule 100 MG PO BID Prescribed by: KIRT A NIZAMUDDIN, Doxycycline Hyclate (Doxycycline Hyclate) 100 Mg Tablet 100 MG PO BID Prescribed by: SANTINO YE MD Furosemide (Furosemide) 20 Mg Tab 20 MG PO QAM (Reported) Magnesium Oxide (Magnesium Oxide) 400 Mg Tablet 400 MG PO QAM (Reported) Metformin (Glucophage) 1,000 Mg Tablet 1,000 MG PO DAILYWM (Reported) Metoprolol Tartrate (Metoprolol Tartrate) 100 Mg Tablet 100 MG PO BID (Reported ) Ondansetron (Ondansetron) 4 Mg Tablet 4 MG PO TIDWM (Reported) Pantoprazole DR (Pantoprazole DR) 40 Mg Tablet.dr 40 MG PO QAM (Reported) Polyethylene Glycol 3350 (Miralax) 17 Gm Powd.pack 17 GM PO DAILY Prescribed by: SANTINO YE MD Potassium Chloride ER (Potassium Chloride ER) 10 Meq Tablet 10 MEQ PO DAILYWM ( Reported) TAKE WITH FOOD Sertraline HCl (Sertraline) 100 Mg Tablet 100 MG PO QAM (Reported) Tamsulosin ER (Tamsulosin ER) 0.4 Mg Cap.er.24h 0.4 MG PO HS (Reported) Terazosin (Terazosin) 5 Mg Capsule 5 MG PO HS (Reported) As needed Albuterol HFA (Proair HFA) 8.5 Gm Hfa.aer.ad 2 PUFFS INHALATION Q4H PRN PRN For Shortness of Breath (Reported) Nystatin (Nystatin) 100,000 Unit/1 Ml Oral.susp 5 ML PO QID PRN PRN ORAL THRUSH (Reported) Oxycodone (Roxicodone) 5 Mg Tablet 10 MG PO Q4H PRN PRN For Pain (Reported) NTE 5 DOSES/24 HRS. PT IS ON A PAIN CONTRACT. Santino Ye MD Jun 23, 2017 18:45
== END 2017-06-19 19:40 | disposition home or self-care (01) | DRG 226 ==
LOC: SED 14:17 → OSC 17:09 → OBSVTOIN 17:09 → INTOOBSV 17:09 → CCU 06-09 18:01 → PCC 06-10 08:10 → OSC 06-18 18:28
PROVIDERS: ADMIT Internal Medicine; ATTEND Internal Medicine
PROC: 0JH609Z Insertion of Cardiac Resynchronization Defibrillator Pulse Generator into Chest Subcutaneous Tissue and Fascia, Open Approach (ICD-10-PCS; principal; 2017-06-16)
PROC: 02H Heart and Great Vessels, Insertion (ICD-10-PCS; 2017-06-16)
PROC: 02H74KZ Insertion of Defibrillator Lead into Left Atrium, Percutaneous Endoscopic Approach (ICD-10-PCS; 2017-06-16)
PROC: 4B02XTZ Measurement of Cardiac Defibrillator, External Approach (ICD-10-PCS; 2017-06-16)
DX: I47.2 Ventricular tachycardia (principal); J18.9 Pneumonia, unspecified organism; Z68.41 Body mass index [BMI] 40.0-44.9, adult; F11.20 Opioid dependence, uncomplicated; J90 Pleural effusion, not elsewhere classified; E66.9 Obesity, unspecified; R93.8 Abnormal findings on diagnostic imaging of other specified body structures; I25.5 Ischemic cardiomyopathy; E87.70 Fluid overload, unspecified; I25.2 Old myocardial infarction; Z95.5 Presence of coronary angioplasty implant and graft; Z79.84 Long term (current) use of oral hypoglycemic drugs; F17.210 Nicotine dependence, cigarettes, uncomplicated; I10 Essential (primary) hypertension; G89.29 Other chronic pain; E78.5 Hyperlipidemia, unspecified

== ENCOUNTER 2017-06-20 22:06 | Emergency (ER) | payer MEDICARE, MEDICAID ==
[~2017-06-20] VITALS: Ht 177.8 cm; Wt 125.9 kg
[~2017-06-20 22:06] MED LIST changes: +ALBU8.5H2 INHALATION; +DOXY100C2 PO; +DOXY100T2 PO; +METF1000 PO; -METF500T4 PO
[2017-06-20 22:09] VITALS: BP 144/86; PULSE 91; RESP 18; O2SAT 94
== END 2017-06-20 22:15 | disposition left against medical advice (07) ==
LOC: SED 22:06
DX: Z53.21 Procedure and treatment not carried out due to patient leaving prior to being seen by health care provider (principal)

== ENCOUNTER 2017-06-23 14:53 | Inpatient (IN) | payer MEDICARE, MEDICAID ==
[~2017-06-23] VITALS: Ht 177.8 cm; Wt 125.6 kg
[2017-06-23 15:21] VITALS: BP 107/76; PULSE 98; RESP 12; O2SAT 99
--- NOTE | 2017-06-23 16:28 | DRSVH ---
PROCEDURE: X-RAY CHEST ONE VIEW, PORTABLE ([id number]) INDICATIONS: chest pain TECHNIQUE: One view of the chest was acquired. COMPARISON: [facility], CR, XR CHEST 1VW (PORTABLE), 06/08/2017, 14:32. [facility], [facility], XR CHEST 2VW, 06/17/2017, 6:40. [facility], CR, XR CHEST 2VW, 06/18/2017, 7:34 . [facility], CR, XR CHEST 1VW (PORTABLE), 06/16/2017, 12:04. FINDINGS: Surgical changes and devices: There is a cardiac defibrillator with leads in expected position. Lungs and pleura: Bilateral interstitial prominence and patchy ground glass infiltrates, decreased c ompared to 06/18/2017. Trace pleural effusions. No pneumothorax. Mediastinum: Mediastinal contours appear normal. Heart size is normal. Bones and chest wall: No suspicious bony lesions. Overlying soft tissues appear unremarkable. IMPRESSION: 1. Decreased interstitial and groundglass infiltrates bilaterally, likely reflecting improved CHF or bilateral pneumonia. 2. Trace bilateral effusions. Dictated by: Yessenia Mills M.D. on 06/23/2017 at 16:22 Approved by: Yessenia Mills M.D. on 06/23/2017 at 16:25
[2017-06-23 16:31] LABS: BASOPHILS % (AUTO) 0.8 % (0-3); EOSINOPHILS % (AUTO) 3.8 % (0-5); MONOCYTES % (AUTO) 13.7 % (4-12); Mean Corpuscular Hemoglobin 24.8 pg (27.0-35.0); Mean Corpuscular Volume 75.6 fL (81-100); Platelet Count 510 bil/L (150-400)
[2017-06-23 17:00] LABS: TROPONIN T < 0.010 ug/L (0.0-0.011)
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
[2017-06-23] MEDS: HYDROmorphone 0.5 mg/0.5 mL iSecure Syringe IVPUSH PRN ×3 (19:54→21:37)
[2017-06-23 19:55] VITALS: BP 138/89; PULSE 85; RESP 15; O2SAT 95
[2017-06-23 20:21] LABS: COLOR,URINE DARK YELLOW (YELLOW)
[2017-06-23 20:22] LABS: APPEARANCE,URINE HAZY (CLEAR,HAZY); OCCULT BLOOD,URINE NEGATIVE (NEGATIVE); PH,URINE 5.5 (5.0-8.0); UROBILINOGEN,URINE NORMAL (NORMAL)
--- NOTE | 2017-06-23 20:57 | DRSVH ---
PROCEDURE: CT ANGIO CHEST PULMONARY EMBOLISM ([id number]) INDICATIONS: 61 year-old male with chest pain after pacemaker placement 4 days ago. TECHNIQUE: After the administration of intravenous contrast, 2 mm thick sections acquired from the pulmonary api rachel to the posterior costophrenic angles. 3-dimensional maximum intensity projection (MIP) coronal a nd sagittal reformats were then acquired through the thorax. For radiation dose reduction, the follo wing was used: automated exposure control, adjustment of mA and/or kV according to patient size. COMPARISON: [facility], CT, CT ANGIO CHEST PE, 06/04/2017, 13:17. [facility] , CT, CT ANGIO CHEST PE, 01/30/2017, 16:30. [facility], CT, CT ANGIO CHEST ABD, 6, 21:07. [facility], CT, CT ANGIO CHEST PE, 09/29/2016, 22:39. FINDINGS: Image quality: Excellent. Pulmonary arteries: Pulmonary arteries are normal in size, and demonstrate no intraluminal filling d efects to suggest central pulmonary embolism. Lungs and pleura: Asymmetric widespread left lung interstitial and airspace opacities appear new sinc e June 04, 2017. On axial image 25, 9 mm lateral right midlung nodule near the minor fissure is unchan ged. No pleural effusions or pneumothorax. Central and peripheral airways are patent. Mediastinum: Mild cardiomegaly is unchanged, without pericardial effusion. No mediastinal or hilar a denopathy. Thoracic aorta is normal in caliber and enhancement. Esophagus is normal in caliber, wit hout hiatal hernia. Bones and chest wall: Left chest wall pacemaker is now present. No suspicious bony lesions. Ribs an d thoracic spine appear intact throughout. Right T4-T5 paraspinous soft tissue lesion is again noted . Thyroid gland is normal in overall size. No axillary or supraclavicular adenopathy. Abdomen: Visualized upper abdominal solid organs appear normal in the early arterial phase of enhanc ement. IMPRESSION: 1. No evidence for central pulmonary embolism. 2. New widespread asymmetric left lung interstitial and air space opacities, consistent with pneumoni a. 3. 9 mm lateral right midlung nodule is unchanged since 2013, reassuring for benign etiology. 4. Right T4-T5 paraspinous soft tissue mass is also unchanged, most consistent with benign neurogenic tumor. Dictated by: Abdiaziz Weber M.D. on 06/23/2017 at 20:47 Approved by: Abdiaziz Weber M.D. on 06/23/2017 at 20:56
[2017-06-23] MEDS ORDERED: 0.9% Sodium Chloride 1,000 ML IV ONE (21:06)
[2017-06-23] MEDS ORDERED: cefTRIAXone Inj 2,000 MG in Dextrose 5% Minibag Plus 50 ML IV ONE (21:10)
[2017-06-23] MEDS ORDERED: Azithromycin Inj 500 MG in Dextrose 5% 250 ML IV ONE (21:10)
[2017-06-23] MEDS ORDERED: Ondansetron 2 mg/mL 2 mL Inj IVPUSH PRN (21:35)
[2017-06-23] MEDS ORDERED: Alum-Mag Hydrox-Simeth 30 mL Suspension PO PRN ×2 (21:35→23:00)
[2017-06-23 22:13] VITALS: BP 135/86; PULSE 85; RESP 17; O2SAT 94
[2017-06-23 22:42] VITALS: BP 164/92; PULSE 83; RESP 18; O2SAT 98
[2017-06-23 22:45] VITALS: PULSE 86
[2017-06-23] MEDS ORDERED: Polyethylene Glycol (PEG) 17 Gm Powder PO PRN (23:00)
[2017-06-23] MEDS ORDERED: Glucose 40% Oral Gel 15 Gm Tube PO PRN (23:00)
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
[2017-06-23] MEDS ORDERED: Piperacillin-Tazo 3.375 Gm Inj 3.375 GM in Dextrose 5% Minibag Plus 50 ML IV ONE (23:20)
[2017-06-23] MEDS ORDERED: DOXY100C43 PO (23:21)
[2017-06-24] VITALS (9 sets, daily range): BP systolic 129–169; BP diastolic 83–98; PULSE 65–86; RESP 14–20; O2SAT 93–98
[2017-06-24] MEDS: Heparin 5,000 Unit/mL Inj SUBQ SCH ×3 (00:45→17:11)
[2017-06-24] MEDS: MetoCLOpramide 5 mg/mL 2 mL Inj IVPUSH PRN ×2 (01:58→10:18)
[2017-06-24] MEDS ORDERED: Nystatin 100,000 Unit/mL 5 mL Suspension PO PRN (02:45)
[2017-06-24 02:55] LABS: APPEARANCE,URINE HAZY (CLEAR,HAZY); COLOR,URINE YELLOW (YELLOW)
[2017-06-24 02:56] LABS: OCCULT BLOOD,URINE NEGATIVE (NEGATIVE); PH,URINE 5.5 (5.0-8.0); UROBILINOGEN,URINE NORMAL (NORMAL)
[2017-06-24] MEDS: Piperacillin-Tazo 3.375 Gm Inj 3.375 GM in Dextrose 5% Minibag Plus 50 ML IV SCH ×2 (04:15→12:00)
--- NOTE | 2017-06-24 05:19 | NUR ---
NOC admit Pt arrived on the floor alert and oriented. Reports of having chest pain, localized on the site of aicd implant. Morphine administered PRN. Also reports of feeling nauseated. Administered Reglan for control of nausea. IV ABx administered as ordered. Pt's VSS and has been afebrile overnight.
[2017-06-24] MEDS ORDERED: Albuterol 2.5 mg/3 mL Inhalation Solution NEB PRN (07:00)
[2017-06-24] MEDS: Ondansetron 2 mg/mL 2 mL Inj IVPUSH PRN (07:04)
[2017-06-24] MEDS: Insulin LISPRO 300 Unit/3 mL Inj SUBQ SCH ×4 (07:26→22:00)
[2017-06-24] MEDS: Pantoprazole 40 mg ER24 Tablet PO SCH (07:57)
--- NOTE | 2017-06-24 08:33 | NUR ---
agitated/refusing labs pt states that he has been poked "way too many times", and is now refusing labs. pt would like to have an explanation of why he has been poked so many times. This RN explained that sometimes orders change based on pt condition and that the docs need to order different tests based on what is changing.
[2017-06-24] MEDS: HYDROmorphone 1 mg/mL Inj IVPUSH PRN ×3 (10:12→19:57)
--- NOTE | 2017-06-24 14:32 | NUR ---
difficulty urinating pt is requesting that his Flomax be given now. He states that he is having difficulty urinating. paged
--- NOTE | 2017-06-24 16:14 | PCM.PNMED ---
Subjective Date of Service Jun 24, 2017 Subjective pt still has left sided chest pain, likely pleuritic in nature, worse with inhalation and exhalation CT chest reviewed with patient otherwise remained afebrile, SpO2 maintained >95% on RA Exam Vital Signs Vital Sign - Last Date Time Temp Pulse Resp B/P Pulse Ox O2 Delivery O2 Flow Rate FiO2 06/24/17 13:22 36.6 68 20 142/86 94 Room Air Intake and Output 06/23/17 06/23/17 06/24/17 Cumulative From/Thru 15:00 23:00 07:00 06/23/17 15:21 - 06/24/17 06:15 Intake Total 432 ml 432 ml Balance 432 ml 432 ml IV Total 432 ml 432 ml # Voids 1 1 Exam NAD, comfortably laying down on the bed no using accessory muscle, speaks in full sentences no JVD, MMM, no LAD RRR, nl s1, s2 no mrg bilateral rhonchi S,ND,NT,normoactive BS+ warm, no edema, pulses 2/2 IVs and Medications Medications Reviewed: Medications were reviewed in detail Lab and Diagnostics Result Diagram: 06/23/17 1608 06/24/17 0530 X-Rays, CTs and MRIs CT ANGIO CHEST PULMONARY EMBOLISM IMPRESSION: 1. No evidence for central pulmonary embolism. 2. New widespread asymmetric left lung interstitial and air space opacities, consistent with pneumonia. 3. 9 mm lateral right midlung nodule is unchanged since 2013, reassuring for benign etiology. 4. Right T4-T5 paraspinous soft tissue mass is also unchanged, most consistent with benign neurogenic tumor. Dictated by: Abdiaziz Weber M.D. on 06/23/2017 at 20:47 X-RAY CHEST ONE VIEW, PORTABLE IMPRESSION: 1. Decreased interstitial and groundglass infiltrates bilaterally, likely reflecting improved CHF or bilateral pneumonia. 2. Trace bilateral effusions. Dictated by: Yessenia Mills M.D. on 06/23/2017 at 16:22 Assessment & Plan Anton Carrington is a 61 year old man with past medical history significant for coronary artery disease with 2 MIs status post stent placement, paroxysmal atrial fibrillation, diabetes mellitus, hypertension, hyperlipidemia, probable benign schwannoma, recent development of ventricular tachycardia requiring AICD placement as well as chronic pain who presented to the [facility] emergency department today due to chest pain after being seen by his primary care provider. acute, active Chest pain, non-anginal, POA, pleuritic in nature, unclear etiology, probably not infectious, possibly from pleural infarc with previous PNA or psychosomatic given numerous ED visit with same complaints. Pt has minimal respiratory sx, CXR compared to 06/18 showed "improvement" of patch infiltrate on left lung field. CTA of chest ruled out PE, but showed extensive patchy infiltrate on left lung could represent recent previous pneumonia. On last hospitalization, pt was treated with ceftriaxone and azithromycin and d/bijal with doxycyclin for 7days. Respiratory PCR was negative of infection. PCT level almost unchanged from last hospitalization. Unlikely due to ACS as EKG unchanged, tropx2 negative. pt was started on zosyn for HCAP on admission. -will stop Zosyn today and monitor respiratory status -trend fever curve, WBC, PCT< -pain control with dilaudid prn for now, will d/c morphine opioid dependance with chronic narcotic habituation, pt required morphine 6mg iv q4h on admission -stop morphine and switch to home dose Oxycodone, chronic, stable, resolved, History of ventricular Tachycardia, s/p AICD placement on 06/16 by . no PNX or infectious complications post-op period. -Continue amiodarone. -Continue telemetry Hypertension, Resume home medication T4-T5 paraspinal mass, Thought to be benign. It is associated with lower back and leg pain. Continue to monitor clinically Chronic Pain. Pain management as above CAD- s/p stents. Continue home medications Atrial Fibrillation. Currently Sinus Rhythm, Continue rate control with Metoprolol and Amiodarone. Diabetes Mellitus Type 2, continue Sliding Scale Insulin, Hold Metformin, glc qac and qhs Hyperlipidemia, chronic , Continue home statin CODE STATUS: Full code dispo: Given stable clinical status, monitor 1-2days w/o abx, d/c to home VTE Prophylaxis: Sub-Q Heparin (Unfractionated) VTE Mechanical Devices: Venous Foot Pump Resuscitation Status: CPR: Attempt Resuscitation Time spent 35min Joe Shabazz MD Jun 24, 2017 15:52
--- NOTE | 2017-06-24 16:19 | NUR ---
uncontrolled pain pt is unhappy with what has been ordered for his pain control. He states that he has been told one thing and given something else. pt is requesting to speak with the MD about his pain control. paged.
--- NOTE | 2017-06-24 16:20 | NUR ---
Social Work: Attempted Assessment/Brief Note/Multidisciplinary Rounds DAP: Pt is a 61 y/o admitted (readmitted) for chest pain, pneumonia per H&P. Insurance is Medicare and [facility] Supplemental. PCP is Federica Rodriguez. SW attempted to see pt today. SW will see pt tomorrow to complete assessment. Pt discussed in rounds. Per rounds, pt admitted to rule out PE - CT negative for PE. Pt likely to discharge tomorrow. SW will continue to follow and attempt to assess pt again tomorrow. LILLIAN Thompson
[2017-06-25] VITALS (9 sets, daily range): BP systolic 112–155; BP diastolic 70–84; PULSE 60–68; RESP 14–22; O2SAT 92–98
[2017-06-25] MEDS: HYDROmorphone 1 mg/mL Inj IVPUSH PRN ×6 (03:55→21:49)
--- NOTE | 2017-06-25 06:30 | NUR ---
NOC Pain Pt reports of chest pain, and pain all over his body. Administered Dilaudid and oxycodone as needed. Pt upset with current pain control regimen. HS meds administered as scheduled. VSS and has been afebrile.
[2017-06-25 06:32] LABS: Magnesium 1.8 mg/dL (1.6-2.6)
[2017-06-25 06:43] LABS: BASOPHILS % (AUTO) 1.5 % (0-3); EOSINOPHILS % (AUTO) 8.3 % (0-5); MONOCYTES % (AUTO) 14.9 % (4-12); Mean Corpuscular Hemoglobin 24.4 pg (27.0-35.0); Mean Corpuscular Volume 77.5 fL (81-100); NEUTROPHILS % (AUTO) 52.9 % (40-74); Platelet Count 366 bil/L (150-400)
[2017-06-25] MEDS: Insulin LISPRO 300 Unit/3 mL Inj SUBQ SCH ×4 (08:00→21:38)
[2017-06-25] MEDS: Pantoprazole 40 mg ER24 Tablet PO SCH (08:13)
--- NOTE | 2017-06-25 08:45 | NUR ---
Social Work: Initial Assessment: Data: See initial assessment. Patient is a 61 y/o male that admitted on 06/23/17 with chest pain per H&P. Patient's insurance is Medicare and [facility] and PCP is Dr. Federica Rodriguez. SW met with pt at bedside, SW role explained. Pt is alert and oriented x3. Pt's readmission score is 5-high risk. Pt resides at home alone in a mobile home with three steps to enter, where he remains independent with ADLS. Pt does not use any DME and drives. Pt has no SNF or HH history. Pt has no care home care insurance or VA benefits. SW discussed DPOA/ advanced directive, pt denies any resources and has not completed this. Pt declines any SW needs and states he will drive himself home. Discharge planning checklist provided and encouraged pt to call with questions. Phone number placed on white board in room. No anticipated discharge needs. SW will continue to follow if needs arise. Assessment:pt who is independent at baseline. Plan: Pt to discharge home when medically stable via POV. No anticipated discharge needs. SW will continue to follow if needs arise. LILLIAN Proctor Addendum: 06/25/17 at 0847 by PEPE JANSEN Amended: Links added.
[2017-06-25] MEDS: Ketorolac 15 mg/mL Inj IVPUSH PRN (08:58)
[2017-06-25] MEDS: Heparin 5,000 Unit/mL Inj SUBQ SCH ×3 (08:58→16:07)
--- NOTE | 2017-06-25 10:45 | NUR ---
Social Work-multidisciplinary rounds: Per MD, pt will likely be here another 1-2 days. Pt to continue on IV medications. Per RN notes, pt has been up independent in his room. No SW needs identified. LILLIAN Proctor
--- NOTE | 2017-06-25 15:14 | NUR ---
Pain Frequently using Dilaudid 4mg IV every 3 hours. Patient states his pain is in left upper chest and describes it as 8/10. While describing pain patient is laying in bed watching without further symptoms of pain.
[2017-06-25] MEDS: Ondansetron 2 mg/mL 2 mL Inj IVPUSH PRN ×2 (16:05→20:39)
--- NOTE | 2017-06-25 17:16 | NUR ---
Pain/Nausea Pt c/o pain of 6/10 in L chest over incision site. Medicated w/ IV dilaudid as ordered. Shortly afterwards, pt reported increased pain of 8/10, medicated w/ oxycodone as ordered. No obvious s/s pain, pt resting in bed, watching TV. Pt also reported nausea and requested phenergan. Also requesting dinner and wanting snacks. Phenergan not ordered. Medicated w/ zofran and reglan as ordered. Pt currently up to bathroom independently, requesting prune juice. Addendum: 06/25/17 at 1906 by BHARGAV NASSAR RN Pt ate 100% of dinner. Requested more nausea meds, asking specifically for toradol. Explained that toradol is for pain. Pt then said he wanted pain meds. Medicated w/ dilaudid as ordered. No further requests for nausea meds.
[2017-06-25] MEDS: MetoCLOpramide 5 mg/mL 2 mL Inj IVPUSH PRN ×2 (17:25→22:56)
--- NOTE | 2017-06-25 19:09 | PCM.PNMED ---
Subjective Date of Service Jun 25, 2017 Subjective Patient notes continuing left-sided chest wall pain which is worse to palpation. Not worse with deep breath or movement. Exam Vital Signs Vital Sign - Last Date Time Temp Pulse Resp B/P Pulse Ox O2 Delivery O2 Flow Rate FiO2 06/25/17 17:34 36.7 65 22 123/81 95 Room Air Intake and Output 06/24/17 06/24/17 06/25/17 Cumulative From/Thru 15:00 23:00 07:00 06/23/17 15:21 - 06/25/17 06:39 Intake Total 1250 ml 1615 ml 756 ml 4053 ml Output Total 700 ml 775 ml 700 ml 2175 ml Balance 550 ml 840 ml 56 ml 1878 ml Intake Oral 1250 ml 1615 ml 700 ml 3565 ml IV Total 56 ml 488 ml Output Urine Total 700 ml 775 ml 700 ml 2175 ml # Voids 1 Exam Constitutional: Middle-aged male in moderate pain distress Head: Normocephalic/atraumatic Chest: Clear to auscultation, chest wall does reveal some edema without drainage over his left side where AICD was implanted recently and is tender to palpation. Cor: Regular rate and rhythm S1-S2 without murmur Abdomen: Soft nontender bowel sounds present Extremities: No pedal edema Neuro: Alert and oriented 3, motor strength is intact bilaterally Lab and Diagnostics Laboratory Tests 72 Hours Test 06/23/17 16:08 06/23/17 19:30 06/23/17 19:51 06/24/17 01:57 White Blood Count 7.9th/mm3 (3.8-10.1) Red Blood Count 4.51mil/mm3 (4.40-5.80) Hemoglobin 11.2g/dL (13.8-17.2) Hematocrit 34.1% (41.0-50.0) Mean Corpuscular Volume 75.6fL (81-100) Mean Corpuscular Hemoglobin 24.8pg (27.0-35.0) Mean Corpuscular Hemoglobin Concent 32.8% (32.0-37.0) Red Cell Distribution Width 16.1% (12.3-15.4) Platelet Count 510bil/L (150-400) Neutrophils (%) (Auto) 68.0% (40-74) Lymphocytes (%) (Auto) 12.8% (14-46) Monocytes (%) (Auto) 13.7% (4-12) Eosinophils (%) (Auto) 3.8% (0-5) Basophils (%) (Auto) 0.8% (0-3) Sodium Level 136mEq/L (134-144) Potassium Level 4.0mEq/L (3.5-5.2) Chloride Level 98mEq/L (97-108) Carbon Dioxide Level 22mmol/L (18-29) Blood Urea Nitrogen 14mg/dL (8-27) Creatinine 1.13mg/dL (0.76-1.27) Estimat Glomerular Filtration Rate 70mL/min (>59) Glucose Level 132mg/dL (60-99) Calcium Level 9.7mg/dL (8.5-10.1) Magnesium Level 2.0mg/dL (1.6-2.6) Total Bilirubin 0.2mg/dL (0.0-1.2) Aspartate Amino Transf (AST/SGOT) 14U/L (0-50) Alanine Aminotransferase (ALT/SGPT) 16U/L (0-44) Alkaline Phosphatase 89U/L (25-160) Troponin T < 0.010ug/L (0.0-0.011) < 0.010ug/L (0.0-0.011) Total Protein 7.7g/dL (6.4-8.4) Albumin 3.7g/dL (3.4-5.0) Hold Chapman Top Tube Received (Received) Received (Received) Procalcitonin 0.11ng/mL (0.00-0.08) Urine Color Dark yellow (YELLOW) Yellow (YELLOW) Urine Appearance Hazy (CLEAR,HAZY) Hazy (CLEAR,HAZY) Urine pH 5.5 (5.0-8.0) 5.5 (5.0-8.0) Urine Specific [place] 1.020 (1.003-1.035) 1.070 (1.003-1.035) Urine Protein 30mg/dL (NEG,TRACE) Negativemg/dL (NEG,TRACE) Urine Glucose (UA) Negativemg/dL (NEGATIVE) Negativemg/dL (NEGATIVE) Urine Ketones Negativemg/dL (NEGATIVE) Negativemg/dL (NEGATIVE) Urine Occult Blood Negative (NEGATIVE) Negative (NEGATIVE) Urine Nitrite Negative (NEGATIVE) Negative (NEGATIVE) Urine Bilirubin Negative (NEGATIVE) Negative (NEGATIVE) Urine Urobilinogen Normalmg/dL (NORMAL) Normalmg/dL (NORMAL) Urine Leukocyte Esterase Negative (NEGATIVE) Negative (NEGATIVE) Urine RBC 0-2/hpf (0-2) 0-2/hpf (0-2) Urine WBC 0-5/hpf (0-5) 0-5/hpf (0-5) Urine Epithelial Cells Occasional/hpf (NONE-MOD) Occasional/hpf (NONE-MOD) Urine Crystals None seen (NONE SEEN) Uric acid crystals (NONE Urine Bacteria Few/hpf (NONE-FEW) Few/hpf (NONE-FEW) Urine Hyaline Casts Occasional/lpf (NONE) None/lpf (NONE) Urine Granular Casts None seen (NONE SEEN) None seen (NONE SEEN) Urine Waxy Casts None seen (NONE SEEN) None seen (NONE SEEN) Urine Red Blood Cell Casts None seen (NONE SEEN) None seen (NONE SEEN) Urine White Blood Cell Casts None seen (NONE SEEN) None seen (NONE SEEN) Urine Mucus Present (None Seen) Present (None Seen) Urine Trichomonas None seen (NONE SEEN) None seen (NONE SEEN) Urine Yeast None (NONE SEEN) None (NONE SEEN) Urinalysis Comment None None Urine Culture Reflexed Not indicated Not indicated Test 06/24/17 02:15 06/24/17 05:30 06/25/17 05:35 Troponin T 0.010ug/L (0.0-0.011) 0.010ug/L (0.0-0.011) Sodium Level 139mEq/L (134-144) 140mEq/L (134-144) Potassium Level 4.4mEq/L (3.5-5.2) 4.3mEq/L (3.5-5.2) Chloride Level 101mEq/L (97-108) 103mEq/L (97-108) Carbon Dioxide Level 24mmol/L (18-29) 23mmol/L (18-29) Blood Urea Nitrogen 15mg/dL (8-27) 14mg/dL (8-27) Creatinine 1.18mg/dL (0.76-1.27) 0.92mg/dL (0.76-1.27) Estimat Glomerular Filtration Rate 67mL/min (>59) 89mL/min (>59) Glucose Level 105mg/dL (60-99) 132mg/dL (60-99) Calcium Level 9.4mg/dL (8.5-10.1) 9.2mg/dL (8.5-10.1) Total Bilirubin 0.2mg/dL (0.0-1.2) 0.2mg/dL (0.0-1.2) Aspartate Amino Transf (AST/SGOT) 12U/L (0-50) 13U/L (0-50) Alanine Aminotransferase (ALT/SGPT) 14U/L (0-44) 12U/L (0-44) Alkaline Phosphatase 85U/L (25-160) 82U/L (25-160) Total Protein 6.8g/dL (6.4-8.4) 6.3g/dL (6.4-8.4) Albumin 3.7g/dL (3.4-5.0) 3.5g/dL (3.4-5.0) White Blood Count 4.8th/mm3 (3.8-10.1) Red Blood Count 4.05mil/mm3 (4.40-5.80) Hemoglobin 9.9g/dL (13.8-17.2) Hematocrit 31.4% (41.0-50.0) Mean Corpuscular Volume 77.5fL (81-100) Mean Corpuscular Hemoglobin 24.4pg (27.0-35.0) Mean Corpuscular Hemoglobin Concent 31.5% (32.0-37.0) Red Cell Distribution Width 16.1% (12.3-15.4) Platelet Count 366bil/L (150-400) Neutrophils (%) (Auto) 52.9% (40-74) Lymphocytes (%) (Auto) 21.8% (14-46) Monocytes (%) (Auto) 14.9% (4-12) Eosinophils (%) (Auto) 8.3% (0-5) Basophils (%) (Auto) 1.5% (0-3) Phosphorus Level 4.0mg/dL (2.5-4.9) Magnesium Level 1.8mg/dL (1.6-2.6) Result Diagram: 06/25/17 0535 06/25/17 0535 X-Rays, CTs and MRIs CT ANGIO CHEST PULMONARY EMBOLISM IMPRESSION: 1. No evidence for central pulmonary embolism. 2. New widespread asymmetric left lung interstitial and air space opacities, consistent with pneumonia. 3. 9 mm lateral right midlung nodule is unchanged since 2013, reassuring for benign etiology. 4. Right T4-T5 paraspinous soft tissue mass is also unchanged, most consistent with benign neurogenic tumor. Dictated by: Abdiaziz Weber M.D. on 06/23/2017 at 20:47 X-RAY CHEST ONE VIEW, PORTABLE IMPRESSION: 1. Decreased interstitial and groundglass infiltrates bilaterally, likely reflecting improved CHF or bilateral pneumonia. 2. Trace bilateral effusions. Dictated by: Yessenia Mills M.D. on 06/23/2017 at 16:22 Assessment & Plan Anton Carrington is a 61 year old man with past medical history significant for coronary artery disease with 2 MIs status post stent placement, paroxysmal atrial fibrillation, diabetes mellitus, hypertension, hyperlipidemia, probable benign schwannoma, recent development of ventricular tachycardia requiring AICD placement as well as chronic pain who presented to the [facility] emergency department today due to chest pain after being seen by his primary care provider. acute, active Chest pain, non-anginal, POA, pleuritic in nature, unclear etiology, probably not infectious, possibly from pleural infarc with previous PNA or psychosomatic given numerous ED visit with same complaints. Pt has minimal respiratory sx, CXR compared to 06/18 showed "improvement" of patch infiltrate on left lung field. CTA of chest ruled out PE, but showed extensive patchy infiltrate on left lung could represent recent previous pneumonia. On last hospitalization, pt was treated with ceftriaxone and azithromycin and d/bijal with doxycyclin for 7days. Respiratory PCR was negative of infection. PCT level almost unchanged from last hospitalization. Unlikely due to ACS as EKG unchanged, tropx2 negative. pt was started on zosyn for HCAP on admission. -will stop Zosyn today and monitor respiratory status -trend fever curve, WBC, PCT< -Patient does not have adequate pain control will add IV ketorolac to the regimen IV Dilaudid when necessary and I will get him back on his usual oxycodone by mouth dosing from home chronic, stable, resolved, History of ventricular Tachycardia, s/p AICD placement on 06/16 by . no PNX or infectious complications post-op period. -Continue amiodarone. -Continue telemetry Hypertension, Resume home medication T4-T5 paraspinal mass, Thought to be benign. It is associated with lower back and leg pain. Continue to monitor clinically Chronic Pain. Pain management as above CAD- s/p stents. Continue home medications Atrial Fibrillation. Currently Sinus Rhythm, Continue rate control with Metoprolol and Amiodarone. Diabetes Mellitus Type 2, continue Sliding Scale Insulin, Hold Metformin, glc qac and qhs Hyperlipidemia, chronic , Continue home statin CODE STATUS: Full code dispo: Given stable clinical status, monitor 1-2days w/o abx, d/c to home VTE Prophylaxis: Sub-Q Heparin (Unfractionated) VTE Mechanical Devices: Venous Foot Pump Resuscitation Status: CPR: Attempt Resuscitation Time spent 30 minutes Anny Mcneal MD Jun 25, 2017 19:09
[2017-06-26] VITALS (10 sets, daily range): BP systolic 146–175; BP diastolic 89–104; PULSE 59–89; RESP 14–23; O2SAT 94–98
[2017-06-26] MEDS: HYDROmorphone 1 mg/mL Inj IVPUSH PRN ×8 (01:01→22:36)
[2017-06-26] MEDS: Heparin 5,000 Unit/mL Inj SUBQ SCH ×3 (01:01→16:31)
[2017-06-26] MEDS: Ondansetron 2 mg/mL 2 mL Inj IVPUSH PRN ×5 (01:49→22:36)
[2017-06-26] MEDS: MetoCLOpramide 5 mg/mL 2 mL Inj IVPUSH PRN ×3 (04:20→16:31)
--- NOTE | 2017-06-26 06:03 | NUR ---
Pain/Nausea Pt reporting consistent 8/10 pain to left pacemaker site and back. Medicating pt with 4 mg IV dilaudid Q3 hours per pt's request. Offering pt PO pain medication but pt declining, stating he was having constipation from them. Pt drinking prune juice, had BM X1 this shift. Pt reports "migraine" headache 10/10, medicating pt with PO tylenol, pt reports relief from headache after medication admin. Pt having intermittent nausea with dilaudid admin, pt vomited about 300mL emesis this shift, medicating pt with 8 mg IV zofran and IV reglan as needed.
[2017-06-26] MEDS: Pantoprazole 40 mg ER24 Tablet PO SCH (07:24)
[2017-06-26] MEDS: Insulin LISPRO 300 Unit/3 mL Inj SUBQ SCH ×4 (08:00→22:00)
--- NOTE | 2017-06-26 10:10 | NUR ---
Social Work: Multidisciplinary Rounds Pt discussed in rounds. MD states pt ready for d/c in 1-2 days likely. Pt to have cardiology consult. No d/c planning needs at this time. LILLIAN Bradley
[2017-06-26] MEDS: Ketorolac 15 mg/mL Inj IVPUSH PRN (10:38)
[2017-06-26] MEDS ORDERED: LORazepam 1 mg Tablet PO PRN (10:55)
--- NOTE | 2017-06-26 15:23 | NUR ---
spiritual care: followup conversational visit. pt reflective about medical condition, impact and his responses to recent events. Pt reflective about personal history as it pertains to his future hopes, and value system. Pt animated and energetic in conversation style; he repeatedly referred to his sense of fatigue and inhibition about physical movement because of his fears about his medical condition. conversation interrupted; will plan to follow as needed.
--- NOTE | 2017-06-26 18:03 | PCM.PNMED ---
Subjective Date of Service Jun 26, 2017 Subjective Patient notes his left-sided chest pain is a bit better. We also discussed that he was supposed to have an AICD check the believe today as an outpatient. Exam Vital Signs Vital Sign - Last Date Time Temp Pulse Resp B/P Pulse Ox O2 Delivery O2 Flow Rate FiO2 06/26/17 16:55 36.5 60 23 175/97 96 Room Air Intake and Output 06/25/17 06/25/17 06/26/17 Cumulative From/Thru 15:00 23:00 07:00 06/23/17 15:21 - 06/25/17 21:30 Intake Total 2544 ml 6597 ml Output Total 2175 ml Balance 2544 ml 4422 ml Intake Oral 2544 ml 6109 ml IV Total 488 ml Output Urine Total 2175 ml # Voids 5 6 Exam Constitutional: Middle-aged male in mild pain distress Head: Normocephalic atraumatic Chest: Clear to auscultation Cor: Regular rate and rhythm S1-S2. There is some decreased inflammation over the AICD insertion site no drainage Abdomen: Soft nontender bowel sounds present Extremities: No pedal edema Psych mood and affect appropriate Neuro: alert and oriented 3, motor strength is intact bilaterally Lab and Diagnostics Laboratory Tests 72 Hours Test 06/23/17 19:30 06/23/17 19:51 06/24/17 01:57 06/24/17 02:15 Troponin T < 0.010ug/L (0.0-0.011) 0.010ug/L (0.0-0.011) Procalcitonin 0.11ng/mL (0.00-0.08) Hold Chapman Top Tube Received (Received) Urine Color Dark yellow (YELLOW) Yellow (YELLOW) Urine Appearance Hazy (CLEAR,HAZY) Hazy (CLEAR,HAZY) Urine pH 5.5 (5.0-8.0) 5.5 (5.0-8.0) Urine Specific [place] 1.020 (1.003-1.035) 1.070 (1.003-1.035) Urine Protein 30mg/dL (NEG,TRACE) Negativemg/dL (NEG,TRACE) Urine Glucose (UA) Negativemg/dL (NEGATIVE) Negativemg/dL (NEGATIVE) Urine Ketones Negativemg/dL (NEGATIVE) Negativemg/dL (NEGATIVE) Urine Occult Blood Negative (NEGATIVE) Negative (NEGATIVE) Urine Nitrite Negative (NEGATIVE) Negative (NEGATIVE) Urine Bilirubin Negative (NEGATIVE) Negative (NEGATIVE) Urine Urobilinogen Normalmg/dL (NORMAL) Normalmg/dL (NORMAL) Urine Leukocyte Esterase Negative (NEGATIVE) Negative (NEGATIVE) Urine RBC 0-2/hpf (0-2) 0-2/hpf (0-2) Urine WBC 0-5/hpf (0-5) 0-5/hpf (0-5) Urine Epithelial Cells Occasional/hpf (NONE-MOD) Occasional/hpf (NONE-MOD) Urine Crystals None seen (NONE SEEN) Uric acid crystals (NONE Urine Bacteria Few/hpf (NONE-FEW) Few/hpf (NONE-FEW) Urine Hyaline Casts Occasional/lpf (NONE) None/lpf (NONE) Urine Granular Casts None seen (NONE SEEN) None seen (NONE SEEN) Urine Waxy Casts None seen (NONE SEEN) None seen (NONE SEEN) Urine Red Blood Cell Casts None seen (NONE SEEN) None seen (NONE SEEN) Urine White Blood Cell Casts None seen (NONE SEEN) None seen (NONE SEEN) Urine Mucus Present (None Seen) Present (None Seen) Urine Trichomonas None seen (NONE SEEN) None seen (NONE SEEN) Urine Yeast None (NONE SEEN) None (NONE SEEN) Urinalysis Comment None None Urine Culture Reflexed Not indicated Not indicated Test 06/24/17 05:30 06/25/17 05:35 Sodium Level 139mEq/L (134-144) 140mEq/L (134-144) Potassium Level 4.4mEq/L (3.5-5.2) 4.3mEq/L (3.5-5.2) Chloride Level 101mEq/L (97-108) 103mEq/L (97-108) Carbon Dioxide Level 24mmol/L (18-29) 23mmol/L (18-29) Blood Urea Nitrogen 15mg/dL (8-27) 14mg/dL (8-27) Creatinine 1.18mg/dL (0.76-1.27) 0.92mg/dL (0.76-1.27) Estimat Glomerular Filtration Rate 67mL/min (>59) 89mL/min (>59) Glucose Level 105mg/dL (60-99) 132mg/dL (60-99) Calcium Level 9.4mg/dL (8.5-10.1) 9.2mg/dL (8.5-10.1) Total Bilirubin 0.2mg/dL (0.0-1.2) 0.2mg/dL (0.0-1.2) Aspartate Amino Transf (AST/SGOT) 12U/L (0-50) 13U/L (0-50) Alanine Aminotransferase (ALT/SGPT) 14U/L (0-44) 12U/L (0-44) Alkaline Phosphatase 85U/L (25-160) 82U/L (25-160) Troponin T 0.010ug/L (0.0-0.011) Total Protein 6.8g/dL (6.4-8.4) 6.3g/dL (6.4-8.4) Albumin 3.7g/dL (3.4-5.0) 3.5g/dL (3.4-5.0) White Blood Count 4.8th/mm3 (3.8-10.1) Red Blood Count 4.05mil/mm3 (4.40-5.80) Hemoglobin 9.9g/dL (13.8-17.2) Hematocrit 31.4% (41.0-50.0) Mean Corpuscular Volume 77.5fL (81-100) Mean Corpuscular Hemoglobin 24.4pg (27.0-35.0) Mean Corpuscular Hemoglobin Concent 31.5% (32.0-37.0) Red Cell Distribution Width 16.1% (12.3-15.4) Platelet Count 366bil/L (150-400) Neutrophils (%) (Auto) 52.9% (40-74) Lymphocytes (%) (Auto) 21.8% (14-46) Monocytes (%) (Auto) 14.9% (4-12) Eosinophils (%) (Auto) 8.3% (0-5) Basophils (%) (Auto) 1.5% (0-3) Phosphorus Level 4.0mg/dL (2.5-4.9) Magnesium Level 1.8mg/dL (1.6-2.6) Result Diagram: 06/25/17 0535 06/25/17 0535 X-Rays, CTs and MRIs CT ANGIO CHEST PULMONARY EMBOLISM IMPRESSION: 1. No evidence for central pulmonary embolism. 2. New widespread asymmetric left lung interstitial and air space opacities, consistent with pneumonia. 3. 9 mm lateral right midlung nodule is unchanged since 2013, reassuring for benign etiology. 4. Right T4-T5 paraspinous soft tissue mass is also unchanged, most consistent with benign neurogenic tumor. Dictated by: Abdiaziz Weber M.D. on 06/23/2017 at 20:47 X-RAY CHEST ONE VIEW, PORTABLE IMPRESSION: 1. Decreased interstitial and groundglass infiltrates bilaterally, likely reflecting improved CHF or bilateral pneumonia. 2. Trace bilateral effusions. Dictated by: Yessenia Mills M.D. on 06/23/2017 at 16:22 Assessment & Plan Anton Carrington is a 61 year old man with past medical history significant for coronary artery disease with 2 MIs status post stent placement, paroxysmal atrial fibrillation, diabetes mellitus, hypertension, hyperlipidemia, probable benign schwannoma, recent development of ventricular tachycardia requiring AICD placement as well as chronic pain who presented to the [facility] emergency department today due to chest pain after being seen by his primary care provider. acute, active Chest pain, non-anginal, POA, pleuritic in nature, unclear etiology, probably not infectious, possibly from pleural infarc with previous PNA or psychosomatic given numerous ED visit with same complaints. Pt has minimal respiratory sx, CXR compared to 06/18 showed "improvement" of patch infiltrate on left lung field. CTA of chest ruled out PE, but showed extensive patchy infiltrate on left lung could represent recent previous pneumonia. On last hospitalization, pt was treated with ceftriaxone and azithromycin and d/bijal with doxycyclin for 7days. Respiratory PCR was negative of infection. PCT level almost unchanged from last hospitalization. Unlikely due to ACS as EKG unchanged, tropx2 negative. pt was started on zosyn for HCAP on admission. -will stop Zosyn today and monitor respiratory status -trend fever curve, WBC, PCT< -Patient has improved pain control will add IV ketorolac to the regimen IV Dilaudid when necessary and I will get him back on his usual oxycodone by mouth dosing from home -I talked to the cardiology office and they will be sending the PA for Dr. Kerr to look at the left AICD implantation site and possible check its functioning. chronic, stable, resolved, History of ventricular Tachycardia, s/p AICD placement on 06/16 by . no PNX or infectious complications post-op period. -Continue amiodarone. -Continue telemetry Hypertension, Resume home medication T4-T5 paraspinal mass, Thought to be benign. It is associated with lower back and leg pain. Continue to monitor clinically Chronic Pain. Pain management as above CAD- s/p stents. Continue home medications Atrial Fibrillation. Currently Sinus Rhythm, Continue rate control with Metoprolol and Amiodarone. Diabetes Mellitus Type 2, continue Sliding Scale Insulin, Hold Metformin, glc qac and qhs Hyperlipidemia, chronic , Continue home statin CODE STATUS: Full code dispo: Given stable clinical status, monitor 1-2days w/o abx, d/c to home VTE Prophylaxis: Sub-Q Heparin (Unfractionated) VTE Mechanical Devices: Venous Foot Pump Resuscitation Status: CPR: Attempt Resuscitation Time spent 30 minutes Anny Mcneal MD Jun 26, 2017 18:03
[2017-06-27] MEDS: Heparin 5,000 Unit/mL Inj SUBQ SCH ×3 (00:30→16:30)
[2017-06-27 01:24] VITALS: BP 174/101; PULSE 64; RESP 16; O2SAT 98
[2017-06-27] MEDS: MetoCLOpramide 5 mg/mL 2 mL Inj IVPUSH PRN (01:40)
[2017-06-27] MEDS: HYDROmorphone 1 mg/mL Inj IVPUSH PRN ×2 (01:41→04:44)
[2017-06-27 05:26] VITALS: BP 132/79; PULSE 70; RESP 18; O2SAT 94
--- NOTE | 2017-06-27 06:33 | NUR ---
Pain/Nausea Pt reporting consistent 8/10 pain to left pacemaker site and back. Medicating pt with 4 mg IV dilaudid Q3 hours per pt's request. Offering pt PO pain medication but pt declining admin. Pt having intermittent nausea administering IV zofran and IV reglan as needed. Call light within reach, using appropriately. Frequent rounding in place. Cooperative with care.
[2017-06-27] MEDS: Ketorolac 15 mg/mL Inj IVPUSH PRN (07:12)
[2017-06-27] MEDS: Pantoprazole 40 mg ER24 Tablet PO SCH (07:30)
[2017-06-27 08:00] VITALS: PULSE 65
[2017-06-27] MEDS: Insulin LISPRO 300 Unit/3 mL Inj SUBQ SCH ×4 (08:00→22:00)
--- NOTE | 2017-06-27 08:34 | NUR ---
Patient Care: Entered patients room 0830 patient stated that he did not want hospitalist and that he wanted to "deal with his pharmacy consultant without going through the hospitalist assigned to him". Patient was informed that hospital patients all have a hospitalist and the hospitalist would contact the pharmacy consultant for consultation of his care. Patient stated that he was not happy that his IV Dilaudid had been discontinued . Patient refused Roxicodone that had been ordered by the doctor for his pain. Patient stated that he "Did not want to deal with this nurse and that I yelled at him" . Patient refused his AM meds . Charge Nurse was called to talk with patient. Hospitalist was informed of patients feeling.
--- NOTE | 2017-06-27 10:22 | NUR ---
Patient care: Patient refused TRAFFIC PERSONNEL SUPERVISOR to check his vital signs at 1024. Patient refused second offer of his am meds at this time also. Respected patients wishes. Will continue to round hourly for patients needs. Hospitalist aware of patients refusal of care and meds, Charge nurse aware of situation also. Addendum: 06/27/17 at 1031 by SKY SIERRA RN Patient also refused patient assessment this morning. Addendum: 06/27/17 at 1110 by SKY SIERRA RN Patient refused Inspector Boiler to draw his blood 1045 and stated to the Inspector Boiler "come back at 4:30 this afternoon " per asphalt plant laborer report. was notified. Tone Cabinet Assembler was paged to request ICD check today.
--- NOTE | 2017-06-27 10:56 | NUR ---
Pt care Pt requested pain meds and "something for anxiety" during change of shift, this RN was called for assistance while primary RN receiving report. Per orders, gave Toradol and scheduled Zoloft which was given a little early, pt asked about PRN Dilaudid and at the time, pt had an hour before being eligble to receive another dose. Prior to pt being eligible for a dose of dilaudid, d/c'ed order, pt became mad and didn't want to see MD, also didn't want RN or BAG SHAKER. Pt c/o MD not seeing pt before d/c'ing Dilaudid, requested to see pt's linux developer. Pt believes that no one cares and that pt is being disrespected by all staff. made aware of situation, along with risk management. Pt has refused all care at this time. Will continue to monitor.
--- NOTE | 2017-06-27 11:05 | NUR ---
Social Work: Discharge Data: Pt is on day 4 of hospitalization. EMR reviewed, pt discussed in multidisciplinary rounds. MD states pt likely to d/c today. D/C orders are in. No d/c planning needs anticipated at this time. LAP RUNNER will continue to follow if needs arise. Assessment: Pt who is independent at baseline. Plan: Pt will d/c home via POV or taxi today. No d/c planning needs anticipated at this time. LAP RUNNER will continue to follow if needs arise. LILLIAN Bradley
--- NOTE | 2017-06-27 15:03 | NUR ---
received TC from Angélica at [facility], pt is appealing his DC. Advised UR RN and MULTIMEDIA AUTHORING SPECIALIST. Faxed clinicals to [facility] [phone].
--- NOTE | 2017-06-27 15:18 | PCM.PNMED ---
Subjective Date of Service Jun 27, 2017 Subjective Dilaudid stopped given fairly low suspicion for acute pathology and recurrent drug seeking behavior in the past VS, SPO2 remained stable off on Zosyn pt refused all of his oral medications including Oxycodone metoprolol awaits cardiology eval for AICD check today Patient refused to speak to me today Exam Vital Signs Vital Sign - Last Date Time Temp Pulse Resp B/P Pulse Ox O2 Delivery O2 Flow Rate FiO2 06/27/17 08:00 65 06/27/17 05:26 35.9 18 132/79 94 Room Air Intake and Output 06/26/17 06/26/17 06/27/17 Cumulative From/Thru 15:00 23:00 07:00 06/23/17 15:21 - 06/26/17 20:30 Intake Total 770 ml 1200 ml 8567 ml Output Total 125 ml 575 ml 2875 ml Balance 645 ml 625 ml 5692 ml Intake Oral 770 ml 1200 ml 8079 ml IV Total 488 ml Output Urine Total 125 ml 575 ml 2875 ml # Voids 4 4 14 Exam Patient refused to talk to me unable to do examination IVs and Medications Medications Reviewed: Medications were reviewed in detail Lab and Diagnostics Result Diagram: 06/25/17 0535 06/25/17 0535 X-Rays, CTs and MRIs CT ANGIO CHEST PULMONARY EMBOLISM IMPRESSION: 1. No evidence for central pulmonary embolism. 2. New widespread asymmetric left lung interstitial and air space opacities, consistent with pneumonia. 3. 9 mm lateral right midlung nodule is unchanged since 2013, reassuring for benign etiology. 4. Right T4-T5 paraspinous soft tissue mass is also unchanged, most consistent with benign neurogenic tumor. Dictated by: Abdiaziz Weber M.D. on 06/23/2017 at 20:47 X-RAY CHEST ONE VIEW, PORTABLE IMPRESSION: 1. Decreased interstitial and groundglass infiltrates bilaterally, likely reflecting improved CHF or bilateral pneumonia. 2. Trace bilateral effusions. Dictated by: Yessenia Mills M.D. on 06/23/2017 at 16:22 Assessment & Plan Anton Carrington is a 61 year old man with past medical history significant for coronary artery disease with 2 MIs status post stent placement, paroxysmal atrial fibrillation, diabetes mellitus, hypertension, hyperlipidemia, probable benign schwannoma, recent development of ventricular tachycardia requiring AICD placement as well as chronic pain who presented to the [facility] emergency department today due to chest pain after being seen by his primary care provider. acute, active Chest pain, non-anginal, POA, pleuritic in nature, possibly related to recent would from AICD placement and/or psychosomatic, drug seeking. Initially it was suspected that it was from pleural infarction with previous or current active PNA. However, Pt showed minimal respiratory sx, CXR compared to 06/18 showed rather "improvement" of patch infiltrate on left lung field. CTA of chest ruled out PE, but showed extensive patchy infiltrate on left lung could represent recent previous pneumonia. On last hospitalization, pt was treated with ceftriaxone and azithromycin and d/bijal with doxycyclin for 7days. Respiratory PCR was negative of infection. PCT level almost unchanged from last hospitalization. Unlikely due to ACS as EKG unchanged, tropx2 negative. pt was started on zosyn for HCAP on admission. then stopped Zosyn 06/24 HD#2. pt remained respiratory status stable. -pain control only with Oxycodone home dose, -no iv narcotics -awaits cardiology eval for AICD check, d/c after evaluation. no evaluation as of yet this afternoon. chronic, stable, resolved, History of ventricular Tachycardia, s/p AICD placement on 06/16 by . no PNX or infectious complications post-op period. -Continue amiodarone. -Continue telemetry Hypertension, Resume home medication T4-T5 paraspinal mass, Thought to be benign. It is associated with lower back and leg pain. Continue to monitor clinically Chronic Pain. Pain management as above CAD- s/p stents. Continue home medications Atrial Fibrillation. Currently Sinus Rhythm, Continue rate control with Metoprolol and Amiodarone. Diabetes Mellitus Type 2, continue Sliding Scale Insulin, Hold Metformin, glc qac and qhs Hyperlipidemia, chronic , Continue home statin CODE STATUS: Full code dispo: d/c home likely tomorrow VTE Prophylaxis: Sub-Q Heparin (Unfractionated) VTE Mechanical Devices: Venous Foot Pump Resuscitation Status: CPR: Attempt Resuscitation Time spent 35min Joe Shabazz MD Jun 27, 2017 15:18
--- NOTE | 2017-06-27 15:58 | CONS ---
[address] [address] CONSULTATION REPORT PATIENT: HANNA QUINTERO : 1955 MR#: [id number] ADMIT: 06/23/2017 JOB ID: [id number] CARDIOLOGY CONSULTATION: DATE OF SERVICE: 06/27/2017 REASON FOR CONSULTATION: I was asked by Dr. Shabazz to see the patient briefly regarding his ICD site. SUBJECTIVE: The patient has continued to have moderate soreness in the area surrounding his ICD implant which was done for intermittent probable symptomatic ventricular tachycardia related to ischemic heart disease, performed on June [address] Kerr. There was concern the device area might be a little bit swollen and because of the persistent discomfort, thought it should be checked. Also reportedly he had an appointment in our office today for an ICD check, but of course is in the hospital and was not able to follow up. OBJECTIVE: On exam today, the patient is somewhat irritable, having had to wake up for my brief exam. He states that the discomfort has been persistent since the device was implanted 10 days ago. There is no redness or obvious swelling. There is fairly mild tenderness around the site but overall the site looks quite healthy and normal for 10 days postop. This gentleman has not had a fever. LABORATORY DATA: Lab work is noted for moderate anemia but no evidence of leukocytosis. IMPRESSION: Normal-appearing implantable cardioverter-defibrillator, 10 days postop. When this patient is ready to be discharged home, please reschedule Device Clinic visit for device interrogation and repeat evaluation of the implantable cardioverter-defibrillator site. This should be within a week or 10 days of his hospital discharge. Please contact me if you have any other questions.
--- NOTE | 2017-06-27 16:09 | NUR ---
spiritual care: follow up requested to enter room for follow up conversation. Pt said he did not feel good/up to conversation. Agreeable for brief blessing/prayer. Pt participated in prayer.
--- NOTE | 2017-06-27 17:10 | PCM.DIMED ---
Discharge Instructions Date of Service Jun 27, 2017 Dates of Hospitalization Jun 23, 2017 at 21:47 Discharge Diagnosis Discharge Diagnosis Chest pain, unclear etiologies, likely psychosomatic Medication Instructions Additional med instructions Please continue your regular Oxycodone for chest pain, Diet Discharge Diet: No restrictions Activity Discharge Activity: No restrictions Call your provider Call your provider for: Chest pain Patient Instructions Patient Instructions You were hospitalized with chest pain, concerning given recently placed AICD and recently treated PNA. Multiple studies and examinations showed that this pain is not related to your heart or pneumonia, also unlikely related to recent AICD device. Please note that you are asked to follow up in Device clinic in 7-10 days for device interrogation and repeat evaluation of the implantable cardioverter- defibrillator site. Follow-up Provider: Matthew Kerr MD Follow-up with PCP in: 1 week Joe Shabazz MD Jun 27, 2017 17:10
--- NOTE | 2017-06-27 18:39 | NUR ---
Patient care: Hourly rounding continued for patient throughout the day. patient refused all of his medications, refused blood sugar checks, refused vital signs, refused meals (he did not want to order food or have assistance to order food). Patient refused all offers to receive prn pain meds and or anxiety meds. He refused all offers of assistance from nursing staff and BUSINESS SERVICES SALES REPRESENTATIVE. Patient has slept for much of the day . Will continue to check on patient hourly and meet his needs at his request as needed.
[2017-06-27] MEDS: Ondansetron 2 mg/mL 2 mL Inj IVPUSH PRN (21:00)
[2017-06-27 22:00] VITALS: BP 158/77; PULSE 75; RESP 20; O2SAT 97
[2017-06-28] MEDS: Heparin 5,000 Unit/mL Inj SUBQ SCH ×3 (00:08→17:35)
--- NOTE | 2017-06-28 01:38 | NUR ---
PT. REFUSED TO TRANSFER Pt. woke up and put his call light on. The MACHINE WELDER answered the call light and the patient said he needed new linen. At this time the patient was informed that he needed to transfer to [facility] because he was stable and we needed the bed for ER admits. Pt. primary nurse in to explain what the plan was. Pt. then asked to speak to the charge nurse. This RN went in. Pt. starts off by saying that he was woken up, his linens taken from him and he was told that he was being discharged to downstairs in the [place]. This RN stated that we were changing his linens per request, explained the fact that we needed the bed for an ER admit. Explained that he was being transferred to the medical observation unit (MOC) because he was the most stable on the floor and had had discharge orders. His primary RN had just explained this. Explained that the floor was a different floor in the hospital with nursing staff and a room. I apologized and stated that we don't like to change rooms especially during the night but that the ER was busy. At this point the patient appeared to start recording me with his cellphone. I stated that he was not allowed to record me. I stated that if he refused to transfer he would just stay in his current room, we were not discharging him. I left the room and called the private household worker. Cristy RN up to speak to patient.
[2017-06-28] MEDS: Ondansetron 2 mg/mL 2 mL Inj IVPUSH PRN (01:51)
[2017-06-28 05:33] VITALS: PULSE 73
--- NOTE | 2017-06-28 06:28 | NUR ---
Behavior At start of shift patient refusing all care including medications. Later patient cooperative with medications and one set of vital signs but not very interactive with RN during assessment. RN informed that patient needed to be transferred off unit to meet the demands of patients in ED who were acutely ill and since patient had discharge orders he was stable enough per MD to move to our observation unit to continue care. Patient had placed his call light on just after RN was informed of the need to transfer patient. Patient requesting a linen change which PROMOTIONS INTERN was actively doing. Linen was removed from bed per patient request but was not immediately remade due to plans to transfer patient via wheel chair. Plan to move patient to another unit with continue nursing care explained but patient refused stating he would like to speak with someone in charge. Charge nurse notified and she spoke with patient with this RN present. Patient then proceeded to tell charge nurse that we took his linen and had told him we were going to discharge him to the [facility]. Patient noted to be recording part of conversation without consent from either negative assembler or myself and asked to not record us. Patient once again explained that he would be transferred to another unit with nursing care and not to the [facility] and that his bedding was removed per his request but not immediately replaced due to the planned transfer. He then requested to speak to the hospital order department supervisor who again explained the situation to him and asked for his permission to transfer which the patient declined. Bed was remade during this time and patients needs addressed. Patient reassured that there would not be any interruption in his care and his needs would continue to be met. Nausea and pain medications administered afterwards and PO intake provided per patient request.
[2017-06-28] MEDS: Insulin LISPRO 300 Unit/3 mL Inj SUBQ SCH ×3 (08:00→17:39)
[2017-06-28] MEDS: Pantoprazole 40 mg ER24 Tablet PO SCH (09:15)
[2017-06-28 09:36] VITALS: PULSE 70
--- NOTE | 2017-06-28 10:39 | NUR ---
Behavior Pt refused morning blood sugar but took all morning RX. Pt then refused 1030 vital signs. Pt also requested a new doctor that would give him "4mg of Dilaudid in the IV every 2-3 hours for my incision pain and back pain." Pt stated that oxycodone was not adequate for his pain mgmt. notified of pts request.
--- NOTE | 2017-06-28 11:46 | NUR ---
Behavior Upon pts request, this RN met with him this morning. He indicates that he is very unhappy, and does not want "that nurse from yesterday, that Dr Shabazz, or the little [place] girl-the aid. And I don't want Dr Sifuentes, or whatever his name is. They were going to discharge me out of the clear blue yesterday, and they took away my Dilaudid. I have had a pacemaker placed and I have pneumonia! I was in tears and went into withdrawals last night! I won't talk to that Dr Shabazz, if he comes in here I'll go to nursing home today!" Assured pt that the nursing assignment was different today, the SECURITY MANAGER assignment could be changed, and this RN would put in a request to change hospitalists. Pt thanks this RN for listening and time. Dr Shabazz, melt house supervisor, and primary Rn notified.
[2017-06-28 12:45] VITALS: BP 120/76; PULSE 69; RESP 18; O2SAT 99
--- NOTE | 2017-06-28 13:17 | PCM.PNMED ---
Subjective Date of Service Jun 28, 2017 Subjective pt refused to see me, refused examination. pt was cleared from cardiology yesterday d/c ordered active Exam Vital Signs Vital Sign - Last Date Time Temp Pulse Resp B/P Pulse Ox O2 Delivery O2 Flow Rate FiO2 06/28/17 12:45 36.4 69 18 120/76 99 Room Air Intake and Output 06/27/17 06/27/17 06/28/17 Cumulative From/Thru 14:59 22:59 06:59 06/23/17 15:21 - 06/28/17 06:56 Intake Total 3669 ml 650 ml 400 ml 15492 ml Output Total 2875 ml Balance 3669 ml 650 ml 400 ml 33707 ml Intake Oral 3669 ml 650 ml 400 ml 16527 ml IV Total 0 ml 488 ml Output Urine Total 2875 ml # Voids 8 2 3 27 Exam pt refused to see me, refused examination. Lab and Diagnostics Result Diagram: 06/25/17 0535 06/25/17 0535 X-Rays, CTs and MRIs CT ANGIO CHEST PULMONARY EMBOLISM IMPRESSION: 1. No evidence for central pulmonary embolism. 2. New widespread asymmetric left lung interstitial and air space opacities, consistent with pneumonia. 3. 9 mm lateral right midlung nodule is unchanged since 2013, reassuring for benign etiology. 4. Right T4-T5 paraspinous soft tissue mass is also unchanged, most consistent with benign neurogenic tumor. Dictated by: Abdiaziz Weber M.D. on 06/23/2017 at 20:47 X-RAY CHEST ONE VIEW, PORTABLE IMPRESSION: 1. Decreased interstitial and groundglass infiltrates bilaterally, likely reflecting improved CHF or bilateral pneumonia. 2. Trace bilateral effusions. Dictated by: Yessenia Mills M.D. on 06/23/2017 at 16:22 Assessment & Plan Anton Carrington is a 61 year old man with past medical history significant for coronary artery disease with 2 MIs status post stent placement, paroxysmal atrial fibrillation, diabetes mellitus, hypertension, hyperlipidemia, probable benign schwannoma, recent development of ventricular tachycardia requiring AICD placement as well as chronic pain who presented to the [facility] emergency department today due to chest pain after being seen by his primary care provider. acute, active Chest pain, non-anginal, POA, pleuritic in nature, possibly related to recent would from AICD placement and/or psychosomatic, drug seeking. Initially it was suspected that it was from pleural infarction with previous or current active PNA. However, Pt showed minimal respiratory sx, CXR compared to 06/18 showed rather "improvement" of patch infiltrate on left lung field. CTA of chest ruled out PE, but showed extensive patchy infiltrate on left lung could represent recent previous pneumonia. On last hospitalization, pt was treated with ceftriaxone and azithromycin and d/bijal with doxycyclin for 7days. Respiratory PCR was negative of infection. PCT level almost unchanged from last hospitalization. Unlikely due to ACS as EKG unchanged, tropx2 negative. pt was started on zosyn for HCAP on admission. then stopped Zosyn 06/24 HD#2. pt remained respiratory status stable. Cardiogy was consulted given recent AICD placement, exam was unremarkable, recommended outpt follow up with Device clinic. -pain control only with Oxycodone home dose, -no iv narcotics chronic, stable, resolved, History of ventricular Tachycardia, s/p AICD placement on 06/16 by . no PNX or infectious complications post-op period. -Continue amiodarone. -Continue telemetry Hypertension, Resume home medication T4-T5 paraspinal mass, Thought to be benign. It is associated with lower back and leg pain. Continue to monitor clinically Chronic Pain. Pain management as above CAD- s/p stents. Continue home medications Atrial Fibrillation. Currently Sinus Rhythm, Continue rate control with Metoprolol and Amiodarone. Diabetes Mellitus Type 2, continue Sliding Scale Insulin, Hold Metformin, glc qac and qhs Hyperlipidemia, chronic , Continue home statin CODE STATUS: Full code dispo: patient is medical stable for d/c at anytime VTE Prophylaxis: Sub-Q Heparin (Unfractionated) VTE Mechanical Devices: Venous Foot Pump Resuscitation Status: CPR: Attempt Resuscitation Time spent 35min Joe Shabazz MD Jun 28, 2017 13:17
--- NOTE | 2017-06-28 13:40 | NUR ---
Case Management: Appeal of discharge determination D: [facility] appeal process completed, [facility] has determined that pt is ready for discharge. Liability begins on 06/29/17 at noon. I spoke with [facility] to verify that pt had been notified. Per Cooper, message was left at number pt provided. I went to pt's room to make sure pt was aware of [facility]'s determination. Per him, he was not contacted. I advised him to call [facility] so they could give him the determination. I offered to provide him the phone number for [facility] if he no longer had it. Mr Carrington denied wanting phone number, refused to call [facility]. Mr Carrington refused to sign HINN which was explained to him. Copy was provided to him. Entire conversation was witnessed by Kaylene SNYDER who was in room. Mr Carrington is aware that his financial responsibility begins at noon on 06/29/17.
--- NOTE | 2017-06-28 14:20 | NUR ---
Social Work-readiness for discharge: data:EMR reviewed. Pt is on day 5 of hospitalization for chest pain per H&P. Pt's appeal came back in favor with the hospital, pt has until 1200 tomorrow to discharge. Pt has been updated of this information. Pt plans to return home at discharge. No discharge needs identified. SW will continue to follow if needs arise. Assessment:Pt who is independent at baseline. Plan:Pt to discharge home. Pt's appeal came back in favor of the hospital, pt has until 1200 tomorrow to discharge or pt will be responsible for the bill. No discharge needs identified. SW will continue to follow if needs arise. LILLIAN Proctor
--- NOTE | 2017-06-28 21:58 | NUR ---
Exited Facility Patient exited facility without notifying nursing. When this RN was notified by CELL MAKER that patient had went off unit with his belongings patient was no longer on the third floor. Security notified and this RN attempted to locate patient to at least review his discharge instructions and followup care but patient had exited the property and could not be located. Telemetry and IV intact on floor which patient had discontinued himself. Patient alert and oriented and able to leave under his own will. Analysis Specialist notified of patient departure from facility to determine if followup phone call is needed.
--- NOTE | 2017-06-29 16:42 | PCM.DC.MED ---
Discharge Summary Date of Service Jun 28, 2017 Dates of Hospitalization Date of Hospital Admission Jun 23, 2017 at 21:47 Date of Discharge: Jun 28, 2017 Providers: Admitting Physician: Leigh Jiang DO Primary Care Physician: Federica Rodriguez DO Attending Physician: Joe Shabazz MD Diagnosis at Time of Discharge Diagnosis at Time of Discharge acute dx chronic opiate dependence Chest pain, likely psychosomatic or malingering chronic dx History of ventricular Tachycardia, s/p AICD placement on 06/16 by . Hypertension T4-T5 paraspinal mass, Chronic Pain. CAD- s/p stents. Atrial Fibrillation. Diabetes Mellitus Type 2, Hyperlipidemia, Procedures XRay, CTs & MRIs CT ANGIO CHEST PULMONARY EMBOLISM IMPRESSION: 1. No evidence for central pulmonary embolism. 2. New widespread asymmetric left lung interstitial and air space opacities, consistent with pneumonia. 3. 9 mm lateral right midlung nodule is unchanged since 2013, reassuring for benign etiology. 4. Right T4-T5 paraspinous soft tissue mass is also unchanged, most consistent with benign neurogenic tumor. Dictated by: Abdiaziz Weber M.D. on 06/23/2017 at 20:47 X-RAY CHEST ONE VIEW, PORTABLE IMPRESSION: 1. Decreased interstitial and groundglass infiltrates bilaterally, likely reflecting improved CHF or bilateral pneumonia. 2. Trace bilateral effusions. Dictated by: Yessenia Mills M.D. on 06/23/2017 at 16:22 Brief History HPI obtained bu on 06/23 Anton Carrington is a 61 year old man with past medical history significant for coronary artery disease with 2 MIs status post stent placement, paroxysmal atrial fibrillation, diabetes mellitus, hypertension, hyperlipidemia, probable benign schwannoma, recent development of ventricular tachycardia requiring AICD placement as well as chronic pain who presented to the [facility] emergency department today due to chest pain after being seen by his primary care provider. Patient was just discharged from the hospital on 06/17/2017 and was concerned that his continuing chest pain was due to cardiac issues. Patient notes nausea, intermittent vomiting, diffuse abdominal pain that is worse in the epigastrium, cough, chills. He denies any fevers. He states that his chest pain is in the left chest and feels like a localized sharp stabbing sensation in his been ongoing since his pacemaker replacement. He denies pain with palpation. He denies any worsening pain with movement or deep inspiration. He has noted some lower extremity edema but this has been improved with some duiretics. Patient was on doxycycline for pacemaker placement. In the emergency department his vital signs are stable. Dr. Kerr was contacted by the ED physician who recommended patient be admitted for a pulmonary embolism rule out and to control his chest pain. He has agreed to consult tomorrow. CT angiogram of chest did not reveal any pulmonary embolism but did note some infiltrates in the left lung. Patient was given ceftriaxone and azithromycin, Zofran, 1 L normal saline, 1.5 mg of Dilaudid. Hospital Course Anton Carrington is a 61 year old man with past medical history significant for coronary artery disease with 2 MIs status post stent placement, paroxysmal atrial fibrillation, diabetes mellitus, hypertension, hyperlipidemia, probable benign schwannoma, recent development of ventricular tachycardia requiring AICD placement as well as chronic pain who presented to the [facility] emergency department today due to chest pain after being seen by his primary care provider. acute dx Chest pain, non-anginal, POA, pleuritic in nature, initially it was possibly related to recent wound from AICD placement and/or from pleural infarction with previous or current active PNA. However, Pt showed minimal respiratory sx, CXR compared to 06/18 showed rather "improvement" of patch infiltrate on left lung field. CTA of chest ruled out PE, but showed extensive patchy infiltrate on left lung could represent recent previous pneumonia. On last hospitalization, pt was treated with ceftriaxone and azithromycin and d/bijal with doxycyclin for 7days. Respiratory PCR was negative of infection. PCT level almost unchanged from last hospitalization. It was unlikely due to ACS as EKG unchanged, tropx2 negative. pt was started on zosyn for HCAP on admission. then stopped Zosyn HD#2. pt remained respiratory status stable afterwards. Follow up PCT was very unremarkable. Cardiology was consulted given recent AICD placement, exam was unremarkable, recommended outpt follow up with Device clinic. Patient was clearly showing drug-seeking behavior, refused examination and evaluation for several days as opioids being stopped. pt left hospital AGAINST MEDICAL ADVICE on 06/28. chronic dx History of ventricular Tachycardia, s/p AICD placement on 06/16 by . no PNX or infectious complications post-op period. pt was encouraged to Follow-up in device clinic as noted above Hypertension, Resume home medication T4-T5 paraspinal mass, Thought to be benign. It is associated with lower back and leg pain. Continue to monitor clinically Chronic Pain. Pain management as above CAD- s/p stents. Continue home medications Atrial Fibrillation. Currently Sinus Rhythm, Continue rate control with Metoprolol and Amiodarone. Diabetes Mellitus Type 2, continue Sliding Scale Insulin, Hold Metformin, glc qac and qhs Hyperlipidemia, chronic , Continue home statin Exam Vital Signs (Last) Date Time Temp Pulse Resp B/P Pulse Ox O2 Delivery O2 Flow Rate FiO2 06/28/17 12:45 36.4 69 18 120/76 99 Room Air Exam Patient AMAed Test 06/23/17 19:30 06/24/17 01:57 06/24/17 05:30 06/25/17 05:35 Hold Chapman Top Tube Received (Received) Urine Color Yellow (YELLOW) Urine Appearance Hazy (CLEAR,HAZY) Urine pH 5.5 (5.0-8.0) Urine Specific [place] 1.070 (1.003-1.035) Urine Protein Negativemg/dL (NEG,TRACE) Urine Glucose (UA) Negativemg/dL (NEGATIVE) Urine Ketones Negativemg/dL (NEGATIVE) Urine Occult Blood Negative (NEGATIVE) Urine Nitrite Negative (NEGATIVE) Urine Bilirubin Negative (NEGATIVE) Urine Urobilinogen Normalmg/dL (NORMAL) Urine Leukocyte Esterase Negative (NEGATIVE) Urine RBC 0-2/hpf (0-2) Urine WBC 0-5/hpf (0-5) Urine Epithelial Cells Occasional/hpf (NONE-MOD) Urine Crystals Uric acid crystals (NONE Urine Bacteria Few/hpf (NONE-FEW) Urine Hyaline Casts None/lpf (NONE) Urine Granular Casts None seen (NONE SEEN) Urine Waxy Casts None seen (NONE SEEN) Urine Red Blood Cell Casts None seen (NONE SEEN) Urine White Blood Cell Casts None seen (NONE SEEN) Urine Mucus Present (None Seen) Urine Trichomonas None seen (NONE SEEN) Urine Yeast None (NONE SEEN) Urinalysis Comment None Urine Culture Reflexed Not indicated Troponin T 0.010ug/L (0.0-0.011) White Blood Count 4.8th/mm3 (3.8-10.1) Red Blood Count 4.05mil/mm3 (4.40-5.80) Hemoglobin 9.9g/dL (13.8-17.2) Hematocrit 31.4% (41.0-50.0) Mean Corpuscular Volume 77.5fL (81-100) Mean Corpuscular Hemoglobin 24.4pg (27.0-35.0) Mean Corpuscular Hemoglobin Concent 31.5% (32.0-37.0) Red Cell Distribution Width 16.1% (12.3-15.4) Platelet Count 366bil/L (150-400) Neutrophils (%) (Auto) 52.9% (40-74) Lymphocytes (%) (Auto) 21.8% (14-46) Monocytes (%) (Auto) 14.9% (4-12) Eosinophils (%) (Auto) 8.3% (0-5) Basophils (%) (Auto) 1.5% (0-3) Sodium Level 140mEq/L (134-144) Potassium Level 4.3mEq/L (3.5-5.2) Chloride Level 103mEq/L (97-108) Carbon Dioxide Level 23mmol/L (18-29) Blood Urea Nitrogen 14mg/dL (8-27) Creatinine 0.92mg/dL (0.76-1.27) Estimat Glomerular Filtration Rate 89mL/min (>59) Glucose Level 132mg/dL (60-99) Calcium Level 9.2mg/dL (8.5-10.1) Phosphorus Level 4.0mg/dL (2.5-4.9) Magnesium Level 1.8mg/dL (1.6-2.6) Total Bilirubin 0.2mg/dL (0.0-1.2) Aspartate Amino Transf (AST/SGOT) 13U/L (0-50) Alanine Aminotransferase (ALT/SGPT) 12U/L (0-44) Alkaline Phosphatase 82U/L (25-160) Total Protein 6.3g/dL (6.4-8.4) Albumin 3.5g/dL (3.4-5.0) Procalcitonin 0.06ng/mL (0.00-0.08) Discharge Medications Discharge Medications Amiodarone (Amiodarone) 200 Mg Tablet 200 MG PO BID Prescribed by: SANTINO YE MD Amlodipine (Amlodipine) 5 Mg Tablet 10 MG PO DAILY Prescribed by: ALVAREZ BARAHONA DO Atorvastatin Calcium (Atorvastatin Calcium) 40 Mg Tablet 40 MG PO HS (Reported) Doxycycline Hyclate (Doxycycline Hyclate) 100 Mg Tablet 100 MG PO BID Prescribed by: SANTINO YE MD Furosemide (Furosemide) 20 Mg Tab 20 MG PO QAM (Reported) Magnesium Oxide (Magnesium Oxide) 400 Mg Tablet 400 MG PO QAM (Reported) Metformin (Glucophage) 1,000 Mg Tablet 1,000 MG PO DAILYWM (Reported) Metoprolol Tartrate (Metoprolol Tartrate) 100 Mg Tablet 100 MG PO BID (Reported ) Pantoprazole DR (Pantoprazole DR) 40 Mg Tablet.dr 40 MG PO QAM (Reported) Polyethylene Glycol 3350 (Miralax) 17 Gm Powd.pack 17 GM PO DAILY Prescribed by: SANTINO YE MD Potassium Chloride ER (Potassium Chloride ER) 10 Meq Tablet 10 MEQ PO DAILYWM ( Reported) TAKE WITH FOOD Sertraline HCl (Sertraline) 100 Mg Tablet 100 MG PO QAM (Reported) Tamsulosin ER (Tamsulosin ER) 0.4 Mg Cap.er.24h 0.4 MG PO HS (Reported) Terazosin (Terazosin) 5 Mg Capsule 5 MG PO HS (Reported) As needed Albuterol HFA (Proair HFA) 8.5 Gm Hfa.aer.ad 2 PUFFS INHALATION Q4H PRN PRN For Shortness of Breath (Reported) Nystatin (Nystatin) 100,000 Unit/1 Ml Oral.susp 5 ML PO QID PRN PRN ORAL THRUSH (Reported) Ondansetron (Ondansetron) 4 Mg Tablet 4 MG PO Q8H PRN PRN For Nausea/Vomiting ( Reported) Oxycodone (Roxicodone) 5 Mg Tablet 10 MG PO Q4H PRN PRN For Pain (Reported) NTE 5 DOSES/24 HRS. PT IS ON A PAIN CONTRACT. Additional med instructions Please continue your regular Oxycodone for chest pain, Followup Plan Disposition: Patient left hospital AGAINST MEDICAL ADVICE Discharge Diet: No restrictions Discharge Activity: No restrictions Patient Instructions You were hospitalized with chest pain, concerning given recently placed AICD and recently treated PNA. Multiple studies and examinations showed that this pain is not related to your heart or pneumonia, also unlikely related to recent AICD device. Please note that you are asked to follow up in Device clinic in 7-10 days for device interrogation and repeat evaluation of the implantable cardioverter- defibrillator site. Follow-up Provider: Matthew Kerr MD Follow-up with PCP in: 1 week Time spent 65min Joe Shabazz MD Jun 29, 2017 16:42
== END 2017-06-28 21:38 | disposition left against medical advice (07) | DRG 313 ==
LOC: SED 14:53 → MPC 21:47
PROVIDERS: ADMIT Internal Medicine; ATTEND Internal Medicine
DX: R07.9 Chest pain, unspecified (principal); F11.20 Opioid dependence, uncomplicated; I48.0 Paroxysmal atrial fibrillation; E78.5 Hyperlipidemia, unspecified; I10 Essential (primary) hypertension; E11.8 Type 2 diabetes mellitus with unspecified complications; G89.29 Other chronic pain; I25.10 Atherosclerotic heart disease of native coronary artery without angina pectoris; Z76.5 Malingerer [conscious simulation]; F17.200 Nicotine dependence, unspecified, uncomplicated; Z95.5 Presence of coronary angioplasty implant and graft; Z95.810 Presence of automatic (implantable) cardiac defibrillator; I25.2 Old myocardial infarction

== ENCOUNTER 2017-07-09 05:44 | Emergency (ER) | payer MEDICARE, MEDICAID ==
[~2017-07-09] VITALS: Ht 177.8 cm; Wt 124.5 kg
[~2017-07-09 05:44] MED LIST changes: -DOXY100C2 PO
[2017-07-09 05:48] VITALS: BP 183/108; PULSE 77; RESP 16; O2SAT 99
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
[2017-07-09 06:26] LABS: BASOPHILS % (AUTO) 1.1 % (0-3); EOSINOPHILS % (AUTO) 6.6 % (0-5); MONOCYTES % (AUTO) 12.3 % (4-12); Mean Corpuscular Hemoglobin 25.1 pg (27.0-35.0); Mean Corpuscular Volume 74.5 fL (81-100); NEUTROPHILS % (AUTO) 57.2 % (40-74); Platelet Count 255 bil/L (150-400)
[2017-07-09] MEDS ORDERED: Ondansetron 8 mg ODT Tablet PO ONE (06:45)
[2017-07-09 06:50] LABS: Magnesium 1.5 mg/dL (1.6-2.6)
[2017-07-09 07:03] LABS: TROPONIN T < 0.010 ug/L (0.0-0.011)
[2017-07-09 07:28] VITALS: BP 183/108; PULSE 77; RESP 16; O2SAT 99
--- NOTE | 2017-07-09 13:39 | DRSVH ---
PROCEDURE: X-RAY CHEST ONE VIEW, PORTABLE ([id number]) INDICATIONS: cp TECHNIQUE: One view of the chest was acquired. COMPARISON: [facility], CR, XR CHEST 2VW, 01/30/2017, 16:13. [facility], CT, CT ANGIO CHEST PE, 06/23/2017, 20:27. [facility], CR, XR CHEST 2VW, 06/17/2017, 6:40[facility]ST 1VW (PORTABLE), 06/23/2017, 16:12. FINDINGS: Surgical changes and devices: Stable positioning of left chest AICD. Lungs and pleura: No pleural effusions or pneumothorax. Lungs are clear, aside from mild pleural sc arring on the right.. Mediastinum: Mediastinal contours appear normal. Heart size is normal. Bones and chest wall: No suspicious bony lesions. Overlying soft tissues appear unremarkable. IMPRESSION: No acute cardiopulmonary disease. Dictated by: Justice Valdez [facility] Interpreted: Wyatt Epps MD on 07/09/2017 at 9:09 Approved by: Wyatt Epps M.D. on 07/09/2017 at 13:37
== END 2017-07-09 07:29 | disposition home or self-care (01) ==
LOC: SED 05:44
DX: R07.9 Chest pain, unspecified (principal); I11.0 Hypertensive heart disease with heart failure; I50.9 Heart failure, unspecified; I25.10 Atherosclerotic heart disease of native coronary artery without angina pectoris; E11.9 Type 2 diabetes mellitus without complications; K21.9 Gastro-esophageal reflux disease without esophagitis; E78.5 Hyperlipidemia, unspecified; F43.10 Post-traumatic stress disorder, unspecified; F17.200 Nicotine dependence, unspecified, uncomplicated; Z79.84 Long term (current) use of oral hypoglycemic drugs; Z88.8 Allergy status to other drugs, medicaments and biological substances

== ENCOUNTER 2017-07-12 09:02 | Observation (INO) | payer MEDICARE, MEDICAID ==
[2017-07-12] VITALS (15 sets, daily range): BP systolic 143–211; BP diastolic 75–130; PULSE 69–85; RESP 16–21; O2SAT 95–100
[~2017-07-12] VITALS: Ht 177.8 cm; Wt 122.0 kg
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
[2017-07-12] MEDS ORDERED: 0.9% Sodium Chloride 1,000 ML IV ONE (09:10)
[2017-07-12] MEDS ORDERED: Promethazine Inj 25 MG in Dextrose 5%-Pha MIX 50 ML IV ONE (09:10)
[2017-07-12] MEDS ORDERED: Ondansetron 8 mg ODT Tablet ONE (09:27)
[2017-07-12] MEDS: MeTOProlol 1 mg/mL 5 mL Inj IVPUSH PRN ×3 (09:52→10:12)
--- NOTE | 2017-07-12 09:59 | DRSVH ---
PROCEDURE: X-RAY CHEST ONE VIEW, PORTABLE ([id number]) INDICATIONS: Chest Pain TECHNIQUE: One view of the chest was acquired. COMPARISON: [facility], CR, XR CHEST 1VW (PORTABLE), 07/09/2017, 5:52. [facility], CR, XR CHEST 1VW (PORTABLE), 06/23/2017, 16:12. [facility], CR, XR CHEST 1VW (PORT ABLE), 06/16/2017, 12:04. [facility], CR, XR CHEST 1VW (PORTABLE), 06/08/2017, 14:32. CT f rom 06/23/2017. FINDINGS: Surgical changes and devices: Left-sided cardiac pacer. Lungs and pleura: No pleural effusions or pneumothorax. Right midlung 9 mm pulmonary nodule shown on recent CT to be able for greater than 2 years. Otherwise lungs are clear. Shallow abrasion. Elevati on of the right hemidiaphragm. Mediastinum: Mediastinal contours appear normal. Heart size is normal. Bones and chest wall: No suspicious bony lesions. Overlying soft tissues appear unremarkable. IMPRESSION: No acute cardiopulmonary pathology. Dictated by: Marcos Hough M.D. on 07/12/2017 at 9:55 Approved by: Marcos Hough M.D. on 07/12/2017 at 9:57
[2017-07-12 10:12] LABS: TROPONIN T 0.01 ug/L (0.0-0.011)
[2017-07-12 10:17] LABS: BASOPHILS % (AUTO) 0.6 % (0-3); EOSINOPHILS % (AUTO) 2.5 % (0-5); MONOCYTES % (AUTO) 9.2 % (4-12); Mean Corpuscular Hemoglobin 24.6 pg (27.0-35.0); Mean Corpuscular Volume 72.9 fL (81-100); NEUTROPHILS % (AUTO) 67.3 % (40-74); Platelet Count 273 bil/L (150-400)
[2017-07-12 10:23] LABS: Magnesium 1.5 mg/dL (1.6-2.6)
[2017-07-12] MEDS ORDERED: Labetalol 5 mg/mL 20 mL Inj IVPUSH ONE (10:25)
[2017-07-12] MEDS ORDERED: Alum-Mag Hydrox-Simeth 30 mL Suspension PO PRN ×2 (11:15→11:20)
[2017-07-12] MEDS ORDERED: Ondansetron 2 mg/mL 2 mL Inj IVPUSH PRN ×2 (11:15→17:25)
[2017-07-12] MEDS: Heparin 5,000 Unit/mL Inj SUBQ SCH ×2 (11:20→16:30)
[2017-07-12] MEDS ORDERED: Nystatin 100,000 Unit/mL 59 mL Suspension PO PRN (11:25)
[2017-07-12] MEDS: Ondansetron 2 mg/mL 2 mL Inj IVPUSH PRN (13:01)
[2017-07-12] MEDS ORDERED: Ketorolac 15 mg/mL Inj IV ONE (13:55)
[2017-07-12] MEDS ORDERED: HYDROcodone-APAP 7.5-325 mg Tablet PO ONE (14:30)
--- NOTE | 2017-07-12 14:59 | NUR ---
admit pt admitted from ED for CP/HTN. pt denies pain at the moment, states that the [place] that he was just given was the "magic bullet". He is able to [facility] to bed with no assistance, immediately asks for des crackers and juice. 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
[2017-07-12] MEDS ORDERED: Albuterol 2.5 mg/3 mL Inhalation Solution NEB PRN (16:00)
[2017-07-12] MEDS: Sodium Chloride LOK Flush 10 mL Syringe IVFLUSH SCH (16:30)
[2017-07-12] MEDS: Polyethylene Glycol (PEG) 17 Gm Powder PO PRN ×2 (17:57→21:08)
[2017-07-12 18:41] LABS: TROPONIN T < 0.010 ug/L (0.0-0.011)
[2017-07-12 18:42] LABS: Creatine Kinase 56 U/L (21-232)
--- NOTE | 2017-07-12 20:03 | NUR ---
SHIMON explained and signed. Copy of SHIMON and Medicare self administered medication information given to pt at 1940
[2017-07-12] MEDS ORDERED: HYDROcodone-APAP 7.5-325 mg Tablet PO PRN (21:20)
[2017-07-12] MEDS: HYDROcodone-APAP 7.5-325 mg Tablet PO PRN (21:45)
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
[2017-07-12 22:53] LABS: Creatine Kinase 58 U/L (21-232)
[2017-07-13 00:27] VITALS: BP 161/67; PULSE 62; RESP 18; O2SAT 97
[2017-07-13] MEDS: Heparin 5,000 Unit/mL Inj SUBQ SCH ×2 (00:30→07:47)
[2017-07-13] MEDS: Sodium Chloride LOK Flush 10 mL Syringe IVFLUSH SCH ×2 (00:30→07:58)
[2017-07-13] MEDS: HYDROcodone-APAP 7.5-325 mg Tablet PO PRN (03:48)
[2017-07-13] MEDS: Ondansetron 2 mg/mL 2 mL Inj IVPUSH PRN ×2 (03:50→08:04)
[2017-07-13 04:29] VITALS: BP 143/81; PULSE 69; RESP 20; O2SAT 98
--- NOTE | 2017-07-13 04:57 | NUR ---
Chest pain Pt reports of chest pain. Telemetry noted Sinus Rhythm 70's. Pt request to have her Morphine every 3 hours and PRN includes a [place]. Pt states that medication is ineffective and pt still feel the pain. Denies n/v or abd discomfort. VSS and is WNL. HS meds administered as scheduled.
[2017-07-13 06:21] VITALS: PULSE 68
[2017-07-13] MEDS: Polyethylene Glycol (PEG) 17 Gm Powder PO PRN (07:56)
[2017-07-13 08:00] VITALS: PULSE 69
[2017-07-13 08:17] VITALS: BP 176/102; PULSE 69; RESP 19; O2SAT 98
[2017-07-13] MEDS ORDERED: Pantoprazole 40 mg ER24 Tablet PO SCH (08:30)
[2017-07-13 09:37] LABS: BASOPHILS % (AUTO) 0.9 % (0-3); EOSINOPHILS % (AUTO) 8.5 % (0-5); MONOCYTES % (AUTO) 12.4 % (4-12); Mean Corpuscular Hemoglobin 24.3 pg (27.0-35.0); Mean Corpuscular Volume 74.6 fL (81-100); NEUTROPHILS % (AUTO) 52.7 % (40-74); Platelet Count 205 bil/L (150-400)
[2017-07-13] MEDS ORDERED: Magnesium Sulf 2 Gm/50mL Water 2 GM in IV Premix 1 EACH IV ONE (11:25)
[2017-07-13 12:49] VITALS: BP 187/98; PULSE 69; RESP 20; O2SAT 95
[2017-07-13] MEDS ORDERED: SPIR25TA3 PO (12:55)
--- NOTE | 2017-07-13 12:57 | PCM.DIMED ---
Discharge Instructions Date of Service Jul 13, 2017 Dates of Hospitalization Jul 12, 2017 at 13:54 Discharge Diagnosis Discharge Diagnosis chest pain, HTN, CAD, DM II Diet Discharge Diet: Heart Healthy, Diabetic Call your provider Call your provider for: Fever or Chills, Shortness of breath, Bleeding, Chest pain, Vomitting, Excessive diarrhea, Weakness (unilateral), Other Patient Instructions Follow-up plan F/U with [facility] jp in ten days F/U with your cardiology Dr. Blank in 2-4 weeks F/U BMP and MAg prior to f/u with PCP Elis Rojas DO Jul 13, 2017 12:57
--- NOTE | 2017-07-13 13:09 | NUR ---
AMA pt left before this RN could get him discharged. pt was to have an EKG and a lab draw prior to discharge, patient refused both. This RN had already given the pt a hard script for Spironalactone. aware of AMA status. pt removed his own IV and tele.
--- NOTE | 2017-07-13 13:17 | NUR ---
Social Work: Attempted Initial Assessment SW attempted to see pt for initial assessment. Pt left AMA before RN could get pt discharged. Pt was to have an EKG and a lab draw prior to discharge, patient refused both. aware of AMA status. Pt removed his own IV and tele. LILLIAN Thompson
--- NOTE | 2017-07-13 22:03 | PCM.DC.MED ---
Discharge Summary Date of Service Jul 13, 2017 Dates of Hospitalization Date of Hospital Admission Jul 12, 2017 at 13:54 Date of Discharge: Jul 13, 2017 Providers: Admitting Physician: Elis Barahona DO Primary Care Physician: Federica Rodriguez DO Attending Physician: Elis Barahona DO Diagnosis at Time of Discharge Diagnosis at Time of Discharge chest pain, HTN, CAD, DM II Consultations none Brief History Mr Carrington is a 61-year-old -[place] male with past medical history of CAD status post OH 2 status post 3 stents recent cardiac catheterization in May, w/o intervention , and normal myocardial study with the 42% EF on , hypertension, hyperlipidemia, paroxysmal A. fib, BPH, benign schwannoma, chronic pain, diabetes pancreatitis is presenting today with the chest pain that has been ongoing since 2 hours prior to his arrival to the ER. He says he has receivd a ICD in May [address] Le. He says that the pain is consistently 8/10, feels like prior OH. . He says that activity makes it worse. Pain is over the ICD area and below a He says that if he tand also wraps around his diaphragm area. Says nitroglycerin he gets anaphylactic reaction does he does not take it. He was offered Imdur in the past per the report of a stress test but it is unclear why he is not on it. He says that he sees Dr. Brown for cardiology. Patient also has some dyspnea, nausea/vomiting (though he tolerated diet ok on the floor), constipationleft sided migraine headache, polyuria due to drinking excessive amounts of water last night. States he is a high GI bleed risk, thus he is not on coumadin Mr. Carrington is a frequent visitor at our ED/[facility]. He says because he knew he had to drive to the eD, he did not take his pain meds. He also did not take his am meds. He was hypertensive on arrival, received several meds in ED that included 3 doses of metoprolol, 2 doses of 4 mg IV Morphine, zofran, oxycodone 20 mg, labetalol IV 20 mg, Ativan 1 mg IV and Pheneragn IV. . His troponins were negative his EKG was abnormal but no acute changes were seen. Chest x-ray was primary for elevated right diaphragm. His lab work otherwise is remarkable for elevated blood glucose of 163. Patient is admitted to the [facility] for chest pain rule out due to his high cardiac risk. Hospital Course Assessment & Plan Chest pain, POA improved -- He is high risk for ACS but has undergone stress test and cath procedures recently -- Telemonitoring, and cardiac enzymes, morphine for shortness of breath and moderate pain, and currently do not plan to do any more stress echo PROCEDURES as patient has recently undergone all of his tests unless something is called for based on his labs and clinical presentation overnight -- Oxygen PRN, morphine 3 mg Q3H PRN while awake (he is requesting dilaudid). This is in fact close to his home oxycodone of 10 mg Q4H PRN. He is also requesting oxycodone 7.5 mg X2 Q4H PRN as his home does not work. This is not ordered. I have discussed with patient the need to stick to this regimen, and he was agreeable. However overnight he called the night hospitalist and asked for his home medication to be added back. Then he started taking those by mouth medications as well. I have discussed with patient this a.m. the fact that he has a pain contract with the hospital. I will not be providing him with both his home dose equivalent morphine and by mouth medication. Patient initially expressed the desire to stay in hospital 1 more night. I have made it clear to him that I cannot keep him in the hospital if there is no medical indication. At this point patient tells me that he broke the contract he had with his pain medication clinic on August and has taken more medication than what they had prescribed. Because he ran out of his medication oxycodone a day before he came to the ER. Now he wants me to write 14days of pain medication prescription to take home with. He also states that he does not need any pain medication this a.m. if he were to be discharged home, as he needs to drive himself home -- I have made it clear to patient that if he signed a contract with pain clinic and broke the contract, that is between him and his clinic to work through. I will not be able to provide specific pain med prescriptions for his ongoing opioid use. In the event that he experiences withdrawal, he may have to go through his pain clinic /ER 2 address that. -- Telemonitoring he reported no acute events the day of discharge, his pacemaker did get triggered this a.m. -- He will f/u with his PCP, and his cardiology Dr. Sher on d/c Hypomagnesemia, present on admission active -- Patient is given 2 g IV supplementation -- I have asked for patient to wait until his follow-up magnetic returned prior to leaving the facility. -- It appears patient has left the facility, after declining follow-up EKG that was ordered this morning. -- We will instruction was to recheck magnesium before his exit, it appears that he did not wait for this lab to be drawn. Nausea, acute POA -- Zofran IV PRN Chronic pain, active -- Hold patient's home oxycodone -- IV morphine as above was given, then his cardiac enzymes were ruled out, we tried to discontinue IV morphine. Patient declined his oxycodone as he has to drive home Hypertension chronic uncontrolled -- Continue home meds -- I have added spironolactone 25 mg daily. It appears that patient was ordered Imdur at one time during one of his admission to 10 clear why he is not taking it. -- Patient was given a prescription for spironolactone Hypertensive urgency resolved -- Resolved by the time he arrived on the floor -- Give his home meds for tonight -- Will continue to monitor Hyperlipidemia chronic stable : Continue atorvastatin GERD chronic stable Continue pantoprazole CHF, systolic chronic active -- continue Lasix and potassium home meds BPH chronic active -- continue tamsulosin, terazosin Depression chronic active --Continue Zoloft home med Pain Evaluation: Pain not Controlled Resuscitation Status: CPR: Attempt Resuscitation (full code, she does not have an alternate decision-maker) Time spent 45 minutes Exam Vital Signs (Last) Date Time Temp Pulse Resp B/P Pulse Ox O2 Delivery O2 Flow Rate FiO2 07/13/17 12:49 36.8 69 20 187/98 95 Room Air Exam General: NAD, laying in bed, some what dyspneic male HEENT: NCAT, poor dentition Eyes: [place] conjunctivae. No ptosis, PERRL Neck: No masses, trachea midline, no thyromegaly, no JVD Lungs: No increased work of breathing Abdomen: Does not appear to be distended MSK: Normal gait and station, no digital cyanosis Skin: Warm and dry. No rash, lesions or ulcers, bulge noted over the ICD Psych: A&O X3, with appropriate affect Extremities: Neg for rashes, erythema and edema Neurological: AOA x 3, no focal deficits Test 07/12/17 09:45 07/12/17 15:25 07/12/17 22:03 07/13/17 09:23 Hold Purple Top Tube Received (Received) Hold Blue Top Tube Received (Received) Magnesium Level 1.4mg/dL (1.6-2.6) Hold [place] Top Tube Received (Received) Hold [place] Top Tube Received (Received) Hold Urine Received (Received) Total Creatine Kinase 58U/L (21-232) Creatine Kinase MB 1.9ng/mL (0.0-10.4) Creatine Kinase MB % % (0.0-5.0) Troponin T 0.010ug/L (0.0-0.011) White Blood Count 4.6th/mm3 (3.8-10.1) Red Blood Count 4.48mil/mm3 (4.40-5.80) Hemoglobin 10.9g/dL (13.8-17.2) Hematocrit 33.4% (41.0-50.0) Mean Corpuscular Volume 74.6fL (81-100) Mean Corpuscular Hemoglobin 24.3pg (27.0-35.0) Mean Corpuscular Hemoglobin Concent 32.6% (32.0-37.0) Red Cell Distribution Width 16.3% (12.3-15.4) Platelet Count 205bil/L (150-400) Neutrophils (%) (Auto) 52.7% (40-74) Lymphocytes (%) (Auto) 25.3% (14-46) Monocytes (%) (Auto) 12.4% (4-12) Eosinophils (%) (Auto) 8.5% (0-5) Basophils (%) (Auto) 0.9% (0-3) Sodium Level 139mEq/L (134-144) Potassium Level 4.3mEq/L (3.5-5.2) Chloride Level 102mEq/L (97-108) Carbon Dioxide Level 24mmol/L (18-29) Blood Urea Nitrogen 14mg/dL (8-27) Creatinine 0.93mg/dL (0.76-1.27) Estimat Glomerular Filtration Rate 88mL/min (>59) Glucose Level 126mg/dL (60-99) Calcium Level 8.8mg/dL (8.5-10.1) Total Bilirubin 0.2mg/dL (0.0-1.2) Aspartate Amino Transf (AST/SGOT) 19U/L (0-50) Alanine Aminotransferase (ALT/SGPT) 20U/L (0-44) Alkaline Phosphatase 73U/L (25-160) Total Protein 6.4g/dL (6.4-8.4) Albumin 4.0g/dL (3.4-5.0) Discharge Medications Discharge Medications Amiodarone (Amiodarone) 200 Mg Tablet 200 MG PO BID Prescribed by: SANTINO YE MD Amlodipine (Amlodipine) 5 Mg Tablet 10 MG PO DAILY Prescribed by: ELIS BARAHONA DO Atorvastatin Calcium (Atorvastatin Calcium) 40 Mg Tablet 40 MG PO HS (Reported) Furosemide (Furosemide) 20 Mg Tab 20 MG PO QAM (Reported) Metformin (Glucophage) 1,000 Mg Tablet 1,000 MG PO DAILYWM (Reported) Metoprolol Tartrate (Metoprolol Tartrate) 100 Mg Tablet 100 MG PO BID (Reported ) Pantoprazole DR (Pantoprazole DR) 40 Mg Tablet.dr 40 MG PO QAM (Reported) Polyethylene Glycol 3350 (Miralax) 17 Gm Powd.pack 17 GM PO DAILY Prescribed by: SANTINO YE MD Sertraline HCl (Sertraline) 100 Mg Tablet 100 MG PO QAM (Reported) Spironolactone (Spironolactone) 25 Mg Tablet 25 MG PO DAILY Prescribed by: ELIS BARAHONA DO Tamsulosin ER (Tamsulosin ER) 0.4 Mg Cap.er.24h 0.4 MG PO HS (Reported) Terazosin (Terazosin) 5 Mg Capsule 5 MG PO HS (Reported) As needed Ondansetron (Ondansetron) 4 Mg Tablet 4 MG PO Q8H PRN PRN For Nausea/Vomiting ( Reported) Oxycodone (Roxicodone) 5 Mg Tablet 10 MG PO Q4H PRN PRN For Pain (Reported) NTE 5 DOSES/24 HRS. PT IS ON A PAIN CONTRACT. Followup Plan Follow-up plan F/U with JITENDRA trammell in ten days F/U with your cardiology Dr. Blank in 2-4 weeks F/U BMP and MAg prior to f/u with PCP Discharge Diet: Heart Healthy, Diabetic Attending Statement 35 minutes Elis Barahona DO Jul 13, 2017 22:03
== END 2017-07-13 13:00 | disposition left against medical advice (07) ==
LOC: SED 09:02 → MPC 13:54
PROVIDERS: ADMIT Family Medicine; ATTEND Family Medicine
DX: R07.9 Chest pain, unspecified (principal); G89.29 Other chronic pain; I25.10 Atherosclerotic heart disease of native coronary artery without angina pectoris; I16.0 Hypertensive urgency; I50.22 Chronic systolic (congestive) heart failure; N40.0 Benign prostatic hyperplasia without lower urinary tract symptoms; I48.0 Paroxysmal atrial fibrillation; E11.9 Type 2 diabetes mellitus without complications; R11.2 Nausea with vomiting, unspecified; K59.00 Constipation, unspecified; E83.42 Hypomagnesemia; K21.9 Gastro-esophageal reflux disease without esophagitis; F43.10 Post-traumatic stress disorder, unspecified; F32.9 Major depressive disorder, single episode, unspecified; I10 Essential (primary) hypertension; E78.5 Hyperlipidemia, unspecified; F17.210 Nicotine dependence, cigarettes, uncomplicated; Z95.5 Presence of coronary angioplasty implant and graft; I25.2 Old myocardial infarction; Z95.810 Presence of automatic (implantable) cardiac defibrillator; Z87.828 Personal history of other (healed) physical injury and trauma; Z79.891 Long term (current) use of opiate analgesic; Z79.84 Long term (current) use of oral hypoglycemic drugs
CPT/HCPCS: 36415; 71010; 80053; 82550; 82553; 83735; 84484; 85025; 93005; 94799; 96361; 96374; 96375; 96376; 99285; G0378; J1885; J2060; J2270; J2405; J2550; J7030

== ENCOUNTER 2017-07-26 09:10 | Observation (INO) | payer MEDICARE, MEDICAID ==
[~2017-07-26] VITALS: Ht 177.8 cm; Wt 122.2 kg
[2017-07-26] VITALS (7 sets, daily range): BP systolic 161–212; BP diastolic 100–111; PULSE 68–87; RESP 15–22; O2SAT 95–100
[~2017-07-26 09:10] MED LIST changes: -ALBU8.5H2 INHALATION; -DOXY100T2 PO; -MAGN400T4 PO; -NYST1000 PO; -POTA10TA12 PO; +SPIR25TA3 PO
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
[2017-07-26] MEDS ORDERED: Ondansetron 2 mg/mL 2 mL Inj IVPUSH PRN ×2 (09:45→10:25)
[2017-07-26] MEDS ORDERED: Alum-Mag Hydrox-Simeth 30 mL Suspension PO PRN (09:45)
[2017-07-26] MEDS ORDERED: Labetalol 5 mg/mL 20 mL Inj IVPUSH ONE (09:45)
[2017-07-26 09:55] LABS: BASOPHILS % (AUTO) 0.4 % (0-3); EOSINOPHILS % (AUTO) 4.8 % (0-5); MONOCYTES % (AUTO) 11.5 % (4-12); Mean Corpuscular Hemoglobin 23.9 pg (27.0-35.0); Mean Corpuscular Volume 71.2 fL (81-100); NEUTROPHILS % (AUTO) 59.9 % (40-74); Platelet Count 219 bil/L (150-400)
[2017-07-26 10:27] LABS: TROPONIN T 0.01 ug/L (0.0-0.011)
[2017-07-26 10:38] LABS: Magnesium 1.6 mg/dL (1.6-2.6)
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
--- NOTE | 2017-07-26 11:09 | NUR ---
Admit [place] [facility] [place] report called by Marianela Marin RN in ED. Patient arrived via gurney and was able to ambulate to to bed. Patient oriented to room, staff, call light, and visiting hours. Patient requested a different hospitalist for stay. Nurse notified charge nurse and MD.
[2017-07-26] MEDS: Polyethylene Glycol (PEG) 17 Gm Powder PO SCH ×2 (11:10→18:34)
--- NOTE | 2017-07-26 11:20 | DRSVH ---
PROCEDURE: X-RAY CHEST ONE VIEW, PORTABLE ([id number]) INDICATIONS: CHEST PAIN TECHNIQUE: One view of the chest was acquired. COMPARISON: [facility], CR, XR CHEST 1VW (PORTABLE), 07/12/2017, 9:20. FINDINGS: Surgical changes and devices: A cardiac pacemaker is present. Lungs and pleura: There is trace right pleural effusion with bibasilar atelectasis. No pneumothorax. Lungs are clear. Mediastinum: Mediastinal contours appear normal. Heart size is normal. Bones and chest wall: No suspicious bony lesions. Overlying soft tissues appear unremarkable. IMPRESSION: Trace right effusion and right basilar atelectasis. Dictated by: Yessenia Mills M.D. on 07/26/2017 at 11:17 Approved by: Yessenia Mills M.D. on 07/26/2017 at 11:18
[2017-07-26] MEDS: Pantoprazole 40 mg ER24 Tablet PO SCH (12:09)
--- NOTE | 2017-07-26 14:35 | NUR ---
Case Management: SHIMON given and explained to pt. Nidhi RIZZORN
[2017-07-26] MEDS: Heparin 5,000 Unit/mL Inj SUBQ SCH (16:31)
--- NOTE | 2017-07-26 19:12 | NUR ---
Pain Oxycodone and zofran PO admin, "I take the 50mg (oxy) at home so the 10 isn't gonna touch me, I'm gonna want the morphine too." Clarified that current dose of oxycodone is equal to home dosage per 24hr period. Alternating oxy and morphine Q2H. Pain persists at reported 07/10 with observed muscle spasms of R shoulder. Pt comfortable with plan of care at this time.
[2017-07-27] VITALS (7 sets, daily range): BP systolic 139–155; BP diastolic 83–97; PULSE 60–66; RESP 18–20; O2SAT 97–100
[2017-07-27] MEDS: Heparin 5,000 Unit/mL Inj SUBQ SCH ×2 (01:03→07:30)
--- NOTE | 2017-07-27 06:42 | NUR ---
Pain Pt c/o complaints of chest pain 07/10, constantly sharp pain for a few months, located at left lower chest, but pt does not appears in acute distress, f/u troponin (-). Pt requests prn pain meds: Oxycodone 10mg q4h and Morphine 2mg IV q4h alternately to be given when it is due, pt clock watching for pain meds, and want RN to wake him up when pain med due.
--- NOTE | 2017-07-27 07:09 | PCM.DIMED ---
Discharge Instructions Date of Service Jul 27, 2017 Dates of Hospitalization Jul 26, 2017 at 10:21 Discharge Diagnosis Discharge Diagnosis pleuritic chest pain, ruled out ACS Diet Discharge Diet: Low fat, Low Sodium, Heart Healthy Activity Discharge Activity: No restrictions Call your provider Call your provider for: Chest pain Patient Instructions Patient Instructions You were hospitalized with chest pain. Serial blood test and EKG showed no signs of heart attack. Please follow up with on Friday as scheduled Follow-up Provider: Alex Brown MD Follow-up with PCP in: 1 week Joe Shabazz MD Jul 27, 2017 07:09
[2017-07-27] MEDS: Pantoprazole 40 mg ER24 Tablet PO SCH (07:29)
[2017-07-27] MEDS: Polyethylene Glycol (PEG) 17 Gm Powder PO SCH (07:30)
--- NOTE | 2017-07-27 10:03 | NUR ---
Social Work- Initial Assessment/Readiness for Discharge/Multidisciplinary Rounds Data: See Initial Assessment and Advance Directive Interventions for additional information. Pt is a 61 year old male admitted for chest pain/hypertensive urgency per H&P. Pt has MCR and [facility] Supp. Pt's PCP is Federica Rodriguez DO. Pt is a readmit, left AMA on July 13. Pt's readmit risk score is 7/8 high risk. Pt discussed in multidisciplinary rounds, pt is likely to d/c this afternoon. SW met with pt at bedside regarding discharge plan, SW role explained. Pt confirmed the following information. Pt resides at home in a mobile home with three steps to enter. Pt is independent at baseline with ADLs and self-care, uses a cane at home for ambulation. Pt drives. Pt has no HH or SNF history. Pt has no LTC or VA benefits. Pt declined DPOA information, pt has not completed this. Pt declines any social work needs and is aware he is likely to d/c today. Pt does not agree with this, but stated understanding. Discharge planning checklist declined at bedside. Phone number and plan placed on whiteboard in room. No anticipated d/c needs. SW will continue to follow. Assessment: Pt who is independent at baseline. Plan: Pt to d/c home when medically stable via POV. No anticipated d/c needs. SW will continue to follow. LILLIAN Yeager Addendum: 07/27/17 at 1005 by ORLANDO BENAVIDEZ SS Amended: Links added.
[2017-07-27] MEDS ORDERED: Magnesium Hydroxide 10 mL Oral Concentration PO ONE (10:10)
[2017-07-27 10:33] LABS: Mean Corpuscular Volume 74.3 fL (81-100)
[2017-07-27 10:34] LABS: BASOPHILS % (AUTO) 1.1 % (0-3); EOSINOPHILS % (AUTO) 7.7 % (0-5); MONOCYTES % (AUTO) 15.6 % (4-12); NEUTROPHILS % (AUTO) 44.9 % (40-74); Platelet Count 180 bil/L (150-400)
--- NOTE | 2017-07-27 12:48 | DRSVH ---
[facility] [address] [place] [address] Echocardiogram Report Name: HANNA QUINTERO JStudy Date : 07/27/2017 Height: 70 in Hospital Exam Location: [facility] Weight: 269 lb Gender: Male BSA: 2.4 m2 : 1955 Age: 61 yrs BP: 155/83 mmHg Reason For Study: Chest pain Ordering Physician: Performed By: Lakia Linton Referring Physician: Alex Brown Interpretation Summary 1. Normal left ventricular size with moderate concentric hypertrophy and an estimated EF of 55 to 60% 2. Normal right ventricular size and systolic function. The estimated RVSP is 33 mm Hg Limited views were obtained in this study. When compared with similar views in the previous study, no appreciable change. The estimated RVSP has decreased slightly Procedure: A two-dimensional transthoracic echocardiogram with color flow and Doppler was performed in limited views only. The study quality was technically adequate. Comparison is made with the echocardiogram of 06/10/2017. The patient was in normal sinus rhythm during the exam. Left Ventricle: The left ventricle is normal in size. There is moderate concentric left ventricular hypertrophy. The ejection fraction is estimated to be 55-60%. There is basal inferior wall akinesis. Assessment of diastolic parameters indicates a relaxation abnormality of the left ventricle, consistent with normal filling pressures. Right Ventricle: There is a pacemaker lead in the right ventricle. The right ventricle is normal in size and function. Mitral Valve: There is mild mitral regurgitation. Aortic Valve: The aortic valve is moderately calcified. No aortic regurgitation is present. Tricuspid Valve: The tricuspid valve leaflets are thin and pliable. There is trace tricuspid regurgitation. The right ventricular systolic pressure is estimated at 33 mmHg assuming a right atrial pressure of 3 mm Hg. Great Vessels: The IVC is of normal diameter and collapses greater than 50% with a sniff. This suggests a low right atrial pressure of 3 mm Hg. Pericardium/ Pleura There is no pericardial effusion. MMode/2D Measurements & Calculations LVIDd: 5.4 cm IVC diam LV dueñas. diameter/BSA LV sys. diameter/BSA LVIDs: 4.2 cm : 1.6 cm (cm/m^2): 2.3 (cm/m^2): 1.8 FS: 22.1 % IVSd: 1.6 cm LVPWd: 1.4 cm RVD1 (basal) Doppler Measurements & Calculations MV E max isaac MV E/A: 0.63 TR max isaac MV dec time : 68.0 cm/sec Med Peak E' Isaac : 275.3 cm/sec : 0.26 sec MV A max isaac TR max PG : 107.1 cm/sec E/E' med: 15.2 : 30.3 mmHg MV P1/2t: 77.9 msec Lat Peak E' Isaac E/E' lat: 12.2 E/e' average: 13.7 MV P1/2t max isaac MVA(P1/2t): 2.8 cm2 Reading Physician:12:47 PM
--- NOTE | 2017-07-27 15:49 | PCM.DIMED ---
Discharge Instructions Date of Service Jul 27, 2017 Dates of Hospitalization Jul 26, 2017 at 10:21 Discharge Diagnosis Discharge Diagnosis # Acute chest pain, present on admission. - Unclear exact etiology but ruled out for acute myocardial infarction with negative cardiac enzymes and unlikely pulmonary embolism with negative D-Dimer. Medication Instructions Additional med instructions Resume your home medications as before. Diet Discharge Diet: Low fat, Low Sodium, Heart Healthy, Diabetic Activity Discharge Activity: No restrictions Call your provider Call your provider for: Fever or Chills, Shortness of breath, Bleeding, Chest pain Patient Instructions Patient Instructions Seek immediate medical attention if any new or worsening signs or symptoms occur. Follow-up plan 1. Followup with your primary care provider and iron cutter tomorrow, 07/28/17, as previously planned. Follow-up Provider: Alex Brown MD Follow-up with PCP in: 1 week Provider: VIKY COWAN Masoud Jul 27, 2017 15:49
--- NOTE | 2017-07-27 16:10 | NUR ---
Social Work- Discharge Data: Pt to discharge today, discharge orders are active. Pt to d/c home via POV, no d/c needs. Assessment: Pt who is independent with ADLs and self-care Plan: Pt to d/c home via POV, no d/c needs. LILLIAN Yeager
--- NOTE | 2017-07-27 16:36 | NUR ---
Discharge Patient given discharge orders. Nurse was in another patient room then planned to go over discharge paperwork with patient. Patient dressed, removed telemetry, and took out peripheral IV. 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 Patient left facility before actual discharge was discussed by nurse with him.
--- NOTE | 2017-07-27 17:47 | PCM.DC.MED ---
Discharge Summary Date of Service Jul 27, 2017 Dates of Hospitalization Date of Hospital Admission Jul 26, 2017 at 10:21 Date of Discharge: Jul 27, 2017 Providers: Admitting Physician: Joe Shabazz MD Primary Care Physician: Viky Cowan DO Attending Physician: Joe Shabazz MD Diagnosis at Time of Discharge Diagnosis at Time of Discharge # Acute chest pain, present on admission. - Unclear exact etiology but ruled out for acute myocardial infarction with negative cardiac enzymes and unlikely pulmonary embolism with negative D-Dimer. Procedures XRay, CTs & MRIs CXR no official reading yet, no consolidation, infiltrates, vascular congestion Cardiac Echo Impression Date of Service: 07/27/17 1651 Echocardiogram Report Interpretation Summary 1. Normal left ventricular size with moderate concentric hypertrophy and an estimated EF of 55 to 60% 2. Normal right ventricular size and systolic function. The estimated RVSP is 33 mm Hg Limited views were obtained in this study. When compared with similar views in the previous study, no appreciable change. The estimated RVSP has decreased slightly Reading Physician:12:47 PM Brief History As noted in H&P by Dr. Shabazz: 61-year-old -[place] male, well known to hospitalist service for drug seeking behavior, known CAD status post NH 2 s/p 3 stents recent cardiac catheterization in May, w/o intervention , and normal myocardial study with the 42% EF on 03/26/17, hypertension, hyperlipidemia, paroxysmal A. 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 Patient denied associated dizziness, blurriness, sweating, nausea, difficulty breathing. Patient stated that he had lesser degree similar pain 5 days ago, went to [facility] [place], stayed overnight. His ICD was checked but was told that he was normal. Patient did not have any other ischemic workups. Patient was told that he has thyroid problem which needs to be followed up by primary doctor. Until this last episode, patient was usual state of health, being compliant to his medication. Patient was set up for appointment with Dr. Brown on next Friday, 07/28. ED VS initialy 212/108, 87, 22, afebrlie, 100% on RA, pt received labetalol 20mg iv, zofran 8mg ivp. During the interview in ED, pt still experiencing persistent pain but looked relatively comfortable. c/o worsening pain with deep breathing. very sharp in nature, still radiating to Left arm. When questioning about pain medication, pt wanted to get more morphine for his pain. Of note, pt had similar presentation and in late May and early Jul, AMAed multiple times in the past, threatened providers to bora. Hospital Course # Acute chest pain - Ruled out NH with negative Trop x 3 - Limited echo without acute finding - D-Dimer negative - Continues to repot some chest pain but somewhat improved by time of discharge Other past medical issues fairly stable and unremarkable. Exam Vital Signs (Last) Date Time Temp Pulse Resp B/P Pulse Ox O2 Delivery O2 Flow Rate FiO2 07/27/17 12:54 36.4 65 18 155/93 98 Room Air Exam Lungs CTA: bilat CV: RRR Abd: Soft, NT, ND, +BS Test 07/26/17 09:40 07/26/17 18:28 07/27/17 09:16 07/27/17 10:26 Sodium Level 141mEq/L (134-144) Potassium Level 4.0mEq/L (3.5-5.2) Chloride Level 102mEq/L (97-108) Carbon Dioxide Level 22mmol/L (18-29) Blood Urea Nitrogen 11mg/dL (8-27) Creatinine 0.73mg/dL (0.76-1.27) Estimat Glomerular Filtration Rate 116mL/min (>59) Glucose Level 110mg/dL (60-99) Calcium Level 9.1mg/dL (8.5-10.1) Magnesium Level 1.6mg/dL (1.6-2.6) Total Bilirubin 0.3mg/dL (0.0-1.2) Aspartate Amino Transf (AST/SGOT) 17U/L (0-50) Alanine Aminotransferase (ALT/SGPT) 15U/L (0-44) Alkaline Phosphatase 79U/L (25-160) Total Protein 7.6g/dL (6.4-8.4) Albumin 4.4g/dL (3.4-5.0) Hold Chapman Top Tube Received (Received) Troponin T 0.010ug/L (0.0-0.011) White Blood Count 4.4th/mm3 (3.8-10.1) Red Blood Count 4.59mil/mm3 (4.40-5.80) Hemoglobin 11.0g/dL (13.8-17.2) Hematocrit 34.1% (41.0-50.0) Mean Corpuscular Volume 74.3fL (81-100) Mean Corpuscular Hemoglobin 24.0pg (27.0-35.0) Mean Corpuscular Hemoglobin Concent 32.3% (32.0-37.0) Red Cell Distribution Width 16.5% (12.3-15.4) Platelet Count 180bil/L (150-400) Neutrophils (%) (Auto) 44.9% (40-74) Lymphocytes (%) (Auto) 30.5% (14-46) Monocytes (%) (Auto) 15.6% (4-12) Eosinophils (%) (Auto) 7.7% (0-5) Basophils (%) (Auto) 1.1% (0-3) D-Dimer < 0.5mg/L FEU (<0.50) Discharge Medications Discharge Medications Amiodarone (Amiodarone) 200 Mg Tablet 200 MG PO BID Prescribed by: SANTINO YE MD Amlodipine (Amlodipine) 5 Mg Tablet 10 MG PO DAILY Prescribed by: ALVAREZ BARAHONA DO Atorvastatin Calcium (Atorvastatin Calcium) 40 Mg Tablet 40 MG PO HS (Reported) Furosemide (Furosemide) 20 Mg Tab 20 MG PO QAM (Reported) Metformin (Glucophage) 1,000 Mg Tablet 1,000 MG PO DAILYWM (Reported) Metoprolol Tartrate (Metoprolol Tartrate) 100 Mg Tablet 100 MG PO BID (Reported ) Pantoprazole DR (Pantoprazole DR) 40 Mg Tablet.dr 40 MG PO QAM (Reported) Polyethylene Glycol 3350 (Miralax) 17 Gm Powd.pack 17 GM PO DAILY Prescribed by: SANTINO YE MD Sertraline HCl (Sertraline) 100 Mg Tablet 100 MG PO QAM (Reported) Spironolactone (Spironolactone) 25 Mg Tablet 25 MG PO DAILY Prescribed by: ALVAREZ BARAHONA DO Tamsulosin ER (Tamsulosin ER) 0.4 Mg Cap.er.24h 0.4 MG PO HS (Reported) Terazosin (Terazosin) 5 Mg Capsule 5 MG PO HS (Reported) As needed Ondansetron (Ondansetron) 4 Mg Tablet 4 MG PO Q8H PRN PRN For Nausea/Vomiting ( Reported) Oxycodone (Roxicodone) 5 Mg Tablet 10 MG PO Q4H PRN PRN For Pain (Reported) NTE 5 DOSES/24 HRS. PT IS ON A PAIN CONTRACT. Additional med instructions Resume your home medications as before. Followup Plan Disposition: Home Follow-up plan 1. 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 Discharge Diet: Low fat, Low Sodium, Heart Healthy, Diabetic Discharge Activity: No restrictions Patient Instructions Seek immediate medical attention if any new or worsening signs or symptoms occur. Follow-up Provider: Alex Brown MD Follow-up with PCP in: 1 week Provider: VIKY COWAN DO Time spent 30 min copies to: Alex Brown MD; VIKY COWAN DO Susan Bentleyd Jul 27, 2017 17:47
[2017-07-29 05:09] LABS: Free Thyroxine Index 2.2 (1.2-4.9); Thyroxine (T4) 6.9 ug/dL (4.5-12.0)
== END 2017-07-27 16:35 | disposition home or self-care (01) ==
LOC: SED 09:10 → MPC 10:21
PROVIDERS: ADMIT Internal Medicine; ATTEND Internal Medicine
DX: R07.89 Other chest pain (principal); I16.1 Hypertensive emergency; I10 Essential (primary) hypertension; I48.0 Paroxysmal atrial fibrillation; E11.9 Type 2 diabetes mellitus without complications; K21.9 Gastro-esophageal reflux disease without esophagitis; F43.10 Post-traumatic stress disorder, unspecified; I25.10 Atherosclerotic heart disease of native coronary artery without angina pectoris; E78.5 Hyperlipidemia, unspecified; N40.0 Benign prostatic hyperplasia without lower urinary tract symptoms; G89.29 Other chronic pain; Z95.5 Presence of coronary angioplasty implant and graft; Z95.810 Presence of automatic (implantable) cardiac defibrillator; I25.2 Old myocardial infarction; F17.210 Nicotine dependence, cigarettes, uncomplicated; Z79.84 Long term (current) use of oral hypoglycemic drugs; Z76.5 Malingerer [conscious simulation]
CPT/HCPCS: 36415; 71010; 80053; 82948; 83735; 84436; 84443; 84479; 84484; 85025; 85378; 93005; 96372; 96374; 96375; 96376; 99285; C8924; G0378; J1644; J2270; J2405

== ENCOUNTER 2017-07-28 20:55 | Emergency (ER) | payer MEDICARE, MEDICAID ==
[~2017-07-28] VITALS: Ht 177.8 cm; Wt 124.0 kg
[2017-07-28 21:02] VITALS: BP 184/111; PULSE 69; RESP 20; O2SAT 100
--- NOTE | 2017-07-28 21:29 | DRSVH ---
PROCEDURE: X-RAY CHEST ONE VIEW, PORTABLE ([id number]) INDICATIONS: chest pain TECHNIQUE: One view of the chest was acquired. COMPARISON: [facility], CR, XR CHEST 1VW (PORTABLE), 07/26/2017, 9:22. FINDINGS: Surgical changes and devices: Dual lead cardiac defibrillator is unchanged. Lungs and pleura: No pleural effusions or pneumothorax. Lungs are clear. Mediastinum: Mediastinal contours appear normal. Heart size is normal. Bones and chest wall: No suspicious bony lesions. Overlying soft tissues appear unremarkable. IMPRESSION: No acute cardiopulmonary findings. Dictated by: Alessia Santamaria M.D. on 07/28/2017 at 21:26 Approved by: Alessia Santamaria M.D. on 07/28/2017 at 21:27
[2017-07-28 21:46] LABS: BASOPHILS % (AUTO) 0.6 % (0-3); EOSINOPHILS % (AUTO) 6.2 % (0-5); MONOCYTES % (AUTO) 13.7 % (4-12); Mean Corpuscular Hemoglobin 23.8 pg (27.0-35.0); Mean Corpuscular Volume 73.1 fL (81-100); NEUTROPHILS % (AUTO) 53.6 % (40-74); Platelet Count 212 bil/L (150-400)
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
[2017-07-28] MEDS ORDERED: Ketorolac 15 mg/mL Inj IVPUSH ONE (22:05)
[2017-07-28] MEDS ORDERED: Dexamethasone Inj 10 MG in 0.9% Sodium Chloride-Pha MIX 50 ML IV ONE (22:05)
[2017-07-28 22:06] LABS: TROPONIN T 0.01 ug/L (0.0-0.011)
[2017-07-28 22:17] LABS: Magnesium 1.9 mg/dL (1.6-2.6)
[2017-07-29 00:53] VITALS: BP 192/106; PULSE 72; RESP 14; O2SAT 97
== END 2017-07-29 00:50 | disposition home or self-care (01) ==
LOC: SED 20:55
DX: R07.89 Other chest pain (principal); R10.9 Unspecified abdominal pain; I11.0 Hypertensive heart disease with heart failure; I50.9 Heart failure, unspecified; K21.9 Gastro-esophageal reflux disease without esophagitis; E78.5 Hyperlipidemia, unspecified; I25.2 Old myocardial infarction; I48.0 Paroxysmal atrial fibrillation; E11.59 Type 2 diabetes mellitus with other circulatory complications; Z95.5 Presence of coronary angioplasty implant and graft; F17.200 Nicotine dependence, unspecified, uncomplicated; Z95.810 Presence of automatic (implantable) cardiac defibrillator; Z79.84 Long term (current) use of oral hypoglycemic drugs; Z88.8 Allergy status to other drugs, medicaments and biological substances
CPT/HCPCS: 36415; 71010; 80053; 83735; 84484; 84550; 85025; 85651; 86038; 86140; 86430; 93005; 96374; 96375; 99285; G0463; J1100; J1885

== ENCOUNTER 2017-08-02 09:26 | Emergency (ER) | payer MEDICARE, MEDICAID ==
[~2017-08-02] VITALS: Ht 177.8 cm; Wt 124.5 kg
[2017-08-02 09:28] VITALS: PULSE 97; RESP 20
[2017-08-02] MEDS ORDERED: Promethazine Inj 25 MG in Dextrose 5%-Pha MIX 50 ML IV ONE (09:45)
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
[2017-08-02 09:52] VITALS: BP 208/115; PULSE 93; RESP 20; O2SAT 100
--- NOTE | 2017-08-02 09:54 | DRSVH ---
PROCEDURE: X-RAY CHEST ONE VIEW, PORTABLE ([id number]) INDICATIONS: CHEST PAIN TECHNIQUE: One view of the chest was acquired. COMPARISON: [facility], CR, XR CHEST 1VW (PORTABLE), 07/28/2017, 21:11. FINDINGS: Surgical changes and devices: None. Lungs and pleura: No pleural effusions or pneumothorax. Lungs are clear. Mediastinum: Mediastinal contours appear normal. Heart size is normal. Bones and chest wall: No suspicious bony lesions. Overlying soft tissues appear unremarkable. IMPRESSION: No acute pulmonary process. Dictated by: Marjan Rubalcava M.D. on 08/02/2017 at 9:52 Approved by: Marjan Rubalcava M.D. on 08/02/2017 at 9:53
[2017-08-02] MEDS: HYDROmorphone 1 mg/mL Inj IVPUSH PRN ×4 (09:59→13:28)
[2017-08-02 10:24] LABS: BASOPHILS % (AUTO) 0.2 % (0-3); EOSINOPHILS % (AUTO) 0 % (0-5); MONOCYTES % (AUTO) 9.6 % (4-12); Mean Corpuscular Hemoglobin 23.8 pg (27.0-35.0); NEUTROPHILS % (AUTO) 78.8 % (40-74); Platelet Count 278 bil/L (150-400)
[2017-08-02 10:38] VITALS: BP 153/95; PULSE 85; RESP 20; O2SAT 96
[2017-08-02 10:39] LABS: TROPONIN T 0.01 ug/L (0.0-0.011)
[2017-08-02 11:02] LABS: Magnesium 1.5 mg/dL (1.6-2.6)
[2017-08-02] MEDS ORDERED: Magnesium Chloride SR 64 mg ER24 Tablet PO ONE (11:25)
[2017-08-02 11:40] VITALS: BP 130/82; PULSE 90; RESP 20; O2SAT 97
[2017-08-02 13:33] VITALS: BP 139/70; PULSE 92; RESP 20; O2SAT 96
[2017-08-02 14:31] VITALS: BP 138/86; PULSE 99; RESP 20; O2SAT 99
== END 2017-08-02 14:32 | disposition home or self-care (01) ==
LOC: SED 09:26
DX: R07.9 Chest pain, unspecified (principal); R11.2 Nausea with vomiting, unspecified; R06.02 Shortness of breath; R10.10 Upper abdominal pain, unspecified; I11.0 Hypertensive heart disease with heart failure; I50.9 Heart failure, unspecified; I25.10 Atherosclerotic heart disease of native coronary artery without angina pectoris; I48.0 Paroxysmal atrial fibrillation; E11.59 Type 2 diabetes mellitus with other circulatory complications; K21.9 Gastro-esophageal reflux disease without esophagitis; E78.5 Hyperlipidemia, unspecified; F17.200 Nicotine dependence, unspecified, uncomplicated; Z79.84 Long term (current) use of oral hypoglycemic drugs; Z95.810 Presence of automatic (implantable) cardiac defibrillator; Z95.5 Presence of coronary angioplasty implant and graft; Z88.1 Allergy status to other antibiotic agents; Z88.8 Allergy status to other drugs, medicaments and biological substances
CPT/HCPCS: 36415; 71010; 80053; 83690; 83735; 83880; 84484; 85025; 93005; 96374; 96375; 96376; 99285; J1170; J2550

== ENCOUNTER 2017-08-14 12:40 | Observation (INO) | payer MEDICARE, MEDICAID ==
[~2017-08-14] VITALS: Ht 177.8 cm; Wt 131.7 kg
[2017-08-14 12:49] VITALS: BP 155/76; PULSE 82; RESP 13; O2SAT 98
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
[2017-08-14 13:18] LABS: BASOPHILS % (AUTO) 0.2 % (0-3); EOSINOPHILS % (AUTO) 1.6 % (0-5); MONOCYTES % (AUTO) 13.5 % (4-12); Mean Corpuscular Hemoglobin 23.8 pg (27.0-35.0); Mean Corpuscular Volume 73.1 fL (81-100); NEUTROPHILS % (AUTO) 74.9 % (40-74); Platelet Count 174 bil/L (150-400)
[2017-08-14 13:46] LABS: TROPONIN T < 0.010 ug/L (0.0-0.011)
[2017-08-14 13:54] LABS: Magnesium 2.2 mg/dL (1.6-2.6)
--- NOTE | 2017-08-14 14:13 | DRSVH ---
PROCEDURE: X-RAY CHEST ONE VIEW, PORTABLE ([id number]) INDICATIONS: chest pain TECHNIQUE: One view of the chest was acquired. COMPARISON: [facility], CR, XR CHEST 1VW (PORTABLE), 08/02/2017, 9:39. FINDINGS: Surgical changes and devices: Cardiac AICD as before. Lungs and pleura: No pleural effusions or pneumothorax. Lung volumes are decreased. There are scatte red patchy groundglass and hazy opacities, without definite focal consolidation. These are increased since 08/02/17 Mediastinum: Mediastinal contours appear normal. Heart size is normal. Bones and chest wall: No suspicious bony lesions. Overlying soft tissues appear unremarkable. IMPRESSION: Low lung volumes with presumed scattered atelectasis/aspiration. However recommend clinical correlati on to exclude early pulmonary edema. Dictated by: Ronal Kenney M.D. on 08/14/2017 at 13:10 Approved by: Ronal Kenney M.D. on 08/14/2017 at 13:12
--- NOTE | 2017-08-14 14:37 | DRSVH ---
PROCEDURE: CT BRAIN WITHOUT CONTRAST ([id number]) INDICATIONS: Right face droop and dysarthria TECHNIQUE: Noncontrast 4.5 mm thick angled axial sections acquired from the foramen magnum to the vertex, with c oronal reformats. COMPARISON: [facility], CT, CT BRAIN WO CON, 11/30/2015, 11:27. FINDINGS: Image quality: Excellent. CSF spaces: Basal cisterns are patent. No extra-axial fluid collections. The ventricles are symmet francisco in size and shape. Brain: No intracranial bleeds or masses. There is cerebral volume loss for age, with resultant vent ricular and sulcal prominence. There are periventricular and deep white matter chronic small vessel ischemic changes. There is intracranial internal carotid artery atherosclerosis. Skull and face: Calvarium and visualized facial bones appear intact, without suspicious lesions. Sinuses: Visualized sinuses and mastoids are clear. IMPRESSION: No acute intracranial abnormality. Dictated by: Ronal Kenney M.D. on 08/14/2017 at 13:33 Approved by: Ronal Kenney M.D. on 08/14/2017 at 13:35
[2017-08-14] MEDS ORDERED: HYDROmorphone 1 mg/mL Inj ONE (14:49)
[2017-08-14] MEDS ORDERED: HYDROmorphone 1 mg/mL Inj IVPUSH ONE ×3 (15:30→18:40)
--- NOTE | 2017-08-14 18:24 | DRSVH ---
PROCEDURE: CT ANGIO HEAD AND NECK (P) INDICATIONS: Left face weakness, progessing TECHNIQUE: Pre-contrast 4.5 mm thick sections acquired from the foramen magnum to the vertex. After the adminis tration of intravenous contrast, 1 mm thick sections acquired from the aortic arch through the [place] of [place]. Post-contrast 4.5 mm thick sections then re-acquired from the foramen magnum to the vert ex. 3-dimensional yrmqvoq-aifqofnny-sebvnajsij (MIP) and/or volume rendering reformats were acquired of the central intracranial vasculature and neck separately. For radiation dose reduction, the foll owing was used: automated exposure control, adjustment of mA and/or kV according to patient size. COMPARISON: [facility], CR, XR CHEST 1VW (PORTABLE), 08/14/2017, 13:44. [facility], CT, CT BRAIN WO CON, 08/14/2017, 14:23. FINDINGS: Image quality: Excellent. BRAIN: CSF spaces: Ventricles are normal in size and shape. Basal cisterns are patent. No extra-axial flu id collections. Brain: No midline shift. No intracranial bleeds or masses. Kohler-white matter interface appears int act. Skull and face: Calvarium and facial bones appear intact, without suspicious lesions. Orbits appear normal. Sinuses: Sinuses and mastoids are clear. HEAD CT ANGIOGRAPHY: Anterior circulation: Intracranial internal carotid arteries are normal in size and flow. The flow within the paired anterior cerebral arteries is normal and symmetric. The flow within the middle cer ebral arteries is normal and symmetric. The anterior communicating artery is seen. No aneurysms are seen. Posterior circulation: Visualized portions of the vertebral arteries demonstrate normal caliber, and join to form a normal appearing basilar artery. Flow within the posterior cerebral arteries is norm al and symmetric. No aneurysms are seen. NECK CT ANGIOGRAPHY: Carotid system: The great vessels demonstrate a conventional anatomy as they arise from the aortic a rch. The origins of the common carotid arteries appear patent. The common carotid arteries demonstr ate normal caliber and courses. The bifurcation regions are both widely patent. The internal caroti d arteries demonstrate moderate atherosclerotic irregularity but no definite high-grade stenosis. Posterior circulation: The origins of the vertebral arteries both appear widely patent. The more laguerre perior extracranial portions of both vertebral arteries also demonstrate normal courses and calibers. They join to form a normal appearing basilar artery. Soft tissues: Visualized neck soft tissues demonstrate no suspicious abnormalities. Note is made of alveolar infiltration patchy in its distribution slightly worse on the left than the right within the upper lung parenchyma partially included on this study. Bones: No suspicious bony lesions. Visualized cervical spine appears normally aligned. IMPRESSION: 1. No dissection or aneurysm found. 2. Mild to moderate atherosclerotic irregularity at the origin of each internal carotid artery, but without high-grade stenosis identified. 3. Patchy alveolar airspace disease within the upper lungs bilaterally, moderate in overall severity and slightly greater on the left than the right. Dictated by: Wyatt Epps M.D. on 08/14/2017 at 18:18 Approved by: Wyatt Epps M.D. on 08/14/2017 at 18:22
[2017-08-14 18:40] VITALS: BP 161/85; PULSE 78; RESP 17; O2SAT 98
[2017-08-14] MEDS ORDERED: carBAMazepine 200 mg Tablet PO ONE (18:40)
[2017-08-14] MEDS ORDERED: Ondansetron 2 mg/mL 2 mL Inj IVPUSH PRN (19:05)
[2017-08-14] MEDS ORDERED: Alum-Mag Hydrox-Simeth 30 mL Suspension PO PRN ×2 (19:05→20:20)
[2017-08-14 19:16] VITALS: BP 162/83; PULSE 75; RESP 15; O2SAT 95
[2017-08-14 20:00] VITALS: BP 153/95; PULSE 77; RESP 19; O2SAT 98
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
[2017-08-14] MEDS ORDERED: Polyethylene Glycol (PEG) 17 Gm Powder PO PRN (20:20)
[2017-08-14] MEDS ORDERED: Labetalol 5 mg/mL 20 mL Inj IVPUSH PRN (20:20)
[2017-08-14] MEDS ORDERED: Pantoprazole Inj 80 MG in 0.9% Sodium Chloride 100 ML IV ONE (20:20)
[2017-08-14 20:48] LABS: APPEARANCE,URINE CLEAR (CLEAR,HAZY); COLOR,URINE YELLOW (YELLOW); OCCULT BLOOD,URINE NEGATIVE (NEGATIVE); PH,URINE 5.5 (5.0-8.0); UROBILINOGEN,URINE NORMAL (NORMAL)
[2017-08-14] MEDS: Pantoprazole Inj 80 MG in 0.9% Sodium Chloride 80 ML IV SCH (21:11)
[2017-08-14 21:34] LABS: Unsaturated Iron Binding 397.2 ug/dL
[2017-08-14] MEDS: Ondansetron 2 mg/mL 2 mL Inj IVPUSH PRN (22:35)
[2017-08-15] VITALS (9 sets, daily range): BP systolic 143–176; BP diastolic 82–105; PULSE 78–94; RESP 12–19; O2SAT 94–98
[2017-08-15] MEDS ORDERED: Promethazine 25 mg/mL Inj IM PRN
[2017-08-15] MEDS: Promethazine Inj 12.5 MG in Dextrose 5%-Pha MIX 50 ML IV PRN ×2 (00:34→06:45)
[2017-08-15] MEDS: Pantoprazole Inj 80 MG in 0.9% Sodium Chloride 80 ML IV SCH (07:40)
[2017-08-15] MEDS ORDERED: HYDROmorphone 1 mg/mL Inj IVPUSH PRN (08:20)
[2017-08-15] MEDS: Ondansetron 2 mg/mL 2 mL Inj IVPUSH PRN ×3 (10:05→21:55)
[2017-08-15] MEDS: HYDROmorphone 1 mg/mL Inj IVPUSH PRN ×6 (11:17→23:45)
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
[2017-08-15] MEDS: Pantoprazole 40 mg ER24 Tablet PO SCH (18:07)
[2017-08-16 00:08] LABS: Hemoglobin A1C 6.2 % (4.8-5.6)
[2017-08-16 01:32] VITALS: BP 167/90; PULSE 70; RESP 18; O2SAT 96
[2017-08-16] MEDS: HYDROmorphone 1 mg/mL Inj IVPUSH PRN ×5 (01:54→10:33)
[2017-08-16 05:59] VITALS: PULSE 75
[2017-08-16 06:14] VITALS: BP 170/105; PULSE 72; RESP 19; O2SAT 95
[2017-08-16 07:15] LABS: BASOPHILS % (AUTO) 0.2 % (0-3); EOSINOPHILS % (AUTO) 3.7 % (0-5); MONOCYTES % (AUTO) 13.6 % (4-12); Mean Corpuscular Hemoglobin 23.9 pg (27.0-35.0); NEUTROPHILS % (AUTO) 67.9 % (40-74); Platelet Count 168 bil/L (150-400)
[2017-08-16] MEDS ORDERED: Pantoprazole 4 mg/mL 10 mL Inj IVPUSH SCH (07:30)
[2017-08-16 08:20] VITALS: BP 153/62; PULSE 70; RESP 14; O2SAT 96
[2017-08-16 08:25] VITALS: PULSE 80
[2017-08-16] MEDS: Pantoprazole 40 mg ER24 Tablet PO SCH (08:28)
--- NOTE | 2017-08-16 11:55 | PCM.DIMED ---
Discharge Instructions Date of Service Aug 16, 2017 Dates of Hospitalization Aug 14, 2017 at 18:34 Discharge Diagnosis Discharge Diagnosis CVA with left hemipresis,Bright red blood per rectum Diet Discharge Diet: Heart Healthy Activity Discharge Activity: Other (as tolerated) Call your provider Call your provider for: Fever or Chills, Shortness of breath, Bleeding, Chest pain, Vomitting, Excessive diarrhea, Weakness (unilateral) Patient Instructions Follow-up Provider: VIKY COWAN DO Follow-up with PCP in: Other (in 4-5 days ,sooner if problems.) Anny Mcneal MD Aug 16, 2017 11:55
[2017-08-16] MEDS ORDERED: CLOP75TA3 PO (11:59)
[2017-08-16] MEDS ORDERED: ASPI-973 PO (11:59)
[2017-08-16] MEDS ORDERED: OXYC10TA8 PO (12:03)
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
== END 2017-08-16 12:25 | disposition home or self-care (01) ==
LOC: SED 12:40 → MOC 18:34
PROVIDERS: ADMIT Internal Medicine; ATTEND Specialist
DX: I63.8 Other cerebral infarction (principal); G81.94 Hemiplegia, unspecified affecting left nondominant side; R51 Headache; K62.5 Hemorrhage of anus and rectum; R07.89 Other chest pain; D50.0 Iron deficiency anemia secondary to blood loss (chronic); I10 Essential (primary) hypertension; E78.5 Hyperlipidemia, unspecified; I50.32 Chronic diastolic (congestive) heart failure; K86.1 Other chronic pancreatitis; I48.0 Paroxysmal atrial fibrillation; E11.9 Type 2 diabetes mellitus without complications; I25.10 Atherosclerotic heart disease of native coronary artery without angina pectoris; G89.29 Other chronic pain; G40.909 Epilepsy, unspecified, not intractable, without status epilepticus; N40.0 Benign prostatic hyperplasia without lower urinary tract symptoms; K21.9 Gastro-esophageal reflux disease without esophagitis; G47.30 Sleep apnea, unspecified; F43.10 Post-traumatic stress disorder, unspecified; F11.10 Opioid abuse, uncomplicated; F17.210 Nicotine dependence, cigarettes, uncomplicated; Z95.0 Presence of cardiac pacemaker; Z98.61 Coronary angioplasty status; Z79.84 Long term (current) use of oral hypoglycemic drugs; Z79.899 Other long term (current) drug therapy
CPT/HCPCS: 36415; 70450; 70496; 70498; 71010; 80048; 80053; 80061; 81000; 82274; 82607; 82746; 83036; 83540; 83550; 83690; 83735; 84484; 85014; 85018; 85025; 87507; 93005; 96374; 96375; 96376; 97162; 99285; G0378; G0463; G8978; G8979; J1170; J2270; J2405; J2550; Q9967; S0164

== ENCOUNTER 2017-08-19 16:47 | Emergency (ER) | payer MEDICARE, MEDICAID ==
[~2017-08-19] VITALS: Ht 177.8 cm; Wt 124.5 kg
[~2017-08-19 16:47] MED LIST changes: +ASPI-973 PO; +CLOP75TA3 PO; +OXYC10TA8 PO
[2017-08-19 16:58] VITALS: BP 132/69; PULSE 88; RESP 16; O2SAT 97
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
[2017-08-19] MEDS ORDERED: HYDROmorphone 1 mg/mL Inj IM ONE (17:20)
--- NOTE | 2017-08-19 17:55 | DRSVH ---
PROCEDURE: X-RAY CHEST ONE VIEW, PORTABLE ([id number]) INDICATIONS: near syncope TECHNIQUE: One view of the chest was acquired. COMPARISON: [facility], CR, XR CHEST 1VW (PORTABLE), 08/14/2017, 13:44. [facility], CR, XR CHEST 1VW (PORTABLE), 08/02/2017, 9:39. [facility], CR, XR CHEST 1VW (PORT ABLE), 07/28/2017, 21:11. [facility], CR, XR CHEST 1VW (PORTABLE), 07/26/2017, 9:22. FINDINGS: Surgical changes and devices: Left sided cardiac pacer. The. Lungs and pleura: Mild/moderate right pleural effusion with right basilar atelectasis. Remaining lung s are clear. Mediastinum: Mediastinal contours appear normal. Heart size is normal. Bones and chest wall: No suspicious bony lesions. Overlying soft tissues appear unremarkable. IMPRESSION: Mild/moderate right pleural effusion. Dictated by: Marcos Hough M.D. on 08/19/2017 at 17:51 Approved by: Marcos Hough M.D. on 08/19/2017 at 17:54
--- NOTE | 2017-08-19 17:56 | DRSVH ---
PROCEDURE: X-RAY LEFT TIBIA/FIBULA, TWO VIEWS ([id number]) INDICATIONS: hit left lower leg severe pain TECHNIQUE: 2 views of the tibia and fibula were acquired. COMPARISON: None. FINDINGS: Bones: No fractures or dislocations. No suspicious bony lesions. Soft tissues: No suspicious soft tissue calcifications or masses. IMPRESSION: No acute fractures or dislocations. Dictated by: Marcos Hough M.D. on 08/19/2017 at 17:54 Approved by: Marcos Hough M.D. on 08/19/2017 at 17:55
--- NOTE | 2017-08-19 18:00 | DRSVH ---
PROCEDURE: CT BRAIN WITHOUT CONTRAST ([id number]) INDICATIONS: fell hit left side of head on sink TECHNIQUE: Noncontrast 4.5 mm thick angled axial sections acquired from the foramen magnum to the vertex, with c oronal reformats. COMPARISON: [facility], CT, CT BRAIN WO CON, 08/14/2017, 14:23. [facility], CT, CT BRAIN WO CON, 11/30/2015, 11:27. [facility], CT, BRAIN W/O CONTRAST, 06/12/2015, 1 9:36. [facility], CT, BRAIN W/O CONTRAST, 09/27/2014, 3:09. FINDINGS: Image quality: Excellent. CSF spaces: Basal cisterns are patent. No extra-axial fluid collections. Ventricles are normal in size and shape. Brain: No midline shift. No intracranial masses or hemorrhage. Kohler-white matter interface is norm al. Skull and face: Calvarium and visualized facial bones are intact, without suspicious lesions. Sinuses: Visualized sinuses and mastoids are clear. IMPRESSION: No CT evidence of acute intracranial pathology. Dictated by: Marcos Hough M.D. on 08/19/2017 at 17:57 Approved by: Marcos Hough M.D. on 08/19/2017 at 17:59
--- NOTE | 2017-08-19 18:03 | DRSVH ---
PROCEDURE: CT CERVICAL SPINE WITHOUT CONTRAST ([id number]) INDICATIONS: fell hit left side of head on sink TECHNIQUE: Noncontrast 3 mm thick sections acquired from the skull base to the T4 level. Sagittal and coronal r eformats were then constructed. For radiation dose reduction, the following was used: automated exp osure control, adjustment of mA and/or kV according to patient size. COMPARISON: [facility], CT, CT CERVICAL SPINE WO CON, 11/30/2015, 11:27. FINDINGS: Image quality: Excellent. Bones: No fractures or dislocations. Visualized superior ribs are intact. Loss of the normal cervi camila process likely due to patient positioning or muscular spasm. Otherwise normal cervical vertebral body alignment. Soft tissues: Prevertebral soft tissues are normal in thickness. No paravertebral hematomas. No ap ical pneumothoraces. IMPRESSION: No acute fractures or dislocations. Dictated by: Marcos Hough M.D. on 08/19/2017 at 17:59 Approved by: Marcos Hough M.D. on 08/19/2017 at 18:01
[2017-08-19 18:41] LABS: BASOPHILS % (AUTO) 0.3 % (0-3); EOSINOPHILS % (AUTO) 2.4 % (0-5); MONOCYTES % (AUTO) 12.8 % (4-12); Mean Corpuscular Hemoglobin 23.3 pg (27.0-35.0); Mean Corpuscular Volume 71.3 fL (81-100); NEUTROPHILS % (AUTO) 66.1 % (40-74); Platelet Count 212 bil/L (150-400)
[2017-08-19 19:04] LABS: TROPONIN T < 0.010 ug/L (0.0-0.011)
[2017-08-19 19:14] LABS: Magnesium 1.8 mg/dL (1.6-2.6)
[2017-08-19 19:22] VITALS: BP 123/79; PULSE 80; RESP 23; O2SAT 97
== END 2017-08-19 19:50 | disposition home or self-care (01) ==
LOC: SED 16:47
DX: R55 Syncope and collapse (principal); W18.39XA Other fall on same level, initial encounter; Y93.89 Activity, other specified; Y92.002 Bathroom of unspecified non-institutional (private) residence as the place of occurrence of the external cause; Y99.8 Other external cause status; R07.9 Chest pain, unspecified; R00.2 Palpitations; R06.02 Shortness of breath; R51 Headache; M54.2 Cervicalgia; M79.662 Pain in left lower leg; I11.0 Hypertensive heart disease with heart failure; E11.59 Type 2 diabetes mellitus with other circulatory complications; I50.9 Heart failure, unspecified; I25.10 Atherosclerotic heart disease of native coronary artery without angina pectoris; I48.0 Paroxysmal atrial fibrillation; K21.9 Gastro-esophageal reflux disease without esophagitis; F43.10 Post-traumatic stress disorder, unspecified; E78.5 Hyperlipidemia, unspecified; F17.200 Nicotine dependence, unspecified, uncomplicated; Z95.810 Presence of automatic (implantable) cardiac defibrillator; Z95.5 Presence of coronary angioplasty implant and graft; Z98.890 Other specified postprocedural states; Z79.82 Long term (current) use of aspirin; Z79.84 Long term (current) use of oral hypoglycemic drugs; Z88.6 Allergy status to analgesic agent; Z88.8 Allergy status to other drugs, medicaments and biological substances
CPT/HCPCS: 36415; 70450; 71010; 72125; 73590; 80053; 83735; 83880; 84484; 85025; 86850; 93005; 93288; 96372; 99285; J1170

== ENCOUNTER 2017-08-25 01:03 | Emergency (ER) | payer MEDICARE, MEDICAID ==
[2017-08-25] VITALS (9 sets, daily range): BP systolic 169–195; BP diastolic 93–113; PULSE 72–89; RESP 12–25; O2SAT 93–100
[~2017-08-25] VITALS: Ht 177.8 cm; Wt 124.5 kg
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
[2017-08-25] MEDS ORDERED: HYDROmorphone 0.5 mg/0.5 mL iSecure Syringe IVPUSH PRN (01:30)
[2017-08-25] MEDS ORDERED: Ondansetron 2 mg/mL 2 mL Inj IVPUSH ONE (01:30)
[2017-08-25 02:10] LABS: BASOPHILS % (AUTO) 0.5 % (0-3); EOSINOPHILS % (AUTO) 2.5 % (0-5); MONOCYTES % (AUTO) 11.5 % (4-12); Mean Corpuscular Hemoglobin 23.1 pg (27.0-35.0); Mean Corpuscular Volume 70.1 fL (81-100); NEUTROPHILS % (AUTO) 64.5 % (40-74); Platelet Count 315 bil/L (150-400)
[2017-08-25] MEDS: HYDROmorphone 1 mg/mL Inj IVPUSH PRN ×3 (02:24→05:29)
[2017-08-25 02:29] LABS: INR 0.94 ratio
[2017-08-25 02:49] LABS: Magnesium 1.6 mg/dL (1.6-2.6)
[2017-08-25] MEDS ORDERED: Ondansetron 2 mg/mL 2 mL Inj IVPUSH PRN (04:05)
--- NOTE | 2017-08-25 09:42 | DRSVH ---
PROCEDURE: X-RAY CHEST ONE VIEW, PORTABLE ([id number]) INDICATIONS: chest pain TECHNIQUE: One view of the chest was acquired. COMPARISON: [facility], CR, XR CHEST 1VW (PORTABLE), 08/19/2017, 17:31, and additional mo re distant past chest plain films reviewed. FINDINGS: Surgical changes and devices: Pacemaking divided/defibrillation device and leads appear normal. Lungs and pleura: No pleural effusions or pneumothorax. Lungs are unchanged, with asymmetric mild e levation of the right hemidiaphragm, previously present. Mediastinum: Mediastinal contours appear normal. Heart size is normal. Bones and chest wall: No suspicious bony lesions. Overlying soft tissues appear unremarkable. IMPRESSION: No change in appearance of the chest, source of new chest pain is not seen. Mild asymmet francisco elevation of the right hemidiaphragm, chronic. Dictated by: Wyatt Epps M.D. on 08/25/2017 at 9:39 Approved by: Wyatt Epps M.D. on 08/25/2017 at 9:41
--- NOTE | 2017-08-25 09:44 | DRSVH ---
PROCEDURE: CT BRAIN WITHOUT CONTRAST ([id number]) INDICATIONS: fall, near syncope, hit head TECHNIQUE: Noncontrast 4.5 mm thick angled axial sections acquired from the foramen magnum to the vertex, with c oronal reformats. COMPARISON: [facility], CT, CT BRAIN WO CON, 08/19/2017, 17:39. FINDINGS: Image quality: Excellent. CSF spaces: Basal cisterns are patent. No extra-axial fluid collections. The ventricles are symmet francisco in size and shape. Brain: No intracranial bleeds or masses. There is cerebral volume loss for age, with resultant vent ricular and sulcal prominence. There are periventricular and deep white matter chronic small vessel ischemic changes. There is intracranial internal carotid artery atherosclerosis. Skull and face: Calvarium and visualized facial bones appear intact, without suspicious lesions. Po sterior scalp hematoma is noted. Sinuses: Visualized sinuses and mastoids are clear. IMPRESSION: 1. No acute intracranial process. 2. Mild atrophy and chronic microvascular ischemic changes. 3. Posterior scalp hematomas. Dictated by: Marjan Rubalcava M.D. on 08/25/2017 at 9:41 Approved by: Marjan Rubalcava M.D. on 08/25/2017 at 9:42
[2017-08-26] MEDS ORDERED: CLOP75TA28 PO (09:22)
[2017-08-26] MEDS ORDERED: DOXY-226 PO (11:47)
[2017-08-26] MEDS ORDERED: PREG75CA PO (11:47)
[2017-08-26] MEDS ORDERED: ASPI-973 PO (12:02)
[2017-08-26] MEDS ORDERED: FLUT15.88 NASAL (12:02)
[2017-08-26] MEDS ORDERED: ISOS60TA2 PO (12:02)
[2017-08-26] MEDS ORDERED: GABA-502 PO (12:02)
[2017-08-26] MEDS ORDERED: MAGN400C PO (12:05)
[2017-08-26] MEDS ORDERED: POTA10CA42 PO (12:05)
== END 2017-08-25 07:25 | disposition home or self-care (01) ==
LOC: SED 01:03
DX: I95.1 Orthostatic hypotension (principal); R42 Dizziness and giddiness; R11.10 Vomiting, unspecified; R07.9 Chest pain, unspecified; K92.1 Melena; I11.0 Hypertensive heart disease with heart failure; I50.9 Heart failure, unspecified; E11.59 Type 2 diabetes mellitus with other circulatory complications; I25.10 Atherosclerotic heart disease of native coronary artery without angina pectoris; I48.91 Unspecified atrial fibrillation; K21.9 Gastro-esophageal reflux disease without esophagitis; E78.5 Hyperlipidemia, unspecified; F17.200 Nicotine dependence, unspecified, uncomplicated; Z95.810 Presence of automatic (implantable) cardiac defibrillator; Z95.5 Presence of coronary angioplasty implant and graft; Z90.89 Acquired absence of other organs; Z90.49 Acquired absence of other specified parts of digestive tract; Z98.890 Other specified postprocedural states; Z79.82 Long term (current) use of aspirin; Z79.84 Long term (current) use of oral hypoglycemic drugs; Z88.5 Allergy status to narcotic agent; Z88.8 Allergy status to other drugs, medicaments and biological substances
CPT/HCPCS: 36415; 70450; 71010; 80053; 81002; 83735; 83880; 84484; 85025; 85610; 85730; 93005; 96374; 96375; 96376; 99285; G0480; J1170; J2405

== ENCOUNTER 2017-08-26 02:08 | Observation (INO) | payer MEDICARE, MEDICAID ==
[2017-08-26] VITALS (11 sets, daily range): BP systolic 127–187; BP diastolic 84–115; PULSE 73–94; RESP 16–19; O2SAT 96–100
[~2017-08-26] VITALS: Ht 177.8 cm; Wt 125.4 kg
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
[2017-08-26] MEDS ORDERED: cloNIDine 0.1 mg Tablet PO ONE (03:20)
[2017-08-26] MEDS ORDERED: Labetalol 5 mg/mL 20 mL Inj IVPUSH ONE (03:20)
[2017-08-26 04:23] LABS: BASOPHILS % (AUTO) 0.4 % (0-3); EOSINOPHILS % (AUTO) 2.8 % (0-5); MONOCYTES % (AUTO) 10.7 % (4-12); Mean Corpuscular Hemoglobin 23.1 pg (27.0-35.0); Mean Corpuscular Volume 71.2 fL (81-100); NEUTROPHILS % (AUTO) 66.3 % (40-74); Platelet Count 296 bil/L (150-400)
[2017-08-26 04:42] LABS: D-Dimer 0.71 mg/L FEU (<0.50); INR 0.96 ratio
[2017-08-26 04:45] LABS: TROPONIN T 0.01 ug/L (0.0-0.011)
[2017-08-26 04:56] LABS: Magnesium 1.7 mg/dL (1.6-2.6)
[2017-08-26] MEDS ORDERED: Ondansetron 8 mg ODT Tablet PO ONE (07:35)
[2017-08-26] MEDS ORDERED: HYDROmorphone 1 mg/mL Inj IVPUSH ONE (07:35)
--- NOTE | 2017-08-26 08:29 | DRSVH ---
PROCEDURE: X-RAY CHEST ONE VIEW, PORTABLE ([id number]) INDICATIONS: chest pain, pacer placed 1 month ago TECHNIQUE: One view of the chest was acquired. COMPARISON: [facility], CR, XR CHEST 1VW (PORTABLE), 06/04/2017, 11:17. [facility], CR, XR CHEST 1VW (PORTABLE), 08/02/2017, 9:39. [facility], CR, XR CHEST 1VW (PORT ABLE), 08/25/2017, 2:07. [facility], CR, XR CHEST 1VW (PORTABLE), 08/19/2017, 17:31. FINDINGS: Surgical changes and devices: Pacemaking device and dual chamber leads normal. Lungs and pleura: No pleural effusions or pneumothorax. Lungs are clear considering a reduced inspi ratory volume and chronic mild blunting of the costophrenic sulcus laterally on the right. Mediastinum: Mediastinal contours appear normal. Heart size is normal. Bones and chest wall: No suspicious bony lesions. Overlying soft tissues appear unremarkable. IMPRESSION: No building mover time, chronic mild blunting of the Source of the chest pain is not seen. costophrenic sulcus laterally on the right. Pacemaker appears normal. Dictated by: Wyatt Epps M.D. on 08/26/2017 at 8:26 Approved by: Wyatt Epps M.D. on 08/26/2017 at 8:27
[2017-08-26] MEDS ORDERED: 0.9% Sodium Chloride 1,000 ML IV SCH (08:38)
[2017-08-26] MEDS ORDERED: Polyethylene Glycol (PEG) 17 Gm Powder PO PRN (08:40)
[2017-08-26] MEDS ORDERED: Alum-Mag Hydrox-Simeth 30 mL Suspension PO PRN (08:40)
[2017-08-26] MEDS ORDERED: Ondansetron 2 mg/mL 2 mL Inj IVPUSH PRN (08:40)
[2017-08-26] MEDS ORDERED: CLOP75TA28 PO (09:22)
[2017-08-26 10:02] LABS: APPEARANCE,URINE HAZY (CLEAR,HAZY); COLOR,URINE STRAW (YELLOW); OCCULT BLOOD,URINE NEGATIVE (NEGATIVE); PH,URINE 5.5 (5.0-8.0); UROBILINOGEN,URINE NORMAL (NORMAL)
[2017-08-26] MEDS ORDERED: DOXY-226 PO (11:47)
[2017-08-26] MEDS ORDERED: PREG75CA PO (11:47)
--- NOTE | 2017-08-26 11:51 | NUR ---
Admit A&O pt arrived to unit via stretcher at 1050. IV patent. Tele placed on pt-SR 80s. Pt refused scheduled 10mg oxy stating he takes 50mg at home-at once. Also refused IVF, message sent to MD. Admit complete in ED. Bed in low position, upper 2 rails up, call light in reach. Will continue to monitor.
[2017-08-26] MEDS ORDERED: ISOS60TA2 PO (12:02)
[2017-08-26] MEDS ORDERED: GABA-502 PO (12:02)
[2017-08-26] MEDS ORDERED: FLUT15.88 NASAL (12:02)
[2017-08-26] MEDS ORDERED: ASPI-973 PO (12:02)
[2017-08-26] MEDS ORDERED: MAGN400C PO (12:05)
[2017-08-26] MEDS ORDERED: POTA10CA42 PO (12:05)
--- NOTE | 2017-08-26 12:11 | NUR ---
Med Rec Pt unable to recall any of his medications or when he last took them. Obtained Med Lists from [facility], [facility], [facility] Winston and from pt's PCP - Dr Federica Rodriguez's office. Paged Hospitalist on Green Team to notify him that Med Rec has been corrected & verified.
[2017-08-26] MEDS ORDERED: HYDROmorphone 0.5 mg/0.5 mL iSecure Syringe IVPUSH ONE (12:55)
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
--- NOTE | 2017-08-26 13:39 | NUR ---
spiritual care: pt request Visited with pt who is acquainted well with spiritual care team. Conversational visit about well-being. Offered a blessing before leaving the room. Spiritual care will continue to follow.
--- NOTE | 2017-08-26 15:43 | NUR ---
Social Work- initial assessment: Data: See Initial Assessment. Pt is a 61 year old male admitted on 08/26/17 for syncope per H&P. Pt's insurance is [employer] and [facility] [employer]. Pt's PCP is Federica Rodriguez DO. Pt is a readmission discharging home with FRANK referral. EMR reviewed. SW met with pt at bedside regarding discharge plan, SW role explained. Pt is alert and oriented x3. Pt resides at home in a mobile home with three steps to enter where he remains independent with ADLs.Pt drives and uses a cane at baseline. Pt has no HH or SNF history. 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 SW discussed DPOA/ advanced directive, pt has not completed this and is interested in any information. During last admission [facility] referral sent in for caregiving at home. Discharge planning checklist provided to pt and SW encouraged pt to call with any questions,phone number on whiteboard in room. Pt plans to drive himself home. No anticipated discharge needs. SW will continue to follow if needs arise. Assessment: Pt who is independent at baseline. Plan: Pt to discharge home when medically stable via POV. No anticipated discharge needs. SW will continue to follow if needs arise. LILLINA Proctor Addendum: 08/26/17 at 1549 by PEPE JANSEN Amended: Links added.
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
[2017-08-27 00:15] VITALS: BP 168/99; PULSE 68; RESP 18; O2SAT 99
[2017-08-27 04:54] VITALS: BP 190/106; PULSE 63; RESP 18; O2SAT 100
--- NOTE | 2017-08-27 06:07 | NUR ---
GI Pt stable overnight, continued oxycodone for pain q4 hrs for 7-8 out of 10 generalized pain. RA. Hypertensive with SBP 160s-190s. Appeared to rest through most of the night. Plan for Meckel's scan today in Nuc Med.
[2017-08-27 06:51] LABS: Mean Corpuscular Volume 72.2 fL (81-100)
[2017-08-27 06:56] LABS: BASOPHILS % (AUTO) 0.4 % (0-3); EOSINOPHILS % (AUTO) 5.3 % (0-5); MONOCYTES % (AUTO) 8.6 % (4-12); NEUTROPHILS % (AUTO) 60.1 % (40-74); Platelet Count 272 bil/L (150-400)
[2017-08-27 07:07] LABS: Magnesium 1.7 mg/dL (1.6-2.6)
[2017-08-27] MEDS ORDERED: Polyethylene Glycol (PEG) 17 Gm Powder PO SCH (08:30)
[2017-08-27] MEDS ORDERED: Pantoprazole 40 mg ER24 Tablet PO SCH (08:30)
--- NOTE | 2017-08-27 09:04 | NUR ---
AMA Pt left AMA, this RN spoke with pt to educate on leaving AMA. Pt stated, he wanted to see his PCP, and have the tests done out pt. Pt signed AMA paperwork and was escorted off the floor.
--- NOTE | 2017-08-27 10:04 | NUR ---
Social Work-discharge: Data& assessment:SW updated by liability claims representative that pt has left AMA. Plan:Pt has left AMA. LILLIAN Proctor
--- NOTE | 2017-08-27 21:39 | PCM.DC.MED ---
Discharge Summary Date of Service Aug 27, 2017 Dates of Hospitalization Date of Hospital Admission Aug 26, 2017 at 10:27 Date of Discharge: Aug 27, 2017 Providers: Admitting Physician: Rigoberto Martinez MD Primary Care Physician: Federica Rodriguez DO Attending Physician: Rigoberto Martinez MD Diagnosis at Time of Discharge Diagnosis at Time of Discharge # Syncope/lightheadedness,acute,poa -Multifactorial: Combination of multiple vasoactive agents and possible dehydration due to BRBPR # BRBPR # History of sustained V. tach status post AICD placement on 06/16/17 # Blood loss anemia secondary to GI bleed; present on admission; ongoing # History of Afib on amiodarone # Reported chest pain, likely non-cardiac; present on admission; ongoing #Opiate dependence; present on admission; ongoing # Type II diabetes; present on admission; ongoing # Mild ischemic cardiomyopathy with diastolic CHF; stable # Hypertension- # Hx of seizure,stable BPH- Hx of Seizures- PTSD- Sleep apnea- Hyperlipidemia- Consultations surgery Dr Elkins Procedures XRay, CTs & MRIs PROCEDURE: X-RAY CHEST ONE VIEW, PORTABLE ([id number]) INDICATIONS: chest pain, pacer placed 1 month ago TECHNIQUE: One view of the chest was acquired. COMPARISON: [facility], CR, XR CHEST 1VW (PORTABLE), 06/04/2017, 11: 17. [facility], CR, XR CHEST 1VW (PORTABLE), 08/02/2017, 9:39. [facility], CR, XR CHEST 1VW (PORTABLE), 08/25/2017, 2:07. [facility], CR, XR CHEST 1VW (PORTABLE), 08/19/2017, 17:31. FINDINGS: Surgical changes and devices: Pacemaking device and dual chamber leads normal. Lungs and pleura: No pleural effusions or pneumothorax. Lungs are clear considering a reduced inspiratory volume and chronic mild blunting of the costophrenic sulcus laterally on the right. Mediastinum: Mediastinal contours appear normal. Heart size is normal. Bones and chest wall: No suspicious bony lesions. Overlying soft tissues appear unremarkable. IMPRESSION: No overhead foreman time, chronic mild blunting of the Source of the chest pain is not seen. costophrenic sulcus laterally on the right. Pacemaker appears normal. Dictated by: Wyatt Epps M.D. 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 he also states he has bright red bleeding per rectum for the last 2 days. Denies trauma to head Denies any recent medication adjustment on diuretics or alpha blockers . He has been on Flomax for years and terazosin added 2 years ago . He also states he has mild chest discomfort which has been going on for a while now. Multiple workup unrevealing. Denies fever. ED course: Unremarkable vitals and exam. Orthostatics reportedly negative. Hb 11 at baseline , ED consulted cardiology and he recommended discontinuing terazosin . 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 Patient concerned that he will not be able to pee with out the combination alpha blockers.will lower terazosin to 2 mg from 5 mg and continue others - interogation of [facility] AICD requested PATIENT STATED HE NEEDS DILAUDID Q3H,EXPLAINED THAT WE WILL TITRATE TO PAIN . HE STATES HE WILL GO TO [facility] AND LEFT AMA # BRBPR -likely due to hemorrhoids -Patient has a history of bleeding from hemorrhoids on colonoscopy May 2016, underwent hemorrhoidectomy in summer 2015 -consulted surgery per GI rec -patient left AMA # History of sustained V. tach status post AICD placement on 06/16/17 -Request interrogation -patient left AMA # Blood loss anemia secondary to GI bleed; present on admission; ongoing -Reports BRBPR but hemoglobin at baseline -Occult stool -patient left AMA # History of Afib on amiodarone # Reported chest pain, likely non-cardiac; present on admission; ongoing -Symptom has been chronic and unchanged. Patient had recent workup nonrevealing. # Opiate dependence; present on admission; ongoing -Will continue home oxycodone # Type II diabetes; present on admission; ongoing -Home medication: Metformin 1000 mg daily -Hold metformin # Mild ischemic cardiomyopathy with diastolic CHF; stable # Hypertension- # Hx of seizure,stable# BPH-continue tamsulosin,lower terazosin dose Hx of Seizures-not on medications PTSD- continue Terazol and sertraline Sleep apnea-will need to bring in home CPAP; can place oxygen on patient tonight Hyperlipidemia-on atorvastatin -patient left AMA Exam Vital Signs (Last) Date Time Temp Pulse Resp B/P Pulse Ox O2 Delivery O2 Flow Rate FiO2 08/27/17 04:54 36.5 63 18 190/106 100 Room Air Exam Gen. patient is lying comfortably in hospital bed HEENT: Head is normocephalic atraumatic, Pupils equal and reactive, extraocular movements intact, Lungs clear to auscultation bilaterally Heart regular rate and rhythm without murmurs gallops or rubs Abdomen soft nontender without hepatosplenomegaly,recttal exam done by ks 08/27 brown stool no blood seen Extremities pulses are present dorsalis pedis posterior tibialis and radial. tSkin is warm and dry there are no rashes, Psych alert and oriented to person place and time Neuro cranial nerves II through XII are grossly intact Lymph: There is no lymphadenopathy appreciated in the cervical supra infraclavicular regions : no gonsalez Test 08/26/17 04:10 08/26/17 08:10 08/26/17 08:55 08/26/17 08:57 Prothrombin Time 10.3sec (8.1-12.5) Prothromb Time International Ratio 0.96ratio D-Dimer 0.71mg/L FEU (<0.50) Troponin T 0.010ug/L (0.0-0.011) Pro-B-Type Natriuretic Peptide 430.8pg/mL (0-210) Hold Urine Received (Received) Hold Purple Top Tube Received (Received) Hold Blue Top Tube Received (Received) Hold Red Top Tube Received (Received) Hold [place] Top Tube Received (Received) Hold [place] Top Tube Received (Received) Urine Color Straw (YELLOW) Urine Appearance Hazy (CLEAR,HAZY) Urine pH 5.5 (5.0-8.0) Urine Specific [place] 1.025 (1.003-1.035) Urine Protein Tracemg/dL (NEG,TRACE) Urine Glucose (UA) Negativemg/dL (NEGATIVE) Urine Ketones Negativemg/dL (NEGATIVE) Urine Occult Blood Negative (NEGATIVE) Urine Nitrite Negative (NEGATIVE) Urine Bilirubin Negative (NEGATIVE) Urine Urobilinogen Normalmg/dL (NORMAL) Urine Leukocyte Esterase Negative (NEGATIVE) Urine RBC 0-2/hpf (0-2) Urine WBC 0-5/hpf (0-5) Urine Epithelial Cells Occasional/hpf (NONE-MOD) Urine Crystals None seen (NONE SEEN) Urine Bacteria None/hpf (NONE-FEW) Urine Hyaline Casts Occasional/lpf (NONE) Urine Granular Casts None seen (NONE SEEN) Urine Waxy Casts None seen (NONE SEEN) Urine Red Blood Cell Casts None seen (NONE SEEN) Urine White Blood Cell Casts None seen (NONE SEEN) Urine Mucus Present (None Seen) Urine Trichomonas None seen (NONE SEEN) Urine Yeast None (NONE SEEN) Urinalysis Comment None Urine Culture Reflexed Not indicated Test 08/27/17 06:10 White Blood Count 5.1th/mm3 (3.8-10.1) Red Blood Count 4.60mil/mm3 (4.40-5.80) Hemoglobin 10.6g/dL (13.8-17.2) Hematocrit 33.2% (41.0-50.0) Mean Corpuscular Volume 72.2fL (81-100) Mean Corpuscular Hemoglobin 23.0pg (27.0-35.0) Mean Corpuscular Hemoglobin Concent 31.9% (32.0-37.0) Red Cell Distribution Width 17.4% (12.3-15.4) Platelet Count 272bil/L (150-400) Neutrophils (%) (Auto) 60.1% (40-74) Lymphocytes (%) (Auto) 24.6% (14-46) Monocytes (%) (Auto) 8.6% (4-12) Eosinophils (%) (Auto) 5.3% (0-5) Basophils (%) (Auto) 0.4% (0-3) Sodium Level 139mEq/L (134-144) Potassium Level 3.9mEq/L (3.5-5.2) Chloride Level 103mEq/L (97-108) Carbon Dioxide Level 23mmol/L (18-29) Blood Urea Nitrogen 19mg/dL (8-27) Creatinine 1.11mg/dL (0.76-1.27) Estimat Glomerular Filtration Rate 72mL/min (>59) Glucose Level 162mg/dL (60-99) Calcium Level 8.9mg/dL (8.5-10.1) Magnesium Level 1.7mg/dL (1.6-2.6) Total Bilirubin 0.2mg/dL (0.0-1.2) Aspartate Amino Transf (AST/SGOT) 14U/L (0-50) Alanine Aminotransferase (ALT/SGPT) 13U/L (0-44) Alkaline Phosphatase 78U/L (25-160) Total Protein 6.6g/dL (6.4-8.4) Albumin 4.0g/dL (3.4-5.0) Discharge Medications Discharge Medications Amiodarone (Amiodarone) 200 Mg Tablet 200 MG PO BID Prescribed by: SANTINO YE MD Amlodipine (Amlodipine) 5 Mg Tablet 10 MG PO DAILY Prescribed by: ALVAREZ BARAHONA DO Aspirin (Aspirin) 81 Mg Tablet 81 MG PO DAILY Prescribed by: TIN WHITNEY MD Atorvastatin Calcium (Atorvastatin Calcium) 40 Mg Tablet 40 MG PO HS (Reported) Clopidogrel (Clopidogrel) 75 Mg Tablet 75 MG PO DAILY (Reported) Doxycycline Hyclate DR (Doxycycline Hyclate DR) 100 Mg Tablet.dr 100 MG PO BID ( Reported) Fluticasone Propionate (Fluticasone Propionate) 50 Mcg/Actuation [place].susp 1 SPRAY NASAL DAILY (Reported) Furosemide (Furosemide) 20 Mg Tab 20 MG PO QAM (Reported) Gabapentin (Gabapentin) 300 Mg Capsule 300 MG PO TID (Reported) Isosorbide MN ER (Isosorbide MN ER) 60 Mg Tab.er.24h 60 MG PO DAILY (Reported) Magnesium Oxide (Magnesium) 400 Mg Capsule 400 MG PO DAILY (Reported) Metformin (Glucophage) 1,000 Mg Tablet 1,000 MG PO DAILYWM (Reported) Metoprolol Tartrate (Metoprolol Tartrate) 100 Mg Tablet 100 MG PO BID (Reported ) Pantoprazole DR (Pantoprazole DR) 40 Mg Tablet.dr 40 MG PO QAM (Reported) Polyethylene Glycol 3350 (Miralax) 17 Gm Powd.pack 17 GM PO DAILY Prescribed by: SANTINO YE MD Potassium Chloride (Potassium Chloride) 10 Meq Capsule.er 10 MEQ PO DAILY ( Reported) TAKE WITH FOOD Pregabalin (Lyrica) 75 Mg Capsule 75 MG PO BID (Reported) Spironolactone (Spironolactone) 25 Mg Tablet 25 MG PO DAILY Prescribed by: ALVAREZ BARAHONA, DO As needed Ondansetron (Ondansetron) 4 Mg Tablet 4 MG PO Q8H PRN PRN For Nausea/Vomiting ( Reported) Oxycodone (Roxicodone) 5 Mg Tablet 10 MG PO Q4H PRN PRN For Pain (Reported) NTE 5 DOSES/24 HRS. PT IS ON A PAIN CONTRACT. Followup Plan Disposition: Rigoberto Schaefer MD Aug 27, 2017 21:39
== END 2017-08-27 09:02 | disposition left against medical advice (07) ==
LOC: SED 02:08 → MPC 10:27
PROVIDERS: ADMIT Internal Medicine; ATTEND Internal Medicine
DX: R55 Syncope and collapse (principal); K62.5 Hemorrhage of anus and rectum; D50.0 Iron deficiency anemia secondary to blood loss (chronic); I48.91 Unspecified atrial fibrillation; R07.89 Other chest pain; F11.20 Opioid dependence, uncomplicated; E11.9 Type 2 diabetes mellitus without complications; I25.5 Ischemic cardiomyopathy; I50.30 Unspecified diastolic (congestive) heart failure; I11.0 Hypertensive heart disease with heart failure; N40.0 Benign prostatic hyperplasia without lower urinary tract symptoms; F43.10 Post-traumatic stress disorder, unspecified; G47.30 Sleep apnea, unspecified; E78.5 Hyperlipidemia, unspecified; R56.9 Unspecified convulsions; I47.2 Ventricular tachycardia; I25.10 Atherosclerotic heart disease of native coronary artery without angina pectoris; G89.4 Chronic pain syndrome; F17.210 Nicotine dependence, cigarettes, uncomplicated; Z95.810 Presence of automatic (implantable) cardiac defibrillator; Z79.01 Long term (current) use of anticoagulants; Z79.82 Long term (current) use of aspirin; Z79.84 Long term (current) use of oral hypoglycemic drugs
CPT/HCPCS: 36415; 71010; 80053; 81000; 83735; 83880; 84484; 85025; 85378; 85610; 93005; 96374; 96375; 96376; 99285; G0378; J1170